=== PATIENT | male | born 1990 | race Caucasian/White ===

== ENCOUNTER 2018-08-03 15:58 | Inpatient (IN) | payer OTHER ==
[2018-07-31 19:50] VITALS: BP 105/68; PULSE 102; RESP 18
[~2018-08-03] VITALS: Ht 157.5 cm; Wt 45.8 kg
[2018-08-03 20:25] VITALS: Ht 157.5 cm; Wt 45.8 kg
[2018-08-03 21:25] VITALS: PULSE 99
[2018-08-03] MEDS ORDERED: ACETAMINOPHEN 325 MG TAB PO PRN (21:30)
[2018-08-03] MEDS ORDERED: ACCU-CHEK XX ONE (21:30)
[2018-08-03] MEDS ORDERED: INSULIN ASPART [NOVOLOG] 3 ML PEN SC ONE ×2 (21:30→22:00)
[2018-08-03] MEDS ORDERED: NACL 0.9% 3 ML SYG IV SCH (21:30)
[2018-08-03] MEDS ORDERED: ONDANSETRON 4 MG INJ IV PRN (21:30)
[2018-08-03] MEDS: SOD CHLORIDE 0.9% 1,000 ML IV SCH (21:43)
[2018-08-03] MEDS ORDERED: GLUCOSE GEL 15 GRAM TUBE BUCCAL PRN (22:00)
[2018-08-03] MEDS ORDERED: GLUCAGON 1 MG INJ IM PRN (22:00)
[2018-08-03] MEDS ORDERED: GLUCOSE GEL 15 GRAM TUBE PO PRN ×2 (22:00)
[2018-08-03] MEDS ORDERED: INSULIN GLARGINE [LANTus] (100 UNITS/ML) SYG SC SCH (22:00)
[2018-08-03] MEDS ORDERED: DEXTROSE 50% 50 ML SYRINGE IV PRN ×2 (22:00)
--- NOTE | 2018-08-03 23:47 | HP ---
Date/Time of Note Date/Time of Note DATE: 08/03/18 TIME: 23:47 Assessment/Plan VTE Prophylaxis Pharmacological prophylaxis: heparin Assessment/Plan Assessment/Plan 28-year-old male with history of type 2 diabetes on metformin, noncompliant for at least 2 months. Patient was sent from outside hospital for insurance reason for management of hyperglycemia. Blood glucose at the outside facility was greater than 700. No sign of DKA 1. Type 2 diabetes: With hyperglycemia. No DKA. Patient noncompliant with his metformin -Insulin, IV fluid -Check A1c 2. Failure to thrive: -Dietary consult -Check CBC and CMP Results 24hrs Laboratory Tests Test 08/03/18 20:18 08/03/18 22:08 Bedside Glucose 377 H 359 H HPI/ROS Admit Date/Time Admit Date/Time Aug 03, 2018 at 19:57 Hx of Present Illness Patient is a 28-year-old male with a history of type 2 diabetes who initially presented on outside hospital complaining of his blood glucose is high and also generalized weakness. He said he has not been taking his metformin for 2 months. At the outside facility, he is found to have a blood glucose greater than 700. No DKA. Patient was transferred to [facility] for insurance reason. Patient is somewhat cachectic. He also not interested in answering question and appears slightly sleepy but fully arousable. PMH/Family/Social Past Medical History Medical History: other (See HPI) Medications Current Medications Sodium Chloride 1,000 ml @ 125 mls/hr Q8H IV Last administered on 08/03/18at 21:43; Admin Dose 125 MLS/HR; Start 08/03/18 at 21:18 IV Flush (NS 3 ml) 3 ml PER PROTOCOL IV ; Start 08/03/18 at 21:30 Ondansetron HCl (Zofran Inj) 4 mg Q6H PRN IV NAUSEA/VOMITING; Start 08/03/18 at 21:30 Acetaminophen (Tylenol Tab) 650 mg Q6H PRN PO .PAIN 1-3 OR TEMP; Start 08/03/18 at 21:30 Diagnostic Test (Pha) (Accu-Chek) 1 ea 02 XX ; Start 08/04/18 at 02:00 Insulin Glargine (Lantus) 14 units DAILY@2000 SC Last administered on 08/03/18at 22:14; Admin Dose 14 UNITS; Start 08/03/18 at 22:00 Insulin Aspart (Novolog Insulin Pen) 4 unit WITH MEALS SC ; Start 08/04/18 at 07:55 Insulin Aspart (Novolog Insulin Pen) NOVOLOG *MODERATE* ALGORITHM WITH MEALS BEDTIME SC ; Start 08/04/18 at 07:55 Diagnostic Test (Pha) (Accu-Chek) 1 ea 2 HRS AFTER NOVOLOG ONCE XX ; Start 08/04/18 at 00:00; Stop 08/04/18 at 00:01 Miscellaneous Information 1 ea NOTE XX ; Start 08/03/18 at 22:00 Glucose (Glutose) 15 gm Q15M PRN PO DECREASED GLUCOSE; Start 08/03/18 at 22:00 Glucose (Glutose) 22.5 gm Q15M PRN PO DECREASED GLUCOSE; Start 08/03/18 at 22:00 Dextrose (D50w Syringe) 25 ml Q15M PRN IV DECREASED GLUCOSE; Start 08/03/18 at 22:00 Dextrose (D50w Syringe) 50 ml Q15M PRN IV DECREASED GLUCOSE; Start 08/03/18 at 22:00 Glucagon (Glucagen) 1 mg Q15M PRN IM DECREASED GLUCOSE; Start 08/03/18 at 22:00 Glucose (Glutose) 15 gm Q15M PRN BUCCAL DECREASED GLUCOSE; Start 08/03/18 at 22:00 Coded Allergies: No Known Allergies (Verified Allergy, Unknown, 08/03/18) Past Surgical History Past Surgical Hx: other (See HPI) Family History Significant Family History: no pertinent family hx Social History Alcohol Use: other Smoking Status: Unknown if ever smoked Drug Use: other Exam/Review of Systems Vital Signs Vitals Vital Signs Date Temp Pulse Resp B/P (MAP) Pulse Ox O2 O2 Flow FiO2 Time Delivery Rate 08/03/18 99 21:25 07/31/18 98.3 18 105/68 97 Room Air 19:50 (80) Exam Constitutional: other (Sleepy, but arousable. Alert and oriented) Head: normocephalic, atraumatic Eyes: EOMI, PERRL Respiratory: clear to auscultation, normal air movement Cardiovascular: regular rate and rhythm, nl pulses Gastrointestinal: soft Extremities: normal pulses ELIA ARANA MD Aug 03, 2018 23:47
[2018-08-04] VITALS (10 sets, daily range): BP systolic 97–109; BP diastolic 57–67; PULSE 71–103; RESP 18–20
[2018-08-04] MEDS ORDERED: INSULIN ASPART [NOVOLOG] 3 ML PEN SC ONE ×2 (01:00→12:30)
[2018-08-04] MEDS ORDERED: ACCU-CHEK XX ONE ×3 (01:00→12:30)
[2018-08-04] MEDS: ACCU-CHEK XX SCH (03:15)
[2018-08-04] MEDS: SOD CHLORIDE 0.9% 1,000 ML IV SCH ×3 (06:15→22:25)
[2018-08-04] MEDS ORDERED: MAGNESIUM SULFATE 4 GM/100 ML 100 ML IVPB ONE ×2 (07:00→11:00)
[2018-08-04] MEDS: POTASSIUM CHLORIDE 100 ML IVPB SCH ×2 (07:47→10:20)
[2018-08-04] MEDS: INSULIN ASPART [NOVOLOG] 3 ML PEN SC SCH ×7 (08:06→20:20)
[2018-08-04] MEDS ORDERED: LEVOFLOXACIN 500MG/D5W (PMX) 100 ML IVPB SCH (09:00)
[2018-08-04] MEDS ORDERED: POTASSIUM CHLORIDE (SR) 20 MEQ TAB PO STA (12:28)
--- NOTE | 2018-08-04 12:43 | PN ---
Date/Time of Note Date/Time of Note DATE: 08/04/18 TIME: 12:38 Assessment/Plan VTE Prophylaxis Risk score (from Ns)>0 risk: 1 SCD applied (from [facility] [place]): Yes Pharmacological prophylaxis: other Pharm contraindication: other Assessment/Plan Assessment/Plan 1. Sepsis, ?biliary, change antibiotics to zosyn and vanco, abdominal US, may need MRCP 2. Hypokalemia, KCL 3. Hypomagnesemia, Mg 4. High alk phos, US, may need MRCP 5. Type 2 diabetes, change lantus to 10 units bid, on premeal and ISS 6. Dehydration IVF 7. DVT prophylaxis: SCDs Result Diagram: 08/04/18 0548 08/04/18 0548 Results 24hrs Laboratory Tests Test 08/03/18 20:18 08/03/18 22:08 08/04/18 00:23 08/04/18 03:14 Bedside Glucose 377 H 359 H 374 H 117 Test 08/04/18 05:48 08/04/18 07:59 08/04/18 12:14 White Blood Count 20.5 H Red Blood Count 5.05 Hemoglobin 13.9 L Hematocrit 39.6 L Mean Corpuscular 78.4 L Volume Mean Corpuscular 27.5 L Hemoglobin Mean Corpuscular 35.1 Hemoglobin Concent Red Cell 11.8 Distribution Width Platelet Count 426 H Mean Platelet Volume 9.8 Immature 0.600 H Granulocytes % Neutrophils % 76.5 Lymphocytes % 15.9 Monocytes % 6.1 Eosinophils % 0.6 Basophils % 0.3 Nucleated Red Blood 0.0 Cells % Immature 0.120 H Granulocytes # Neutrophils # 15.7 H Lymphocytes # 3.3 H Monocytes # 1.2 H Eosinophils # 0.1 Basophils # 0.1 Nucleated Red Blood 0.0 Cells # Sodium Level 137 Potassium Level 3.0 L Chloride Level 96 L Carbon Dioxide Level 34 H Anion Gap 7 Blood Urea Nitrogen 16 Creatinine 0.53 L Est Glomerular > 60 Filtrat Rate mL/min Glucose Level 176 Calcium Level 8.5 Magnesium Level 0.9 *L Total Bilirubin 0.2 Direct Bilirubin 0.00 Indirect Bilirubin 0.2 Aspartate Amino 84 H Transf (AST/SGOT) Alanine 82 H Aminotransferase (AL T/SGPT) Alkaline Phosphatase 1008 H Total Protein 6.6 Albumin 2.9 L Globulin 3.70 H Albumin/Globulin 0.78 Ratio Bedside Glucose 215 373 H Subjective 24 Hr Interval Summary Free Text/Dictation no abdominal pain, no nausea or vomiting, denies alcoholic no cough or shortness of breath Exam/Review of Systems Exam Vitals Vital Signs Date Temp Pulse Resp B/P (MAP) Pulse Ox O2 O2 Flow FiO2 Time Delivery Rate 08/04/18 98.0 78 20 105/67 98 12:02 (80) 08/04/18 Room Air 04:22 Intake and Output 08/03/18 08/03/18 08/04/18 1515:00 23:00 07:00 IntakeIntake Total 950 ml BalanceBalance 950 ml Constitutional: alert, oriented, well developed Head: normocephalic, atraumatic Eyes: nl conjunctiva, EOMI, nl lids ENMT: nl external ears & nose, nl lips & teeth, nl nasal mucosa & septum Neck: supple, non-tender Respiratory: clear to auscultation, normal air movement; No congested cough, No crackles/rales, No diminished breath sounds, No intercostal retraction, No labored breathing, No respirations, No tactile fremitus, No wheezing, No other Cardiovascular: regular rate and rhythm, nl pulses; No bruits, No diastolic murmur, No edema, No gallop, No irregular rhythm, No jugular venous distention (JVD), No murmurs/extra sounds, No rub, No systolic murmur, No S3, No S4, No other Gastrointestinal: soft, nl liver, spleen, non-tender Musculoskeletal: nl extremities to inspection Extremities: normal pulses; No calf tenderness, No cyanosis, No clubbing, No edema, No pitting pedal edema, No palpable cord, No tenderness, No other 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: 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 [employer] 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 II-XII intact, nl mental status, nl speech, nl strength Results Results 24hrs Laboratory Tests Test 08/03/18 20:18 08/03/18 22:08 08/04/18 00:23 08/04/18 03:14 Bedside Glucose 377 H 359 H 374 H 117 Test 08/04/18 05:48 08/04/18 07:59 08/04/18 12:14 White Blood Count 20.5 H Red Blood Count 5.05 Hemoglobin 13.9 L Hematocrit 39.6 L Mean Corpuscular 78.4 L Volume Mean Corpuscular 27.5 L Hemoglobin Mean Corpuscular 35.1 Hemoglobin Concent Red Cell 11.8 Distribution Width Platelet Count 426 H Mean Platelet Volume 9.8 Immature 0.600 H Granulocytes % Neutrophils % 76.5 Lymphocytes % 15.9 Monocytes % 6.1 Eosinophils % 0.6 Basophils % 0.3 Nucleated Red Blood 0.0 Cells % Immature 0.120 H Granulocytes # Neutrophils # 15.7 H Lymphocytes # 3.3 H Monocytes # 1.2 H Eosinophils # 0.1 Basophils # 0.1 Nucleated Red Blood 0.0 Cells # Sodium Level 137 Potassium Level 3.0 L Chloride Level 96 L Carbon Dioxide Level 34 H Anion Gap 7 Blood Urea Nitrogen 16 Creatinine 0.53 L Est Glomerular > 60 Filtrat Rate mL/min Glucose Level 176 Calcium Level 8.5 Magnesium Level 0.9 *L Total Bilirubin 0.2 Direct Bilirubin 0.00 Indirect Bilirubin 0.2 Aspartate Amino 84 H Transf (AST/SGOT) Alanine 82 H Aminotransferase (AL T/SGPT) Alkaline Phosphatase 1008 H Total Protein 6.6 Albumin 2.9 L Globulin 3.70 H Albumin/Globulin 0.78 Ratio Bedside Glucose 215 373 H Medications Medication Current Medications Sodium Chloride 1,000 ml @ 125 mls/hr Q8H IV Last administered on 08/04/18at 06:15; Admin Dose 125 MLS/HR; Start 08/03/18 at 21:18 IV Flush (NS 3 ml) 3 ml PER PROTOCOL IV ; Start 08/03/18 at 21:30 Ondansetron HCl (Zofran Inj) 4 mg Q6H PRN IV NAUSEA/VOMITING; Start 08/03/18 at 21:30 Acetaminophen (Tylenol Tab) 650 mg Q6H PRN PO .PAIN 1-3 OR TEMP; Start 08/03/18 at 21:30 Diagnostic Test (Pha) (Accu-Chek) 1 ea 02 XX Last administered on 08/04/18at 03:15; Admin Dose 1 EA; Start 08/04/18 at 02:00 Insulin Aspart (Novolog Insulin Pen) 4 unit WITH MEALS SC Last administered on 08/04/18at 08:06; Admin Dose 4 UNIT; Start 08/04/18 at 07:55 Insulin Aspart (Novolog Insulin Pen) NOVOLOG *MODERATE* ALGORITHM WITH MEALS BEDTIME SC Last administered on 08/04/18at 08:06; Admin Dose 4 UNIT; Start 08/04/18 at 07:55 Miscellaneous Information 1 ea NOTE XX ; Start 08/03/18 at 22:00 Glucose (Glutose) 15 gm Q15M PRN PO DECREASED GLUCOSE; Start 08/03/18 at 22:00 Glucose (Glutose) 22.5 gm Q15M PRN PO DECREASED GLUCOSE; Start 08/03/18 at 22:00 Dextrose (D50w Syringe) 25 ml Q15M PRN IV DECREASED GLUCOSE; Start 08/03/18 at 22:00 Dextrose (D50w Syringe) 50 ml Q15M PRN IV DECREASED GLUCOSE; Start 08/03/18 at 22:00 Glucagon (Glucagen) 1 mg Q15M PRN IM DECREASED GLUCOSE; Start 08/03/18 at 22:00 Glucose (Glutose) 15 gm Q15M PRN BUCCAL DECREASED GLUCOSE; Start 08/03/18 at 22:00 Magnesium Sulfate 100 ml @ 25 mls/hr ONCE ONCE IVPB Last administered on 08/04/18at 12:09; Admin Dose 25 MLS/HR; Start 08/04/18 at 11:00; Stop 08/04/18 at 14:59 Diagnostic Test (Pha) (Accu-Chek) 1 ea 2 HRS AFTER NOVOLOG ONCE XX ; Start 08/04/18 at 12:30; Stop 08/04/18 at 12:31; Status UNV Piperacillin Sod/ Tazobactam Sod 100 ml @ 200 mls/hr Q6 IVPB ; Start 08/04/18 at 13:00; Status UNV Insulin Glargine (Lantus) 10 units BID SC ; Start 08/04/18 at 21:00; Status UNV MAHAMED ESCOBAR MD Aug 04, 2018 12:43
[2018-08-04] MEDS ORDERED: VANCOMYCIN IV PER PHARMACY XX SCH (13:00)
[2018-08-04] MEDS ORDERED: VANCOMYCIN 1 GM 250 ML IVPB ONE (13:00)
[2018-08-04] MEDS: PIPER-TAZO 3.375 GM IV (PMX) 100 ML IVPB SCH ×2 (13:43→16:50)
[2018-08-04] MEDS: INSULIN GLARGINE [LANTus] (100 UNITS/ML) SYG SC SCH (20:23)
[2018-08-04] MEDS ORDERED: INSULIN GLARGINE [LANTus] (100 UNITS/ML) SYG SC SCH (21:00)
[2018-08-05] VITALS (10 sets, daily range): BP systolic 95–107; BP diastolic 58–96; PULSE 72–98; RESP 18
[2018-08-05] MEDS: PIPER-TAZO 3.375 GM IV (PMX) 100 ML IVPB SCH ×5 (00:22→23:45)
[2018-08-05] MEDS: ACCU-CHEK XX SCH (02:00)
[2018-08-05] MEDS: VANCOMYCIN 750 MG (PMX) 250 ML IVPB SCH ×2 (02:19→13:58)
[2018-08-05] MEDS: SOD CHLORIDE 0.9% 1,000 ML IV SCH ×3 (05:18→21:18)
[2018-08-05] MEDS: INSULIN ASPART [NOVOLOG] 3 ML PEN SC SCH ×7 (08:02→21:07)
[2018-08-05] MEDS ORDERED: POTASSIUM CHLORIDE (SR) 20 MEQ TAB PO STA (08:36)
[2018-08-05] MEDS ORDERED: POTASSIUM CHLORIDE 100 ML IVPB STA (08:36)
[2018-08-05] MEDS ORDERED: MAGNESIUM SULFATE 6 GM in DEXTROSE 5% 100 ML IVPB SCH (09:00)
[2018-08-05] MEDS: INSULIN GLARGINE [LANTus] (100 UNITS/ML) SYG SC SCH ×2 (09:07→21:07)
[2018-08-05] MEDS ORDERED: POTASSIUM CHLORIDE (SR) 20 MEQ TAB PO ONE (10:36)
--- NOTE | 2018-08-05 13:43 | PN ---
Date/Time of Note Date/Time of Note DATE: 08/05/18 TIME: 13:31 Assessment/Plan VTE Prophylaxis Risk score (from Ns)>0 risk: 1 SCD applied (from [facility] [place]): Yes Pharmacological prophylaxis: other Pharm contraindication: other Lines/Catheters IV C[facility]ter Type (from [facility]): Peripheral IV Assessment/Plan Assessment/Plan 1. Sepsis, ?biliary, change antibiotics to zosyn and vanco, MRCP 2. Hypokalemia, KCL 3. Hypomagnesemia, Mg 4. Transaminitis, with high alk phos, US,MRCP, hepatitis panel 5. Type 2 diabetes, change lantus to 14 units bid, on premeal and ISS 6. Dehydration IVF 7. DVT prophylaxis: SCDs Result Diagram: 08/05/18 0654 08/05/18 0654 Results 24hrs Laboratory Tests Test 08/04/18 13:36 08/04/18 13:38 08/04/18 14:24 08/04/18 16:57 Bedside Glucose 467 *H 526 *H 338 H 223 H Test 08/04/18 20:08 08/04/18 20:19 08/04/18 23:26 08/05/18 06:54 Lactic Acid Level 2.9 *H 1.7 Bedside Glucose 167 White Blood Count 18.7 H Red Blood Count 5.04 Hemoglobin 13.6 L Hematocrit 40.2 L Mean Corpuscular 79.8 L Volume Mean Corpuscular 27.0 L Hemoglobin Mean Corpuscular 33.8 Hemoglobin Concent Red Cell 11.8 Distribution Width Platelet Count 427 H Mean Platelet Volume 9.7 Immature 0.500 H Granulocytes % Neutrophils % 74.2 Lymphocytes % 17.7 Monocytes % 6.8 Eosinophils % 0.4 Basophils % 0.4 Nucleated Red Blood 0.0 Cells % Immature 0.090 H Granulocytes # Neutrophils # 13.9 H Lymphocytes # 3.3 H Monocytes # 1.3 H Eosinophils # 0.1 Basophils # 0.1 Nucleated Red Blood 0.0 Cells # Sodium Level 136 Potassium Level 3.0 L Chloride Level 97 Carbon Dioxide Level 32 H Anion Gap 7 Blood Urea Nitrogen 12 Creatinine 0.61 Est Glomerular > 60 Filtrat Rate mL/min Glucose Level 187 Calcium Level 8.0 L Phosphorus Level 2.6 Magnesium Level 1.2 L Total Bilirubin 0.4 Direct Bilirubin 0.00 Indirect Bilirubin 0.4 Aspartate Amino 75 H Transf (AST/SGOT) Alanine 72 H Aminotransferase (AL T/SGPT) Alkaline Phosphatase 961 H Total Protein 6.4 Albumin 2.9 L Globulin 3.50 H Albumin/Globulin 0.82 Ratio Test 08/05/18 07:45 08/05/18 09:02 08/05/18 12:14 Bedside Glucose 215 276 H 259 H Subjective 24 Hr Interval Summary Free Text/Dictation no pain, no cough, no fever or chills. No diarrhea or dysuria Exam/Review of Systems Exam Vitals Vital Signs Date Temp Pulse Resp B/P (MAP) Pulse Ox O2 O2 Flow FiO2 Time Delivery Rate 08/05/18 76 13:06 08/05/18 97.8 18 95/58 (70) 96 Room Air 11:20 Intake and Output 08/04/18 08/04/18 08/05/18 1515:00 23:00 07:00 IntakeIntake Total 1800 ml 2225 ml 3300 ml OutputOutput Total 1600 ml 1600 ml 2800 ml BalanceBalance 200 ml 625 ml 500 ml Constitutional: alert, oriented, well developed Psych: no complaints, nl mood/affect Head: normocephalic, atraumatic Eyes: nl conjunctiva, EOMI, nl lids ENMT: nl external ears & nose, nl lips & teeth, nl nasal mucosa & septum Neck: supple, non-tender Respiratory: clear to auscultation, normal air movement; No congested cough, No crackles/rales, No diminished breath sounds, No intercostal retraction, No labored breathing, No respirations, No tactile fremitus, No wheezing, No other Cardiovascular: regular rate and rhythm, nl pulses; No bruits, No diastolic murmur, No edema, No gallop, No irregular rhythm, No jugular venous distention (JVD), No murmurs/extra sounds, No rub, No systolic murmur, No S3, No S4, No other Gastrointestinal: soft, nl liver, spleen, non-tender Musculoskeletal: nl extremities to inspection Extremities: normal pulses; No calf tenderness, No cyanosis, No clubbing, No edema, No pitting pedal edema, No palpable cord, No tenderness, No other 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: T[employer] II-XII intact, nl mental status, nl speech, nl strength Results Results 24hrs Laboratory Tests Test 08/04/18 13:36 08/04/18 13:38 08/04/18 14:24 08/04/18 16:57 Bedside Glucose 467 *H 526 *H 338 H 223 H Test 08/04/18 20:08 08/04/18 20:19 08/04/18 23:26 08/05/18 06:54 Lactic Acid Level 2.9 *H 1.7 Bedside Glucose 167 White Blood Count 18.7 H Red Blood Count 5.04 Hemoglobin 13.6 L Hematocrit 40.2 L Mean Corpuscular 79.8 L Volume Mean Corpuscular 27.0 L Hemoglobin Mean Corpuscular 33.8 Hemoglobin Concent Red Cell 11.8 Distribution Width Platelet Count 427 H Mean Platelet Volume 9.7 Immature 0.500 H Granulocytes % Neutrophils % 74.2 Lymphocytes % 17.7 Monocytes % 6.8 Eosinophils % 0.4 Basophils % 0.4 Nucleated Red Blood 0.0 Cells % Immature 0.090 H Granulocytes # Neutrophils # 13.9 H Lymphocytes # 3.3 H Monocytes # 1.3 H Eosinophils # 0.1 Basophils # 0.1 Nucleated Red Blood 0.0 Cells # Sodium Level 136 Potassium Level 3.0 L Chloride Level 97 Carbon Dioxide Level 32 H Anion Gap 7 Blood Urea Nitrogen 12 Creatinine 0.61 Est Glomerular > 60 Filtrat Rate mL/min Glucose Level 187 Calcium Level 8.0 L Phosphorus Level 2.6 Magnesium Level 1.2 L Total Bilirubin 0.4 Direct Bilirubin 0.00 Indirect Bilirubin 0.4 Aspartate Amino 75 H Transf (AST/SGOT) Alanine 72 H Aminotransferase (AL T/SGPT) Alkaline Phosphatase 961 H Total Protein 6.4 Albumin 2.9 L Globulin 3.50 H Albumin/Globulin 0.82 Ratio Test 08/05/18 07:45 08/05/18 09:02 08/05/18 12:14 Bedside Glucose 215 276 H 259 H Medications Medication Current Medications Sodium Chloride 1,000 ml @ 125 mls/hr Q8H IV Last administered on 08/04/18at 22:25; Admin Dose 125 MLS/HR; Start 08/03/18 at 21:18 IV Flush (NS 3 ml) 3 ml PER PROTOCOL IV ; Start 08/03/18 at 21:30 Ondansetron HCl (Zofran Inj) 4 mg Q6H PRN IV NAUSEA/VOMITING; Start 08/03/18 at 21:30 Acetaminophen (Tylenol Tab) 650 mg Q6H PRN PO .PAIN 1-3 OR TEMP; Start 08/03/18 at 21:30 Diagnostic Test (Pha) (Accu-Chek) 1 ea 02 XX Last administered on 08/04/18at 03:15; Admin Dose 1 EA; Start 08/04/18 at 02:00 Insulin Aspart (Novolog Insulin Pen) 4 unit WITH MEALS SC Last administered on 08/05/18at 12:19; Admin Dose 4 UNIT; Start 08/04/18 at 07:55 Insulin Aspart (Novolog Insulin Pen) NOVOLOG *MODERATE* ALGORITHM WITH MEALS BEDTIME SC Last administered on 08/05/18at 12:19; Admin Dose 6 UNIT; Start 08/04/18 at 07:55 Miscellaneous Information 1 ea NOTE XX ; Start 08/03/18 at 22:00 Glucose (Glutose) 15 gm Q15M PRN PO DECREASED GLUCOSE; Start 08/03/18 at 22:00 Glucose (Glutose) 22.5 gm Q15M PRN PO DECREASED GLUCOSE; Start 08/03/18 at 22:00 Dextrose (D50w Syringe) 25 ml Q15M PRN IV DECREASED GLUCOSE; Start 08/03/18 at 22:00 Dextrose (D50w Syringe) 50 ml Q15M PRN IV DECREASED GLUCOSE; Start 08/03/18 at 22:00 Glucagon (Glucagen) 1 mg Q15M PRN IM DECREASED GLUCOSE; Start 08/03/18 at 22:00 Glucose (Glutose) 15 gm Q15M PRN BUCCAL DECREASED GLUCOSE; Start 08/03/18 at 22:00 Piperacillin Sod/ Tazobactam Sod 100 ml @ 200 mls/hr Q6 IVPB Last administered on 08/05/18at 11:43; Admin Dose 200 MLS/HR; Start 08/04/18 at 13:00 Insulin Glargine (Lantus) 10 units BID SC Last administered on 08/05/18at 09:07; Admin Dose 10 UNITS; Start 08/04/18 at 21:00 Vancomycin HCl (Vanco Iv Per Pharmacy) VANCOMYCIN PER PHARMACY PER PROTOCOL XX ; Start 08/04/18 at 13:00 Vancomycin/Sodium Chloride 250 ml @ 250 mls/hr Q12H IVPB Last administered on 08/05/18at 02:19; Admin Dose 250 MLS/HR; Start 08/05/18 at 02:00 Magnesium Sulfate 6 gm/Dextrose 112 ml @ 40 mls/hr NOW IVPB Last administered on 08/05/18at 09:26; Admin Dose 40 MLS/HR; Start 08/05/18 at 09:00; Stop 08/05/18 at 18:00 MAHAMED ESCOBAR MD Aug 05, 2018 13:42
--- NOTE | 2018-08-05 15:58 | CONS ---
Assessment/Plan Assessment/Plan Hospital Course (Demo Recall) Summary Assessment and Plan: Assessment: Elevated alkaline phosphatase Transaminitis Leukocytosis Type 2 diabetes Plan: MRCP is currently pending We will order alkaline phosphatase fractionation as well as GGTP with a.m. labs. Given significant elevation in alkaline phosphatase we will additionally order mitochondrial antibody Continue to trend LFTS Further recommendations based on clinical course Patient seen in collaboration with Dr. Vital CC: HUSSEIN VITAL MD ; Consultation Date/Type/Reason Admit Date/Time Aug 03, 2018 at 19:57 Date of Consultation: Aug 05, 2018 Type of Consult GI Reason for Consultation Abnormal LFTs Date/Time of Note DATE: 08/05/18 TIME: 15:52 Hx of Present Illness This a 28-year-old male with past medical history of diabetes, noncompliant. Who presented to [facility] for elevated blood sugar there was noted to be greater than 700 additional lab work was obtained patient noted to have WBC of 18.4. He was transferred to [facility] for insurance reasons here additional work-up was obtained including a chemistry panel showing a severely elevated alkaline phosphatase over 1000 and mildly elevated AST ALT 70s. Is been consulted for further evaluation thus far hepatitis panel has been ordered, hepatitis B surface antigen is negative hepatitis B core total antibody and hep atitis C antibody are both currently pending. An MRCP has been ordered and is also currently pending. At time of evaluation patient is resting in bed easily awake and agitated he denies nausea/vomiting, abdominal pain, constipation, diarrhea, overt signs of GI bleed states he is eating well despite appearing very thin. Discussed plan for further work-up patient relies understanding is agreeable socially denies smoking, drug use, or EtOH use Review of Systems: A 12 system, review was conducted and is negative except as noted in the HPI or here. Past Medical History Medical History: other (See HPI) Medications Current Medications Sodium Chloride 1,000 ml @ 125 mls/hr Q8H IV Last administered on 08/05/18at 13:58; Admin Dose 125 MLS/HR; Start 08/03/18 at 21:18 IV Flush (NS 3 ml) 3 ml PER PROTOCOL IV ; Start 08/03/18 at 21:30 Ondansetron HCl (Zofran Inj) 4 mg Q6H PRN IV NAUSEA/VOMITING; Start 08/03/18 at 21:30 Acetaminophen (Tylenol Tab) 650 mg Q6H PRN PO .PAIN 1-3 OR TEMP; Start 08/03/18 at 21:30 Diagnostic Test (Pha) (Accu-Chek) 1 ea 02 XX Last administered on 08/04/18at 03:15; Admin Dose 1 EA; Start 08/04/18 at 02:00 Insulin Aspart (Novolog Insulin Pen) 4 unit WITH MEALS SC Last administered on 08/05/18at 12:19; Admin Dose 4 UNIT; Start 08/04/18 at 07:55 Insulin Aspart (Novolog Insulin Pen) NOVOLOG *MODERATE* ALGORITHM WITH MEALS BEDTIME SC Last administered on 08/05/18at 12:19; Admin Dose 6 UNIT; Start 08/04/18 at 07:55 Miscellaneous Information 1 ea NOTE XX ; Start 08/03/18 at 22:00 Glucose (Glutose) 15 gm Q15M PRN PO DECREASED GLUCOSE; Start 08/03/18 at 22:00 Glucose (Glutose) 22.5 gm Q15M PRN PO DECREASED GLUCOSE; Start 08/03/18 at 22:00 Dextrose (D50w Syringe) 25 ml Q15M PRN IV DECREASED GLUCOSE; Start 08/03/18 at 22:00 Dextrose (D50w Syringe) 50 ml Q15M PRN IV DECREASED GLUCOSE; Start 08/03/18 at 22:00 Glucagon (Glucagen) 1 mg Q15M PRN IM DECREASED GLUCOSE; Start 08/03/18 at 22:00 Glucose (Glutose) 15 gm Q15M PRN BUCCAL DECREASED GLUCOSE; Start 08/03/18 at 22:00 Piperacillin Sod/ Tazobactam Sod 100 ml @ 200 mls/hr Q6 IVPB Last administered on 08/05/18at 11:43; Admin Dose 200 MLS/HR; Start 08/04/18 at 13:00 Vancomycin HCl (Vanco Iv Per Pharmacy) VANCOMYCIN PER PHARMACY PER PROTOCOL XX ; Start 08/04/18 at 13:00 Vancomycin/Sodium Chloride 250 ml @ 250 mls/hr Q12H IVPB Last administered on 08/05/18at 13:58; Admin Dose 250 MLS/HR; Start 08/05/18 at 02:00 Magnesium Sulfate 6 gm/Dextrose 112 ml @ 40 mls/hr NOW IVPB Last administered on 08/05/18at 09:26; Admin Dose 40 MLS/HR; Start 08/05/18 at 09:00; Stop 08/05/18 at 18:00 Insulin Glargine (Lantus) 14 units BID SC ; Start 08/05/18 at 21:00 Allergies: Coded Allergies: No Known Allergies (Verified Allergy, Unknown, 08/03/18) Past Surgical History Past Surgical Hx: other (See HPI) Social History Alcohol Use: other Smoking Status: Unknown if ever smoked Drug Use: other Exam/Review of Systems Exam Vitals Vital Signs Date Temp Pulse Resp B/P (MAP) Pulse Ox O2 O2 Flow FiO2 Time Delivery Rate 08/05/18 97.4 88 18 97/66 (76) 97 Room Air 15:05 Intake and Output 08/04/18 08/04/18 08/05/18 1515:00 23:00 07:00 IntakeIntake Total 1800 ml 2225 ml 3300 ml OutputOutput Total 1600 ml 1600 ml 2800 ml BalanceBalance 200 ml 625 ml 500 ml Exam PHYSICAL EXAMINATION: GENERAL: Alert & oriented x 3,thin, agitated SKIN: No lesions HEAD: Normocephalic, atraumatic, no tenderness. EYES: Pupils equal reactive to light and accommodation, no discharge. EARS/NOSE AND THROAT: Ears normal, nose normal. NECK: Supple, no masses CHEST: Inspection within normal limits. CARDIOVASCULAR: Heart: Regular rate and rhythm RESPIRATORY: Lungs clear to auscultation GASTROINTESTINAL AND LIVER: Abdomen: Soft, non tenderness, non-distended, no hernias, no masses, no organomegaly, no ascites, no guarding, no rebound tenderness, normoactive bowel sounds. Rectal: Deferred. Results Result Diagram: 08/05/18 0654 08/05/18 0654 Results 24hrs Laboratory Tests Test 08/04/18 16:57 08/04/18 20:08 08/04/18 20:19 08/04/18 23:26 Bedside Glucose 223 H 167 Lactic Acid Level 2.9 *H 1.7 Test 08/05/18 06:52 08/05/18 06:54 08/05/18 07:45 08/05/18 09:02 Hepatitis B Surface NEGATIVE Antigen Hepatitis B Core NEGATIVE Total Antibody Hepatitis C Antibody NEGATIVE White Blood Count 18.7 H Red Blood Count 5.04 Hemoglobin 13.6 L Hematocrit 40.2 L Mean Corpuscular 79.8 L Volume Mean Corpuscular 27.0 L Hemoglobin Mean Corpuscular 33.8 Hemoglobin Concent Red Cell 11.8 Distribution Width Platelet Count 427 H Mean Platelet Volume 9.7 Immature 0.500 H Granulocytes % Neutrophils % 74.2 Lymphocytes % 17.7 Monocytes % 6.8 Eosinophils % 0.4 Basophils % 0.4 Nucleated Red Blood 0.0 Cells % Immature 0.090 H Granulocytes # Neutrophils # 13.9 H Lymphocytes # 3.3 H Monocytes # 1.3 H Eosinophils # 0.1 Basophils # 0.1 Nucleated Red Blood 0.0 Cells # Sodium Level 136 Potassium Level 3.0 L Chloride Level 97 Carbon Dioxide Level 32 H Anion Gap 7 Blood Urea Nitrogen 12 Creatinine 0.61 Est Glomerular > 60 Filtrat Rate mL/min Glucose Level 187 Calcium Level 8.0 L Phosphorus Level 2.6 Magnesium Level 1.2 L Total Bilirubin 0.4 Direct Bilirubin 0.00 Indirect Bilirubin 0.4 Aspartate Amino 75 H Transf (AST/SGOT) Alanine 72 H Aminotransferase (AL T/SGPT) Alkaline Phosphatase 961 H Total Protein 6.4 Albumin 2.9 L Globulin 3.50 H Albumin/Globulin 0.82 Ratio Bedside Glucose 215 276 H Test 08/05/18 12:14 Bedside Glucose 259 H Medications Medication Current Medications Sodium Chloride 1,000 ml @ 125 mls/hr Q8H IV Last administered on 08/05/18at 13:58; Admin Dose 125 MLS/HR; Start 08/03/18 at 21:18 IV Flush (NS 3 ml) 3 ml PER PROTOCOL IV ; Start 08/03/18 at 21:30 Ondansetron HCl (Zofran Inj) 4 mg Q6H PRN IV NAUSEA/VOMITING; Start 08/03/18 at 21:30 Acetaminophen (Tylenol Tab) 650 mg Q6H PRN PO .PAIN 1-3 OR TEMP; Start 08/03/18 at 21:30 Diagnostic Test (Pha) (Accu-Chek) 1 ea 02 XX Last administered on 08/04/18at 03:15; Admin Dose 1 EA; Start 08/04/18 at 02:00 Insulin Aspart (Novolog Insulin Pen) 4 unit WITH MEALS SC Last administered on 08/05/18at 12:19; Admin Dose 4 UNIT; Start 08/04/18 at 07:55 Insulin Aspart (Novolog Insulin Pen) NOVOLOG *MODERATE* ALGORITHM WITH MEALS BEDTIME SC Last administered on 08/05/18at 12:19; Admin Dose 6 UNIT; Start 08/04/18 at 07:55 Miscellaneous Information 1 ea NOTE XX ; Start 08/03/18 at 22:00 Glucose (Glutose) 15 gm Q15M PRN PO DECREASED GLUCOSE; Start 08/03/18 at 22:00 Glucose (Glutose) 22.5 gm Q15M PRN PO DECREASED GLUCOSE; Start 08/03/18 at 22:00 Dextrose (D50w Syringe) 25 ml Q15M PRN IV DECREASED GLUCOSE; Start 08/03/18 at 22:00 Dextrose (D50w Syringe) 50 ml Q15M PRN IV DECREASED GLUCOSE; Start 08/03/18 at 22:00 Glucagon (Glucagen) 1 mg Q15M PRN IM DECREASED GLUCOSE; Start 08/03/18 at 22:00 Glucose (Glutose) 15 gm Q15M PRN BUCCAL DECREASED GLUCOSE; Start 08/03/18 at 22:00 Piperacillin Sod/ Tazobactam Sod 100 ml @ 200 mls/hr Q6 IVPB Last administered on 08/05/18at 11:43; Admin Dose 200 MLS/HR; Start 08/04/18 at 13:00 Vancomycin HCl (Vanco Iv Per Pharmacy) VANCOMYCIN PER PHARMACY PER PROTOCOL XX ; Start 08/04/18 at 13:00 Vancomycin/Sodium Chloride 250 ml @ 250 mls/hr Q12H IVPB Last administered on 08/05/18at 13:58; Admin Dose 250 MLS/HR; Start 08/05/18 at 02:00 Magnesium Sulfate 6 gm/Dextrose 112 ml @ 40 mls/hr NOW IVPB Last administered on 08/05/18at 09:26; Admin Dose 40 MLS/HR; Start 08/05/18 at 09:00; Stop 08/05/18 at 18:00 Insulin Glargine (Lantus) 14 units BID SC ; Start 08/05/18 at 21:00 CAMERON MORA Aug 05, 2018 15:58
--- NOTE | 2018-08-05 17:42 | CONS ---
DATE OF ADMISSION: 08/03/2018 DATE OF CONSULTATION: 08/05/2018 TYPE OF CONSULTATION: Infectious disease. REASON FOR CONSULTATION: Antibiotic management. HISTORY OF PRESENT ILLNESS: Eleazar Lawton is a 28-year-old male with history of adult-ons et diabetes mellitus who initially presented to an outside hospital with blood sugar in the 700s. He has not been taking his metformin for 2 months. There is no evidence of DKA. He was transferred to [facility]. The patient is somewhat cachectic and is somewhat lethargic, sleepy and noncom pliant. PAST MEDICAL HISTORY: As outlined. FAMILY HISTORY: Noncontributory. SOCIAL HISTORY: He drinks alcohol. It is unknown if he ever smoked. He probably does use illegal d rugs. PHYSICAL EXAMINATION: GENERAL: He is sleepy, but arousable. SKIN: Without generalized rash. HEENT: Within normal limits. NECK: Supple. LYMPH NODES: None palpable. CHEST: Decreased breath sounds at the bases. HEART: Without murmur or gallop. ABDOMEN: Soft, nontender, without organosplenomegaly or masses. EXTREMITIES: Without cyanosis, clubbing or edema. RECTAL AND GENITAL: Deferred. NEUROLOGIC: No focal neurological abnormality. DIAGNOSTIC DATA: The patient unremarkable abdominal ultrasound with suboptimal visualization of the left kidney. ANCILLARY LABORATORY DATA: His white count on admission was 20.5, today it is 18.7, H and H 13.6 and 40.2, platelet count 427,000 with 74% neutrophils. BUN and creatinine are 12/0.61. Blood sugar is 259. AST 75, ALT 72, alkaline phosphatase 961 which is elevated. Bilirubin is normal. IMPRESSION AND PLAN: The patient was seen by Dr. Escobar, question of biliary changes. Abdominal ultra sound was done. May need MRCP for the time being. The patient's glucose is under control. We will continue him on current therapy. His white count is down to 18.7. I will dictate my findings to the hospitalist. He is on vancomycin and Zosyn. Dictated By: HIGINIO LR MD, JD/NTS Conf#: [id number] DID#: [id number] CC: DONNY MORA MD; AUDRA DILLON [employer] SUPERVISOR; MAHAMED ESCOBAR MD;*EndCC*
[2018-08-06] VITALS (10 sets, daily range): BP systolic 92–112; BP diastolic 56–79; PULSE 76–105; RESP 18–20
[2018-08-06] MEDS: ACCU-CHEK XX SCH (02:00)
[2018-08-06] MEDS: VANCOMYCIN 750 MG (PMX) 250 ML IVPB SCH ×3 (02:32→19:28)
[2018-08-06] MEDS: SOD CHLORIDE 0.9% 1,000 ML IV SCH ×3 (05:23→20:29)
[2018-08-06] MEDS: PIPER-TAZO 3.375 GM IV (PMX) 100 ML IVPB SCH ×4 (05:44→23:25)
[2018-08-06] MEDS ORDERED: IOHEXOL 300MG/ML 150 ML BTL ONE (08:16)
[2018-08-06] MEDS ORDERED: SOD CHLORIDE 0.9% 100 ML ONE (08:16)
[2018-08-06] MEDS ORDERED: POTASSIUM CHLORIDE (SR) 20 MEQ TAB PO ONE (09:00)
[2018-08-06] MEDS: INSULIN GLARGINE [LANTus] (100 UNITS/ML) SYG SC SCH ×2 (09:23→20:42)
[2018-08-06] MEDS: INSULIN ASPART [NOVOLOG] 3 ML PEN SC SCH ×7 (09:23→20:43)
[2018-08-06] MEDS ORDERED: MAGNESIUM SULFATE 4 GM/100 ML 100 ML IVPB ONE ×2 (10:00→14:00)
--- NOTE | 2018-08-06 13:55 | CONS ---
Assessment/Plan Assessment/Plan Hospital Course (Demo Recall) No acute events overnight patient is sleeping arousable no fevers overnight blood cultures remain negative. WBC today 13.8 platelets 429 neutrophils 71.5 BUN 18 creatinine 0.63 Antimicrobials: Vanco Zosyn CT of the chest revealed multiple ill-defined bilateral cavitary lung nodules findings are suspicious for septic emboli rule out other etiologies. MRI of the abdomen revealed unremarkable gallbladder and biliary ductal system Physical examination: Well-developed young man who is alert in no distress. Head atraumatic normocephalic sclera. Mucosa dry. Neck is supple chest rise symmetrical breath sounds diminished to bases. Heart: S1-S2 abdomen soft bowel sounds present. Extremities without cyanosis. Assessment: 1. Sepsis 2. Cavitary lung nodules rule out septic emboli 3. Diabetes 4. Transaminitis Plan: We are going to order 2D echo and screen him for HIV also place PPD, and consider pulmonary evaluation. Consultation Date/Type/Reason Admit Date/Time Aug 03, 2018 at 19:57 Initial Consult Date 08/05/18 Type of Consult id Date/Time of Note DATE: 08/06/18 TIME: 13:54 Exam/Review of Systems Exam Vitals Vital Signs Date Temp Pulse Resp B/P (MAP) Pulse Ox O2 O2 Flow FiO2 Time Delivery Rate 08/06/18 98.1 101 20 99/56 (70) 98 Room Air 11:08 Intake and Output 08/05/18 08/05/18 08/06/18 1515:00 23:00 07:00 IntakeIntake Total 212 ml 3500 ml 1950 ml OutputOutput Total 3100 ml 3500 ml BalanceBalance 212 ml 400 ml -1550 ml Results Result Diagram: 08/06/18 0624 08/06/18 0624 Results 24hrs Laboratory Tests Test 08/05/18 17:46 08/05/18 20:53 08/06/18 00:44 08/06/18 02:29 Bedside Glucose 134 306 H 270 H Vancomycin Level 5.2 L Trough Test 08/06/18 06:24 08/06/18 06:25 08/06/18 08:09 08/06/18 08:59 White Blood Count 13.8 #H Red Blood Count 5.06 Hemoglobin 13.9 L Hematocrit 41.0 L Mean Corpuscular 81.0 L Volume Mean Corpuscular 27.5 L Hemoglobin Mean Corpuscular 33.9 Hemoglobin Concent Red Cell 11.9 Distribution Width Platelet Count 429 H Mean Platelet Volume 9.7 Immature 0.500 H Granulocytes % Neutrophils % 71.5 Lymphocytes % 19.2 Monocytes % 7.8 Eosinophils % 0.6 Basophils % 0.4 Nucleated Red Blood 0.0 Cells % Immature 0.070 H Granulocytes # Neutrophils # 9.9 H Lymphocytes # 2.6 Monocytes # 1.1 H Eosinophils # 0.1 Basophils # 0.1 Nucleated Red Blood 0.0 Cells # Sodium Level 135 Potassium Level 3.1 L Chloride Level 96 L Carbon Dioxide Level 32 H Anion Gap 7 Blood Urea Nitrogen 18 Creatinine 0.63 Est Glomerular > 60 Filtrat Rate mL/min Glucose Level 194 Calcium Level 8.2 L Phosphorus Level 3.3 Magnesium Level 1.0 L Total Bilirubin 0.1 L Direct Bilirubin 0.00 Indirect Bilirubin 0.1 Gamma Glutamyl 1135 H Transpeptidase Aspartate Amino 88 H Transf (AST/SGOT) Alanine 80 H Aminotransferase (AL T/SGPT) Alkaline Phosphatase 1192 H Total Protein 6.5 Albumin 2.9 L Globulin 3.60 H Albumin/Globulin 0.80 Ratio Hemoglobin A1c Bedside Glucose 152 143 Test 08/06/18 12:31 Bedside Glucose 192 Medications Medication Current Medications Sodium Chloride 1,000 ml @ 125 mls/hr Q8H IV Last administered on 08/06/18at 05:23; Admin Dose 125 MLS/HR; Start 08/03/18 at 21:18 IV Flush (NS 3 ml) 3 ml PER PROTOCOL IV ; Start 08/03/18 at 21:30 Ondansetron HCl (Zofran Inj) 4 mg Q6H PRN IV NAUSEA/VOMITING; Start 08/03/18 at 21:30 Acetaminophen (Tylenol Tab) 650 mg Q6H PRN PO .PAIN 1-3 OR TEMP; Start 08/03/18 at 21:30 Diagnostic Test (Pha) (Accu-Chek) 1 ea 02 XX Last administered on 08/04/18at 0 3:15; Admin Dose 1 EA; Start 08/04/18 at 02:00 Insulin Aspart (Novolog Insulin Pen) 4 unit WITH MEALS SC Last administered on 08/06/18at 12:50; Admin Dose 4 UNIT; Start 08/04/18 at 07:55 Insulin Aspart (Novolog Insulin Pen) NOVOLOG *MODERATE* ALGORITHM WITH MEALS BEDTIME SC Last administered on 08/06/18at 12:50; Admin Dose 4 UNIT; Start 08/04/18 at 07:55 Miscellaneous Information 1 ea NOTE XX ; Start 08/03/18 at 22:00 Glucose (Glutose) 15 gm Q15M PRN PO DECREASED GLUCOSE; Start 08/03/18 at 22:00 Glucose (Glutose) 22.5 gm Q15M PRN PO DECREASED GLUCOSE; Start 08/03/18 at 22:00 Dextrose (D50w Syringe) 25 ml Q15M PRN IV DECREASED GLUCOSE; Start 08/03/18 at 22:00 Dextrose (D50w Syringe) 50 ml Q15M PRN IV DECREASED GLUCOSE; Start 08/03/18 at 22:00 Glucagon (Glucagen) 1 mg Q15M PRN IM DECREASED GLUCOSE; Start 08/03/18 at 22:00 Glucose (Glutose) 15 gm Q15M PRN BUCCAL DECREASED GLUCOSE; Start 08/03/18 at 22:00 Piperacillin Sod/ Tazobactam Sod 100 ml @ 200 mls/hr Q6 IVPB Last administered on 08/06/18at 05:44; Admin Dose 200 MLS/HR; Start 08/04/18 at 13:00 Vancomycin HCl (Vanco Iv Per Pharmacy) VANCOMYCIN PER PHARMACY PER PROTOCOL XX ; Start 08/04/18 at 13:00 Insulin Glargine (Lantus) 14 units BID SC Last administered on 08/06/18at 09:23; Admin Dose 14 UNITS; Start 08/05/18 at 21:00 Vancomycin/Sodium Chloride 250 ml @ 250 mls/hr Q8H IVPB Last administered on 08/06/18at 11:48; Admin Dose 250 MLS/HR; Start 08/06/18 at 02:00 Magnesium Sulfate 100 ml @ 25 mls/hr ONCE ONCE IVPB ; Start 08/06/18 at 14:00; Stop 08/06/18 at 17:59 Magnesium Sulfate 100 ml @ 25 mls/hr ONCE ONCE IVPB Last administered on 08/06/18at 10:28; Admin Dose 25 MLS/HR; Start 08/06/18 at 10:00; Stop 08/06/18 at 13:59 Miscellaneous Information (*Rx Drug Level Order Reminder*) VANCO TROUGH @ 0,900 0900 ONCE XX ; Start 08/07/18 at 09:00; Stop 08/07/18 at 09:01 AUDRA DILLON NP Aug 06, 2018 13:55
--- NOTE | 2018-08-06 14:36 | PN ---
Date/Time of Note Date/Time of Note DATE: 08/06/18 TIME: 14:27 Assessment/Plan VTE Prophylaxis Risk score (from [facility])>0 risk: 1 SCD applied (from [facility]): Yes Pharmacological prophylaxis: heparin Lines/Catheters IV [facility] Saline Lock Assessment/Plan Assessment/Plan 1. Sepsis, on zosyn and vancomycin 2. Multiple ill-defined bilateral cavitary lung nodules, r/o septic emboli, echo, continue antibiotics, pulmonary consult 3. Hypokalemia, KCL 4. Hypomagnesemia, Mg 5. Transaminitis, with high alk phos, follow up with GI 6. Type 2 diabetes, insulins 7. DVT prophylaxis: SCDs, heparin Result Diagram: 08/06/1862308/06/18623 Results 24hrs Laboratory Tests Test 08/05/18 17:46 08/05/18 20:53 08/06/18 00:44 08/06/18 02:29 Bedside Glucose 134 306 H 270 H Vancomycin Level 5.2 L Trough Test 08/06/18 06:24 08/06/18 06:25 08/06/18 08:09 08/06/18 08:59 White Blood Count 13.8 #H Red Blood Count 5.06 Hemoglobin 13.9 L Hematocrit 41.0 L Mean Corpuscular 81.0 L Volume Mean Corpuscular 27.5 L Hemoglobin Mean Corpuscular 33.9 Hemoglobin Concent Red Cell 11.9 Distribution Width Platelet Count 429 H Mean Platelet Volume 9.7 Immature 0.500 H Granulocytes % Neutrophils % 71.5 Lymphocytes % 19.2 Monocytes % 7.8 Eosinophils % 0.6 Basophils % 0.4 Nucleated Red Blood 0.0 Cells % Immature 0.070 H Granulocytes # Neutrophils # 9.9 H Lymphocytes # 2.6 Monocytes # 1.1 H Eosinophils # 0.1 Basophils # 0.1 Nucleated Red Blood 0.0 Cells # Sodium Level 135 Potassium Level 3.1 L Chloride Level 96 L Carbon Dioxide Level 32 H Anion Gap 7 Blood Urea Nitrogen 18 Creatinine 0.63 Est Glomerular > 60 Filtrat Rate mL/min Glucose Level 194 Calcium Level 8.2 L Phosphorus Level 3.3 Magnesium Level 1.0 L Total Bilirubin 0.1 L Direct Bilirubin 0.00 Indirect Bilirubin 0.1 Gamma Glutamyl 1135 H Transpeptidase Aspartate Amino 88 H Transf (AST/SGOT) Alanine 80 H Aminotransferase (AL T/SGPT) Alkaline Phosphatase 1192 H Total Protein 6.5 Albumin 2.9 L Globulin 3.60 H Albumin/Globulin 0.80 Ratio Hemoglobin A1c Bedside Glucose 152 143 Test 08/06/18 12:31 08/06/18 14:00 Bedside Glucose 192 Urine Color STRAW Urine Clarity CLEAR Urine pH 7.0 Urine Specific 1.014 [place] Urine Ketones NEGATIVE Urine Nitrite NEGATIVE Urine Bilirubin NEGATIVE Urine Urobilinogen NEGATIVE Urine Leukocyte NEGATIVE Esterase Urine Hemoglobin NEGATIVE Urine Glucose 3+ H Urine Total Protein NEGATIVE Exam/Review of Systems Exam Vitals Vital Signs Date Temp Pulse Resp B/P (MAP) Pulse Ox O2 O2 Flow FiO2 Time Delivery Rate 08/06/18 87 12:00 08/06/18 98.1 20 99/56 (70) 98 Room Air 11:08 Intake and Output 08/05/18 08/05/18 08/06/18 1515:00 23:00 07:00 IntakeIntake Total 212 ml 3500 ml 1950 ml OutputOutput Total 3100 ml 3500 ml BalanceBalance 212 ml 400 ml -1550 ml Results Results 24hrs Laboratory Tests Test 08/05/18 17:46 08/05/18 20:53 08/06/18 00:44 08/06/18 02:29 Bedside Glucose 134 306 H 270 H Vancomycin Level 5.2 L Trough Test 08/06/18 06:24 08/06/18 06:25 08/06/18 08:09 08/06/18 08:59 White Blood Count 13.8 #H Red Blood Count 5.06 Hemoglobin 13.9 L Hematocrit 41.0 L Mean Corpuscular 81.0 L Volume Mean Corpuscular 27.5 L Hemoglobin Mean Corpuscular 33.9 Hemoglobin Concent Red Cell 11.9 Distribution Width Platelet Count 429 H Mean Platelet Volume 9.7 Immature 0.500 H Granulocytes % Neutrophils % 71.5 Lymphocytes % 19.2 Monocytes % 7.8 Eosinophils % 0.6 Basophils % 0.4 Nucleated Red Blood 0.0 Cells % Immature 0.070 H Granulocytes # Neutrophils # 9.9 H Lymphocytes # 2.6 Monocytes # 1.1 H Eosinophils # 0.1 Basophils # 0.1 Nucleated Red Blood 0.0 Cells # Sodium Level 135 Potassium Level 3.1 L Chloride Level 96 L Carbon Dioxide Level 32 H Anion Gap 7 Blood Urea Nitrogen 18 Creatinine 0.63 Est Glomerular > 60 Filtrat Rate mL/min Glucose Level 194 Calcium Level 8.2 L Phosphorus Level 3.3 Magnesium Level 1.0 L Total Bilirubin 0.1 L Direct Bilirubin 0.00 Indirect Bilirubin 0.1 Gamma Glutamyl 1135 H Transpeptidase Aspartate Amino 88 H Transf (AST/SGOT) Alanine 80 H Aminotransferase (AL T/SGPT) Alkaline Phosphatase 1192 H Total Protein 6.5 Albumin 2.9 L Globulin 3.60 H Albumin/Globulin 0.80 Ratio Hemoglobin A1c Bedside Glucose 152 143 Test 08/06/18 12:31 08/06/18 14:00 Bedside Glucose 192 Urine Color STRAW Urine Clarity CLEAR Urine pH 7.0 Urine Specific 1.014 [place] Urine Ketones NEGATIVE Urine Nitrite NEGATIVE Urine Bilirubin NEGATIVE Urine Urobilinogen NEGATIVE Urine Leukocyte NEGATIVE Esterase Urine Hemoglobin NEGATIVE Urine Glucose 3+ H Urine Total Protein NEGATIVE Medications Medication Current Medications Sodium Chloride 1,000 ml @ 125 mls/hr Q8H IV Last administered on 08/06/18at 05:23; Admin Dose 125 MLS/HR; Start 08/03/18 at 21:18 IV Flush (NS 3 ml) 3 ml PER PROTOCOL IV ; Start 08/03/18 at 21:30 Ondansetron HCl (Zofran Inj) 4 mg Q6H PRN IV NAUSEA/VOMITING; Start 08/03/18 at 21:30 Acetaminophen (Tylenol Tab) 650 mg Q6H PRN PO .PAIN 1-3 OR TEMP; Start 08/03/18 at 21:30 Diagnostic Test (Pha) (Accu-Chek) 1 ea 02 XX Last administered on 08/04/18at 03:15; Admin Dose 1 EA; Start 08/04/18 at 02:00 Insulin Aspart (Novolog Insulin Pen) 4 unit WITH MEALS SC Last administered on 08/06/18at 12:50; Admin Dose 4 UNIT; Start 08/04/18 at 07:55 Insulin Aspart (Novolog Insulin Pen) NOVOLOG *MODERATE* ALGORITHM WITH MEALS BEDTIME SC Last administered on 08/06/18at 12:50; Admin Dose 4 UNIT; Start 08/04/18 at 07:55 Miscellaneous Information 1 ea NOTE XX ; Start 08/03/18 at 22:00 Glucose (Glutose) 15 gm Q15M PRN PO DECREASED GLUCOSE; Start 08/03/18 at 22:00 Glucose (Glutose) 22.5 gm Q15M PRN PO DECREASED GLUCOSE; Start 08/03/18 at 22:00 Dextrose (D50w Syringe) 25 ml Q15M PRN IV DECREASED GLUCOSE; Start 08/03/18 at 22:00 Dextrose (D50w Syringe) 50 ml Q15M PRN IV DECREASED GLUCOSE; Start 08/03/18 at 22:00 Glucagon (Glucagen) 1 mg Q15M PRN IM DECREASED GLUCOSE; Start 08/03/18 at 22:00 Glucose (Glutose) 15 gm Q15M PRN BUCCAL DECREASED GLUCOSE; Start 08/03/18 at 22:00 Piperacillin Sod/ Tazobactam Sod 100 ml @ 200 mls/hr Q6 IVPB Last administered on 08/06/18at 05:44; Admin Dose 200 MLS/HR; Start 08/04/18 at 13:00 Vancomycin HCl (Vanco Iv Per Pharmacy) VANCOMYCIN PER PHARMACY PER PROTOCOL XX ; Start 08/04/18 at 13:00 Insulin Glargine (Lantus) 14 units BID SC Last administered on 08/06/18at 09:23; Admin Dose 14 UNITS; Start 08/05/18 at 21:00 Vancomycin/Sodium Chloride 250 ml @ 250 mls/hr Q8H IVPB Last administered on 08/06/18at 11:48; Admin Dose 250 MLS/HR; Start 08/06/18 at 02:00 Magnesium Sulfate 100 ml @ 25 mls/hr ONCE ONCE IVPB ; Start 08/06/18 at 14:00; Stop 08/06/18 at 17:59 Miscellaneous Information (*Rx Drug Level Order Reminder*) VANCO TROUGH @ 0,900 0900 ONCE XX ; Start 08/07/18 at 09:00; Stop 08/07/18 at 09:01 MAHAMED ESCOBAR MD Aug 06, 2018 14:36
--- NOTE | 2018-08-06 15:49 | PN ---
Date/Time of Note Date/Time of Note DATE: 08/06/18 TIME: 15:41 Assessment/Plan VTE Prophylaxis Risk score (from Ns)>0 risk: 1 SCD applied (from Ns): Yes Pharmacological prophylaxis: other (scds) Lines/Catheters IV [facility]ter Type [facility]from [facility] Assessment/Plan Hospital Course Summary Assessment and Plan: Assessment: Elevated alkaline phosphatase- elevated GGT MRCP: The liver is uniform in appearance on noncontrast imaging, with normal contour and size. The biliary ductal system is unremarkable without evidence of common duct stone. Likewise gallbladder is normal in appearance. Transaminitis Leukocytosis Multiple ill-defined bilateral cavitary lung nodules. -Findings are suspicious for septic emboli. Ddx includes: fungal infection vs tuberculosis vs granulomatous infections. Type 2 diabetes Plan: MRCP reviewed Pulmonary consult/recommend ID consult Pt may require liver bx in the near future to r/o underlying etiology such as granulomatous hepatitis- given current findings. 2D echo pending to r/o endocarditis Monitor labs Patient seen in collaboration with Dr. Vital Subjective: Course reviewed with nursing staff Patient interviewed and examined All labs, imaging and other results reviewed The patient no over night events Denies n/v or abd pain. Exam PHYSICAL EXAMINATION: GENERAL: Alert & oriented x 3,thin, agitated SKIN: No lesions HEAD: Normocephalic, atraumatic, no tenderness. EYES: Pupils equal reactive to light and accommodation, no discharge. EARS/NOSE AND THROAT: Ears normal, nose normal. NECK: Supple, no masses CHEST: Inspection within normal limits. CARDIOVASCULAR: Heart: Regular rate and rhythm RESPIRATORY: Lungs clear to auscultation GASTROINTESTINAL AND LIVER: Abdomen: Soft, non tenderness, non-distended, no hernias, no masses, no organomegaly, no ascites, no guarding, no rebound tenderness, normoactive bowel sounds. Rectal: Deferred. Result Diagram: [id number]/06/1862308/06/18623 Results 24hrs Laboratory Tests Test 08/05/18 17:46 08/05/18 20:53 08/06/18 00:44 08/06/18 02:29 Bedside Glucose 134 306 H 270 H Vancomycin Level 5.2 L Trough Test 08/06/18 06:24 08/06/18 06:25 08/06/18 08:09 08/06/18 08:59 White Blood Count 13.8 #H Red Blood Count 5.06 Hemoglobin 13.9 L Hematocrit 41.0 L Mean Corpuscular 81.0 L Volume Mean Corpuscular 27.5 L Hemoglobin Mean Corpuscular 33.9 Hemoglobin Concent Red Cell 11.9 Distribution Width Platelet Count 429 H Mean Platelet Volume 9.7 Immature 0.500 H Granulocytes % Neutrophils % 71.5 Lymphocytes % 19.2 Monocytes % 7.8 Eosinophils % 0.6 Basophils % 0.4 Nucleated Red Blood 0.0 Cells % Immature 0.070 H Granulocytes # Neutrophils # 9.9 H Lymphocytes # 2.6 Monocytes # 1.1 H Eosinophils # 0.1 Basophils # 0.1 Nucleated Red Blood 0.0 Cells # Sodium Level 135 Potassium Level 3.1 L Chloride Level 96 L Carbon Dioxide Level 32 H Anion Gap 7 Blood Urea Nitrogen 18 Creatinine 0.63 Est Glomerular > 60 Filtrat Rate mL/min Glucose Level 194 Calcium Level 8.2 L Phosphorus Level 3.3 Magnesium Level 1.0 L Total Bilirubin 0.1 L Direct Bilirubin 0.00 Indirect Bilirubin 0.1 Gamma Glutamyl 1135 H Transpeptidase Aspartate Amino 88 H Transf (AST/SGOT) Alanine 80 H Aminotransferase (AL T/SGPT) Alkaline Phosphatase 1192 H Total Protein 6.5 Albumin 2.9 L Globulin 3.60 H Albumin/Globulin 0.80 Ratio Hemoglobin A1c Bedside Glucose 152 143 Test 08/06/18 12:31 08/06/18 14:00 Bedside Glucose 192 Urine Color STRAW Urine Clarity CLEAR Urine pH 7.0 Urine Specific 1.014 [place] Urine Ketones NEGATIVE Urine Nitrite NEGATIVE Urine Bilirubin NEGATIVE Urine Urobilinogen NEGATIVE Urine Leukocyte NEGATIVE Esterase Urine Hemoglobin NEGATIVE Urine Glucose 3+ H Urine Total Protein NEGATIVE Exam/Review of Systems Exam Vitals Vital Signs Date Temp Pulse Resp B/P (MAP) Pulse Ox O2 O2 Flow FiO2 Time Delivery Rate 08/06/18 98.5 85 18 95/61 (72) 99 Room Air 15:05 Intake and Output 08/05/18 08/05/18 08/06/18 1515:00 23:00 07:00 IntakeIntake Total 212 ml 3500 ml 1950 ml OutputOutput Total 3100 ml 3500 ml BalanceBalance 212 ml 400 ml -1550 ml Results Results 24hrs Laboratory Tests Test 08/05/18 17:46 08/05/18 20:53 08/06/18 00:44 08/06/18 02:29 Bedside Glucose 134 306 H 270 H Vancomycin Level 5.2 L Trough Test 08/06/18 06:24 08/06/18 06:25 08/06/18 08:09 08/06/18 08:59 White Blood Count 13.8 #H Red Blood Count 5.06 Hemoglobin 13.9 L Hematocrit 41.0 L Mean Corpuscular 81.0 L Volume Mean Corpuscular 27.5 L Hemoglobin Mean Corpuscular 33.9 Hemoglobin Concent Red Cell 11.9 Distribution Width Platelet Count 429 H Mean Platelet Volume 9.7 Immature 0.500 H Granulocytes % Neutrophils % 71.5 Lymphocytes % 19.2 Monocytes % 7.8 Eosinophils % 0.6 Basophils % 0.4 Nucleated Red Blood 0.0 Cells % Immature 0.070 H Granulocytes # Neutrophils # 9.9 H Lymphocytes # 2.6 Monocytes # 1.1 H Eosinophils # 0.1 Basophils # 0.1 Nucleated Red Blood 0.0 Cells # Sodium Level 135 Potassium Level 3.1 L Chloride Level 96 L Carbon Dioxide Level 32 H Anion Gap 7 Blood Urea Nitrogen 18 Creatinine 0.63 Est Glomerular > 60 Filtrat Rate mL/min Glucose Level 194 Calcium Level 8.2 L Phosphorus Level 3.3 Magnesium Level 1.0 L Total Bilirubin 0.1 L Direct Bilirubin 0.00 Indirect Bilirubin 0.1 Gamma Glutamyl 1135 H Transpeptidase Aspartate Amino 88 H Transf (AST/SGOT) Alanine 80 H Aminotransferase (AL T/SGPT) Alkaline Phosphatase 1192 H Total Protein 6.5 Albumin 2.9 L Globulin 3.60 H Albumin/Globulin 0.80 Ratio Hemoglobin A1c Bedside Glucose 152 143 Test 08/06/18 12:31 08/06/18 14:00 Bedside Glucose 192 Urine Color STRAW Urine Clarity CLEAR Urine pH 7.0 Urine Specific 1.014 [place] Urine Ketones NEGATIVE Urine Nitrite NEGATIVE Urine Bilirubin NEGATIVE Urine Urobilinogen NEGATIVE Urine Leukocyte NEGATIVE Esterase Urine Hemoglobin NEGATIVE Urine Glucose 3+ H Urine Total Protein NEGATIVE Medications Medication Current Medications Sodium Chloride 1,000 ml @ 125 mls/hr Q8H IV Last administered on 08/06/18at 05:23; Admin Dose 125 MLS/HR; Start 08/03/18 at 21:18 IV Flush (NS 3 ml) 3 ml PER PROTOCOL IV ; Start 08/03/18 at 21:30 Ondansetron HCl (Zofran Inj) 4 mg Q6H PRN IV NAUSEA/VOMITING; Start 08/03/18 at 21:30 Acetaminophen (Tylenol Tab) 650 mg Q6H PRN PO .PAIN 1-3 OR TEMP; Start 08/03/18 at 21:30 Diagnostic Test (Pha) (Accu-Chek) 1 ea 02 XX Last administered on 08/04/18at 03:15; Admin Dose 1 EA; Start 08/04/18 at 02:00 Insulin Aspart (Novolog Insulin Pen) 4 unit WITH MEALS SC Last administered on 08/06/18at 12:50; Admin Dose 4 UNIT; Start 08/04/18 at 07:55 Insulin Aspart (Novolog Insulin Pen) NOVOLOG *MODERATE* ALGORITHM WITH MEALS BEDTIME SC Last administered on 08/06/18at 12:50; Admin Dose 4 UNIT; Start 08/04/18 at 07:55 Miscellaneous Information 1 ea NOTE XX ; Start 08/03/18 at 22:00 Glucose (Glutose) 15 gm Q15M PRN PO DECREASED GLUCOSE; Start 08/03/18 at 22:00 Glucose (Glutose) 22.5 gm Q15M PRN PO DECREASED GLUCOSE; Start 08/03/18 at 22:00 Dextrose (D50w Syringe) 25 ml Q15M PRN IV DECREASED GLUCOSE; Start 08/03/18 at 22:00 Dextrose (D50w Syringe) 50 ml Q15M PRN IV DECREASED GLUCOSE; Start 08/03/18 at 22:00 Glucagon (Glucagen) 1 mg Q15M PRN IM DECREASED GLUCOSE; Start 08/03/18 at 22:00 Glucose (Glutose) 15 gm Q15M PRN BUCCAL DECREASED GLUCOSE; Start 08/03/18 at 22:00 Piperacillin Sod/ Tazobactam Sod 100 ml @ 200 mls/hr Q6 IVPB Last administered on 08/06/18at 14:49; Admin Dose 200 MLS/HR; Start 08/04/18 at 13:00 Vancomycin HCl (Vanco Iv Per Pharmacy) VANCOMYCIN PER PHARMACY PER PROTOCOL XX ; Start 08/04/18 at 13:00 Vancomycin/Sodium Chloride 250 ml @ 250 mls/hr Q8H IVPB Last administered on 08/06/18at 11:48; Admin Dose 250 MLS/HR; Start 08/06/18 at 02:00 Magnesium Sulfate 100 ml @ 25 mls/hr ONCE ONCE IVPB Last administered on 08/06/18at 15:37; Admin Dose 25 MLS/HR; Start 08/06/18 at 14:00; Stop 08/06/18 at 17:59 Miscellaneous Information (*Rx Drug Level Order Reminder*) VANCO TROUGH @ 0,900 0900 ONCE XX ; Start 08/07/18 at 09:00; Stop 08/07/18 at 09:01 Insulin Glargine (Lantus) 15 units BID SC ; Start 08/06/18 at 21:00 Heparin Sodium (Porcine) (Heparin (5000 Units/1ml)) 5,000 unit BID SC ; Start 08/06/18 at 21:00 CAMERON MORA Aug 06, 2018 15:49
[2018-08-06] MEDS: HEPARIN 5,000 UNIT/1 ML VIAL SC SCH (20:43)
[2018-08-07] VITALS (12 sets, daily range): BP systolic 94–115; BP diastolic 56–74; PULSE 70–101; RESP 18–19
[2018-08-07] MEDS: VANCOMYCIN 750 MG (PMX) 250 ML IVPB SCH ×2 (00:16→11:11)
[2018-08-07] MEDS: ACCU-CHEK XX SCH (01:03)
[2018-08-07] MEDS: SOD CHLORIDE 0.9% 1,000 ML IV SCH ×3 (05:51→22:10)
[2018-08-07] MEDS: PIPER-TAZO 3.375 GM IV (PMX) 100 ML IVPB SCH ×2 (05:51→12:31)
[2018-08-07] MEDS: HEPARIN 5,000 UNIT/1 ML VIAL SC SCH ×2 (08:28→22:04)
[2018-08-07] MEDS: INSULIN ASPART [NOVOLOG] 3 ML PEN SC SCH ×7 (08:31→22:10)
[2018-08-07] MEDS: INSULIN GLARGINE [LANTus] (100 UNITS/ML) SYG SC SCH (08:45)
--- NOTE | 2018-08-07 10:48 | CONS ---
Assessment/Plan Assessment/Plan Assessment/Plan (Daily) CT chest was reviewed which is showing bilateral cavitary infiltrative changes. Assessment recommendations; 1. Patient admitted for hyperglycemia with interval improvement. Patient was not in DKA. 2. Bilateral cavitary pneumonia, possibly embolism to lungs. Patient improving significantly on current antimicrobial regimen with improving leukocytosis. Patient however denies any history of drug abuse whatsoever. Continue current supportive care. Will obtain follow-up chest x-ray in 48 hours . Consultation Date/Type/Reason Admit Date/Time Aug 03, 2018 at 19:57 Date of Consultation: Aug 07, 2018 Type of Consult Pulmonary Patient is a 28-year-old male who was admitted to the hospital transfer from the facility for management of hyperglycemia. Upon further evaluation patient underwent a CT of the chest which showed bilateral pneumonia. Patient has been started on appropriate antimicrobial regimen with significant improvement in symptoms. Patient did have a scant cough on admission but denies any hemoptysi s, sputum production, fever, chills, any chest pain. By the time I saw the patient in the room, patient completely awake and alert and did not appear to be in any distress whatsoever. Past medical history; 1. History of diabetes apparently poorly controlled. Medications; reviewed. Allergies; none. Social history; noncontributory. Family history; noncontributory. Occupational history; patient is on disability. Review of systems; denies any headache, seizures, sinus symptoms. Denies any chest pain, shortness of breath, coughing, wheezing, sputum production or hemoptysis. Complains of some weight loss. Denies any abdominal pain, nausea vomiting, melena hematochezia. Does complain of frequency of urination. Denies any orthopnea or PND. Any skin changes or any arthritis symptoms. General exam; young male, awake alert, currently in no distress. Date/Time of Note DATE: 08/07/18 TIME: 10:43 Past Medical History Medical History: other (See HPI) Medications Current Medications Sodium Chloride 1,000 ml @ 125 mls/hr Q8H IV Last administered on 08/07/18at 05:51; Admin Dose 125 MLS/HR; Start 08/03/18 at 21:18 IV Flush (NS 3 ml) 3 ml PER PROTOCOL IV ; Start 08/03/18 at 21:30 Ondansetron HCl (Zofran Inj) 4 mg Q6H PRN IV NAUSEA/VOMITING; Start 08/03/18 at 21:30 Acetaminophen (Tylenol Tab) 650 mg Q6H PRN PO .PAIN 1-3 OR TEMP; Start 08/03/18 at 21:30 Diagnostic Test (Pha) (Accu-Chek) 1 ea 02 XX Last administered on 08/04/18at 03:15; Admin Dose 1 EA; Start 08/04/18 at 02:00 Insulin Aspart (Novolog Insulin Pen) 4 unit WITH MEALS SC Last administered on 08/07/18at 08:31; Admin Dose 4 UNIT; Start 08/04/18 at 07:55 Insulin Aspart (Novolog Insulin Pen) NOVOLOG *MODERATE* ALGORITHM WITH MEALS BEDTIME SC Last administered on 08/07/18at 08:32; Admin Dose 2 UNIT; Start 08/04/18 at 07:55 Miscellaneous Information 1 ea NOTE XX ; Start 08/03/18 at 22:00 Glucose (Glutose) 15 gm Q15M PRN PO DECREASED GLUCOSE; Start 08/03/18 at 22:00 Glucose (Glutose) 22.5 gm Q15M PRN PO DECREASED GLUCOSE; Start 08/03/18 at 22:00 Dextrose (D50w Syringe) 25 ml Q15M PRN IV DECREASED GLUCOSE; Start 08/03/18 at 22:00 Dextrose (D50w Syringe) 50 ml Q15M PRN IV DECREASED GLUCOSE; Start 08/03/18 at 22:00 Glucagon (Glucagen) 1 mg Q15M PRN IM DECREASED GLUCOSE; Start 08/03/18 at 22:00 Glucose (Glutose) 15 gm Q15M PRN BUCCAL DECREASED GLUCOSE; Start 08/03/18 at 22:00 Piperacillin Sod/ Tazobactam Sod 100 ml @ 200 mls/hr Q6 IVPB Last administered on 08/07/18at 05:51; Admin Dose 200 MLS/HR; Start 08/04/18 at 13:00 Vancomycin HCl (Vanco Iv Per Pharmacy) VANCOMYCIN PER PHARMACY PER PROTOCOL XX ; Start 08/04/18 at 13:00 Vancomycin/Sodium Chloride 250 ml @ 250 mls/hr Q8H IVPB Last administered on 08/07/18at 00:16; Admin Dose 250 MLS/HR; Start 08/06/18 at 02:00 Insulin Glargine (Lantus) 15 units BID SC Last administered on 08/07/18at 08:45; Admin Dose 15 UNITS; Start 08/06/18 at 21:00 Heparin Sodium (Porcine) (Heparin (5000 Units/1ml)) 5,000 unit BID SC Last administered on 08/07/18at 08:28; Admin Dose 5,000 UNIT; Start 08/06/18 at 21:00 Allergies: Coded Allergies: No Known Allergies (Verified Allergy, Unknown, 08/03/18) Past Surgical History Past Surgical Hx: other (See HPI) Social History Alcohol Use: other Smoking Status: Unknown if ever smoked Drug Use: other Exam/Review of Systems Exam Vitals Vital Signs Date Temp Pulse Resp B/P (MAP) Pulse Ox O2 O2 Flow FiO2 Time Delivery Rate 08/07/18 86 08:14 08/07/18 98.2 18 94/58 (70) 96 07:19 08/07/18 Room Air 04:04 Intake and Output 08/06/18 08/06/18 08/07/18 1515:00 23:00 07:00 IntakeIntake Total 3150 ml 3350 ml OutputOutput Total 4000 ml 3000 ml BalanceBalance -850 ml 350 ml Exam HEENT exam; supple neck, no JVD. No lymphadenopathy. Midline trachea. No thyromegaly. Patient has fair dentition. No neck masses. Chest exam; clear to auscultation. S1-S2 audible, no murmurs. Regular rhythm. Abdomen exam; soft, no organomegaly. Nontender. Bowel sounds are audible. Extremity exam; no peripheral edema or clubbing. LO[employer] exam; no focal deficit. Results Result Diagram: 08/07/18 0908 08/07/18 0908 Results 24hrs Laboratory Tests Test 08/06/18 12:31 08/06/18 14:00 08/06/18 14:42 08/06/18 15:40 Bedside Glucose 192 Urine Color STRAW Urine Clarity CLEAR Urine pH 7.0 Urine Specific 1.014 [place] Urine Ketones NEGATIVE Urine Nitrite NEGATIVE Urine Bilirubin NEGATIVE Urine NEGATIVE Urobilinogen Urine Leukocyte NEGATIVE Esterase Urine Hemoglobin NEGATIVE Urine Glucose 3+ H Urine Total NEGATIVE Protein HIV (1&2) NEGATIVE Antibody Hemoglobin 12.5 L Hematocrit 37.2 L Test 08/06/18 17:52 08/06/18 20:32 08/06/18 22:05 08/07/18 01:49 Bedside Glucose 131 230 H 269 H TB Skin Test Pending Induration TB Skin Test T Administer Date TB Skin Test 2204 Administer Time TB Skin Test Left Injection Site Upper Forearm Test 08/07/18 08:20 08/07/18 09:08 Bedside Glucose 163 White Blood Count 12.5 H Red Blood Count 4.96 Hemoglobin 13.3 L Hematocrit 39.8 L Mean Corpuscular 80.2 L Volume Mean Corpuscular 26.8 L Hemoglobin Mean Corpuscular 33.4 Hemoglobin Concen t Red Cell 12.0 Distribution Width Platelet Count 388 Mean Platelet 9.3 Volume Immature 0.400 Granulocytes % Neutrophils % 71.0 Lymphocytes % 18.4 Monocytes % 9.2 Eosinophils % 0.4 Basophils % 0.6 Nucleated Red 0.0 Blood Cells % Immature 0.050 H Granulocytes # Neutrophils # 8.9 H Lymphocytes # 2.3 Monocytes # 1.2 H Eosinophils # 0.1 Basophils # 0.1 Nucleated Red 0.0 Blood Cells # Sodium Level 133 L Potassium Level 3.9 Chloride Level 93 L Carbon Dioxide 30 Level Anion Gap 10 Blood Urea 20 Nitrogen Creatinine 0.80 Est Glomerular > 60 Filtrat Rate mL/min Glucose Level 337 H Calcium Level 8.6 Total Bilirubin 0.1 L Direct Bilirubin 0.00 Indirect 0.1 Bilirubin Aspartate Amino 87 H Transf (AST/SGOT) Alanine 74 H Aminotransferase (ALT/SGPT) Alkaline 1316 H Phosphatase Total Protein 6.7 Albumin 3.0 L Globulin 3.70 H Albumin/Globulin 0.81 Ratio Vancomycin Level 11.7 Trough Medications Medication Current Medications Sodium Chloride 1,000 ml @ 125 mls/hr Q8H IV Last administered on 08/07/18at 05:51; Admin Dose 125 MLS/HR; Start 08/03/18 at 21:18 IV Flush (NS 3 ml) 3 ml PER PROTOCOL IV ; Start 08/03/18 at 21:30 Ondansetron HCl (Zofran Inj) 4 mg Q6H PRN IV NAUSEA/VOMITING; Start 08/03/18 at 21:30 Acetaminophen (Tylenol Tab) 650 mg Q6H PRN PO .PAIN 1-3 OR TEMP; Start 08/03/18 at 21:30 Diagnostic Test (Pha) (Accu-Chek) 1 ea 02 XX Last administered on 08/04/18at 03:15; Admin Dose 1 EA; Start 08/04/18 at 02:00 Insulin Aspart (Novolog Insulin Pen) 4 unit WITH MEALS SC Last administered on 08/07/18at 08:31; Admin Dose 4 UNIT; Start 08/04/18 at 07:55 Insulin Aspart (Novolog Insulin Pen) NOVOLOG *MODERATE* ALGORITHM WITH MEALS BEDTIME SC Last administered on 08/07/18at 08:32; Admin Dose 2 UNIT; Start 08/04/18 at 07:55 Miscellaneous Information 1 ea NOTE XX ; Start 08/03/18 at 22:00 Glucose (Glutose) 15 gm Q15M PRN PO DECREASED GLUCOSE; Start 08/03/18 at 22:00 Glucose (Glutose) 22.5 gm Q15M PRN PO DECREASED GLUCOSE; Start 08/03/18 at 22:00 Dextrose (D50w Syringe) 25 ml Q15M PRN IV DECREASED GLUCOSE; Start 08/03/18 at 22:00 Dextrose (D50w Syringe) 50 ml Q15M PRN IV DECREASED GLUCOSE; Start 08/03/18 at 22:00 Glucagon (Glucagen) 1 mg Q15M PRN IM DECREASED GLUCOSE; Start 08/03/18 at 22:00 Glucose (Glutose) 15 gm Q15M PRN BUCCAL DECREASED GLUCOSE; Start 08/03/18 at 22:00 Piperacillin Sod/ Tazobactam Sod 100 ml @ 200 mls/hr Q6 IVPB Last administered on 08/07/18at 05:51; Admin Dose 200 MLS/HR; Start 08/04/18 at 13:00 Vancomycin HCl (Vanco Iv Per Pharmacy) VANCOMYCIN PER PHARMACY PER PROTOCOL XX ; Start 08/04/18 at 13:00 Vancomycin/Sodium Chloride 250 ml @ 250 mls/hr Q8H IVPB Last administered on 08/07/18at 00:16; Admin Dose 250 MLS/HR; Start 08/06/18 at 02:00 Insulin Glargine (Lantus) 15 units BID SC Last administered on 08/07/18at 08:45; Admin Dose 15 UNITS; Start 08/06/18 at 21:00 Heparin Sodium (Porcine) (Heparin (5000 Units/1ml)) 5,000 unit BID SC Last administered on 08/07/18at 08:28; Admin Dose 5,000 UNIT; Start 08/06/18 at 21:00 LUIS BAPTISTE Aug 07, 2018 10:48
--- NOTE | 2018-08-07 14:27 | PN ---
Date/Time of Note Date/Time of Note DATE: 08/07/18 TIME: 14:22 Assessment/Plan VTE Prophylaxis Risk score (from Ns)>0 risk: 0 [place] [facility] [place] Pharmacological prophylaxis: heparin Lines/Catheters IV Catheter Type (from [facility]): Peripheral IV Assessment/Plan Assessment/Plan 1. Sepsis, on zosyn and vancomycin 2. Likely pulmonary septic emboli, echo, consider treated as endocarditis even TTE negative for endocarditis 3. Hypokalemia, corrected 4. Hypomagnesemia, Mg given 5. Transaminitis, with high alk phos, follow up with GI 6. Type 2 diabetes, adjust lantus, may need pre-meal(?compliance issue) 7. DVT prophylaxis: SCDs, heparin Result Diagram: 08/07/1890708/07/18907 Results 24hrs Laboratory Tests Test 08/06/18 14:42 08/06/18 15:40 08/06/18 17:52 08/06/18 20:32 HIV (1&2) NEGATIVE Antibody Hemoglobin 12.5 L Hematocrit 37.2 L Bedside Glucose 131 230 H Test 08/06/18 22:05 08/07/18 01:49 08/07/18 08:20 08/07/18 09:08 TB Skin Test Pending Induration TB Skin Test T Administer Date TB Skin Test 2204 Administer Time TB Skin Test Left Injection Site Upper Forearm Bedside Glucose 269 H 163 White Blood Count 12.5 H Red Blood Count 4.96 Hemoglobin 13.3 L Hematocrit 39.8 L Mean Corpuscular 80.2 L Volume Mean Corpuscular 26.8 L Hemoglobin Mean Corpuscular 33.4 Hemoglobin Concen t Red Cell 12.0 Distribution Width Platelet Count 388 Mean Platelet 9.3 Volume Immature 0.400 Granulocytes % Neutrophils % 71.0 Lymphocytes % 18.4 Monocytes % 9.2 Eosinophils % 0.4 Basophils % 0.6 Nucleated Red 0.0 Blood Cells % Immature 0.050 H Granulocytes # Neutrophils # 8.9 H Lymphocytes # 2.3 Monocytes # 1.2 H Eosinophils # 0.1 Basophils # 0.1 Nucleated Red 0.0 Blood Cells # Sodium Level 133 L Potassium Level 3.9 Chloride Level 93 L Carbon Dioxide 30 Level Anion Gap 10 Blood Urea 20 Nitrogen Creatinine 0.80 Est Glomerular > 60 Filtrat Rate mL/min Glucose Level 337 H Calcium Level 8.6 Total Bilirubin 0.1 L Direct Bilirubin 0.00 Indirect 0.1 Bilirubin Aspartate Amino 87 H Transf (AST/SGOT) Alanine 74 H Aminotransferase (ALT/SGPT) Alkaline 1316 H Phosphatase Total Protein 6.7 Albumin 3.0 L Globulin 3.70 H Albumin/Globulin 0.81 Ratio Vancomycin Level 11.7 Trough Test 08/07/18 12:11 Bedside Glucose 366 H Subjective 24 Hr Interval Summary Free Text/Dictation no event, no shortness of breath Exam/Review of Systems Exam Vitals Vital Signs Date Temp Pulse Resp B/P (MAP) Pulse Ox O2 O2 Flow FiO2 Time Delivery Rate 08/07/18 72 12:10 08/07/18 98.1 19 106/56 94 11:21 (73) 08/07/18 Room Air 04:04 Intake and Output 08/06/18 08/06/18 08/07/18 1515:00 23:00 07:00 IntakeIntake Total 3150 ml 3350 ml OutputOutput Total 4000 ml 3000 ml BalanceBalance -850 ml 350 ml Constitutional: alert, oriented, well developed Psych: no complaints, nl mood/affect Head: normocephalic, atraumatic Eyes: nl conjunctiva, EOMI, nl lids, PERRL ENMT: nl external ears & nose, nl lips & teeth, nl nasal mucosa & septum Neck: supple, non-tender Respiratory: clear to auscultation, normal air movement; No congested cough, No crackles/rales, No diminished breath sounds, No intercostal retraction, No labored breathing, No respirations, No tactile fremitus, No wheezing, No other Cardiovascular: regular rate and rhythm, nl pulses; No bruits, No diastolic murmur, No edema, No gallop, No irregular rhythm, No jugular venous distention (JVD), No murmurs/extra sounds, No rub, No systolic murmur, No S3, No S4, No other Gastrointestinal: soft, nl liver, spleen, non-tender Musculoskeletal: nl extremities to inspection Extremities: normal pulses; No calf tenderness, No cyanosis, No clubbing, No edema, No pitting pedal edema, No palpable cord, No tenderness, No other 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: HEALTH LEAD II-XII intact, nl mental status, nl speech, nl strength Results Results 24hrs Laboratory Tests Test 08/06/18 14:42 08/06/18 15:40 08/06/18 17:52 08/06/18 20:32 HIV (1&2) NEGATIVE Antibody Hemoglobin 12.5 L Hematocrit 37.2 L Bedside Glucose 131 230 H Test 08/06/18 22:05 08/07/18 01:49 08/07/18 08:20 08/07/18 09:08 TB Skin Test Pending Induration TB Skin Test T Administer Date TB Skin Test 2204 Administer Time TB Skin Test Left Injection Site Upper Forearm Bedside Glucose 269 H 163 White Blood Count 12.5 H Red Blood Count 4.96 Hemoglobin 13.3 L Hematocrit 39.8 L Mean Corpuscular 80.2 L Volume Mean Corpuscular 26.8 L Hemoglobin Mean Corpuscular 33.4 Hemoglobin Concen t Red Cell 12.0 Distribution Width Platelet Count 388 Mean Platelet 9.3 Volume Immature 0.400 Granulocytes % Neutrophils % 71.0 Lymphocytes % 18.4 Monocytes % 9.2 Eosinophils % 0.4 Basophils % 0.6 Nucleated Red 0.0 Blood Cells % Immature 0.050 H Granulocytes # Neutrophils # 8.9 H Lymphocytes # 2.3 Monocytes # 1.2 H Eosinophils # 0.1 Basophils # 0.1 Nucleated Red 0.0 Blood Cells # Sodium Level 133 L Potassium Level 3.9 Chloride Level 93 L Carbon Dioxide 30 Level Anion Gap 10 Blood Urea 20 Nitrogen Creatinine 0.80 Est Glomerular > 60 Filtrat Rate mL/min Glucose Level 337 H Calcium Level 8.6 Total Bilirubin 0.1 L Direct Bilirubin 0.00 Indirect 0.1 Bilirubin Aspartate Amino 87 H Transf (AST/SGOT) Alanine 74 H Aminotransferase (ALT/SGPT) Alkaline 1316 H Phosphatase Total Protein 6.7 Albumin 3.0 L Globulin 3.70 H Albumin/Globulin 0.81 Ratio Vancomycin Level 11.7 Trough Test 08/07/18 12:11 Bedside Glucose 366 H Medications Medication Current Medications Sodium Chloride 1,000 ml @ 125 mls/hr Q8H IV Last administered on 08/07/18at 05:51; Admin Dose 125 MLS/HR; Start 08/03/18 at 21:18 IV Flush (NS 3 ml) 3 ml PER PROTOCOL IV ; Start 08/03/18 at 21:30 Ondansetron HCl (Zofran Inj) 4 mg Q6H PRN IV NAUSEA/VOMITING; Start 08/03/18 at 21:30 Acetaminophen (Tylenol Tab) 650 mg Q6H PRN PO .PAIN 1-3 OR TEMP; Start 08/03/18 at 21:30 Diagnostic Test (Pha) (Accu-Chek) 1 ea 02 XX Last administered on 08/04/18at 03:15; Admin Dose 1 EA; Start 08/04/18 at 02:00 Insulin Aspart (Novolog Insulin Pen) 4 unit WITH MEALS SC Last administered on 08/07/18at 12:25; Admin Dose 4 UNIT; Start 08/04/18 at 07:55 Insulin Aspart (Novolog Insulin Pen) NOVOLOG *MODERATE* ALGORITHM WITH MEALS BEDTIME SC Last administered on 08/07/18at 12:27; Admin Dose 12 UNIT; Start 08/04/18 at 07:55 Miscellaneous Information 1 ea NOTE XX ; Start 08/03/18 at 22:00 Glucose (Glutose) 15 gm Q15M PRN PO DECREASED GLUCOSE; Start 08/03/18 at 22:00 Glucose (Glutose) 22.5 gm Q15M PRN PO DECREASED GLUCOSE; Start 08/03/18 at 22:0 0 Dextrose (D50w Syringe) 25 ml Q15M PRN IV DECREASED GLUCOSE; Start 08/03/18 at 22:00 Dextrose (D50w Syringe) 50 ml Q15M PRN IV DECREASED GLUCOSE; Start 08/03/18 at 22:00 Glucagon (Glucagen) 1 mg Q15M PRN IM DECREASED GLUCOSE; Start 08/03/18 at 22:00 Glucose (Glutose) 15 gm Q15M PRN BUCCAL DECREASED GLUCOSE; Start 08/03/18 at 22:00 Piperacillin Sod/ Tazobactam Sod 100 ml @ 200 mls/hr Q6 IVPB Last administered on 08/07/18at 12:31; Admin Dose 200 MLS/HR; Start 08/04/18 at 13:00 Vancomycin HCl (Vanco Iv Per Pharmacy) VANCOMYCIN PER PHARMACY PER PROTOCOL XX ; Start 08/04/18 at 13:00 Vancomycin/Sodium Chloride 250 ml @ 250 mls/hr Q8H IVPB Last administered on 08/07/18at 11:11; Admin Dose 250 MLS/HR; Start 08/06/18 at 02:00 Insulin Glargine (Lantus) 15 units BID SC Last administered on 08/07/18at 08:45; Admin Dose 15 UNITS; Start 08/06/18 at 21:00 Heparin Sodium (Porcine) (Heparin (5000 Units/1ml)) 5,000 unit BID SC Last administered on 08/07/18at 08:28; Admin Dose 5,000 UNIT; Start 08/06/18 at 21:00 MAHAMED ESCOBAR MD Aug 07, 2018 14:27
--- NOTE | 2018-08-07 14:57 | CONS ---
Assessment/Plan Assessment/Plan Hospital Course (Demo Recall) No acute changes overnight patient is awake in no distress white blood cell cell count today is 12.5 no shift no bands BUN 20 creatinine 0.80 Microbiology: Blood cultures negative Antimicrobials: Vanco Zosyn CT of the chest revealed multiple ill-defined bilateral cavitary lung nodules findings are suspicious for septic emboli rule out other etiologies. MRI of the abdomen revealed unremarkable gallbladder and biliary ductal system Physical examination: Well-developed young man who is alert in no distress. Head atraumatic normocephalic sclera. Mucosa dry. Neck is supple chest rise symmetrical breath sounds diminished to bases. Heart: S1-S2 abdomen soft bowel sounds present. Extremities without cyanosis. Assessment: 1. Sepsis, resolving 2. Bilateral cavitary pneumonia===> PPD placed 08/06 3. Diabetes 4. Transaminitis Plan: Overall stable, WBC trending down, HIV screen negative, will change abx to Cefepime and levofloxacin, await for 2D echo, follow PPD reading and pulmonary recommendations Consultation Date/Type/Reason Admit Date/Time Aug 03, 2018 at 19:57 Initial Consult Date 08/05/18 Type of Consult id Date/Time of Note DATE: 08/07/18 TIME: 14:55 Exam/Review of Systems Exam Vitals Vital Signs Date Temp Pulse Resp B/P (MAP) Pulse Ox O2 O2 Flow FiO2 Time Delivery Rate 08/07/18 72 12:10 08/07/18 98.1 19 106/56 94 11:21 (73) 08/07/18 Room Air 04:04 Intake and Output 08/06/18 08/06/18 08/07/18 1414:59 22:59 06:59 IntakeIntake Total 3150 ml 3350 ml OutputOutput Total 4000 ml 3000 ml BalanceBalance -850 ml 350 ml Results Result Diagram: 08/07/18 0908 08/07/18 0908 Results 24hrs Laboratory Tests Test 08/06/18 15:40 08/06/18 17:52 08/06/18 20:32 08/06/18 22:05 Hemoglobin 12.5 L Hematocrit 37.2 L Bedside Glucose 131 230 H TB Skin Test Pending Induration TB Skin Test T Administer Date TB Skin Test 2204 Administer Time TB Skin Test Left Injection Site Upper Forearm Test 08/07/18 01:49 08/07/18 08:20 08/07/18 09:08 08/07/18 12:11 Bedside Glucose 269 H 163 366 H White Blood Count 12.5 H Red Blood Count 4.96 Hemoglobin 13.3 L Hematocrit 39.8 L Mean Corpuscular 80.2 L Volume Mean Corpuscular 26.8 L Hemoglobin Mean Corpuscular 33.4 Hemoglobin Concen t Red Cell 12.0 Distribution Width Platelet Count 388 Mean Platelet 9.3 Volume Immature 0.400 Granulocytes % Neutrophils % 71.0 Lymphocytes % 18.4 Monocytes % 9.2 Eosinophils % 0.4 Basophils % 0.6 Nucleated Red 0.0 Blood Cells % Immature 0.050 H Granulocytes # Neutrophils # 8.9 H Lymphocytes # 2.3 Monocytes # 1.2 H Eosinophils # 0.1 Basophils # 0.1 Nucleated Red 0.0 Blood Cells # Sodium Level 133 L Potassium Level 3.9 Chloride Level 93 L Carbon Dioxide 30 Level Anion Gap 10 Blood Urea 20 Nitrogen Creatinine 0.80 Est Glomerular > 60 Filtrat Rate mL/min Glucose Level 337 H Calcium Level 8.6 Total Bilirubin 0.1 L Direct Bilirubin 0.00 Indirect 0.1 Bilirubin Aspartate Amino 87 H Transf (AST/SGOT) Alanine 74 H Aminotransferase (ALT/SGPT) Alkaline 1316 H Phosphatase Total Protein 6.7 Albumin 3.0 L Globulin 3.70 H Albumin/Globulin 0.81 Ratio Vancomycin Level 11.7 Trough Medications Medication Current Medications Sodium Chloride 1,000 ml @ 125 mls/hr Q8H IV Last administered on 08/07/18at 05:51; Admin Dose 125 MLS/HR; Start 08/03/18 at 21:18 IV Flush (NS 3 ml) 3 ml PER PROTOCOL IV ; Start 08/03/18 at 21:30 Ondansetron HCl (Zofran Inj) 4 mg Q6H PRN IV NAUSEA/VOMITING; Start 08/03/18 at 21:30 Acetaminophen (Tylenol Tab) 650 mg Q6H PRN PO .PAIN 1-3 OR TEMP; Start 08/03/18 at 21:30 Diagnostic Test (Pha) (Accu-Chek) 1 ea 02 XX Last administered on 08/04/18at 03:15; Admin Dose 1 EA; Start 08/04/18 at 02:00 Insulin Aspart (Novolog Insulin Pen) 4 unit WITH MEALS SC Last administered on 08/07/18at 12:25; Admin Dose 4 UNIT; Start 08/04/18 at 07:55 Insulin Aspart (Novolog Insulin Pen) NOVOLOG *MODERATE* ALGORITHM WITH MEALS BEDTIME SC Last administered on 08/07/18at 12:27; Admin Dose 12 UNIT; Start 08/04/18 at 07:55 Miscellaneous Information 1 ea NOTE XX ; Start 08/03/18 at 22:00 Glucose (Glutose) 15 gm Q15M PRN PO DECREASED GLUCOSE; Start 08/03/18 at 22:00 Glucose (Glutose) 22.5 gm Q15M PRN PO DECREASED GLUCOSE; Start 08/03/18 at 22:00 Dextrose (D50w Syringe) 25 ml Q15M PRN IV DECREASED GLUCOSE; Start 08/03/18 at 22:00 Dextrose (D50w Syringe) 50 ml Q15M PRN IV DECREASED GLUCOSE; Start 08/03/18 at 22:00 Glucagon (Glucagen) 1 mg Q15M PRN IM DECREASED GLUCOSE; Start 08/03/18 at 22:00 Glucose (Glutose) 15 gm Q15M PRN BUCCAL DECREASED GLUCOSE; Start 08/03/18 at 22:00 Piperacillin Sod/ Tazobactam Sod 100 ml @ 200 mls/hr Q6 IVPB Last administered on 08/07/18at 12:31; Admin Dose 200 MLS/HR; Start 08/04/18 at 13:00 Vancomycin HCl (Vanco Iv Per Pharmacy) VANCOMYCIN PER PHARMACY PER PROTOCOL XX ; Start 08/04/18 at 13:00 Vancomycin/Sodium Chloride 250 ml @ 250 mls/hr Q8H IVPB Last administered on 08/07/18at 11:11; Admin Dose 250 MLS/HR; Start 08/06/18 at 02:00 Heparin Sodium (Porcine) (Heparin (5000 Units/1ml)) 5,000 unit BID SC Last administered on 08/07/18at 08:28; Admin Dose 5,000 UNIT; Start 08/06/18 at 21:00 Insulin Glargine (Lantus) 32 units DAILY SC ; Start 08/08/18 at 21:00; Status UNV Insulin Glargine (Lantus) 17 units ONCE ONCE SC ; Start 08/07/18 at 14:30; St op 08/07/18 at 14:31; Status UNV ISAUDRA SEGURA NP Aug 07, 2018 14:57
[2018-08-07] MEDS ORDERED: INSULIN GLARGINE [LANTus] (100 UNITS/ML) SYG SC ONE (15:30)
--- NOTE | 2018-08-07 15:35 | PN ---
Date/Time of Note Date/Time of Note DATE: 08/07/18 TIME: 15:19 Assessment/Plan VTE Prophylaxis Risk score (from Nsg)>0 risk: 0 SCD applied (from Nsg): Yes Pharmacological prophylaxis: other Lines/Catheters IV Catheter Type (from Nrsg): Peripheral IV Assessment/Plan Assessment/Plan Assessment: Elevated alkaline phosphatase- elevated GGT MRCP: The liver is uniform in appearance on noncontrast imaging, with normal contour and size. The biliary ductal system is unremarkable without evidence of common duct stone. Likewise gallbladder is normal in appearance. Transaminitis Leukocytosis Multiple ill-defined bilateral cavitary lung nodules. -Findings are suspicious for septic emboli. Ddx includes: fungal infection vs tuberculosis vs granulomatous infections. Type 2 diabetes Plan: Fractionate Alk phos MRCP reviewed Pulmonary consult/recommend ID consult Pt may require liver bx in the near future to r/o underlying etiology such as granulomatous hepatitis- given current findings. 2D echo pending to r/o endocarditis Monitor labs Patient seen in collaboration with Dr. Vital Subjective: Course reviewed with nursing staff Patient interviewed and examined All labs, imaging and other results reviewed The patient is feeling well, having some cough. Denies n/v or abd pain. Alk phos is trending up, will order fractionated alk phos. LFT's are slightly down. Continue observation and ABX treatment for poss septic emboli. ID on board. Exam PHYSICAL EXAMINATION: GENERAL: Alert & oriented x 3,thin, agitated SKIN: No lesions HEAD: Normocephalic, atraumatic, no tenderness. EYES: Pupils equal reactive to light and accommodation, no discharge. EARS/NOSE AND THROAT: Ears normal, nose normal. NECK: Supple, no masses CHEST: Inspection within normal limits. CARDIOVASCULAR: Heart: Regular rate and rhythm RESPIRATORY: Lungs clear to auscultation GASTROINTESTINAL AND LIVER: Abdomen: Soft, non tenderness, non-distended, no hernias, no masses, no organomegaly, no ascites, no guarding, no rebound tenderness, normoactive bowel sounds. Rectal: Deferred. Result Diagram: 08/07/18 0908 08/07/18 0908 Results 24hrs Laboratory Tests Test 08/06/18 15:40 08/06/18 17:52 08/06/18 20:32 08/06/18 22:05 Hemoglobin 12.5 L Hematocrit 37.2 L Bedside Glucose 131 230 H TB Skin Test Pending Induration TB Skin Test T Administer Date TB Skin Test 2204 Administer Time TB Skin Test Left Injection Site Upper Forearm Test 08/07/18 01:49 08/07/18 08:20 08/07/18 09:08 08/07/18 12:11 Bedside Glucose 269 H 163 366 H White Blood Count 12.5 H Red Blood Count 4.96 Hemoglobin 13.3 L Hematocrit 39.8 L Mean Corpuscular 80.2 L Volume Mean Corpuscular 26.8 L Hemoglobin Mean Corpuscular 33.4 Hemoglobin Concen t Red Cell 12.0 Distribution Width Platelet Count 388 Mean Platelet 9.3 Volume Immature 0.400 Granulocytes % Neutrophils % 71.0 Lymphocytes % 18.4 Monocytes % 9.2 Eosinophils % 0.4 Basophils % 0.6 Nucleated Red 0.0 Blood Cells % Immature 0.050 H Granulocytes # Neutrophils # 8.9 H Lymphocytes # 2.3 Monocytes # 1.2 H Eosinophils # 0.1 Basophils # 0.1 Nucleated Red 0.0 Blood Cells # Sodium Level 133 L Potassium Level 3.9 Chloride Level 93 L Carbon Dioxide 30 Level Anion Gap 10 Blood Urea 20 Nitrogen Creatinine 0.80 Est Glomerular > 60 Filtrat Rate mL/min Glucose Level 337 H Calcium Level 8.6 Total Bilirubin 0.1 L Direct Bilirubin 0.00 Indirect 0.1 Bilirubin Aspartate Amino 87 H Transf (AST/SGOT) Alanine 74 H Aminotransferase (ALT/SGPT) Alkaline 1316 H Phosphatase Total Protein 6.7 Albumin 3.0 L Globulin 3.70 H Albumin/Globulin 0.81 Ratio Vancomycin Level 11.7 Trough CC: HUSSEIN VITAL MD ; Exam/Review of Systems Exam Vitals Vital Signs Date Temp Pulse Resp B/P (MAP) Pulse Ox O2 O2 Flow FiO2 Time Delivery Rate 08/07/18 72 12:10 08/07/18 98.1 19 106/56 94 11:21 (73) 08/07/18 Room Air 04:04 Intake and Output 08/06/18 08/06/18 08/07/18 1515:00 23:00 07:00 IntakeIntake Total 3150 ml 3350 ml OutputOutput Total 4000 ml 3000 ml BalanceBalance -850 ml 350 ml Results Results 24hrs Laboratory Tests Test 08/06/18 15:40 08/06/18 17:52 08/06/18 20:32 08/06/18 22:05 Hemoglobin 12.5 L Hematocrit 37.2 L Bedside Glucose 131 230 H TB Skin Test Pending Induration TB Skin Test T Administer Date TB Skin Test 2204 Administer Time TB Skin Test Left Injection Site Upper Forearm Test 08/07/18 01:49 08/07/18 08:20 08/07/18 09:08 08/07/18 12:11 Bedside Glucose 269 H 163 366 H White Blood Count 12.5 H Red Blood Count 4.96 Hemoglobin 13.3 L Hematocrit 39.8 L Mean Corpuscular 80.2 L Volume Mean Corpuscular 26.8 L Hemoglobin Mean Corpuscular 33.4 Hemoglobin Concen t Red Cell 12.0 Distribution Width Platelet Count 388 Mean Platelet 9.3 Volume Immature 0.400 Granulocytes % Neutrophils % 71.0 Lymphocytes % 18.4 Monocytes % 9.2 Eosinophils % 0.4 Basophils % 0.6 Nucleated Red 0.0 Blood Cells % Immature 0.050 H Granulocytes # Neutrophils # 8.9 H Lymphocytes # 2.3 Monocytes # 1.2 H Eosinophils # 0.1 Basophils # 0.1 Nucleated Red 0.0 Blood Cells # Sodium Level 133 L Potassium Level 3.9 Chloride Level 93 L Carbon Dioxide 30 Level Anion Gap 10 Blood Urea 20 Nitrogen Creatinine 0.80 Est Glomerular > 60 Filtrat Rate mL/min Glucose Level 337 H Calcium Level 8.6 Total Bilirubin 0.1 L Direct Bilirubin 0.00 Indirect 0.1 Bilirubin Aspartate Amino 87 H Transf (AST/SGOT) Alanine 74 H Aminotransferase (ALT/SGPT) Alkaline 1316 H Phosphatase Total Protein 6.7 Albumin 3.0 L Globulin 3.70 H Albumin/Globulin 0.81 Ratio Vancomycin Level 11.7 Trough Medications Medication Current Medications Sodium Chloride 1,000 ml @ 125 mls/hr Q8H IV Last administered on 08/07/18at 05:51; Admin Dose 125 MLS/HR; Start 08/03/18 at 21:18 IV Flush (NS 3 ml) 3 ml PER PROTOCOL IV ; Start 08/03/18 at 21:30 Ondansetron HCl (Zofran Inj) 4 mg Q6H PRN IV NAUSEA/VOMITING; Start 08/03/18 at 21:30 Acetaminophen (Tylenol Tab) 650 mg Q6H PRN PO .PAIN 1-3 OR TEMP; Start 08/03/18 at 21:30 Diagnostic Test (Pha) (Accu-Chek) 1 ea 02 XX Last administered on 08/04/18at 03:15; Admin Dose 1 EA; Start 08/04/18 at 02:00 Insulin Aspart (Novolog Insulin Pen) 4 unit WITH MEALS SC Last administered on 08/07/18at 12:25; Admin Dose 4 UNIT; Start 08/04/18 at 07:55 Insulin Aspart (Novolog Insulin Pen) NOVOLOG *MODERATE* ALGORITHM WITH MEALS BEDTIME SC Last administered on 08/07/18at 12:27; Admin Dose 12 UNIT; Start 08/04/18 at 07:55 Miscellaneous Information 1 ea NOTE XX ; Start 08/03/18 at 22:00 Glucose (Glutose) 15 gm Q15M PRN PO DECREASED GLUCOSE; Start 08/03/18 at 22:00 Glucose (Glutose) 22.5 gm Q15M PRN PO DECREASED GLUCOSE; Start 08/03/18 at 22:00 Dextrose (D50w Syringe) 25 ml Q15M PRN IV DECREASED GLUCOSE; Start 08/03/18 at 22:00 Dextrose (D50w Syringe) 50 ml Q15M PRN IV DECREASED GLUCOSE; Start 08/03/18 at 22:00 Glucagon (Glucagen) 1 mg Q15M PRN IM DECREASED GLUCOSE; Start 08/03/18 at 22:00 Glucose (Glutose) 15 gm Q15M PRN BUCCAL DECREASED GLUCOSE; Start 08/03/18 at 22:00 Heparin Sodium (Porcine) (Heparin (5000 Units/1ml)) 5,000 unit BID SC Last administered on 08/07/18at 08:28; Admin Dose 5,000 UNIT; Start 08/06/18 at 21:00 Insulin Glargine (Lantus) 32 units DAILY SC ; Start 08/08/18 at 21:00; Status UNV Insulin Glargine (Lantus) 17 units ONCE ONCE SC ; Start 08/07/18 at 15:30; Stop 08/07/18 at 15:31 Levofloxacin (Levaquin) 500 mg DAILY@06 PO ; Start 08/08/18 at 06:00; Status UNV Cefepime HCl 50 ml @ 100 mls/hr Q12 IVPB ; Start 08/07/18 at 21:00; Status UNV ALEXANDRA SANDOVAL [employer] Aug 07, 2018 15:29
--- NOTE | 2018-08-07 16:46 | RADRPT ---
Echocardiogram Report Patient Name: Radha GARNICAtient ID: [id number] : 1990 (28y 5m)Study Date: 08/06/2018 2:30:18 PM Gender: MAccession #: [id number] Tech: Robbi Morley [facility] Location: [id number] Ref.Physician: AUDRA DILLON Height(Cm): BSA: Weight(Kg): Quality: AdequateAccount #: Procedures: Echocardiographic Report: Transthoracic echocardiogram with complete 2D, M-Mode, and doppler examination. Indications: r/o vegetation. Measurements: 2D/M Mode Doppler Measurement Value Normal Range Measurement Value Normal Range LVIDd 2D 4.0 [ 4.2 - 5.8 ] cm AV Peak Bala 1.3 [ 100.0 - 170.0 ] cm/sec LVIDs 2D 2.5 [ 2.5 - 4.0 ] cm AV Peak PG 7.0 [ 2.0 - 9.0 ] mmHg LVPWd 2D 0.8 [ 0.6 - 1.0 ] cm LVOT Peak Bala 0.8 [ 70.0 - 110.0 ] cm/sec IVSd 2D 0.9 [ 0.6 - 1.0 ] cm LVOT Peak PG 3.0 [ 2.0 - 6.0 ] mmHg AoR Diam 2D 3.0 [ 2.6 - 3.4 ] cm MV E Peak Bala 0.8 [ 60.0 - 130.0 ] cm/sec EDV 2D 70.0 [ 62.0 - 150.0 ] ml MV A Peak Bala 0.6 [ 100.0 - 120.0 ] cm/sec ESV 2D 22.5 [ 21.0 - 61.0 ] ml MV E/A 1.3 [ 0.8 - 1.5 ] ratio EF 2D 67.9 [ 52.0 - 72.0 ] percent MV Decel Time 162 [ 104 - 258 ] msec LA Dimen 2D 2.3 [ 3.0 - 4.0 ] cm Lat E` Bala 0.2 [ 10.0 - 15.0 ] cm/sec Lateral E/E` 4.9 [ 1.0 - 2.0 ] ratio MV E/A 1.3 [ 0.8 - 1.5 ] ratio TR Peak Bala 2.6 [ 100.0 - 280.0 ] cm/sec TR Peak PG 27.0 mmHg RVSP 30.0 [ 10.0 - 36.0 ] mmHg RA Pressure 3.0 mmHg Findings: Left Ventricle: Lower limits of normal systolic function. Normal left ventricular cavity size. Normal left ventricular wall thickness. Ejection fraction is visually estimated at 50 %. Tissue Doppler/Mitral Doppler indices are within normal limits. Right Ventricle: Normal right ventricular size. Normal right ventricular systolic function. Left Atrium: The left atrium is normal in size. Right Atrium: The right atrium is normal in size. Mitral Valve: Normal appearance and function of the mitral valve with trace physiologic regurgitation. Aortic Valve: Normal appearance of the aortic valve. No significant aortic stenosis or insufficiency. Tricuspid Valve: Normal appearance and function of the tricuspid valve with trace physiologic regurgitation. Normal right ventricular systolic pressure. Estimated peak PA systolic pressure 30 mmHg. Pulmonic Valve: Normal pulmonic valve appearance. Pericardium: Normal pericardium with no significant pericardial effusion. Aorta: Normal aortic root. IVC: Normal size and normal respiratory collapse consistent with normal right atrial pressure. Conclusions: Lower limits of normal systolic function. Normal left ventricular cavity size. Normal left ventricular wall thickness. Ejection fraction is visually estimated at 50 %. Tissue Doppler/Mitral Doppler indices are within normal limits. Normal appearance and function of the mitral valve with trace physiologic regurgitation. Normal appearance and function of the tricuspid valve with trace physiologic regurgitation. Normal right ventricular systolic pressure. Estimated peak PA systolic pressure 30 mmHg. Electronically Signed By: Mukund Cabrera 2018-08-07 16:45:38 PDT
[2018-08-07] MEDS: CEFEPIME 1GM/50 ML (PMX) 50 ML IVPB SCH (22:00)
[2018-08-08] MEDS: ACCU-CHEK XX SCH (02:00)
[2018-08-08 03:02] VITALS: BP 95/63; PULSE 85; RESP 18
[2018-08-08] MEDS: LEVOFLOXACIN 500 MG TAB PO SCH (06:19)
[2018-08-08] MEDS ORDERED: MAGNESIUM SULFATE 1 GM/D5W 100 ML IVPB STA (06:43)
[2018-08-08 07:25] VITALS: BP 99/63; PULSE 81; RESP 18
[2018-08-08] MEDS: CEFEPIME 1GM/50 ML (PMX) 50 ML IVPB SCH ×2 (07:58→20:18)
[2018-08-08] MEDS: SOD CHLORIDE 0.9% 1,000 ML IV SCH ×2 (07:59→13:18)
[2018-08-08] MEDS ORDERED: MAGNESIUM SULFATE 6 GM in DEXTROSE 5% 100 ML IVPB ONE (08:00)
[2018-08-08] MEDS: HEPARIN 5,000 UNIT/1 ML VIAL SC SCH ×2 (08:59→20:16)
[2018-08-08] MEDS: INSULIN ASPART [NOVOLOG] 3 ML PEN SC SCH ×7 (09:04→20:14)
--- NOTE | 2018-08-08 09:52 | PN ---
Date/Time of Note Date/Time of Note DATE: 08/08/18 TIME: 09:47 Assessment/Plan VTE Prophylaxis Risk score (from Nsg)>0 risk: 0 SCD applied (from Nsg): No SCD contraindicated: other (scds) Pharmacological prophylaxis: other (scds) Lines/Catheters IV [facility]ter Type (from [facility]): Peripheral IV Assessment/Plan Hospital Course Assessment: Elevated alkaline phosphatase- elevated GGT MRCP: The liver is uniform in appearance on noncontrast imaging, with normal contour and size. The biliary ductal system is unremarkable without evidence of common duct stone. Likewise gallbladder is normal in appearance. Transaminitis Leukocytosis Multiple ill-defined bilateral cavitary lung nodules. -Findings are suspicious for septic emboli. Ddx includes: fungal infection vs tuberculosis vs granulomatous infections. Type 2 diabetes Plan: Fractionate Alk phos- pending PPD pending ABX per ID Pt may require liver bx in the near future to r/o underlying etiology such as granulomatous hepatitis- will await ID/Pulmonary work-up and alk phos fractionation- prior to moving forward with liver bx if indicated. 2D echo negative for endocarditis Patient seen in collaboration with Dr. Vital Subjective: Course reviewed with nursing staff Patient interviewed and examined All labs, imaging and other results reviewed Pt states he feels better today, still very sleepy. Tolerating diet well, no c/o n/v or abd pain. Exam PHYSICAL EXAMINATION: GENERAL: Alert & oriented x 3,thin, agitated SKIN: No lesions HEAD: Normocephalic, atraumatic, no tenderness. EYES: Pupils equal reactive to light and accommodation, no discharge. EARS/NOSE AND THROAT: Ears normal, nose normal. NECK: Supple, no masses CHEST: Inspection within normal limits. CARDIOVASCULAR: Heart: Regular rate and rhythm RESPIRATORY: Lungs clear to auscultation GASTROINTESTINAL AND LIVER: Abdomen: Soft, non tenderness, non-distended, no hernias, no masses, no organomegaly, no ascites, no guarding, no rebound t enderness, normoactive bowel sounds. Rectal: Deferred. Result Diagram: 08/08/18 0450 08/08/180 Results 24hrs Laboratory Tests Test 08/07/18 12:11 08/07/18 17:16 08/07/18 18:40 08/07/18 22:05 Bedside Glucose 366 H 333 H 362 H 169 Test 08/08/18 04:50 08/08/18 08:56 White Blood Count 10.6 Red Blood Count 4.97 Hemoglobin 13.6 L Hematocrit 40.3 L Mean Corpuscular 81.1 L Volume Mean Corpuscular 27.4 L Hemoglobin Mean Corpuscular 33.7 Hemoglobin Concent Red Cell 11.9 Distribution Width Platelet Count 402 Mean Platelet Volume 9.7 Immature 0.800 H Granulocytes % Neutrophils % 55.6 Lymphocytes % 31.2 Monocytes % 10.7 Eosinophils % 0.9 Basophils % 0.8 Nucleated Red Blood 0.0 Cells % Immature 0.080 H Granulocytes # Neutrophils # 5.9 Lymphocytes # 3.3 H Monocytes # 1.1 H Eosinophils # 0.1 Basophils # 0.1 Nucleated Red Blood 0.0 Cells # Sodium Level 135 Potassium Level 3.7 Chloride Level 98 Carbon Dioxide Level 29 Anion Gap 8 Blood Urea Nitrogen 23 H Creatinine 0.71 Est Glomerular > 60 Filtrat Rate mL/min Glucose Level 311 H Calcium Level 9.2 Magnesium Level 1.0 L Total Bilirubin 0.0 L Direct Bilirubin 0.00 Indirect Bilirubin 0.0 Aspartate Amino 72 H Transf (AST/SGOT) Alanine 93 H Aminotransferase (AL T/SGPT) Alkaline Phosphatase 1314 H Total Protein 6.7 Albumin 3.1 L Globulin 3.60 H Albumin/Globulin 0.86 Ratio Bedside Glucose 279 H Exam/Review of Systems Exam Vitals Vital Signs Date Temp Pulse Resp B/P (MAP) Pulse Ox O2 O2 Flow FiO2 Time Delivery Rate 08/08/18 98.6 81 18 99/63 (75) 97 07:25 08/07/18 Room Air 04:04 Intake and Output 08/07/18 08/07/18 08/08/18 1515:00 23:00 07:00 IntakeIntake Total 2450 ml 900 ml OutputOutput Total 2000 ml BalanceBalance 450 ml 900 ml Results Results 24hrs Laboratory Tests Test 08/07/18 12:11 08/07/18 17:16 08/07/18 18:40 08/07/18 22:05 Bedside Glucose 366 H 333 H 362 H 169 Test 08/08/18 04:50 08/08/18 08:56 White Blood Count 10.6 Red Blood Count 4.97 Hemoglobin 13.6 L Hematocrit 40.3 L Mean Corpuscular 81.1 L Volume Mean Corpuscular 27.4 L Hemoglobin Mean Corpuscular 33.7 Hemoglobin Concent Red Cell 11.9 Distribution Width Platelet Count 402 Mean Platelet Volume 9.7 Immature 0.800 H Granulocytes % Neutrophils % 55.6 Lymphocytes % 31.2 Monocytes % 10.7 Eosinophils % 0.9 Basophils % 0.8 Nucleated Red Blood 0.0 Cells % Immature 0.080 H Granulocytes # Neutrophils # 5.9 Lymphocytes # 3.3 H Monocytes # 1.1 H Eosinophils # 0.1 Basophils # 0.1 Nucleated Red Blood 0.0 Cells # Sodium Level 135 Potassium Level 3.7 Chloride Level 98 Carbon Dioxide Level 29 Anion Gap 8 Blood Urea Nitrogen 23 H Creatinine 0.71 Est Glomerular > 60 Filtrat Rate mL/min Glucose Level 311 H Calcium Level 9.2 Magnesium Level 1.0 L Total Bilirubin 0.0 L Direct Bilirubin 0.00 Indirect Bilirubin 0.0 Aspartate Amino 72 H Transf (AST/SGOT) Alanine 93 H Aminotransferase (AL T/SGPT) Alkaline Phosphatase 1314 H Total Protein 6.7 Albumin 3.1 L Globulin 3.60 H Albumin/Globulin 0.86 Ratio Bedside Glucose 279 H Medications Medication Current Medications Sodium Chloride 1,000 ml @ 125 mls/hr Q8H IV Last administered on 08/08/18at 07:59; Admin Dose 125 MLS/HR; Start 08/03/18 at 21:18 IV Flush (NS 3 ml) 3 ml PER PROTOCOL IV ; Start 08/03/18 at 21:30 Ondansetron HCl (Zofran Inj) 4 mg Q6H PRN IV NAUSEA/VOMITING; Start 08/03/18 at 21:30 Acetaminophen (Tylenol Tab) 650 mg Q6H PRN PO .PAIN 1-3 OR TEMP; Start 08/03/18 at 21:30 Diagnostic Test (Pha) (Accu-Chek) 1 ea 02 XX Last administered on 08/04/18at 03:15; Admin Dose 1 EA; Start 08/04/18 at 02:00 Insulin Aspart (Novolog Insulin Pen) 4 unit WITH MEALS SC Last administered on 08/08/18at 09:04; Admin Dose 4 UNIT; Start 08/04/18 at 07:55 Insulin Aspart (Novolog Insulin Pen) NOVOLOG *MODERATE* ALGORITHM WITH MEALS BEDTIME SC Last administered on 08/08/18at 09:06; Admin Dose 8 UNIT; Start 08/04/18 at 07:55 Miscellaneous Information 1 ea NOTE XX ; Start 08/03/18 at 22:00 Glucose (Glutose) 15 gm Q15M PRN PO DECREASED GLUCOSE; Start 08/03/18 at 22:00 Glucose (Glutose) 22.5 gm Q15M PRN PO DECREASED GLUCOSE; Start 08/03/18 at 22:00 Dextrose (D50w Syringe) 25 ml Q15M PRN IV DECREASED GLUCOSE; Start 08/03/18 at 22:00 Dextrose (D50w Syringe) 50 ml Q15M PRN IV DECREASED GLUCOSE; Start 08/03/18 at 22:00 Glucagon (Glucagen) 1 mg Q15M PRN IM DECREASED GLUCOSE; Start 08/03/18 at 22:00 Glucose (Glutose) 15 gm Q15M PRN BUCCAL DECREASED GLUCOSE; Start 08/03/18 at 22:00 Heparin Sodium (Porcine) (Heparin (5000 Units/1ml)) 5,000 unit BID SC Last administered on 08/08/18at 08:59; Admin Dose 5,000 UNIT; Start 08/06/18 at 21:00 Insulin Glargine (Lantus) 32 units DAILY SC ; Start 08/08/18 at 21:00 Levofloxacin (Levaquin) 500 mg DAILY@06 PO Last administered on 08/08/18at 06:19; Admin Dose 500 MG; Start 08/08/18 at 06:00 Cefepime HCl 50 ml @ 100 mls/hr Q12 IVPB Last administered on 08/08/18at 07:58; Admin Dose 100 MLS/HR; Start 08/07/18 at 21:00 Magnesium Sulfate 6 gm/Dextrose 112 ml @ 18.667 mls/ hr ONCE ONCE IVPB Last administered on 08/08/18at 08:56; Admin Dose 18.667 MLS/HR; Start 08/08/18 at 08:00; Stop 08/08/18 at 13:59 CAMERON MORA Aug 08, 2018 09:52
--- NOTE | 2018-08-08 12:35 | PN ---
Date/Time of Note Date/Time of Note DATE: 08/08/18 TIME: 12:35 Objective Vitals Vital Signs Date Temp Pulse Resp B/P (MAP) Pulse Ox O2 O2 Flow FiO2 Time Delivery Rate 08/08/18 98.6 81 18 99/63 (75) 97 07:25 08/07/18 Room Air 04:04 Intake and Output 08/07/18 08/07/18 08/08/18 1515:00 23:00 07:00 IntakeIntake Total 2450 ml 900 ml OutputOutput Total 2000 ml BalanceBalance 450 ml 900 ml Results Result Diagram: 08/08/18 0450 08/08/18 0450 Medications Medications Current Medications Sodium Chloride 1,000 ml @ 125 mls/hr Q8H IV Last administered on 08/08/18at 07:59; Admin Dose 125 MLS/HR; Start 08/03/18 at 21:18 IV Flush (NS 3 ml) 3 ml PER PROTOCOL IV ; Start 08/03/18 at 21:30 Ondansetron HCl (Zofran Inj) 4 mg Q6H PRN IV NAUSEA/VOMITING; Start 08/03/18 at 21:30 Acetaminophen (Tylenol Tab) 650 mg Q6H PRN PO .PAIN 1-3 OR TEMP; Start 08/03/18 at 21:30 Diagnostic Test (Pha) (Accu-Chek) 1 ea 02 XX Last administered on 08/04/18at 03:15; Admin Dose 1 EA; Start 08/04/18 at 02:00 Insulin Aspart (Novolog Insulin Pen) NOVOLOG *MODERATE* ALGORITHM WITH MEALS BEDTIME SC Last administered on 08/08/18at 09:06; Admin Dose 8 UNIT; Start 08/04/18 at 07:55 Miscellaneous Information 1 ea NOTE XX ; Start 08/03/18 at 22:00 Glucose (Glutose) 15 gm Q15M PRN PO DECREASED GLUCOSE; Start 08/03/18 at 22:00 Glucose (Glutose) 22.5 gm Q15M PRN PO DECREASED GLUCOSE; Start 08/03/18 at 22:00 Dextrose (D50w Syringe) 25 ml Q15M PRN IV DECREASED GLUCOSE; Start 08/03/18 at 22:00 Dextrose (D50w Syringe) 50 ml Q15M PRN IV DECREASED GLUCOSE; Start 08/03/18 at 22:00 Glucagon (Glucagen) 1 mg Q15M PRN IM DECREASED GLUCOSE; Start 08/03/18 at 22:00 Glucose (Glutose) 15 gm Q15M PRN BUCCAL DECREASED GLUCOSE; Start 08/03/18 at 22:00 Heparin Sodium (Porcine) (Heparin (5000 Units/1ml)) 5,000 unit BID SC Last ad ministered on 08/08/18at 08:59; Admin Dose 5,000 UNIT; Start 08/06/18 at 21:00 Levofloxacin (Levaquin) 500 mg DAILY@06 PO Last administered on 08/08/18at 06:19; Admin Dose 500 MG; Start 08/08/18 at 06:00 Cefepime HCl 50 ml @ 100 mls/hr Q12 IVPB Last administered on 08/08/18at 07:58; Admin Dose 100 MLS/HR; Start 08/07/18 at 21:00 Magnesium Sulfate 6 gm/Dextrose 112 ml @ 18.667 mls/ hr ONCE ONCE IVPB Last administered on 08/08/18at 08:56; Admin Dose 18.667 MLS/HR; Start 08/08/18 at 08:00; Stop 08/08/18 at 13:59 Insulin Aspart (Novolog Insulin Pen) 6 unit WITH MEALS SC ; Start 08/08/18 at 11:40 Insulin Glargine (Lantus) 35 units DAILY SC ; Start 08/08/18 at 21:00 VTE Prophylaxis Risk score (from Ns)>0 risk: 1 SCD applied (from [facility]): Yes Lines/Catheters IV Catheter Type: Stanton in Place: No Assessment/Plan Hospital Course Subjective Patient not in any acute distress, wants to go home however explained to patient the severity of the situation. Objective Physical exam General: Patient is laying in bed and answers questions appropriately Mentation: Patient is alert and oriented 4, Head: Normocephalic atraumatic Eyes: EOMI, pupils reactive to light Neck: Supple, nontender, midline Respiratory: Coarse to auscultation bilaterally Cardiovascular: regular rate, no obvious murmurs Gastrointestinal: non-tender to palpation, bowel sounds heard. 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: Moves all extremities spontaneously Skin: No new skin lesions Assessment and plan Sepsis Secondary to cavitary pneumonia -Infectious disease consulted -Pulmonary consulted -Resolving Cavitary pneumonia -ID consulted -Pulmonary consulted and work-up pending -Questionable septic emboli -Denies any IV drug use, states he did smoke crystal meth on a normal basis however. Medically noncompliant diabetes -Better controlled -Continue insulin and adjust as needed Elevated liver enzymes -GI on board, work-up pending Electrolyte derangement -Monitor and correct as needed Disposition -Follow-up with infectious disease, pulmonary, GI recommendations, continue IV antibiotics. DONNY MORA Aug 08, 2018 12:35
[2018-08-08 14:25] VITALS: BP 91/56; PULSE 72; RESP 18
--- NOTE | 2018-08-08 17:44 | CONS ---
Consult Date/Type/Reason Admit Date/Time Aug 03, 2018 at 19:57 Initial Consult Date 08/07/18 Type of Consultation: Pulm Date/Time of Note DATE: 08/08/18 TIME: 17:[address] chest reviewed. Objective Vitals Vital Signs Date Temp Pulse Resp B/P (MAP) Pulse Ox O2 O2 Flow FiO2 Time Delivery Rate 08/08/18 97.4 72 18 91/56 (68) 99 14:25 08/07/18 Room Air 04:04 Intake and Output 08/07/18 08/07/18 08/08/18 1515:00 23:00 07:00 IntakeIntake Total 2450 ml 900 ml OutputOutput Total 2000 ml BalanceBalance 450 ml 900 ml Exam HEENT: Neck supple; no JVD; no LAD CVS: RRR, S1 and S2 CHEST: Clear ABD: Soft, NT, + BS EXT: No c/c/e Results/Medications Result Diagram: 08/08/18 0450 08/08/18 0450 Results 24 hrs Laboratory Tests Test 08/07/18 18:40 08/07/18 22:05 08/08/18 04:50 08/08/18 08:56 Bedside Glucose 362 H 169 279 H White Blood Count 10.6 Red Blood Count 4.97 Hemoglobin 13.6 L Hematocrit 40.3 L Mean Corpuscular 81.1 L Volume Mean Corpuscular 27.4 L Hemoglobin Mean Corpuscular 33.7 Hemoglobin Concent Red Cell 11.9 Distribution Width Platelet Count 402 Mean Platelet Volume 9.7 Immature 0.800 H Granulocytes % Neutrophils % 55.6 Lymphocytes % 31.2 Monocytes % 10.7 Eosinophils % 0.9 Basophils % 0.8 Nucleated Red Blood 0.0 Cells % Immature 0.080 H Granulocytes # Neutrophils # 5.9 Lymphocytes # 3.3 H Monocytes # 1.1 H Eosinophils # 0.1 Basophils # 0.1 Nucleated Red Blood 0.0 Cells # Sodium Level 135 Potassium Level 3.7 Chloride Level 98 Carbon Dioxide Level 29 Anion Gap 8 Blood Urea Nitrogen 23 H Creatinine 0.71 Est Glomerular > 60 Filtrat Rate mL/min Glucose Level 311 H Calcium Level 9.2 Magnesium Level 1.0 L Total Bilirubin 0.0 L Direct Bilirubin 0.00 Indirect Bilirubin 0.0 Aspartate Amino 72 H Transf (AST/SGOT) Alanine 93 H Aminotransferase (AL T/SGPT) Alkaline Phosphatase 1314 H Total Protein 6.7 Albumin 3.1 L Globulin 3.60 H Albumin/Globulin 0.86 Ratio Test 08/08/18 13:10 Bedside Glucose 261 H Medications Current Medications Sodium Chloride 1,000 ml @ 125 mls/hr Q8H IV Last administered on 08/08/18at 07:59; Admin Dose 125 MLS/HR; Start 08/03/18 at 21:18 IV Flush (NS 3 ml) 3 ml PER PROTOCOL IV ; Start 08/03/18 at 21:30 Ondansetron HCl (Zofran Inj) 4 mg Q6H PRN IV NAUSEA/VOMITING; Start 08/03/18 at 21:30 Acetaminophen (Tylenol Tab) 650 mg Q6H PRN PO .PAIN 1-3 OR TEMP; Start 08/03/18 at 21:30 Diagnostic Test (Pha) (Accu-Chek) 1 ea 02 XX Last administered on 08/04/18at 03:15; Admin Dose 1 EA; Start 08/04/18 at 02:00 Insulin Aspart (Novolog Insulin Pen) NOVOLOG *MODERATE* ALGORITHM WITH MEALS BEDTIME SC Last administered on 08/08/18at 13:13; Admin Dose 8 UNIT; Start 08/04/18 at 07:55 Miscellaneous Information 1 ea NOTE XX ; Start 08/03/18 at 22:00 Glucose (Glutose) 15 gm Q15M PRN PO DECREASED GLUCOSE; Start 08/03/18 at 22:00 Glucose (Glutose) 22.5 gm Q15M PRN PO DECREASED GLUCOSE; Start 08/03/18 at 22:00 Dextrose (D50w Syringe) 25 ml Q15M PRN IV DECREASED GLUCOSE; Start 08/03/18 at 22:00 Dextrose (D50w Syringe) 50 ml Q15M PRN IV DECREASED GLUCOSE; Start 08/03/18 at 22:00 Glucagon (Glucagen) 1 mg Q15M PRN IM DECREASED GLUCOSE; Start 08/03/18 at 22:00 Glucose (Glutose) 15 gm Q15M PRN BUCCAL DECREASED GLUCOSE; Start 08/03/18 at 22:00 Heparin Sodium (Porcine) (Heparin (5000 Units/1ml)) 5,000 unit BID SC Last administered on 08/08/18at 08:59; Admin Dose 5,000 UNIT; Start 08/06/18 at 21:00 Levofloxacin (Levaquin) 500 mg DAILY@06 PO Last administered on 08/08/18at 06:19; Admin Dose 500 MG; Start 08/08/18 at 06:00 Cefepime HCl 50 ml @ 100 mls/hr Q12 IVPB Last administered on 08/08/18at 07:58; Admin Dose 100 MLS/HR; Start 08/07/18 at 21:00 Insulin Aspart (Novolog Insulin Pen) 6 unit WITH MEALS SC Last administered on 08/08/18at 13:14; Admin Dose 6 UNIT; Start 08/08/18 at 11:40 Insulin Glargine (Lantus) 35 units DAILY SC ; Start 08/08/18 at 21:00 Assessment/Plan Assessment/Plan (Daily) IMP: 1. Bilateral peripheral cavities/nodules--at varying stages of evolution. Findings most consistent with SPE. Doubt GPA or MALT. Doubt crypto RECS: 1. PEPPER 2. Serum CRAG and LDH SEBASTIEN CURRAN MD Aug 08, 2018 17:44
[2018-08-08] MEDS: LINAGLIPTIN 5 MG TABLET PO SCH (18:57)
[2018-08-08 19:20] VITALS: BP 103/75; PULSE 100; RESP 20
[2018-08-08] MEDS ORDERED: INSULIN GLARGINE [LANTus] (100 UNITS/ML) SYG SC SCH (21:00)
[2018-08-08] MEDS: INSULIN GLARGINE [LANTus] (100 UNITS/ML) SYG SC SCH (21:16)
[2018-08-09] VITALS (14 sets, daily range): BP systolic 91–110; BP diastolic 48–70; PULSE 74–113; RESP 18–25
[2018-08-09] MEDS: SOD CHLORIDE 0.9% 1,000 ML IV SCH ×2 (00:50→05:18)
[2018-08-09] MEDS: ACCU-CHEK XX SCH (01:06)
[2018-08-09] MEDS ORDERED: INSULIN ASPART [NOVOLOG] 3 ML PEN SC ONE (02:30)
[2018-08-09] MEDS ORDERED: ACCU-CHEK XX ONE (03:00)
[2018-08-09] MEDS: LEVOFLOXACIN 500 MG TAB PO SCH (05:47)
[2018-08-09] MEDS: LINAGLIPTIN 5 MG TABLET PO SCH (08:29)
[2018-08-09] MEDS: metFORMIN 500 MG TAB PO SCH ×2 (08:29→17:35)
[2018-08-09] MEDS: INSULIN ASPART [NOVOLOG] 3 ML PEN SC SCH ×4 (08:30→21:32)
[2018-08-09] MEDS: HEPARIN 5,000 UNIT/1 ML VIAL SC SCH ×2 (08:32→20:26)
[2018-08-09] MEDS: CEFEPIME 1GM/50 ML (PMX) 50 ML IVPB SCH ×2 (08:32→20:23)
[2018-08-09] MEDS: INSULIN GLARGINE [LANTus] (100 UNITS/ML) SYG SC SCH (08:32)
[2018-08-09] MEDS ORDERED: MAGNESIUM OXIDE 400 MG TAB PO ONE (09:00)
[2018-08-09] MEDS ORDERED: INSULIN GLARGINE [LANTus] (100 UNITS/ML) SYG SC SCH (09:00)
[2018-08-09] MEDS ORDERED: POTASSIUM CHLORIDE (SR) 10 MEQ TAB PO ONE (09:00)
--- NOTE | 2018-08-09 09:51 | PN ---
Date/Time of Note Date/Time of Note DATE: 08/09/18 TIME: 09:46 Objective Vitals Vital Signs Date Temp Pulse Resp B/P (MAP) Pulse Ox O2 O2 Flow FiO2 Time Delivery Rate 08/09/18 98.6 77 20 109/59 98 Room Air 08:04 (76) Intake and Output 08/08/18 08/08/18 08/09/18 1515:00 23:00 07:00 IntakeIntake Total 3202 ml 1390 ml 2340 ml OutputOutput Total 1300 ml 1400 ml 2000 ml BalanceBalance 1902 ml -10 ml 340 ml Results Result Diagram: 08/09/18 0435 08/09/18 0435 Medications Medications Current Medications Sodium Chloride 1,000 ml @ 125 mls/hr Q8H IV Last administered on 08/09/18at 00:50; Admin Dose 125 MLS/HR; Start 08/03/18 at 21:18 IV Flush (NS 3 ml) 3 ml PER PROTOCOL IV ; Start 08/03/18 at 21:30 Ondansetron HCl (Zofran Inj) 4 mg Q6H PRN IV NAUSEA/VOMITING; Start 08/03/18 at 21:30 Acetaminophen (Tylenol Tab) 650 mg Q6H PRN PO .PAIN 1-3 OR TEMP; Start 08/03/18 at 21:30 Diagnostic Test (Pha) (Accu-Chek) 1 ea 02 XX Last administered on 08/04/18at 03:15; Admin Dose 1 EA; Start 08/04/18 at 02:00 Miscellaneous Information 1 ea NOTE XX ; Start 08/03/18 at 22:00 Glucose (Glutose) 15 gm Q15M PRN PO DECREASED GLUCOSE; Start 08/03/18 at 22:00 Glucose (Glutose) 22.5 gm Q15M PRN PO DECREASED GLUCOSE; Start 08/03/18 at 22:00 Dextrose (D50w Syringe) 25 ml Q15M PRN IV DECREASED GLUCOSE; Start 08/03/18 at 22:00 Dextrose (D50w Syringe) 50 ml Q15M PRN IV DECREASED GLUCOSE; Start 08/03/18 at 22:00 Glucagon (Glucagen) 1 mg Q15M PRN IM DECREASED GLUCOSE; Start 08/03/18 at 22:00 Glucose (Glutose) 15 gm Q15M PRN BUCCAL DECREASED GLUCOSE; Start 08/03/18 at 22:00 Heparin Sodium (Porcine) (Heparin (5000 Units/1ml)) 5,000 unit BID SC Last administered on 08/09/18 08:32; Admin Dose 5,000 UNIT; Start 08/06/18 at 21:00 Levofloxacin (Levaquin) 500 mg DAILY@06 PO Last administered on 08/09/18at 05:47; Admin Dose 500 MG; Start 08/08/18 at 06:00 Cefepime HCl 50 ml @ 100 mls/hr Q12 IVPB Last administered on 08/09/18 08:32; Admin Dose 100 MLS/HR; Start 08/07/18 at 21:00 Metformin HCl (Glucophage) 1,000 mg BID WITH MEALS PO Last administered on 08/09/18 08:29; Admin Dose 1,000 MG; Start 08/09/18 at 07:50 Linagliptin (Tradjenta) 5 mg DAILY PO Last administered on 08/09/18 08:29; Admin Dose 5 MG; Start 08/08/18 at 18:30 Insulin Glargine (Lantus) 40 units QAM SC ; Start 08/10/18 at 09:00; Status UNV Insulin Aspart (Novolog Insulin Pen) NOVOLOG *MODERATE* ALGORITHM Q4 SC ; Start 08/09/18 at 13:00; Status UNV VTE Prophylaxis Risk score (from Ns)>0 risk: 1 SCD applied (from Ns): Yes Lines/Catheters IV Catheter Type: Stanton in Place: No Assessment/Plan Hospital Course Subjective Patient not in any acute distress, got too much lantus, computer error and pharmacy error led to this issue. Objective Physical exam General: Patient is laying in bed and answers questions appropriately Mentation: Patient is alert and oriented 4, Head: Normocephalic atraumatic Eyes: EOMI, pupils reactive to light Neck: Supple, nontender, midline Respiratory: Coarse to auscultation bilaterally Cardiovascular: regular rate, no obvious murmurs Gastrointestinal: non-tender to palpation, bowel sounds heard. 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: Moves all extremities spontaneously Skin: No new skin lesions Assessment and plan Sepsis Secondary to cavitary pneumonia -Infectious disease consulted -Pulmonary consulted -Resolving Cavitary pneumonia -ID consulted -Pulmonary consulted and work-up pending -Questionable septic emboli -Denies any IV drug use, states he did smoke crystal meth on a normal basis however. Medically noncompliant diabetes -Better controlled -Continue insulin and adjust as needed -After readjusting insulin Lantus dose which was scheduled for 2100 last night, with the assumption that it would be delivered tonight at 2100, after editing the exact same dose and time to 35 to 40 units, it appears pharmacy change the dosing time to 0900. Patient received a double dose of Lantus, thankfully patient's blood sugars are elevated however will need closer monitoring and every hour blood glucose checks, will send to ICU, hold mealtime insulin for now, keep sliding scale present. Elevated liver enzymes -GI on board, work-up pending Electrolyte derangement -Monitor and correct as needed Disposition -Sent to ICU for every hour Jackie-DONNY Gregory Aug 09, 2018 09:51
[2018-08-09] MEDS: DEXTROSE 5%-0.45% NACL 1,000 ML IV SCH ×2 (10:00→18:20)
[2018-08-09] MEDS ORDERED: INSULIN ASPART [NOVOLOG] 3 ML PEN SC SCH ×2 (11:40→13:00)
[2018-08-09] MEDS ORDERED: Insulin NOVOLOG SS MODERATE Algorithm(NPO/TPN/ENTERAL FEEDS) SC SCH (13:00)
--- NOTE | 2018-08-09 15:13 | PN ---
Date/Time of Note Date/Time of Note DATE: 08/09/18 TIME: 14:58 Assessment/Plan VTE Prophylaxis Risk score (from Ns)>0 risk: 1 SCD applied (from Ns): Yes Pharmacological prophylaxis: other (scds) Lines/Catheters IV Catheter Type (from [facility]): Urinary Cath still in place: No Assessment/Plan Hospital Course Assessment: Elevated alkaline phosphatase- elevated GGT MRCP: The liver is uniform in appearance on noncontrast imaging, with normal contour and size. The biliary ductal system is unremarkable without evidence of common duct stone. Likewise gallbladder is normal in appearance. Transaminitis Leukocytosis Multiple ill-defined bilateral cavitary lung nodules. -Findings are suspicious for septic emboli. Ddx includes: fungal infection vs tuberculosis vs granulomatous infections. Type 2 diabetes Hx of crystal meth use Plan: Fractionate Alk phos- reviewed- liver ID work-up- rec PEPPER/Labs Continue to monitor from GI point of view- will consider liver if indicated- after ID/pulm work-up is complete Monitor labs Patient seen in collaboration with Dr. Vital Subjective: Course reviewed with nursing staff Patient interviewed and examined All labs, imaging and other results reviewed Patient transferred to ICU for hourly BS monitoring No over night events. No c/o n/v or abd pain. Exam PHYSICAL EXAMINATION: GENERAL: Alert & oriented x 3,thin, agitated SKIN: No lesions HEAD: Normocephalic, atraumatic, no tenderness. EYES: Pupils equal reactive to light and accommodation, no discharge. EARS/NOSE AND THROAT: Ears normal, nose normal. NECK: Supple, no masses CHEST: Inspection within normal limits. CARDIOVASCULAR: Heart: Regular rate and rhythm RESPIRATORY: Lungs clear to auscultation GASTROINTESTINAL AND LIVER: Abdomen: Soft, non tenderness, non-distended, no hernias, no masses, no organomegaly, no ascites, no guarding, no rebound tenderness, normoactive bowel sounds. Rectal: Deferred. Result Diagram: 08/09/18 0435 08/09/18 0435 Results 24hrs Laboratory Tests Test 08/08/18 17:54 08/08/18 20:10 08/09/18 01:04 08/09/18 03:16 Bedside Glucose 370 H 221 H 355 H 294 H Test 08/09/18 04:35 08/09/18 08:03 08/09/18 10:37 08/09/18 12:05 White Blood Count 10.7 Red Blood Count 4.94 Hemoglobin 13.4 L Hematocrit 39.7 L Mean Corpuscular 80.4 L Volume Mean Corpuscular 27.1 L Hemoglobin Mean Corpuscular 33.8 Hemoglobin Concent Red Cell 11.9 Distribution Width Platelet Count 448 H Mean Platelet Volume 9.5 Immature 0.600 H Granulocytes % Neutrophils % 56.0 Lymphocytes % 30.6 Monocytes % 11.4 H Eosinophils % 0.7 Basophils % 0.7 Nucleated Red Blood 0.0 Cells % Immature 0.060 H Granulocytes # Neutrophils # 6.0 Lymphocytes # 3.3 H Monocytes # 1.2 H Eosinophils # 0.1 Basophils # 0.1 Nucleated Red Blood 0.0 Cells # Sodium Level 137 Potassium Level 3.5 Chloride Level 96 L Carbon Dioxide Level 34 H Anion Gap 7 Blood Urea Nitrogen 25 H Creatinine 0.91 Est Glomerular > 60 Filtrat Rate mL/min Glucose Level 166 # Calcium Level 8.9 Phosphorus Level 3.8 Magnesium Level 1.4 L Bedside Glucose 294 H 268 H 359 H Test 08/09/18 13:02 08/09/18 14:03 Bedside Glucose 384 H 422 *H Exam/Review of Systems Exam Vitals Vital Signs Date Temp Pulse Resp B/P (MAP) Pulse Ox O2 O2 Flow FiO2 Time Delivery Rate 08/09/18 98.6 77 20 109/59 98 Room Air 08:04 (76) Intake and Output 08/08/18 08/08/18 08/09/18 1414:59 22:59 06:59 IntakeIntake Total 2702 ml 1890 ml 2340 ml OutputOutput Total 800 ml 1900 ml 2000 ml BalanceBalance 1902 ml -10 ml 340 ml Results Results 24hrs Laboratory Tests Test 08/08/18 17:54 08/08/18 20:10 08/09/18 01:04 08/09/18 03:16 Bedside Glucose 370 H 221 H 355 H 294 H Test 08/09/18 04:35 08/09/18 08:03 08/09/18 10:37 08/09/18 12:05 White Blood Count 10.7 Red Blood Count 4.94 Hemoglobin 13.4 L Hematocrit 39.7 L Mean Corpuscular 80.4 L Volume Mean Corpuscular 27.1 L Hemoglobin Mean Corpuscular 33.8 Hemoglobin Concent Red Cell 11.9 Distribution Width Platelet Count 448 H Mean Platelet Volume 9.5 Immature 0.600 H Granulocytes % Neutrophils % 56.0 Lymphocytes % 30.6 Monocytes % 11.4 H Eosinophils % 0.7 Basophils % 0.7 Nucleated Red Blood 0.0 Cells % Immature 0.060 H Granulocytes # Neutrophils # 6.0 Lymphocytes # 3.3 H Monocytes # 1.2 H Eosinophils # 0.1 Basophils # 0.1 Nucleated Red Blood 0.0 Cells # Sodium Level 137 Potassium Level 3.5 Chloride Level 96 L Carbon Dioxide Level 34 H Anion Gap 7 Blood Urea Nitrogen 25 H Creatinine 0.91 Est Glomerular > 60 Filtrat Rate mL/min Glucose Level 166 # Calcium Level 8.9 Phosphorus Level 3.8 Magnesium Level 1.4 L Bedside Glucose 294 H 268 H 359 H Test 08/09/18 13:02 08/09/18 14:03 Bedside Glucose 384 H 422 *H Medications Medication Current Medications IV Flush (NS 3 ml) 3 ml PER PROTOCOL IV ; Start 08/03/18 at 21:30 Ondansetron HCl (Zofran Inj) 4 mg Q6H PRN IV NAUSEA/VOMITING; Start 08/03/18 at 21:30 Acetaminophen (Tylenol Tab) 650 mg Q6H PRN PO .PAIN 1-3 OR TEMP; Start 08/03/18 at 21:30 Miscellaneous Information 1 ea NOTE XX ; Start 08/03/18 at 22:00 Glucose (Glutose) 15 gm Q15M PRN PO DECREASED GLUCOSE; Start 08/03/18 at 22:00 Glucose (Glutose) 22.5 gm Q15M PRN PO DECREASED GLUCOSE; Start 08/03/18 at 22:00 Dextrose (D50w Syringe) 25 ml Q15M PRN IV DECREASED GLUCOSE; Start 08/03/18 at 22:00 Dextrose (D50w Syringe) 50 ml Q15M PRN IV DECREASED GLUCOSE; Start 08/03/18 at 22:00 Glucagon (Glucagen) 1 mg Q15M PRN IM DECREASED GLUCOSE; Start 08/03/18 at 22:00 Glucose (Glutose) 15 gm Q15M PRN BUCCAL DECREASED GLUCOSE; Start 08/03/18 at 22:00 Heparin Sodium (Porcine) (Heparin (5000 Units/1ml)) 5,000 unit BID SC Last administered on 08/09/18at 08:32; Admin Dose 5,000 UNIT; Start 08/06/18 at 21:00 Levofloxacin (Levaquin) 500 mg DAILY@06 PO Last administered on 08/09/18 05:47; Admin Dose 500 MG; Start 08/08/18 at 06:00 Cefepime HCl 50 ml @ 100 mls/hr Q12 IVPB Last administered on 08/09/18 08:32; Admin Dose 100 MLS/HR; Start 08/07/18 at 21:00 Metformin HCl (Glucophage) 1,000 mg BID WITH MEALS PO Last administered on 08/09/18 08:29; Admin Dose 1,000 MG; Start 08/09/18 at 07:50 Linagliptin (Tradjenta) 5 mg DAILY PO Last administered on 08/09/18 08:29; Admin Dose 5 MG; Start 08/08/18 at 18:30 Insulin Glargine (Lantus) 40 units QAM SC ; Start 08/10/18 at 09:00 Dextrose/Sodium Chloride 1,000 ml @ 120 mls/hr Q8H20M IV ; Start 08/09/18 at 10:00 Diagnostic Test (Pha) (Accu-Chek) 1 ea 02 XX ; Start 08/10/18 at 02:00 Insulin Aspart (Novolog Insulin Pen) NOVOLOG *MILD* ALGORITHM WITH MEALS BEDTIME SC ; Start 08/09/18 at 17:35 CAMERON MORA Aug 09, 2018 15:10
--- NOTE | 2018-08-09 17:14 | CONS ---
Consult Date/Type/Reason Admit Date/Time Aug 03, 2018 at 19:57 Initial Consult Date 08/07/18 Type of Consultation: Pulm Date/Time of Note DATE: 08/09/18 TIME: 17:12 Subjective Transferred to the ICU for hypoglycemia s/p higher dose insulin. Now improved. Objective Vitals Vital Signs Date Temp Pulse Resp B/P (MAP) Pulse Ox O2 O2 Flow FiO2 Time Delivery Rate 08/09/18 96 12:00 08/09/18 98.6 20 109/59 98 Room Air 08:04 (76) Intake and Output 08/08/18 08/08/18 08/09/18 1414:59 22:59 06:59 IntakeIntake Total 2702 ml 1890 ml 2340 ml OutputOutput Total 800 ml 1900 ml 2000 ml BalanceBalance 1902 ml -10 ml 340 ml Exam HEENT: Neck supple; no JVD; no LAD CVS: RRR, S1 and S2 CHEST: Clear ABD: Soft, NT, + BS EXT: No c/c/e Results/Medications Result Diagram: 08/09/18 0435 08/09/18 0435 Results 24 hrs Laboratory Tests Test 08/08/18 17:54 08/08/18 20:10 08/09/18 01:04 08/09/18 03:16 Bedside Glucose 370 H 221 H 355 H 294 H Test 08/09/18 04:35 08/09/18 08:03 08/09/18 10:37 08/09/18 12:05 White Blood Count 10.7 Red Blood Count 4.94 Hemoglobin 13.4 L Hematocrit 39.7 L Mean Corpuscular 80.4 L Volume Mean Corpuscular 27.1 L Hemoglobin Mean Corpuscular 33.8 Hemoglobin Concent Red Cell 11.9 Distribution Width Platelet Count 448 H Mean Platelet Volume 9.5 Immature 0.600 H Granulocytes % Neutrophils % 56.0 Lymphocytes % 30.6 Monocytes % 11.4 H Eosinophils % 0.7 Basophils % 0.7 Nucleated Red Blood 0.0 Cells % Immature 0.060 H Granulocytes # Neutrophils # 6.0 Lymphocytes # 3.3 H Monocytes # 1.2 H Eosinophils # 0.1 Basophils # 0.1 Nucleated Red Blood 0.0 Cells # Sodium Level 137 Potassium Level 3.5 Chloride Level 96 L Carbon Dioxide Level 34 H Anion Gap 7 Blood Urea Nitrogen 25 H Creatinine 0.91 Est Glomerular > 60 Filtrat Rate mL/min Glucose Level 166 # Calcium Level 8.9 Phosphorus Level 3.8 Magnesium Level 1.4 L Bedside Glucose 294 H 268 H 359 H Test 08/09/18 13:02 08/09/18 14:03 08/09/18 15:07 08/09/18 16:34 Bedside Glucose 384 H 422 *H 330 H 259 H Medications Current Medications IV Flush (NS 3 ml) 3 ml PER PROTOCOL IV ; Start 08/03/18 at 21:30 Ondansetron HCl (Zofran Inj) 4 mg Q6H PRN IV NAUSEA/VOMITING; Start 08/03/18 at 21:30 Acetaminophen (Tylenol Tab) 650 mg Q6H PRN PO .PAIN 1-3 OR TEMP; Start 08/03/18 at 21:30 Miscellaneous Information 1 ea NOTE XX ; Start 08/03/18 at 22:00 Glucose (Glutose) 15 gm Q15M PRN PO DECREASED GLUCOSE; Start 08/03/18 at 22:00 Glucose (Glutose) 22.5 gm Q15M PRN PO DECREASED GLUCOSE; Start 08/03/18 at 22:00 Dextrose (D50w Syringe) 25 ml Q15M PRN IV DECREASED GLUCOSE; Start 08/03/18 at 22:00 Dextrose (D50w Syringe) 50 ml Q15M PRN IV DECREASED GLUCOSE; Start 08/03/18 at 22:00 Glucagon (Glucagen) 1 mg Q15M PRN IM DECREASED GLUCOSE; Start 08/03/18 at 22:00 Glucose (Glutose) 15 gm Q15M PRN BUCCAL DECREASED GLUCOSE; Start 08/03/18 at 22:00 Heparin Sodium (Porcine) (Heparin (5000 Units/1ml)) 5,000 unit BID SC Last administered on 08/09/18at 08:32; Admin Dose 5,000 UNIT; Start 08/06/18 at 21:00 Levofloxacin (Levaquin) 500 mg DAILY@06 PO Last administered on 08/09/18at 05:47; Admin Dose 500 MG; Start 08/08/18 at 06:00 Cefepime HCl 50 ml @ 100 mls/hr Q12 IVPB Last administered on 08/09/18at 08:32; Admin Dose 100 MLS/HR; Start 4/26/19 at 21:00 Metformin HCl (Glucophage) 1,000 mg BID WITH MEALS PO Last administered on 08/09/18at 08:29; Admin Dose 1,000 MG; Start 08/09/18 at 07:50 Linagliptin (Tradjenta) 5 mg DAILY PO Last administered on 08/09/18at 08:29; Admin Dose 5 MG; Start 08/08/18 at 18:30 Insulin Glargine (Lantus) 40 units QAM SC ; Start 08/10/18 at 09:00 Dextrose/Sodium Chloride 1,000 ml @ 120 mls/hr Q8H20M IV ; Start 08/09/18 at 10:00 Diagnostic Test (Pha) (Accu-Chek) 1 ea 02 XX ; Start 08/10/18 at 02:00 Insulin Aspart (Novolog Insulin Pen) NOVOLOG *MILD* ALGORITHM WITH MEALS BEDTIME SC ; Start 08/09/18 at 17:35 Assessment/Plan Assessment/Plan (Daily) IMP: 1. Bilateral peripheral cavities/nodules--at varying stages of evolution. Findings most consistent with SPE.. Doubt GPA or MALT. Doubt crypto RECS: 1. PEPPER 2. F/U infectious work-up 3. Am labs 4. DM management as per Dr. Estrada 5. Okay for med/surg SEBASTIEN CURRAN MD Aug 09, 2018 17:14
[2018-08-10] VITALS (32 sets, daily range): BP systolic 78–104; BP diastolic 57–77; PULSE 74–106; RESP 15–27
[2018-08-10] MEDS ORDERED: INSULIN ASPART [NOVOLOG] 3 ML PEN SC ONE (02:00)
[2018-08-10] MEDS ORDERED: ACCU-CHEK XX SCH (02:00)
[2018-08-10] MEDS ORDERED: ACCU-CHEK XX ONE (02:00)
[2018-08-10] MEDS: DEXTROSE 5%-0.45% NACL 1,000 ML IV SCH ×3 (02:12→19:01)
[2018-08-10] MEDS: LEVOFLOXACIN 500 MG TAB PO SCH (06:28)
[2018-08-10] MEDS ORDERED: MAGNESIUM SULFATE 6 GM in DEXTROSE 5% 100 ML IVPB ONE (08:00)
[2018-08-10] MEDS ORDERED: DEXTROSE 50% 50 ML SYRINGE IV PRN ×4 (09:00→10:00)
[2018-08-10] MEDS: ACCU-CHEK XX SCH ×15 (09:00→23:00)
[2018-08-10] MEDS ORDERED: INSULIN GLARGINE [LANTus] (100 UNITS/ML) SYG SC SCH ×2 (09:00→20:00)
--- NOTE | 2018-08-10 09:28 | CONS ---
Consult Date/Type/Reason Admit Date/Time Aug 03, 2018 at 19:57 Initial Consult Date 08/07/18 Type of Consult Pulmonary Date/Time of Note DATE: 08/10/18 TIME: 09:27 Subjective Awake alert oriented. Blood sugar remains in the 300s. Objective Vital Signs Date Temp Pulse Resp B/P (MAP) Pulse Ox O2 O2 Flow FiO2 Time Delivery Rate 08/10/18 99 08:00 08/10/18 21 06:00 08/10/18 78/57 (64) 99 Room Air 05:00 08/10/18 98.0 00:00 Intake and Output 08/09/18 08/09/18 08/10/18 1515:00 23:00 07:00 IntakeIntake Total 890 ml 1250 ml 120 ml OutputOutput Total 1900 ml BalanceBalance -1010 ml 1250 ml 120 ml Exam GENERAL: Well-nourished well-developed gentleman comfortable at rest no acute distress VITAL SIGNS: per chart NECK: Supple. No JVD or lymphadenopathy. CARDIAC EXAM: S1, S2. No added sounds or murmurs. CHEST: clear bilaterally, No added sounds, rales or wheezes ABDOMEN: Soft, nontender. No guarding or rebound. EXTREMITIES: No cyanosis, clubbing or edema. NEUROLOGIC: Generalized weakness. No focal deficits. Results/Medications Result Diagram: 08/10/18 0436 08/10/18 0436 Results 24 hrs Laboratory Tests Test 08/09/18 10:37 08/09/18 12:05 08/09/18 13:02 08/09/18 14:03 Bedside Glucose 268 H 359 H 384 H 422 *H Test 08/09/18 15:07 08/09/18 16:34 08/09/18 17:07 08/09/18 18:31 Bedside Glucose 330 H 259 H 253 H 254 H Test 08/09/18 19:32 08/09/18 20:35 08/09/18 21:29 08/09/18 22:41 Bedside Glucose 257 H 328 H 343 H 274 H Test 08/09/18 23:33 08/10/18 00:26 08/10/18 01:32 08/10/18 02:35 Bedside Glucose 278 H 350 H 337 H 228 H Test 08/10/18 03:33 08/10/18 04:36 08/10/18 04:42 08/10/18 05:29 Bedside Glucose 128 157 159 White Blood Count 13.1 #H Red Blood Count 4.90 Hemoglobin 13.3 L Hematocrit 39.4 L Mean Corpuscular 80.4 L Volume Mean Corpuscular 27.1 L Hemoglobin Mean Corpuscular 33.8 Hemoglobin Concent Red Cell 12.1 Distribution Width Platelet Count 434 H Mean Platelet 9.4 Volume Immature 0.800 H Granulocytes % Neutrophils % 53.2 Lymphocytes % 32.2 Monocytes % 12.2 H Eosinophils % 0.8 Basophils % 0.8 Nucleated Red 0.0 Blood Cells % Immature 0.110 H Granulocytes # Neutrophils # 7.0 Lymphocytes # 4.2 H Monocytes # 1.6 H Eosinophils # 0.1 Basophils # 0.1 Nucleated Red 0.0 Blood Cells # Sodium Level 135 Potassium Level 4.4 Chloride Level 96 L Carbon Dioxide 32 H Level Anion Gap 7 Blood Urea 29 H Nitrogen Creatinine 0.85 Est Glomerular > 60 Filtrat Rate mL/min Glucose Level 153 Calcium Level 9.6 Phosphorus Level 4.9 Magnesium Level 0.9 *L Total Bilirubin 0.1 L Direct Bilirubin 0.00 Indirect Bilirubin 0.1 Aspartate Amino 142 #H Transf (AST/SGOT) Alanine 176 H Aminotransferase ( ALT/SGPT) Alkaline 1287 H Phosphatase Total Protein 6.7 Albumin 3.3 Test 08/10/18 05:32 08/10/18 06:30 08/10/18 08:28 Lab Scanned Report REFERENCE LAB Bedside Glucose 163 209 Medications Current Medications IV Flush (NS 3 ml) 3 ml PER PROTOCOL IV ; Start 08/03/18 at 21:30 Ondansetron HCl (Zofran Inj) 4 mg Q6H PRN IV NAUSEA/VOMITING; Start 08/03/18 at 21:30 Acetaminophen (Tylenol Tab) 650 mg Q6H PRN PO .PAIN 1-3 OR TEMP; Start 08/03/18 at 21:30 Miscellaneous Information 1 ea NOTE XX ; Start 08/03/18 at 22:00 Glucose (Glutose) 15 gm Q15M PRN PO DECREASED GLUCOSE; Start 08/03/18 at 22:00 Glucose (Glutose) 22.5 gm Q15M PRN PO DECREASED GLUCOSE; Start 08/03/18 at 22:00 Dextrose (D50w Syringe) 25 ml Q15M PRN IV DECREASED GLUCOSE; Start 08/03/18 at 22:00 Dextrose (D50w Syringe) 50 ml Q15M PRN IV DECREASED GLUCOSE; Start 08/03/18 at 22:00 Glucagon (Glucagen) 1 mg Q15M PRN IM DECREASED GLUCOSE; Start 08/03/18 at 22:00 Glucose (Glutose) 15 gm Q15M PRN BUCCAL DECREASED GLUCOSE; Start 08/03/18 at 22:00 Heparin Sodium (Porcine) (Heparin (5000 Units/1ml)) 5,000 unit BID SC Last administered on 08/09/18at 20:26; Admin Dose 5,000 UNIT; Start 08/06/18 at 21:00 Levofloxacin (Levaquin) 500 mg DAILY@06 PO Last administered on 08/10/18at 06:28; Admin Dose 500 MG; Start 08/08/18 at 06:00 Cefepime HCl 50 ml @ 100 mls/hr Q12 IVPB Last administered on 08/09/18at 20:23; Admin Dose 100 MLS/HR; Start 08/07/18 at 21:00 Metformin HCl (Glucophage) 1,000 mg BID WITH MEALS PO Last administered on at 08:29; Admin Dose 1,000 MG; Start 08/09/18 at 07:50 Linagliptin (Tradjenta) 5 mg DAILY PO Last administered on 08/09/18at 08:29; Admin Dose 5 MG; Start 08/08/18 at 18:30 Insulin Glargine (Lantus) 40 units QAM SC ; Start 08/10/18 at 09:00 Dextrose/Sodium Chloride 1,000 ml @ 120 mls/hr Q8H20M IV ; Start 08/09/18 at 10:00 Diagnostic Test (Pha) (Accu-Chek) 1 ea 02 XX ; Start 08/10/18 at 02:00 Insulin Aspart (Novolog Insulin Pen) NOVOLOG *MILD* ALGORITHM WITH MEALS BEDTIME SC Last administered on 08/09/18at 21:32; Admin Dose 5 UNIT; Start 08/09/18 at 17:35 Magnesium Sulfate 6 gm/Dextrose 112 ml @ 18.667 mls/ hr ONCE ONCE IVPB ; Start 08/10/18 at 08:00; Stop 08/10/18 at 13:59 Miscellaneous Information (* Miscellaneous Pharmacy Order) Discontinue all previ... PROTOCOL ONCE XX ; Start 08/10/18 at 09:00; Stop 08/10/18 at 09:01; Status UNV Diagnostic Test (Pha) (Accu-Chek) 1 ea Q1H XX ; Start 08/10/18 at 09:00; Status UNV Insulin Human Regular 100 unit/ Sodium Chloride 100 ml @ 0 mls/hr PER PROTOCOL IV ; Start 08/10/18 at 09:00; Status UNV Miscellaneous Information (* Miscellaneous Pharmacy Order) Treatment of Hypoglycemia: 1.BG 51... Per protocol XX ; Start 08/10/18 at 09:00; Status UNV Dextrose (D50w Syringe) 25 ml Q15M PRN IV .DECREASED GLUCOSE; Start 08/10/18 at 09:00; Status UNV Dextrose (D50w Syringe) 50 ml Q15M PRN IV .DECREASED GLUCOSE; Start 08/10/18 at 09:00; Status UNV Assessment/Plan Hospital Course (Demo Recall) Assessment IMP: 1. Bilateral peripheral cavities/nodules--at varying stages of evolution. Findings most consistent with SPE.. Doubt GPA or MALT. Doubt crypto 2. Poorly controlled diabetes mellitus elevated blood sugar status post hypoglycemic event RECS: 1. PEPPER 2. F/U infectious work-up 3. Am labs 4. DM management as per Dr. Estrada 5. Insulin drip for glycemic management critical care time 40 minutes. ROSA JHAVERI MD, [facility] Aug 10, 2018 09:28
[2018-08-10] MEDS ORDERED: GLUCOSE GEL 15 GRAM TUBE PO PRN ×2 (10:00)
[2018-08-10] MEDS ORDERED: GLUCOSE GEL 15 GRAM TUBE BUCCAL PRN (10:00)
[2018-08-10] MEDS ORDERED: GLUCAGON 1 MG INJ IM PRN (10:00)
[2018-08-10] MEDS: CEFEPIME 1GM/50 ML (PMX) 50 ML IVPB SCH ×2 (10:17→21:57)
[2018-08-10] MEDS: HEPARIN 5,000 UNIT/1 ML VIAL SC SCH ×2 (10:21→21:59)
--- NOTE | 2018-08-10 10:53 | PN ---
Date/Time of Note Date/Time of Note DATE: 08/10/18 TIME: 10:53 Assessment/Plan VTE Prophylaxis Risk score (from Ns)>0 risk: 0 SCD applied (from [facility] [place] SCD contraindicated: low risk/ambulating Pharmacological prophylaxis: NA/contraindicated Pharm contraindication: low risk/ambulating Lines/Catheters IV C[facility]ter Type (from [facility] Saline Lock Urinary Cath still in place: No Assessment/Plan Assessment/Plan 1. Sepsis secondary to cavitary pneumonia - Pulm on board and appreciate recommendations. - WBC still elevated but remains afebrile - ID on board and appreciate recommendations 2. Cavitary pneumonia - Pulm on board and full workup still pending -Pulmonary consulted and work-up pending -Questionable septic emboli -Denies any IV drug use, states he did smoke crystal meth on a normal basis however. 3. Diabetes, noncompliant - Start on insulin drip given uncontrolled glucose in the 300s - once controlled will transition to Lantus and ISS 4. Elevated liver enzymes - GI on board and appreciate recommendations - LFT still elevated - ?need for liver bx 5. Disposition - while on insulin drip for better glucose control, will monitor in ICU Result Diagram: 08/10/18 0436 08/10/18 0436 Results 24hrs Laboratory Tests Test 08/09/18 12:05 08/09/18 13:02 08/09/18 14:03 08/09/18 15:07 Bedside Glucose 359 H 384 H 422 *H 330 H Test 08/09/18 16:34 08/09/18 17:07 08/09/18 18:31 08/09/18 19:32 Bedside Glucose 259 H 253 H 254 H 257 H Test 08/09/18 20:35 08/09/18 21:29 08/09/18 22:41 08/09/18 23:33 Bedside Glucose 328 H 343 H 274 H 278 H Test 08/10/18 00:26 08/10/18 01:32 08/10/18 02:35 08/10/18 03:33 Bedside Glucose 350 H 337 H 228 H 128 Test 08/10/18 04:36 08/10/18 04:42 08/10/18 05:29 08/10/18 05:32 White Blood Count 13.1 #H Red Blood Count 4.90 Hemoglobin 13.3 L Hematocrit 39.4 L Mean Corpuscular 80.4 L Volume Mean Corpuscular 27.1 L Hemoglobin Mean Corpuscular 33.8 Hemoglobin Concent Red Cell 12.1 Distribution Width Platelet Count 434 H Mean Platelet 9.4 Volume Immature 0.800 H Granulocytes % Neutrophils % 53.2 Lymphocytes % 32.2 Monocytes % 12.2 H Eosinophils % 0.8 Basophils % 0.8 Nucleated Red 0.0 Blood Cells % Immature 0.110 H Granulocytes # Neutrophils # 7.0 Lymphocytes # 4.2 H Monocytes # 1.6 H Eosinophils # 0.1 Basophils # 0.1 Nucleated Red 0.0 Blood Cells # Sodium Level 135 Potassium Level 4.4 Chloride Level 96 L Carbon Dioxide 32 H Level Anion Gap 7 Blood Urea 29 H Nitrogen Creatinine 0.85 Est Glomerular > 60 Filtrat Rate mL/min Glucose Level 153 Calcium Level 9.6 Phosphorus Level 4.9 Magnesium Level 0.9 *L Total Bilirubin 0.1 L Direct Bilirubin 0.00 Indirect Bilirubin 0.1 Aspartate Amino 142 #H Transf (AST/SGOT) Alanine 176 H Aminotransferase ( ALT/SGPT) Alkaline 1287 H Phosphatase Total Protein 6.7 Albumin 3.3 Bedside Glucose 157 159 Lab Scanned Report REFERENCE LAB Test 08/10/18 06:30 08/10/18 08:28 08/10/18 10:46 Bedside Glucose 163 209 315 H Subjective 24 Hr Interval Summary Free Text/Dictation Patient denies any acute issues. Still with elevated glucose and started on insulin drip this am. No acute overnight events. Exam/Review of Systems Exam Vitals Vital Signs Date Temp Pulse Resp B/P (MAP) Pulse Ox O2 O2 Flow FiO2 Time Delivery Rate 08/10/18 93 21 100 09:45 08/10/18 78/57 (64) Room Air 05:00 08/10/18 98.0 00:00 Intake and Output 08/09/18 08/09/18 08/10/18 1515:00 23:00 07:00 IntakeIntake Total 890 ml 1250 ml 120 ml OutputOutput Total 1900 ml BalanceBalance -1010 ml 1250 ml 120 ml Exam General: Patient is laying in bed and answers questions appropriately Neck: Supple, nontender, midline Respiratory: Diminished. no wheezing Cardiovascular: regular rate and rhythm, no obvious murmurs Gastrointestinal: soft, non-tender to palpation, bowel sounds heard. 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: Moves all extremities spontaneously Skin: No new skin lesions Results Results 24hrs Laboratory Tests Test 08/09/18 12:05 08/09/18 13:02 08/09/18 14:03 08/09/18 15:07 Bedside Glucose 359 H 384 H 422 *H 330 H Test 08/09/18 16:34 08/09/18 17:07 08/09/18 18:31 08/09/18 19:32 Bedside Glucose 259 H 253 H 254 H 257 H Test 08/09/18 20:35 08/09/18 21:29 08/09/18 22:41 08/09/18 23:33 Bedside Glucose 328 H 343 H 274 H 278 H Test 08/10/18 00:26 08/10/18 01:32 08/10/18 02:35 08/10/18 03:33 Bedside Glucose 350 H 337 H 228 H 128 Test 08/10/18 04:36 08/10/18 04:42 08/10/18 05:29 08/10/18 05:32 White Blood Count 13.1 #H Red Blood Count 4.90 Hemoglobin 13.3 L Hematocrit 39.4 L Mean Corpuscular 80.4 L Volume Mean Corpuscular 27.1 L Hemoglobin Mean Corpuscular 33.8 Hemoglobin Concent Red Cell 12.1 Distribution Width Platelet Count 434 H Mean Platelet 9.4 Volume Immature 0.800 H Granulocytes % Neutrophils % 53.2 Lymphocytes % 32.2 Monocytes % 12.2 H Eosinophils % 0.8 Basophils % 0.8 Nucleated Red 0.0 Blood Cells % Immature 0.110 H Granulocytes # Neutrophils # 7.0 Lymphocytes # 4.2 H Monocytes # 1.6 H Eosinophils # 0.1 Basophils # 0.1 Nucleated Red 0.0 Blood Cells # Sodium Level 135 Potassium Level 4.4 Chloride Level 96 L Carbon Dioxide 32 H Level Anion Gap 7 Blood Urea 29 H Nitrogen Creatinine 0.85 Est Glomerular > 60 Filtrat Rate mL/min Glucose Level 153 Calcium Level 9.6 Phosphorus Level 4.9 Magnesium Level 0.9 *L Total Bilirubin 0.1 L Direct Bilirubin 0.00 Indirect Bilirubin 0.1 Aspartate Amino 142 #H Transf (AST/SGOT) Alanine 176 H Aminotransferase ( ALT/SGPT) Alkaline 1287 H Phosphatase Total Protein 6.7 Albumin 3.3 Bedside Glucose 157 159 Lab Scanned Report REFERENCE LAB Test 08/10/18 06:30 08/10/18 08:28 08/10/18 10:46 Bedside Glucose 163 209 315 H Medications Medication Current Medications IV Flush (NS 3 ml) 3 ml PER PROTOCOL IV ; Start 08/03/18 at 21:30 Ondansetron HCl (Zofran Inj) 4 mg Q6H PRN IV NAUSEA/VOMITING; Start 08/03/18 at 21:30 Heparin Sodium (Porcine) (Heparin (5000 Units/1ml)) 5,000 unit BID SC Last administered on 08/10/18at 10:21; Admin Dose 5,000 UNIT; Start 08/06/18 at 21:00 Levofloxacin (Levaquin) 500 mg DAILY@06 PO Last administered on 08/10/18at 06:28; Admin Dose 500 MG; Start 08/08/18 at 06:00 Cefepime HCl 50 ml @ 100 mls/hr Q12 IVPB Last administered on 08/10/18at 10:17; Admin Dose 100 MLS/HR; Start 08/07/18 at 21:00 Dextrose/Sodium Chloride 1,000 ml @ 120 mls/hr Q8H20M IV ; Start 08/09/18 at 10:00 Magnesium Sulfate 6 gm/Dextrose 112 ml @ 18.667 mls/ hr ONCE ONCE IVPB Last administered on 08/10/18at 10:17; Admin Dose 18.667 MLS/HR; Start 08/10/18 at 08:00; Stop 08/10/18 at 13:59 Diagnostic Test (Pha) (Accu-Chek) 1 ea Q1H XX ; Start 08/10/18 at 09:00 Insulin Human Regular 100 unit/ Sodium Chloride 100 ml @ 0 mls/hr PER PROTOCOL IV ; Start 08/10/18 at 09:00 Miscellaneous Information (* Miscellaneous Pharmacy Order) Treatment of Hypoglycemia: 1.BG 51... Per protocol XX ; Start 08/10/18 at 09:00 Dextrose (D50w Syringe) 25 ml Q15M PRN IV .DECREASED GLUCOSE; Start 08/10/18 at 09:00 Dextrose (D50w Syringe) 50 ml Q15M PRN IV .DECREASED GLUCOSE; Start 08/10/18 at 09:00 Glucose (Glutose) 15 gm Q15M PRN PO DECREASED GLUCOSE; Start 08/10/18 at 10:00 Glucose (Glutose) 22.5 gm Q15M PRN PO DECREASED GLUCOSE; Start 08/10/18 at 10:00 Dextrose (D50w Syringe) 25 ml Q15M PRN IV DECREASED GLUCOSE; Start 08/10/18 at 10:00 Dextrose (D50w Syringe) 50 ml Q15M PRN IV DECREASED GLUCOSE; Start 08/10/18 at 10:00 Glucagon (Glucagen) 1 mg Q15M PRN IM DECREASED GLUCOSE; Start 08/10/18 at 10:00 Glucose (Glutose) 15 gm Q15M PRN BUCCAL DECREASED GLUCOSE; Start 08/10/18 at 10:00 REGINE LALA MD Aug 10, 2018 10:53
[2018-08-10] MEDS: INSULIN HUMAN REGULAR 100 UNIT in SOD CHLORIDE 0.9% 99 ML IV SCH (11:38)
--- NOTE | 2018-08-10 11:57 | CONS ---
Assessment/Plan Assessment/Plan Hospital Course (Demo Recall) Patient is sleeping. No acute events per report looks comfortable and afebrile. WBC 13.1 platelets 434 neutrophils 53.2 blood sugar 315 BUN 29 creatinine 0.85 Microbiology: All cultures negative Antimicrobials: Cefepime, Levaquin CT of the chest revealed multiple ill-defined bilateral cavitary lung nodules findings are suspicious for septic emboli rule out other etiologies. MRI of the abdomen revealed unremarkable gallbladder and biliary ductal system Physical examination: Well-developed young man who is alert in no distress. Head atraumatic normocephalic sclera. Mucosa dry. Neck is supple chest rise symmetrical breath sounds diminished to bases. Heart: S1-S2 abdomen soft bowel sounds present. Extremities without cyanosis. Assessment: 1. S/p sepsis 2. Bilateral cavitary pneumonia, likely SPE===> PPD placed 08/06, neg 3. Diabetes 4. Transaminitis Plan: Stable, continue antibiotics, pending PEPPER Consultation Date/Type/Reason Admit Date/Time Aug 03, 2018 at 19:57 Initial Consult Date 08/05/18 Type of Consult id Date/Time of Note DATE: 08/10/18 TIME: 11:55 Exam/Review of Systems Exam Vitals Vital Signs Date Temp Pulse Resp B/P (MAP) Pulse Ox O2 O2 Flow FiO2 Time Delivery Rate 08/10/18 93 21 100 09:45 08/10/18 93/75 (81) 08:20 08/10/18 98.9 08:00 08/10/18 Room Air 05:00 Intake and Output 08/09/18 08/09/18 08/10/18 1515:00 23:00 07:00 IntakeIntake Total 890 ml 1250 ml 120 ml OutputOutput Total 1900 ml BalanceBalance -1010 ml 1250 ml 120 ml Results Result Diagram: 08/10/18 0436 08/10/18 0436 Results 24hrs Laboratory Tests Test 08/09/18 12:05 08/09/18 13:02 08/09/18 14:03 08/09/18 15:07 Bedside Glucose 359 H 384 H 422 *H 330 H Test 08/09/18 16:34 08/09/18 17:07 08/09/18 18:31 08/09/18 19:32 Bedside Glucose 259 H 253 H 254 H 257 H Test 08/09/18 20:35 08/09/18 21:29 08/09/18 22:41 08/09/18 23:33 Bedside Glucose 328 H 343 H 274 H 278 H Test 08/10/18 00:26 08/10/18 01:32 08/10/18 02:35 08/10/18 03:33 Bedside Glucose 350 H 337 H 228 H 128 Test 08/10/18 04:36 08/10/18 04:42 08/10/18 05:29 08/10/18 05:32 White Blood Count 13.1 #H Red Blood Count 4.90 Hemoglobin 13.3 L Hematocrit 39.4 L Mean Corpuscular 80.4 L Volume Mean Corpuscular 27.1 L Hemoglobin Mean Corpuscular 33.8 Hemoglobin Concent Red Cell 12.1 Distribution Width Platelet Count 434 H Mean Platelet 9.4 Volume Immature 0.800 H Granulocytes % Neutrophils % 53.2 Lymphocytes % 32.2 Monocytes % 12.2 H Eosinophils % 0.8 Basophils % 0.8 Nucleated Red 0.0 Blood Cells % Immature 0.110 H Granulocytes # Neutrophils # 7.0 Lymphocytes # 4.2 H Monocytes # 1.6 H Eosinophils # 0.1 Basophils # 0.1 Nucleated Red 0.0 Blood Cells # Sodium Level 135 Potassium Level 4.4 Chloride Level 96 L Carbon Dioxide 32 H Level Anion Gap 7 Blood Urea 29 H Nitrogen Creatinine 0.85 Est Glomerular > 60 Filtrat Rate mL/min Glucose Level 153 Calcium Level 9.6 Phosphorus Level 4.9 Magnesium Level 0.9 *L Total Bilirubin 0.1 L Direct Bilirubin 0.00 Indirect Bilirubin 0.1 Aspartate Amino 142 #H Transf (AST/SGOT) Alanine 176 H Aminotransferase ( ALT/SGPT) Alkaline 1287 H Phosphatase Total Protein 6.7 Albumin 3.3 Bedside Glucose 157 159 Lab Scanned Report REFERENCE LAB Test 08/10/18 06:30 08/10/18 08:28 08/10/18 10:46 Bedside Glucose 163 209 315 H Medications Medication Current Medications IV Flush (NS 3 ml) 3 ml PER PROTOCOL IV ; Start 08/03/18 at 21:30 Ondansetron HCl (Zofran Inj) 4 mg Q6H PRN IV NAUSEA/VOMITING; Start 08/03/18 at 21:30 Heparin Sodium (Porcine) (Heparin (5000 Units/1ml)) 5,000 unit BID SC Last administered on 08/10/18at 10:21; Admin Dose 5,000 UNIT; Start 08/06/18 at 21:00 Levofloxacin (Levaquin) 500 mg DAILY@06 PO Last administered on 08/10/18at 06:28; Admin Dose 500 MG; Start 08/08/18 at 06:00 Cefepime HCl 50 ml @ 100 mls/hr Q12 IVPB Last administered on 08/10/18at 10:17; Admin Dose 100 MLS/HR; Start 08/07/18 at 21:00 Dextrose/Sodium Chloride 1,000 ml @ 120 mls/hr Q8H20M IV ; Start 08/09/18 at 10:00 Magnesium Sulfate 6 gm/Dextrose 112 ml @ 18.667 mls/ hr ONCE ONCE IVPB Last administered on 08/10/18at 10:17; Admin Dose 18.667 MLS/HR; Start 08/10/18 at 08:00; Stop 08/10/18 at 13:59 Diagnostic Test (Pha) (Accu-Chek) 1 ea Q1H XX ; Start 08/10/18 at 09:00 Insulin Human Regular 100 unit/ Sodium Chloride 100 ml @ 0 mls/hr PER PROTOCOL IV Last administered on 08/10/18at 11:38; Admin Dose 3 MLS/HR; Start 08/10/18 at 09:00 Miscellaneous Information (* Miscellaneous Pharmacy Order) Treatment of Hypoglycemia: 1.BG 51... Per protocol XX ; Start 08/10/18 at 09:00 Dextrose (D50w Syringe) 25 ml Q15M PRN IV .DECREASED GLUCOSE; Start 08/10/18 at 09:00 Dextrose (D50w Syringe) 50 ml Q15M PRN IV .DECREASED GLUCOSE; Start 08/10/18 at 09:00 Glucose (Glutose) 15 gm Q15M PRN PO DECREASED GLUCOSE; Start 08/10/18 at 10:00 Glucose (Glutose) 22.5 gm Q15M PRN PO DECREASED GLUCOSE; Start 08/10/18 at 1 0:00 Dextrose (D50w Syringe) 25 ml Q15M PRN IV DECREASED GLUCOSE; Start 08/10/18 at 10:00 Dextrose (D50w Syringe) 50 ml Q15M PRN IV DECREASED GLUCOSE; Start 08/10/18 at 10:00 Glucagon (Glucagen) 1 mg Q15M PRN IM DECREASED GLUCOSE; Start 08/10/18 at 10:00 Glucose (Glutose) 15 gm Q15M PRN BUCCAL DECREASED GLUCOSE; Start 08/10/18 at 10:00 AUDRA DILLON NP Aug 10, 2018 11:57
--- NOTE | 2018-08-10 15:44 | PN ---
Date/Time of Note Date/Time of Note DATE: 08/10/18 TIME: 15:41 Assessment/Plan VTE Prophylaxis Risk score (from Nsg)>0 risk: 0 SCD applied (from Nsg): No SCD contraindicated: low risk/ambulating Pharmacological prophylaxis: heparin Lines/Catheters IV Catheter Type (from Nrsg): Saline Lock Urinary Cath still in place: No Assessment/Plan Hospital Course Assessment: Elevated alkaline phosphatase- elevated GGT ALk phos- fractionation- predominately liver elevation MRCP: The liver is uniform in appearance on noncontrast imaging, with normal contour and size. The biliary ductal system is unremarkable without evidence of common duct stone. Likewise gallbladder is normal in appearance. Transaminitis Leukocytosis Multiple ill-defined bilateral cavitary lung nodules. -Findings are suspicious for septic emboli. Ddx includes: fungal infection vs tuberculosis vs granulomatous infections. -PPD placed 08/06- negative Type 2 diabetes Hx of crystal meth use Plan: ID work-up in place Continue to monitor from GI point of view- will consider liver if indicated- after ID/pulm work-up is complete- will consider liver bx in near future Monitor labs Patient seen in collaboration with Dr. Vital Subjective: Course reviewed with nursing staff Patient interviewed and examined All labs, imaging and other results reviewed Pt currently sleeping , no overt night events noted. LFTS continues to increase. Will check INR in am- for possible liver bx in the n ear future. Exam PHYSICAL EXAMINATION: GENERAL: Alert & oriented x 3 SKIN: No lesions HEAD: Normocephalic, atraumatic, no tenderness. EYES: Pupils equal reactive to light and accommodation, no discharge. EARS/NOSE AND THROAT: Ears normal, nose normal. NECK: Supple, no masses CHEST: Inspection within normal limits. CARDIOVASCULAR: Heart: Regular rate and rhythm RESPIRATORY: Lungs clear to auscultation GASTROINTESTINAL AND LIVER: Abdomen: Soft, non tenderness, non-distended, no hernias, no masses, no organomegaly, no ascites, no guarding, no rebound tenderness, normoactive bowel sounds. Rectal: Deferred. Result Diagram: 08/10/18 0436 08/10/18 0436 Results 24hrs Laboratory Tests Test 08/09/18 16:34 08/09/18 17:07 08/09/18 18:31 08/09/18 19:32 Bedside Glucose 259 H 253 H 254 H 257 H Test 08/09/18 20:35 08/09/18 21:29 08/09/18 22:41 08/09/18 23:33 Bedside Glucose 328 H 343 H 274 H 278 H Test 08/10/18 00:26 08/10/18 01:32 08/10/18 02:35 08/10/18 03:33 Bedside Glucose 350 H 337 H 228 H 128 Test 08/10/18 04:36 08/10/18 04:42 08/10/18 05:29 08/10/18 05:32 White Blood 13.1 #H Count Red Blood Count 4.90 Hemoglobin 13.3 L Hematocrit 39.4 L Mean Corpuscular 80.4 L Volume Mean Corpuscular 27.1 L Hemoglobin Mean Corpuscular 33.8 Hemoglobin Magalis nt Red Cell 12.1 Distribution Width Platelet Count 434 H Mean Platelet 9.4 Volume Immature 0.800 H Granulocytes % Neutrophils % 53.2 Lymphocytes % 32.2 Monocytes % 12.2 H Eosinophils % 0.8 Basophils % 0.8 Nucleated Red 0.0 Blood Cells % Immature 0.110 H Granulocytes # Neutrophils # 7.0 Lymphocytes # 4.2 H Monocytes # 1.6 H Eosinophils # 0.1 Basophils # 0.1 Nucleated Red 0.0 Blood Cells # Sodium Level 135 Potassium Level 4.4 Chloride Level 96 L Carbon Dioxide 32 H Level Anion Gap 7 Blood Urea 29 H Nitrogen Creatinine 0.85 Est Glomerular > 60 Filtrat Rate mL/min Glucose Level 153 Calcium Level 9.6 Phosphorus Level 4.9 Magnesium Level 0.9 *L Total Bilirubin 0.1 L Direct Bilirubin 0.00 Indirect 0.1 Bilirubin Aspartate Amino 142 #H Transf (AST/SGOT ) Alanine 176 H Aminotransferase (ALT/SGPT) Alkaline 1287 H Phosphatase Total Protein 6.7 Albumin 3.3 Bedside Glucose 157 159 Lab Scanned REFERENCE LAB Report Test 08/10/18 06:30 08/10/18 08:28 08/10/18 10:46 08/10/18 11:49 Bedside Glucose 163 209 315 H 250 H Test 08/10/18 12:00 08/10/18 13:54 08/10/18 15:16 Lab Scanned REFERENCE LAB Report Bedside Glucose 203 288 H Exam/Review of Systems Exam Vitals Vital Signs Date Temp Pulse Resp B/P (MAP) Pulse Ox O2 O2 Flow FiO2 Time Delivery Rate 08/10/18 103 12:00 08/10/18 21 100 09:45 08/10/18 93/75 (81) 08:20 08/10/18 98.9 08:00 08/10/18 Room Air 05:00 Intake and Output 08/09/18 08/09/18 08/10/18 1515:00 23:00 07:00 IntakeIntake Total 890 ml 1250 ml 120 ml OutputOutput Total 1900 ml BalanceBalance -1010 ml 1250 ml 120 ml Results Results 24hrs Laboratory Tests Test 08/09/18 16:34 08/09/18 17:07 08/09/18 18:31 08/09/18 19:32 Bedside Glucose 259 H 253 H 254 H 257 H Test 08/09/18 20:35 08/09/18 21:29 08/09/18 22:41 08/09/18 23:33 Bedside Glucose 328 H 343 H 274 H 278 H Test 08/10/18 00:26 08/10/18 01:32 08/10/18 02:35 08/10/18 03:33 Bedside Glucose 350 H 337 H 228 H 128 Test 08/10/18 04:36 08/10/18 04:42 08/10/18 05:29 08/10/18 05:32 White Blood 13.1 #H Count Red Blood Count 4.90 Hemoglobin 13.3 L Hematocrit 39.4 L Mean Corpuscular 80.4 L Volume Mean Corpuscular 27.1 L Hemoglobin Mean Corpuscular 33.8 Hemoglobin Magalis nt Red Cell 12.1 Distribution Width Platelet Count 434 H Mean Platelet 9.4 Volume Immature 0.800 H Granulocytes % Neutrophils % 53.2 Lymphocytes % 32.2 Monocytes % 12.2 H Eosinophils % 0.8 Basophils % 0.8 Nucleated Red 0.0 Blood Cells % Immature 0.110 H Granulocytes # Neutrophils # 7.0 Lymphocytes # 4.2 H Monocytes # 1.6 H Eosinophils # 0.1 Basophils # 0.1 Nucleated Red 0.0 Blood Cells # Sodium Level 135 Potassium Level 4.4 Chloride Level 96 L Carbon Dioxide 32 H Level Anion Gap 7 Blood Urea 29 H Nitrogen Creatinine 0.85 Est Glomerular > 60 Filtrat Rate mL/min Glucose Level 153 Calcium Level 9.6 Phosphorus Level 4.9 Magnesium Level 0.9 *L Total Bilirubin 0.1 L Direct Bilirubin 0.00 Indirect 0.1 Bilirubin Aspartate Amino 142 #H Transf (AST/SGOT ) Alanine 176 H Aminotransferase (ALT/SGPT) Alkaline 1287 H Phosphatase Total Protein 6.7 Albumin 3.3 Bedside Glucose 157 159 Lab Scanned REFERENCE LAB Report Test 08/10/18 06:30 08/10/18 08:28 08/10/18 10:46 08/10/18 11:49 Bedside Glucose 163 209 315 H 250 H Test 08/10/18 12:00 08/10/18 13:54 08/10/18 15:16 Lab Scanned REFERENCE LAB Report Bedside Glucose 203 288 H Medications Medication Current Medications IV Flush (NS 3 ml) 3 ml PER PROTOCOL IV ; Start 08/03/18 at 21:30 Ondansetron HCl (Zofran Inj) 4 mg Q6H PRN IV NAUSEA/VOMITING; Start 08/03/18 at 21:30 Heparin Sodium (Porcine) (Heparin (5000 Units/1ml)) 5,000 unit BID SC Last administered on 08/10/18at 10:21; Admin Dose 5,000 UNIT; Start 08/06/18 at 21:00 Levofloxacin (Levaquin) 500 mg DAILY@06 PO Last administered on 08/10/18at 06:28; Admin Dose 500 MG; Start 08/08/18 at 06:00 Cefepime HCl 50 ml @ 100 mls/hr Q12 IVPB Last administered on 08/10/18at 10:17; Admin Dose 100 MLS/HR; Start 08/07/18 at 21:00 Dextrose/Sodium Chloride 1,000 ml @ 120 mls/hr Q8H20M IV ; Start 08/09/18 at 10:00 Diagnostic Test (Pha) (Accu-Chek) 1 ea Q1H XX ; Start 08/10/18 at 09:00 Insulin Human Regular 100 unit/ Sodium Chloride 100 ml @ 0 mls/hr PER PROTOCOL IV Last administered on 08/10/18at 11:38; Admin Dose 3 MLS/HR; Start 08/10/18 at 09:00 Miscellaneous Information (* Miscellaneous Pharmacy Order) Treatment of Hypoglycemia: 1.BG 51... Per protocol XX ; Start 08/10/18 at 09:00 Dextrose (D50w Syringe) 25 ml Q15M PRN IV .DECREASED GLUCOSE; Start 08/10/18 at 09:00 Dextrose (D50w Syringe) 50 ml Q15M PRN IV .DECREASED GLUCOSE; Start 08/10/18 at 09:00 Glucose (Glutose) 15 gm Q15M PRN PO DECREASED GLUCOSE; Start 08/10/18 at 10:00 Glucose (Glutose) 22.5 gm Q15M PRN PO DECREASED GLUCOSE; Start 08/10/18 at 10:00 Dextrose (D50w Syringe) 25 ml Q15M PRN IV DECREASED GLUCOSE; Start 08/10/18 at 10:00 Dextrose (D50w Syringe) 50 ml Q15M PRN IV DECREASED GLUCOSE; Start 08/10/18 at 10:00 Glucagon (Glucagen) 1 mg Q15M PRN IM DECREASED GLUCOSE; Start 08/10/18 at 10:00 Glucose (Glutose) 15 gm Q15M PRN BUCCAL DECREASED GLUCOSE; Start 08/10/18 at 10:00 CAMERON MORA Aug 10, 2018 15:44
--- NOTE | 2018-08-10 21:40 | CONS ---
Assessment/Plan Assessment/Plan Problems: (1) Type 2 diabetes mellitus with hyperglycemia Status: Chronic Comment: Doubtful but pt. must have T1DM ruled out. Will check c-peptide and anti-BRITANY-65 ab and also islet cell ab. Keep pt. on insulin drip. Add lantus 11 units qhs and mealtime Novolog 5 units qac. Add metformin 1 g bid. Monitor BG and titrate sq insulin doses up until pt. able to come off insulin drip. Qualifiers: Qualified Codes: E11.65 - Type 2 diabetes mellitus with hyperglycemia; Z79.4 - FDC (current) use of insulin Consultation Date/Type/Reason Admit Date/Time Aug 03, 2018 at 19:57 Date of Consultation: Aug 10, 2018 Type of Consult Endocrinology Reason for Consultation DM Out Of Control (OOC) Requesting Provider: REGINE LALA MD Date/Time of Note DATE: 08/10/18 TIME: 21:30 Hx of Present Illness 28 y/o H M w/ h/o DM (pt. reports T2DM) and ? h/o liver disease, in [facility] until 3 m. ago when he ran out of his DM meds. Pt. does not have a doctor. Previously pt.'s mother was getting him his meds but she could no longer get them for him. After 3 months w/o meds, pt.'s mother suggested he go to ER to get more medication. BG was > 700 mg/dL in outside hospital ER. In addition pt. had CXR showing multifocal cavitary PNA. Pt. admitted to ICU. Primary team has struggled to control glucose and pt. back on insulin drip today. Endo consulted. Constitutional: no complaints Eyes: no complaints ENT: no complaints Respiratory: no complaints Cardiovascular: no complaints Gastrointestinal: no complaints Genitourinary: no complaints Musculoskeletal: no complaints Neurologic: no complaints Past Medical History Medical History: diabetes, other (? liver disease) Medications Current Medications IV Flush (NS 3 ml) 3 ml PER PROTOCOL IV ; Start 08/03/18 at 21:30 Ondansetron HCl (Zofran Inj) 4 mg Q6H PRN IV NAUSEA/VOMITING; Start 08/03/18 at 21:30 Heparin Sodium (Porcine) (Heparin (5000 Units/1ml)) 5,000 unit BID SC Last administered on 08/10/18at 10:21; Admin Dose 5,000 UNIT; Start 08/06/18 at 21:00 Levofloxacin (Levaquin) 500 mg DAILY@06 PO Last administered on 08/10/18at 06:28; Admin Dose 500 MG; Start 08/08/18 at 06:00 Cefepime HCl 50 ml @ 100 mls/hr Q12 IVPB Last administered on 08/10/18at 10:17; Admin Dose 100 MLS/HR; Start 08/07/18 at 21:00 Dextrose/Sodium Chloride 1,000 ml @ 120 mls/hr Q8H20M IV ; Start 08/09/18 at 10:00 Diagnostic Test (Pha) (Accu-Chek) 1 ea Q1H XX Last administered on 08/10/18at 18:55; Admin Dose 1 EA; Start 08/10/18 at 09:00 Insulin Human Regular 100 unit/ Sodium Chloride 100 ml @ 0 mls/hr PER PROTOCOL IV Last administered on 08/10/18at 11:38; Admin Dose 3 MLS/HR; Start 08/10/18 at 09:00 Miscellaneous Information (* Miscellaneous Pharmacy Order) Treatment of Hypoglycemia: 1.BG 51... Per protocol XX ; Start 08/10/18 at 09:00 Dextrose (D50w Syringe) 25 ml Q15M PRN IV .DECREASED GLUCOSE; Start 08/10/18 at 09:00 Dextrose (D50w Syringe) 50 ml Q15M PRN IV .DECREASED GLUCOSE; Start 08/10/18 at 09:00 Glucose (Glutose) 15 gm Q15M PRN PO DECREASED GLUCOSE; Start 08/10/18 at 10:00 Glucose (Glutose) 22.5 gm Q15M PRN PO DECREASED GLUCOSE; Start 08/10/18 at 10:00 Dextrose (D50w Syringe) 25 ml Q15M PRN IV DECREASED GLUCOSE; Start 08/10/18 at 10:00 Dextrose (D50w Syringe) 50 ml Q15M PRN IV DECREASED GLUCOSE; Start 08/10/18 at 10:00 Glucagon (Glucagen) 1 mg Q15M PRN IM DECREASED GLUCOSE; Start 08/10/18 at 10:00 Glucose (Glutose) 15 gm Q15M PRN BUCCAL DECREASED GLUCOSE; Start 08/10/18 at 10:00 Metformin HCl (Glucophage Xr) 1,000 mg BID PO ; Start 08/10/18 at 21:00 Diagnostic Test (Pha) (Accu-Chek) 1 ea 02 XX ; Start 08/11/18 at 02:00 Insulin Glargine (Lantus) 11 units DAILY@2000 SC Last administered on 08/10/18at 20:12; Admin Dose 11 UNITS; Start 08/10/18 at 20:00 Insulin Aspart (Novolog Insulin Pen) 5 unit WITH MEALS SC ; Start 08/11/18 at 07:35 Allergies: Coded Allergies: No Known Allergies (Verified Allergy, Unknown, 08/03/18) Past Surgical History Past Surgical Hx: no surgical history Family History Significant Family History: diabetes (mother), hypertension (mother), other (stroke in mother) Social History b. [place], hs grad, works at [employer], single, no children Alcohol Use: sober (stopped drinking b/c was told it was bad for his liver) Smoking Status: Current some day smoker Drug Use: none, other Exam/Review of Systems Exam Vitals VS - Last 72 Hours, by Label Date Temp Pulse Resp B/P (MAP) Pulse Ox O2 O2 Flow FiO2 Time Delivery Rate 08/10/18 90 22 84/58 (67) 20:00 08/10/18 99 21 88/60 (69) 19:00 08/10/18 102 20 89/69 (76) 97 18:00 08/10/18 98 22 103/71 99 17:00 (82) 08/10/18 97.2 85 23 102/64 100 16:00 (77) 08/10/18 89 16:00 08/10/18 79 20 93/63 (73) 99 15:00 08/10/18 102 15 100 14:00 08/10/18 85 24 79/59 (66) 98 13:00 08/10/18 103 12:00 08/10/18 97.8 83 22 104/77 100 12:00 (86) 08/10/18 93 21 100 09:45 08/10/18 79 22 100 09:30 08/10/18 81 23 100 09:15 08/10/18 84 21 100 09:00 08/10/18 94 27 99 08:45 08/10/18 104 19 08:30 08/10/18 106 27 93/75 (81) 97 08:20 08/10/18 74 23 08:15 08/10/18 98.9 08:00 08/10/18 98 24 08:00 08/10/18 99 08:00 08/10/18 98 24 08:00 08/10/18 83 22 07:45 08/10/18 82 21 07:30 08/10/18 80 22 100 07:15 08/10/18 81 21 99 07:00 08/10/18 81 21 99 07:00 08/10/18 21 06:00 08/10/18 20 78/57 (64) 99 Room Air 05:00 08/10/18 85 23 04:00 08/10/18 75 04:00 08/10/18 21 04:00 08/10/18 78 21 89/65 (73) Room Air 03:00 08/10/18 81 23 99 02:00 08/10/18 22 02:00 08/10/18 90 22 100/67 95 Room Air 01:00 (78) 08/10/18 85 00:00 08/10/18 98.0 00:00 08/10/18 85 22 100 00:00 08/09/18 84 21 91/61 (71) 99 Room Air 23:35 08/09/18 25 22:00 08/09/18 82 25 108/70 99 Room Air 21:36 (83) 08/09/18 25 20:00 08/09/18 96 20:00 08/09/18 98.5 80 25 93/60 (71) 97 Room Air 19:35 08/09/18 91 25 104/48 99 Room Air 18:00 (66) 08/09/18 94 25 17:00 08/09/18 86 16:00 08/09/18 98.2 113 23 106/57 100 Room Air 16:00 (73) 08/09/18 89 23 15:00 08/09/18 76 23 108/59 99 Room Air 14:00 (75) 08/09/18 84 23 13:00 08/09/18 96 12:00 08/09/18 98.2 78 21 110/62 99 Room Air 12:00 (78) 08/09/18 98.6 77 20 109/59 98 Room Air 08:04 (76) 08/09/18 97.8 74 18 97/68 (78) 100 Room Air 02:15 08/08/18 98.2 100 20 103/75 98 Room Air 19:20 (84) 08/08/18 97.4 72 18 91/56 (68) 99 14:25 08/08/18 98.6 81 18 99/63 (75) 97 07:25 08/08/18 97.6 85 18 95/63 (74) 96 03:02 Vital Signs Date Temp Pulse Resp B/P (MAP) Pulse Ox O2 O2 Flow FiO2 Time Delivery Rate 08/10/18 90 22 84/58 (67) 20:00 08/10/18 97 18:00 08/10/18 97.2 16:00 08/10/18 Room Air 05:00 Intake and Output 08/09/18 08/09/18 08/10/18 1515:00 23:00 07:00 IntakeIntake Total 890 ml 1250 ml 120 ml OutputOutput Total 1900 ml BalanceBalance -1010 ml 1250 ml 120 ml Constitutional: alert, oriented, well developed Psych: no complaints, nl mood/affect Eyes: nl conjunctiva, EOMI, nl lids, nl sclera, PERRL ENMT: nl external ears & nose, mucosa pink and moist Neck: supple, non-tender; No bruits, No masses, No thyromegaly Respiratory: crackles/rales (B) Cardiovascular: regular rate and rhythm, nl pulses Gastrointestinal: soft, nl liver, spleen, non-tender, bowel sounds; No mass, No rebound or guarding Musculoskeletal: nl extremities to inspection Extremities: normal pulses; No cyanosis, No clubbing, No edema 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, nl mental status, nl speech, nl strength Additional Comments Bedside Glucose - 72 Hours Test 08/07/18 22:05 08/08/18 08:56 08/08/18 13:10 08/08/18 17:54 Bedside 169 279 261 370 Glucose mg/dL (70-220) mg/dL (70-220) mg/dL (70-220) mg/dL (70-220) H H H Test 08/08/18 20:10 08/09/18 01:04 08/09/18 03:16 08/09/18 08:03 Bedside 221 355 294 294 Glucose mg/dL (70-220) mg/dL (70-220) mg/dL (70-220) mg/dL (70-220) H H H H Test 08/09/18 10:37 08/09/18 12:05 08/09/18 13:02 08/09/18 14:03 Bedside 268 359 384 422 Glucose mg/dL (70-220) mg/dL (70-220) mg/dL (70-220) mg/dL (70-220) H H H *H Test 08/09/18 15:07 08/09/18 16:34 08/09/18 17:07 08/09/18 18:31 Bedside 330 259 253 254 Glucose mg/dL (70-220) mg/dL (70-220) mg/dL (70-220) mg/dL (70-220) H H H H Test 08/09/18 19:32 08/09/18 20:35 08/09/18 21:29 08/09/18 22:41 Bedside 257 328 343 274 Glucose mg/dL (70-220) mg/dL (70-220) mg/dL (70-220) mg/dL (70-220) H H H H Test 08/09/18 23:33 08/10/18 00:26 08/10/18 01:32 08/10/18 02:35 Bedside 278 350 337 228 Glucose mg/dL (70-220) mg/dL (70-220) mg/dL (70-220) mg/dL (70-220) H H H H Test 08/10/18 03:33 08/10/18 04:42 08/10/18 05:29 08/10/18 06:30 Bedside 128 157 159 163 Glucose mg/dL (70-220) mg/dL (70-220) mg/dL (70-220) mg/dL (70-220) Test 08/10/18 08:28 08/10/18 10:46 08/10/18 11:49 08/10/18 13:54 Bedside 209 315 250 203 Glucose mg/dL (70-220) mg/dL (70-220) mg/dL (70-220) mg/dL (70-220) H H Test 08/10/18 15:16 08/10/18 16:05 08/10/18 16:27 08/10/18 16:52 Bedside 288 377 294 305 Glucose mg/dL (70-220) mg/dL (70-220) mg/dL (70-220) mg/dL (70-220) H H H H Test 08/10/18 17:09 08/10/18 18:06 08/10/18 19:55 08/10/18 21:02 Bedside 242 198 293 221 Glucose mg/dL (70-220) mg/dL (70-220) mg/dL (70-220) mg/dL (70-220) H H H Results Result Diagram: 08/10/18 0436 08/10/18 0436 Results 24hrs Laboratory Tests Test 08/09/18 22:41 08/09/18 23:33 08/10/18 00:26 08/10/18 01:32 Bedside Glucose 274 H 278 H 350 H 337 H Test 08/10/18 02:35 08/10/18 03:33 08/10/18 04:36 08/10/18 04:42 Bedside Glucose 228 H 128 157 White Blood 13.1 #H Count Red Blood Count 4.90 Hemoglobin 13.3 L Hematocrit 39.4 L Mean Corpuscular 80.4 L Volume Mean Corpuscular 27.1 L Hemoglobin Mean Corpuscular 33.8 Hemoglobin Magalis nt Red Cell 12.1 Distribution Width Platelet Count 434 H Mean Platelet 9.4 Volume Immature 0.800 H Granulocytes % Neutrophils % 53.2 Lymphocytes % 32.2 Monocytes % 12.2 H Eosinophils % 0.8 Basophils % 0.8 Nucleated Red 0.0 Blood Cells % Immature 0.110 H Granulocytes # Neutrophils # 7.0 Lymphocytes # 4.2 H Monocytes # 1.6 H Eosinophils # 0.1 Basophils # 0.1 Nucleated Red 0.0 Blood Cells # Sodium Level 135 Potassium Level 4.4 Chloride Level 96 L Carbon Dioxide 32 H Level Anion Gap 7 Blood Urea 29 H Nitrogen Creatinine 0.85 Est Glomerular > 60 Filtrat Rate mL/min Glucose Level 153 Calcium Level 9.6 Phosphorus Level 4.9 Magnesium Level 0.9 *L Total Bilirubin 0.1 L Direct Bilirubin 0.00 Indirect 0.1 Bilirubin Aspartate Amino 142 #H Transf (AST/SGOT ) Alanine 176 H Aminotransferase (ALT/SGPT) Alkaline 1287 H Phosphatase Total Protein 6.7 Albumin 3.3 Test 08/10/18 05:29 08/10/18 05:32 08/10/18 06:30 08/10/18 08:28 Bedside Glucose 159 163 209 Lab Scanned REFERENCE LAB Report Test 08/10/18 10:46 08/10/18 11:49 08/10/18 12:00 08/10/18 13:54 Bedside Glucose 315 H 250 H 203 Lab Scanned REFERENCE LAB Report Test 08/10/18 15:16 08/10/18 16:05 08/10/18 16:27 08/10/18 16:52 Bedside Glucose 288 H 377 H 294 H 305 H Test 08/10/18 17:09 08/10/18 18:06 08/10/18 19:55 08/10/18 21:02 Bedside Glucose 242 H 198 293 H 221 H Medications Medication Current Medications IV Flush (NS 3 ml) 3 ml PER PROTOCOL IV ; Start 08/03/18 at 21:30 Ondansetron HCl (Zofran Inj) 4 mg Q6H PRN IV NAUSEA/VOMITING; Start 08/03/18 at 21:30 Heparin Sodium (Porcine) (Heparin (5000 Units/1ml)) 5,000 unit BID SC Last administered on 08/10/18 10:21; Admin Dose 5,000 UNIT; Start 08/06/18 at 21:00 Levofloxacin (Levaquin) 500 mg DAILY@06 PO Last administered on 08/10/18 06:28; Admin Dose 500 MG; Start 08/08/18 at 06:00 Cefepime HCl 50 ml @ 100 mls/hr Q12 IVPB Last administered on 08/10/18 10:17; Admin Dose 100 MLS/HR; Start 08/07/18 at 21:00 Dextrose/Sodium Chloride 1,000 ml @ 120 mls/hr Q8H20M IV ; Start 08/09/18 at 10:00 Diagnostic Test (Pha) (Accu-Chek) 1 ea Q1H XX Last administered on 08/10/18 18:55; Admin Dose 1 EA; Start 08/10/18 at 09:00 Insulin Human Regular 100 unit/ Sodium Chloride 100 ml @ 0 mls/hr PER PROTOCOL IV Last administered on 08/10/18 11:38; Admin Dose 3 MLS/HR; Start 08/10/18 at 09:00 Miscellaneous Information (* Miscellaneous Pharmacy Order) Treatment of Hypoglycemia: 1.BG 51... Per protocol XX ; Start 08/10/18 at 09:00 Dextrose (D50w Syringe) 25 ml Q15M PRN IV .DECREASED GLUCOSE; Start 08/10/18 at 09:00 Dextrose (D50w Syringe) 50 ml Q15M PRN IV .DECREASED GLUCOSE; Start 08/10/18 at 09:00 Glucose (Glutose) 15 gm Q15M PRN PO DECREASED GLUCOSE; Start 08/10/18 at 10:00 Glucose (Glutose) 22.5 gm Q15M PRN PO DECREASED GLUCOSE; Start 08/10/18 at 10:00 Dextrose (D50w Syringe) 25 ml Q15M PRN IV DECREASED GLUCOSE; Start 08/10/18 at 10:00 Dextrose (D50w Syringe) 50 ml Q15M PRN IV DECREASED GLUCOSE; Start 08/10/18 at 10:00 Glucagon (Glucagen) 1 mg Q15M PRN IM DECREASED GLUCOSE; Start 08/10/18 at 10:00 Glucose (Glutose) 15 gm Q15M PRN BUCCAL DECREASED GLUCOSE; Start 08/10/18 at 10:00 Metformin HCl (Glucophage Xr) 1,000 mg BID PO ; Start 08/10/18 at 21:00 Diagnostic Test (Pha) (Accu-Chek) 1 ea 02 XX ; Start 08/11/18 at 02:00 Insulin Glargine (Lantus) 11 units DAILY@2000 SC Last administered on 08/10/18at 20:12; Admin Dose 11 UNITS; Start 08/10/18 at 20:00 Insulin Aspart (Novolog Insulin Pen) 5 unit WITH MEALS SC ; Start 08/11/18 at 07:35 SELINA HARRY MD Aug 10, 2018 21:40
[2018-08-10] MEDS: metFORMIN (XR) 500 MG TAB PO SCH (21:57)
[2018-08-11] VITALS (24 sets, daily range): BP systolic 84–110; BP diastolic 54–88; PULSE 73–105; RESP 13–28
[2018-08-11] MEDS: ACCU-CHEK XX SCH ×20 (01:00→18:30)
[2018-08-11] MEDS: DEXTROSE 5%-0.45% NACL 1,000 ML IV SCH ×2 (03:04→12:00)
[2018-08-11] MEDS: INSULIN HUMAN REGULAR 100 UNIT in SOD CHLORIDE 0.9% 99 ML IV SCH (04:39)
[2018-08-11] MEDS: LEVOFLOXACIN 500 MG TAB PO SCH ×2 (05:00→06:00)
[2018-08-11] MEDS ORDERED: MAGNESIUM SULFATE 3 GM in DEXTROSE 5% 100 ML IVPB ONE (08:00)
[2018-08-11] MEDS: INSULIN ASPART [NOVOLOG] 3 ML PEN SC SCH ×4 (10:10→20:17)
[2018-08-11] MEDS: MAGNESIUM OXIDE 400 MG TAB PO SCH (10:25)
[2018-08-11] MEDS: CEFEPIME 1GM/50 ML (PMX) 50 ML IVPB SCH ×2 (10:28→20:21)
[2018-08-11] MEDS: HEPARIN 5,000 UNIT/1 ML VIAL SC SCH ×2 (10:39→20:23)
[2018-08-11] MEDS: metFORMIN (XR) 500 MG TAB PO SCH ×2 (10:48→20:22)
--- NOTE | 2018-08-11 10:56 | PN ---
Date/Time of Note Date/Time of Note DATE: 08/11/18 TIME: 10:56 Assessment/Plan VTE Prophylaxis Risk score (from Ns)>0 risk: 0 SCD applied (from Ns): No SCD contraindicated: low risk/ambulating Pharmacological prophylaxis: NA/contraindicated Pharm contraindication: low risk/ambulating Lines/Catheters IV Catheter Type [facility]from [facility]): Peripheral IV Urinary Cath still in place: No Assessment/Plan Assessment/Plan 1. Sepsis secondary to cavitary pneumonia - Pulm on board and appreciate recommendations. - cardiology consulted for PEPPER - WBC still elevated but remains afebrile - ID on board and appreciate recommendations 2. Cavitary pneumonia - Pulm on board - Denies any IV drug use, states he did smoke crystal meth on a normal basis however. 3. Diabetes, noncompliant - Started on lantus and novolog. Will transition off insulin drip 4. Elevated liver enzymes - GI on board and appreciate recommendations - LFT still elevated but trending down slightly 5. Disposition - Transition off insulin drip - Cardio consulted for PEPPER Result Diagram: 08/11/18 0438 08/11/18 0438 Results 24hrs Laboratory Tests Test 08/10/18 11:49 08/10/18 12:00 08/10/18 13:54 08/10/18 15:16 Bedside Glucose 250 H 203 288 H Lab Scanned Report REFERENCE LAB Test 08/10/18 16:05 08/10/18 16:27 08/10/18 16:52 08/10/18 17:09 Bedside Glucose 377 H 294 H 305 H 242 H Test 08/10/18 18:06 08/10/18 19:55 08/10/18 21:02 08/10/18 22:00 Bedside Glucose 198 293 H 221 H 164 Test 08/10/18 23:05 08/11/18 00:07 08/11/18 01:10 08/11/18 02:18 Bedside Glucose 169 196 194 231 H Test 08/11/18 03:14 08/11/18 04:08 08/11/18 04:38 08/11/18 05:00 Bedside Glucose 222 H 226 H 237 H White Blood Count 12.9 H Red Blood Count 4.95 Hemoglobin 13.4 L Hematocrit 39.8 L Mean Corpuscular 80.4 L Volume Mean Corpuscular 27.1 L Hemoglobin Mean Corpuscular 33.7 Hemoglobin Concent Red Cell 12.1 Distribution Width Platelet Count 424 H Mean Platelet 9.3 Volume Immature 0.700 H Granulocytes % Neutrophils % 63.9 Lymphocytes % 25.2 Monocytes % 8.7 Eosinophils % 0.9 Basophils % 0.6 Nucleated Red 0.0 Blood Cells % Immature 0.090 H Granulocytes # Neutrophils # 8.2 H Lymphocytes # 3.2 H Monocytes # 1.1 H Eosinophils # 0.1 Basophils # 0.1 Nucleated Red 0.0 Blood Cells # Sodium Level 135 Potassium Level 4.2 Chloride Level 96 L Carbon Dioxide 32 H Level Anion Gap 7 Blood Urea 33 H Nitrogen Creatinine 0.86 Est Glomerular > 60 Filtrat Rate mL/min Glucose Level 268 #H Calcium Level 10.0 Magnesium Level 1.3 L Total Bilirubin 0.1 L Direct Bilirubin 0.00 Indirect Bilirubin 0.1 Aspartate Amino 68 #H Transf (AST/SGOT) Alanine 131 H Aminotransferase ( ALT/SGPT) Alkaline 1334 H Phosphatase Total Protein 7.3 Albumin 3.5 Globulin 3.80 H Albumin/Globulin 0.92 Ratio Test 08/11/18 05:58 08/11/18 07:04 08/11/18 08:47 08/11/18 10:18 Bedside Glucose 242 H 162 154 169 Subjective 24 Hr Interval Summary Free Text/Dictation Patient denies any acute issues and asking for breakfast. Still remains on insulin drip and being titrated down. Exam/Review of Systems Exam Vitals Vital Signs Date Temp Pulse Resp B/P (MAP) Pulse Ox O2 O2 Flow FiO2 Time Delivery Rate 08/11/18 77 08:00 08/11/18 28 100 06:00 08/11/18 96/69 (78) Room Air 04:00 08/11/18 98.2 00:00 Intake and Output 08/10/18 08/10/18 08/11/18 1515:00 23:00 07:00 IntakeIntake Total 993.335 ml 1165.667 ml OutputOutput Total 800 ml 1200 ml 900 ml BalanceBalance 193.335 ml -34.333 ml -900 ml Exam General: Patient is laying in bed and answers questions appropriately Neck: Supple, nontender, midline Respiratory: Diminished. no wheezing Cardiovascular: regular rate and rhythm, no obvious murmurs Gastrointestinal: soft, non-tender to palpation, nondistended, bowel sounds heard. 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: Moves all extremities spontaneously Skin: No new skin lesions Results Results 24hrs Laboratory Tests Test 08/10/18 11:49 08/10/18 12:00 08/10/18 13:54 08/10/18 15:16 Bedside Glucose 250 H 203 288 H Lab Scanned Report REFERENCE LAB Test 08/10/18 16:05 08/10/18 16:27 08/10/18 16:52 08/10/18 17:09 Bedside Glucose 377 H 294 H 305 H 242 H Test 08/10/18 18:06 08/10/18 19:55 08/10/18 21:02 08/10/18 22:00 Bedside Glucose 198 293 H 221 H 164 Test 08/10/18 23:05 08/11/18 00:07 08/11/18 01:10 08/11/18 02:18 Bedside Glucose 169 196 194 231 H Test 08/11/18 03:14 08/11/18 04:08 08/11/18 04:38 08/11/18 05:00 Bedside Glucose 222 H 226 H 237 H White Blood Count 12.9 H Red Blood Count 4.95 Hemoglobin 13.4 L Hematocrit 39.8 L Mean Corpuscular 80.4 L Volume Mean Corpuscular 27.1 L Hemoglobin Mean Corpuscular 33.7 Hemoglobin Concent Red Cell 12.1 Distribution Width Platelet Count 424 H Mean Platelet 9.3 Volume Immature 0.700 H Granulocytes % Neutrophils % 63.9 Lymphocytes % 25.2 Monocytes % 8.7 Eosinophils % 0.9 Basophils % 0.6 Nucleated Red 0.0 Blood Cells % Immature 0.090 H Granulocytes # Neutrophils # 8.2 H Lymphocytes # 3.2 H Monocytes # 1.1 H Eosinophils # 0.1 Basophils # 0.1 Nucleated Red 0.0 Blood Cells # Sodium Level 135 Potassium Level 4.2 Chloride Level 96 L Carbon Dioxide 32 H Level Anion Gap 7 Blood Urea 33 H Nitrogen Creatinine 0.86 Est Glomerular > 60 Filtrat Rate mL/min Glucose Level 268 #H Calcium Level 10.0 Magnesium Level 1.3 L Total Bilirubin 0.1 L Direct Bilirubin 0.00 Indirect Bilirubin 0.1 Aspartate Amino 68 #H Transf (AST/SGOT) Alanine 131 H Aminotransferase ( ALT/SGPT) Alkaline 1334 H Phosphatase Total Protein 7.3 Albumin 3.5 Globulin 3.80 H Albumin/Globulin 0.92 Ratio Test 08/11/18 05:58 08/11/18 07:04 08/11/18 08:47 08/11/18 10:18 Bedside Glucose 242 H 162 154 169 Medications Medication Current Medications IV Flush (NS 3 ml) 3 ml PER PROTOCOL IV ; Start 08/03/18 at 21:30 Ondansetron HCl (Zofran Inj) 4 mg Q6H PRN IV NAUSEA/VOMITING; Start 08/03/18 at 21:30 Heparin Sodium (Porcine) (Heparin (5000 Units/1ml)) 5,000 unit BID SC Last a dministered on 08/11/18at 10:39; Admin Dose 5,000 UNIT; Start 08/06/18 at 21:00 Levofloxacin (Levaquin) 500 mg DAILY@06 PO Last administered on 08/10/18at 06:28; Admin Dose 500 MG; Start 08/08/18 at 06:00 Cefepime HCl 50 ml @ 100 mls/hr Q12 IVPB Last administered on 08/11/18at 10:28; Admin Dose 100 MLS/HR; Start 08/07/18 at 21:00 Dextrose/Sodium Chloride 1,000 ml @ 120 mls/hr Q8H20M IV ; Start 08/09/18 at 10:00 Diagnostic Test (Pha) (Accu-Chek) 1 ea Q1H XX Last administered on 08/11/18at 08:30; Admin Dose 1 EA; Start 08/10/18 at 09:00 Insulin Human Regular 100 unit/ Sodium Chloride 100 ml @ 0 mls/hr PER PROTOCOL IV Last administered on 08/11/18at 04:39; Admin Dose 2 MLS/HR; Start 08/10/18 at 09:00 Miscellaneous Information (* Miscellaneous Pharmacy Order) Treatment of Hypoglycemia: 1.BG 51... Per protocol XX ; Start 08/10/18 at 09:00 Dextrose (D50w Syringe) 25 ml Q15M PRN IV .DECREASED GLUCOSE; Start 08/10/18 at 09:00 Dextrose (D50w Syringe) 50 ml Q15M PRN IV .DECREASED GLUCOSE; Start 08/10/18 at 09:00 Glucose (Glutose) 15 gm Q15M PRN PO DECREASED GLUCOSE; Start 08/10/18 at 10:00 Glucose (Glutose) 22.5 gm Q15M PRN PO DECREASED GLUCOSE; Start 08/10/18 at 10:00 Dextrose (D50w Syringe) 25 ml Q15M PRN IV DECREASED GLUCOSE; Start 08/10/18 at 10:00 Dextrose (D50w Syringe) 50 ml Q15M PRN IV DECREASED GLUCOSE; Start 08/10/18 at 10:00 Glucagon (Glucagen) 1 mg Q15M PRN IM DECREASED GLUCOSE; Start 08/10/18 at 10:00 Glucose (Glutose) 15 gm Q15M PRN BUCCAL DECREASED GLUCOSE; Start 08/10/18 at 10:00 Metformin HCl (Glucophage Xr) 1,000 mg BID PO Last administered on 08/11/18at 10 :48; Admin Dose 1,000 MG; Start 08/10/18 at 21:00 Diagnostic Test (Pha) (Accu-Chek) 1 ea 02 XX ; Start 08/11/18 at 02:00 Insulin Glargine (Lantus) 11 units DAILY@2000 SC Last administered on 08/10/18at 20:12; Admin Dose 11 UNITS; Start 08/10/18 at 20:00 Insulin Aspart (Novolog Insulin Pen) 5 unit WITH MEALS SC Last administered on 08/11/18at 10:10; Admin Dose 5 UNIT; Start 08/11/18 at 07:35 Magnesium Sulfate 3 gm/Dextrose 106 ml @ 35.333 mls/ hr ONCE ONCE IVPB Last administered on 08/11/18at 10:27; Admin Dose 35.333 MLS/HR; Start 08/11/18 at 08:00; Stop 08/11/18 at 10:59 Magnesium Oxide (Mag-Ox 400) 400 mg DAILY PO Last administered on 08/11/18at 10:25; Admin Dose 400 MG; Start 08/11/18 at 09:00 REGINE LALA MD Aug 11, 2018 10:56
--- NOTE | 2018-08-11 12:10 | CONS ---
Consult Date/Type/Reason Admit Date/Time Aug 03, 2018 at 19:57 Initial Consult Date 08/07/18 Type of Consult Pulmonary Requesting Provider: REGINE LALA MD Date/Time of Note DATE: 08/11/18 TIME: 12:02 Subjective GENERAL: Well-nourished well-developed gentleman comfortable at rest no acute distress VITAL SIGNS: per chart NECK: Supple. No JVD or lymphadenopathy. CARDIAC EXAM: S1, S2. No added sounds or murmurs. CHEST: clear bilaterally, No added sounds, rales or wheezes ABDOMEN: Soft, nontender. No guarding or rebound. EXTREMITIES: No cyanosis, clubbing or edema. NEUROLOGIC: Generalized weakness. No focal deficits. Objective Vital Signs Date Temp Pulse Resp B/P (MAP) Pulse Ox O2 O2 Flow FiO2 Time Delivery Rate 08/11/18 77 08:00 08/11/18 28 100 06:00 08/11/18 96/69 (78) Room Air 04:00 08/11/18 98.2 00:00 Intake and Output 08/10/18 08/10/18 08/11/18 1515:00 23:00 07:00 IntakeIntake Total 993.335 ml 1165.667 ml OutputOutput Total 800 ml 1200 ml 900 ml BalanceBalance 193.335 ml -34.333 ml -900 ml Results/Medications Result Diagram: 08/11/18 0438 08/11/18 0438 Results 24 hrs Laboratory Tests Test 08/10/18 13:54 08/10/18 15:16 08/10/18 16:05 08/10/18 16:27 Bedside Glucose 203 288 H 377 H 294 H Test 08/10/18 16:52 08/10/18 17:09 08/10/18 18:06 08/10/18 19:55 Bedside Glucose 305 H 242 H 198 293 H Test 08/10/18 21:02 08/10/18 22:00 08/10/18 23:05 08/11/18 00:07 Bedside Glucose 221 H 164 169 196 Test 08/11/18 01:10 08/11/18 02:18 08/11/18 03:14 08/11/18 04:08 Bedside Glucose 194 231 H 222 H 226 H Test 08/11/18 04:38 08/11/18 05:00 08/11/18 05:58 08/11/18 07:04 White Blood Count 12.9 H Red Blood Count 4.95 Hemoglobin 13.4 L Hematocrit 39.8 L Mean Corpuscular 80.4 L Volume Mean Corpuscular 27.1 L Hemoglobin Mean Corpuscular 33.7 Hemoglobin Concent Red Cell 12.1 Distribution Width Platelet Count 424 H Mean Platelet Volume 9.3 Immature 0.700 H Granulocytes % Neutrophils % 63.9 Lymphocytes % 25.2 Monocytes % 8.7 Eosinophils % 0.9 Basophils % 0.6 Nucleated Red Blood 0.0 Cells % Immature 0.090 H Granulocytes # Neutrophils # 8.2 H Lymphocytes # 3.2 H Monocytes # 1.1 H Eosinophils # 0.1 Basophils # 0.1 Nucleated Red Blood 0.0 Cells # Sodium Level 135 Potassium Level 4.2 Chloride Level 96 L Carbon Dioxide Level 32 H Anion Gap 7 Blood Urea Nitrogen 33 H Creatinine 0.86 Est Glomerular > 60 Filtrat Rate mL/min Glucose Level 268 #H Calcium Level 10.0 Magnesium Level 1.3 L Total Bilirubin 0.1 L Direct Bilirubin 0.00 Indirect Bilirubin 0.1 Aspartate Amino 68 #H Transf (AST/SGOT) Alanine 131 H Aminotransferase (AL T/SGPT) Alkaline Phosphatase 1334 H Total Protein 7.3 Albumin 3.5 Globulin 3.80 H Albumin/Globulin 0.92 Ratio Bedside Glucose 237 H 242 H 162 Test 08/11/18 08:47 08/11/18 10:18 08/11/18 10:52 Bedside Glucose 154 169 272 H Medications Current Medications IV Flush (NS 3 ml) 3 ml PER PROTOCOL IV ; Start 08/03/18 at 21:30 Ondansetron HCl (Zofran Inj) 4 mg Q6H PRN IV NAUSEA/VOMITING; Start 08/03/18 at 21:30 Heparin Sodium (Porcine) (Heparin (5000 Units/1ml)) 5,000 unit BID SC Last administered on 08/11/18at 10:39; Admin Dose 5,000 UNIT; Start 08/06/18 at 21:00 Levofloxacin (Levaquin) 500 mg DAILY@06 PO Last administered on 08/10/18at 06:28; Admin Dose 500 MG; Start 08/08/18 at 06:00 Cefepime HCl 50 ml @ 100 mls/hr Q12 IVPB Last administered on 08/11/18at 10:28; Admin Dose 100 MLS/HR; Start 08/07/18 at 21:00 Dextrose/Sodium Chloride 1,000 ml @ 120 mls/hr Q8H20M IV ; Start 08/09/18 at 10:00 Diagnostic Test (Pha) (Accu-Chek) 1 ea Q1H XX Last administered on 08/11/18at 10:00; Admin Dose 1 EA; Start 08/10/18 at 09:00 Insulin Human Regular 100 unit/ Sodium Chloride 100 ml @ 0 mls/hr PER PROTOCOL IV Last administered on 08/11/18at 04:39; Admin Dose 2 MLS/HR; Start 08/10/18 at 09:00 Miscellaneous Information (* Miscellaneous Pharmacy Order) Treatment of Hypoglycemia: 1.BG 51... Per protocol XX ; Start 08/10/18 at 09:00 Dextrose (D50w Syringe) 25 ml Q15M PRN IV .DECREASED GLUCOSE; Start 08/10/18 at 09:00 Dextrose (D50w Syringe) 50 ml Q15M PRN IV .DECREASED GLUCOSE; Start 08/10/18 at 09:00 Glucose (Glutose) 15 gm Q15M PRN PO DECREASED GLUCOSE; Start 08/10/18 at 10:00 Glucose (Glutose) 22.5 gm Q15M PRN PO DECREASED GLUCOSE; Start 08/10/18 at 1 0:00 Dextrose (D50w Syringe) 25 ml Q15M PRN IV DECREASED GLUCOSE; Start 08/10/18 at 10:00 Dextrose (D50w Syringe) 50 ml Q15M PRN IV DECREASED GLUCOSE; Start 08/10/18 at 10:00 Glucagon (Glucagen) 1 mg Q15M PRN IM DECREASED GLUCOSE; Start 08/10/18 at 10:00 Glucose (Glutose) 15 gm Q15M PRN BUCCAL DECREASED GLUCOSE; Start 08/10/18 at 10:00 Metformin HCl (Glucophage Xr) 1,000 mg BID PO Last administered on 08/11/18at 10:48; Admin Dose 1,000 MG; Start 08/10/18 at 21:00 Diagnostic Test (Pha) (Accu-Chek) 1 ea 02 XX ; Start 08/11/18 at 02:00 Insulin Glargine (Lantus) 11 units DAILY@2000 SC Last administered on 08/10/18at 20:12; Admin Dose 11 UNITS; Start 08/10/18 at 20:00 Insulin Aspart (Novolog Insulin Pen) 5 unit WITH MEALS SC Last administered on 08/11/18at 10:10; Admin Dose 5 UNIT; Start 08/11/18 at 07:35 Magnesium Oxide (Mag-Ox 400) 400 mg DAILY PO Last administered on 08/11/18at 10:25; Admin Dose 400 MG; Start 08/11/18 at 09:00 Assessment/Plan Hospital Course (Demo Recall) Assessment IMP: 1. Bilateral peripheral cavities/nodules--at varying stages of evolution. Findings most consistent with SPE. Doubt GPA or MALT. Doubt crypto 2. Poorly controlled diabetes mellitus elevated blood sugar status post hypoglycemic event now on insulin drip. RECS: 1. PEPPER Dr. Cabrera contacted. 2. F/U infectious work-up 3. Am labs 4. Endocrinology consult appreciated. 5. Insulin drip for glycemic management critical care time 40 minutes. ROSA JHAVERI MD, [facility] Aug 11, 2018 12:10
--- NOTE | 2018-08-11 14:04 | CONS ---
Assessment/Plan Assessment/Plan Hospital Course (Demo Recall) No acute changes overnight patient is sleeping looks comfortable afebrile WBC 12.9 platelets 424 no shift no bands BUN 33 creatinine 0.86 Microbiology: All cultures negative Antimicrobials: Cefepime, Levaquin CT of the chest revealed multiple ill-defined bilateral cavitary lung nodules findings are suspicious for septic emboli rule out other etiologies. MRI of the abdomen revealed unremarkable gallbladder and biliary ductal system Physical examination: Well-developed young man who is alert in no distress. Head atraumatic normocephalic sclera. Mucosa dry. Neck is supple chest rise symmetrical breath sounds diminished to bases. Heart: S1-S2 abdomen soft bowel sounds present. Extremities without cyanosis. Assessment: 1. S/p sepsis 2. Bilateral cavitary pneumonia, likely SPE===> PPD placed 08/06, neg 3. Diabetes 4. Transaminitis Plan: Remains stable, continue antibiotics, pending PEPPER Consultation Date/Type/Reason Admit Date/Time Aug 03, 2018 at 19:57 Initial Consult Date 08/05/18 Type of Consult id Requesting Provider: REGINE LALA MD Date/Time of Note DATE: 08/11/18 TIME: 14:03 Exam/Review of Systems Exam Vitals Vital Signs Date Temp Pulse Resp B/P (MAP) Pulse Ox O2 O2 Flow FiO2 Time Delivery Rate 08/11/18 92 12:00 08/11/18 28 100 06:00 08/11/18 96/69 (78) Room Air 04:00 08/11/18 98.2 00:00 Intake and Output 08/10/18 08/10/18 08/11/18 1515:00 23:00 07:00 IntakeIntake Total 993.335 ml 1165.667 ml OutputOutput Total 800 ml 1200 ml 900 ml BalanceBalance 193.335 ml -34.333 ml -900 ml Results Result Diagram: 08/11/18 0438 08/11/18 0438 Results 24hrs Laboratory Tests Test 08/10/18 15:16 08/10/18 16:05 08/10/18 16:27 08/10/18 16:52 Bedside Glucose 288 H 377 H 294 H 305 H Test 08/10/18 17:09 08/10/18 18:06 08/10/18 19:55 08/10/18 21:02 Bedside Glucose 242 H 198 293 H 221 H Test 08/10/18 22:00 08/10/18 23:05 08/11/18 00:07 08/11/18 01:10 Bedside Glucose 164 169 196 194 Test 08/11/18 02:18 08/11/18 03:14 08/11/18 04:08 08/11/18 04:38 Bedside Glucose 231 H 222 H 226 H White Blood Count 12.9 H Red Blood Count 4.95 Hemoglobin 13.4 L Hematocrit 39.8 L Mean Corpuscular 80.4 L Volume Mean Corpuscular 27.1 L Hemoglobin Mean Corpuscular 33.7 Hemoglobin Concent Red Cell 12.1 Distribution Width Platelet Count 424 H Mean Platelet Volume 9.3 Immature 0.700 H Granulocytes % Neutrophils % 63.9 Lymphocytes % 25.2 Monocytes % 8.7 Eosinophils % 0.9 Basophils % 0.6 Nucleated Red Blood 0.0 Cells % Immature 0.090 H Granulocytes # Neutrophils # 8.2 H Lymphocytes # 3.2 H Monocytes # 1.1 H Eosinophils # 0.1 Basophils # 0.1 Nucleated Red Blood 0.0 Cells # Sodium Level 135 Potassium Level 4.2 Chloride Level 96 L Carbon Dioxide Level 32 H Anion Gap 7 Blood Urea Nitrogen 33 H Creatinine 0.86 Est Glomerular > 60 Filtrat Rate mL/min Glucose Level 268 #H Calcium Level 10.0 Magnesium Level 1.3 L Total Bilirubin 0.1 L Direct Bilirubin 0.00 Indirect Bilirubin 0.1 Aspartate Amino 68 #H Transf (AST/SGOT) Alanine 131 H Aminotransferase (AL T/SGPT) Alkaline Phosphatase 1334 H Total Protein 7.3 Albumin 3.5 Globulin 3.80 H Albumin/Globulin 0.92 Ratio Test 08/11/18 05:00 08/11/18 05:58 08/11/18 07:04 08/11/18 08:47 Bedside Glucose 237 H 242 H 162 154 Test 08/11/18 10:18 08/11/18 10:52 08/11/18 12:19 08/11/18 13:05 Bedside Glucose 169 272 H 107 83 Medications Medication Current Medications IV Flush (NS 3 ml) 3 ml PER PROTOCOL IV ; Start 08/03/18 at 21:30 Ondansetron HCl (Zofran Inj) 4 mg Q6H PRN IV NAUSEA/VOMITING; Start 08/03/18 at 21:30 Heparin Sodium (Porcine) (Heparin (5000 Units/1ml)) 5,000 unit BID SC Last administered on 08/11/18at 10:39; Admin Dose 5,000 UNIT; Start 08/06/18 at 21:00 Levofloxacin (Levaquin) 500 mg DAILY@06 PO Last administered on 08/10/18at 06:28; Admin Dose 500 MG; Start 08/08/18 at 06:00 Cefepime HCl 50 ml @ 100 mls/hr Q12 IVPB Last administered on 08/11/18at 10:28; Admin Dose 100 MLS/HR; Start 08/07/18 at 21:00 Dextrose/Sodium Chloride 1,000 ml @ 120 mls/hr Q8H20M IV ; Start 08/09/18 at 10:00 Diagnostic Test (Pha) (Accu-Chek) 1 ea Q1H XX Last administered on 08/11/18at 13:55; Admin Dose 1 EA; Start 08/10/18 at 09:00 Insulin Human Regular 100 unit/ Sodium Chloride 100 ml @ 0 mls/hr PER PROTOCOL IV Last administered on 08/11/18at 04:39; Admin Dose 2 MLS/HR; Start 08/10/18 at 09:00 Miscellaneous Information (* Miscellaneous Pharmacy Order) Treatment of Hypoglycemia: 1.BG 51... Per protocol XX ; Start 08/10/18 at 09:00 Dextrose (D50w Syringe) 25 ml Q15M PRN IV .DECREASED GLUCOSE; Start 08/10/18 at 09:00 Dextrose (D50w Syringe) 50 ml Q15M PRN IV .DECREASED GLUCOSE; Start 08/10/18 at 09:00 Glucose (Glutose) 15 gm Q15M PRN PO DECREASED GLUCOSE; Start 08/10/18 at 10:00 Glucose (Glutose) 22.5 gm Q15M PRN PO DECREASED GLUCOSE; Start 08/10/18 at 10:00 Dextrose (D50w Syringe) 25 ml Q15M PRN IV DECREASED GLUCOSE; Start 08/10/18 at 10:00 Dextrose (D50w Syringe) 50 ml Q15M PRN IV DECREASED GLUCOSE; Start 08/10/18 at 10:00 Glucagon (Glucagen) 1 mg Q15M PRN IM DECREASED GLUCOSE; Start 08/10/18 at 10:00 Glucose (Glutose) 15 gm Q15M PRN BUCCAL DECREASED GLUCOSE; Start 08/10/18 at 10:00 Metformin HCl (Glucophage Xr) 1,000 mg BID PO Last administered on 08/11/18at 10:48; Admin Dose 1,000 MG; Start 08/10/18 at 21:00 Diagnostic Test (Pha) (Accu-Chek) 1 ea 02 XX ; Start 08/11/18 at 02:00 Insulin Glargine (Lantus) 11 units DAILY@2000 SC Last administered on 08/10/18at 20:12; Admin Dose 11 UNITS; Start 08/10/18 at 20:00 Insulin Aspart (Novolog Insulin Pen) 5 unit WITH MEALS SC Last administered on 08/11/18at 10:10; Admin Dose 5 UNIT; Start 08/11/18 at 07:35 Magnesium Oxide (Mag-Ox 400) 400 mg DAILY PO Last administered on 08/11/18at 10:25; Admin Dose 400 MG; Start 08/11/18 at 09:00 AUDRA DILLON NP Aug 11, 2018 14:04
--- NOTE | 2018-08-11 16:29 | PN ---
Date/Time of Note Date/Time of Note DATE: 08/11/18 TIME: 16:27 Assessment/Plan VTE Prophylaxis Risk score (from Nsg)>0 risk: 0 SCD applied (from Ns): No SCD contraindicated: other (scds) Pharmacological prophylaxis: other (scds) Lines/Catheters IV Catheter Type (from Nrs): Peripheral IV Urinary Cath still in place: No Assessment/Plan Hospital Course Assessment: Elevated alkaline phosphatase- elevated GGT ALk phos- fractionation- predominately liver elevation MRCP: The liver is uniform in appearance on noncontrast imaging, with normal contour and size. The biliary ductal system is unremarkable without evidence of common duct stone. Likewise gallbladder is normal in appearance. Transaminitis Leukocytosis Multiple ill-defined bilateral cavitary lung nodules. -Findings are suspicious for septic emboli. Ddx includes: fungal infection vs tuberculosis vs granulomatous infections. -PPD placed 08/06- negative Type 2 diabetes Hx of crystal meth use Plan: Dr. Cabrera to preform PEPPER- pending Repeat CT abd /pelvis- reassess liver- with persistent LFTS Patient seen in collaboration with Dr. Vital Subjective: Course reviewed with nursing staff Patient interviewed and examined All labs, imaging and other results reviewed No over night events, pt denies n/v or abd pain Exam PHYSICAL EXAMINATION: GENERAL: Alert & oriented x 3 SKIN: No lesions HEAD: Normocephalic, atraumatic, no tenderness. EYES: Pupils equal reactive to light and accommodation, no discharge. EARS/NOSE AND THROAT: Ears normal, nose normal. NECK: Supple, no masses CHEST: Inspection within normal limits. CARDIOVASCULAR: Heart: Regular rate and rhythm RESPIRATORY: Lungs clear to auscultation GASTROINTESTINAL AND LIVER: Abdomen: Soft, non tenderness, non-distended, no hernias, no masses, no organomegaly, no ascites, no guarding, no rebound tenderness, normoactive bowel sounds. Rectal: Deferred. Result Diagram: 08/11/18 0438 08/11/18 0438 Results 24hrs Laboratory Tests Test 08/10/18 16:52 08/10/18 17:09 08/10/18 18:06 08/10/18 19:55 Bedside Glucose 305 H 242 H 198 293 H Test 08/10/18 21:02 08/10/18 22:00 08/10/18 23:05 08/11/18 00:07 Bedside Glucose 221 H 164 169 196 Test 08/11/18 01:10 08/11/18 02:18 08/11/18 03:14 08/11/18 04:08 Bedside Glucose 194 231 H 222 H 226 H Test 08/11/18 04:38 08/11/18 05:00 08/11/18 05:58 08/11/18 07:04 White Blood Count 12.9 H Red Blood Count 4.95 Hemoglobin 13.4 L Hematocrit 39.8 L Mean Corpuscular 80.4 L Volume Mean Corpuscular 27.1 L Hemoglobin Mean Corpuscular 33.7 Hemoglobin Concent Red Cell 12.1 Distribution Width Platelet Count 424 H Mean Platelet Volume 9.3 Immature 0.700 H Granulocytes % Neutrophils % 63.9 Lymphocytes % 25.2 Monocytes % 8.7 Eosinophils % 0.9 Basophils % 0.6 Nucleated Red Blood 0.0 Cells % Immature 0.090 H Granulocytes # Neutrophils # 8.2 H Lymphocytes # 3.2 H Monocytes # 1.1 H Eosinophils # 0.1 Basophils # 0.1 Nucleated Red Blood 0.0 Cells # Sodium Level 135 Potassium Level 4.2 Chloride Level 96 L Carbon Dioxide Level 32 H Anion Gap 7 Blood Urea Nitrogen 33 H Creatinine 0.86 Est Glomerular > 60 Filtrat Rate mL/min Glucose Level 268 #H Calcium Level 10.0 Magnesium Level 1.3 L Total Bilirubin 0.1 L Direct Bilirubin 0.00 Indirect Bilirubin 0.1 Aspartate Amino 68 #H Transf (AST/SGOT) Alanine 131 H Aminotransferase (AL T/SGPT) Alkaline Phosphatase 1334 H Total Protein 7.3 Albumin 3.5 Globulin 3.80 H Albumin/Globulin 0.92 Ratio Bedside Glucose 237 H 242 H 162 Test 08/11/18 08:47 08/11/18 10:18 08/11/18 10:52 08/11/18 12:19 Bedside Glucose 154 169 272 H 107 Test 08/11/18 13:05 08/11/18 14:04 08/11/18 14:37 08/11/18 15:36 Bedside Glucose 83 173 249 H 275 H Exam/Review of Systems Exam Vitals Vital Signs Date Temp Pulse Resp B/P (MAP) Pulse Ox O2 O2 Flow FiO2 Time Delivery Rate 08/11/18 92 12:00 08/11/18 28 100 06:00 08/11/18 96/69 (78) Room Air 04:00 08/11/18 98.2 00:00 Intake and Output 08/10/18 08/10/18 08/11/18 1515:00 23:00 07:00 IntakeIntake Total 993.335 ml 1165.667 ml OutputOutput Total 800 ml 1200 ml 900 ml BalanceBalance 193.335 ml -34.333 ml -900 ml Results Results 24hrs Laboratory Tests Test 08/10/18 16:52 08/10/18 17:09 08/10/18 18:06 08/10/18 19:55 Bedside Glucose 305 H 242 H 198 293 H Test 08/10/18 21:02 08/10/18 22:00 08/10/18 23:05 08/11/18 00:07 Bedside Glucose 221 H 164 169 196 Test 08/11/18 01:10 08/11/18 02:18 08/11/18 03:14 08/11/18 04:08 Bedside Glucose 194 231 H 222 H 226 H Test 08/11/18 04:38 08/11/18 05:00 08/11/18 05:58 08/11/18 07:04 White Blood Count 12.9 H Red Blood Count 4.95 Hemoglobin 13.4 L Hematocrit 39.8 L Mean Corpuscular 80.4 L Volume Mean Corpuscular 27.1 L Hemoglobin Mean Corpuscular 33.7 Hemoglobin Concent Red Cell 12.1 Distribution Width Platelet Count 424 H Mean Platelet Volume 9.3 Immature 0.700 H Granulocytes % Neutrophils % 63.9 Lymphocytes % 25.2 Monocytes % 8.7 Eosinophils % 0.9 Basophils % 0.6 Nucleated Red Blood 0.0 Cells % Immature 0.090 H Granulocytes # Neutrophils # 8.2 H Lymphocytes # 3.2 H Monocytes # 1.1 H Eosinophils # 0.1 Basophils # 0.1 Nucleated Red Blood 0.0 Cells # Sodium Level 135 Potassium Level 4.2 Chloride Level 96 L Carbon Dioxide Level 32 H Anion Gap 7 Blood Urea Nitrogen 33 H Creatinine 0.86 Est Glomerular > 60 Filtrat Rate mL/min Glucose Level 268 #H Calcium Level 10.0 Magnesium Level 1.3 L Total Bilirubin 0.1 L Direct Bilirubin 0.00 Indirect Bilirubin 0.1 Aspartate Amino 68 #H Transf (AST/SGOT) Alanine 131 H Aminotransferase (AL T/SGPT) Alkaline Phosphatase 1334 H Total Protein 7.3 Albumin 3.5 Globulin 3.80 H Albumin/Globulin 0.92 Ratio Bedside Glucose 237 H 242 H 162 Test 08/11/18 08:47 08/11/18 10:18 08/11/18 10:52 08/11/18 12:19 Bedside Glucose 154 169 272 H 107 Test 08/11/18 13:05 08/11/18 14:04 08/11/18 14:37 08/11/18 15:36 Bedside Glucose 83 173 249 H 275 H Medications Medication Current Medications IV Flush (NS 3 ml) 3 ml PER PROTOCOL IV ; Start 08/03/18 at 21:30 Ondansetron HCl (Zofran Inj) 4 mg Q6H PRN IV NAUSEA/VOMITING; Start 08/03/18 at 21:30 Heparin Sodium (Porcine) (Heparin (5000 Units/1ml)) 5,000 unit BID SC Last administered on 08/11/18at 10:39; Admin Dose 5,000 UNIT; Start 08/06/18 at 21:00 Levofloxacin (Levaquin) 500 mg DAILY@06 PO Last administered on 08/10/18at 06:28; Admin Dose 500 MG; Start 08/08/18 at 06:00 Cefepime HCl 50 ml @ 100 mls/hr Q12 IVPB Last administered on 08/11/18at 10:28; Admin Dose 100 MLS/HR; Start 08/07/18 at 21:00 Dextrose/Sodium Chloride 1,000 ml @ 120 mls/hr Q8H20M IV ; Start 08/09/18 at 10:00 Diagnostic Test (Pha) (Accu-Chek) 1 ea Q1H XX Last administered on 08/11/18at 15:37; Admin Dose 1 EA; Start 08/10/18 at 09:00 Insulin Human Regular 100 unit/ Sodium Chloride 100 ml @ 0 mls/hr PER PROTOCOL IV Last administered on 08/11/18at 04:39; Admin Dose 2 MLS/HR; Start 08/10/18 at 09:00 Miscellaneous Information (* Miscellaneous Pharmacy Order) Treatment of Hypoglycemia: 1.BG 51... Per protocol XX ; Start 08/10/18 at 09:00 Dextrose (D50w Syringe) 25 ml Q15M PRN IV .DECREASED GLUCOSE; Start 08/10/18 at 09:00 Dextrose (D50w Syringe) 50 ml Q15M PRN IV .DECREASED GLUCOSE; Start 08/10/18 at 09:00 Glucose (Glutose) 15 gm Q15M PRN PO DECREASED GLUCOSE; Start 08/10/18 at 10:00 Glucose (Glutose) 22.5 gm Q15M PRN PO DECREASED GLUCOSE; Start 08/10/18 at 10:00 Dextrose (D50w Syringe) 25 ml Q15M PRN IV DECREASED GLUCOSE; Start 08/10/18 at 10:00 Dextrose (D50w Syringe) 50 ml Q15M PRN IV DECREASED GLUCOSE; Start 08/10/18 at 10:00 Glucagon (Glucagen) 1 mg Q15M PRN IM DECREASED GLUCOSE; Start 08/10/18 at 10:00 Glucose (Glutose) 15 gm Q15M PRN BUCCAL DECREASED GLUCOSE; Start 08/10/18 at 10:00 Metformin HCl (Glucophage Xr) 1,000 mg BID PO Last administered on 08/11/18at 10:48; Admin Dose 1,000 MG; Start 08/10/18 at 21:00 Diagnostic Test (Pha) (Accu-Chek) 1 ea 02 XX ; Start 08/11/18 at 02:00 Insulin Glargine (Lantus) 11 units DAILY@2000 SC Last administered on 08/10/18at 20:12; Admin Dose 11 UNITS; Start 08/10/18 at 20:00 Insulin Aspart (Novolog Insulin Pen) 5 unit WITH MEALS SC Last administered on 08/11/18at 14:10; Admin Dose 5 UNIT; Start 08/11/18 at 07:35 Magnesium Oxide (Mag-Ox 400) 400 mg DAILY PO Last administered on 08/11/18at 10:25; Admin Dose 400 MG; Start 08/11/18 at 09:00 CAMERON MORA Aug 11, 2018 16:29
--- NOTE | 2018-08-11 18:52 | CONS ---
Assessment/Plan Assessment/Plan Problems: (1) Type 2 diabetes mellitus with hyperglycemia Status: Chronic Comment: BG improved w/ insulin drip but per RN pt. eating indiscriminately. Pt. responding to SQ insulin w/ decrease in BG down to 82 mg/dL but BG increased again w/ snacking. Will d/c insulin drip and increase lantus to 16 units qhs and Novolog to 8 units qac. Will add Alg 1 ISS. Pt. advised cannot eat unless it is mealtimes. If wants snack must have nurse call endo for supplemental insulin order. 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 Consultation Date/Type/Reason Admit Date/Time Aug 03, 2018 at 19:57 Initial Consult Date 08/10/18 Type of Consult Endocrinology Reason for Consultation DM OOC Requesting Provider: REGINE LALA MD Date/Time of Note DATE: 08/11/18 TIME: 18:50 24 HR Interval Summary Constitutional: no complaints Detailed Summary Respiratory: no complaints; No pain, No cough, No shortness of breath Cardiovascular: no complaints Gastrointestinal: no complaints Genitourinary: no complaints Musculoskeletal: no complaints Neurologic: no complaints Exam/Review of Systems Exam Vitals VS - Last 72 Hours, by Label Date Temp Pulse Resp B/P (MAP) Pulse Ox O2 O2 Flow FiO2 Time Delivery Rate 08/11/18 85 16:00 08/11/18 92 12:00 08/11/18 77 08:00 08/11/18 91 28 100 06:00 08/11/18 89 20 97 05:00 08/11/18 84 04:00 08/11/18 85 22 96/69 (78) 98 Room Air 04:00 08/11/18 82 15 86/62 (70) 98 Room Air 03:00 08/11/18 84 21 96/65 (75) 98 Room Air 02:00 08/11/18 85 26 89/74 (79) 98 Room Air 01:00 08/11/18 78 00:00 08/11/18 98.2 77 23 90/54 (66) 100 Room Air 00:00 08/10/18 87 21 96/64 (75) 98 Room Air 23:00 08/10/18 98.4 93 16 22:00 08/10/18 99 17 87/57 (67) 100 Room Air 21:00 08/10/18 91 20:00 08/10/18 90 22 84/58 (67) 20:00 08/10/18 99 21 88/60 (69) 19:00 08/10/18 102 20 89/69 (76) 97 18:00 08/10/18 98 22 103/71 99 17:00 (82) 08/10/18 97.2 85 23 102/64 100 16:00 (77) 08/10/18 89 16:00 08/10/18 79 20 93/63 (73) 99 15:00 08/10/18 102 15 100 14:00 08/10/18 85 24 79/59 (66) 98 13:00 08/10/18 103 12:00 08/10/18 97.8 83 22 104/77 100 12:00 (86) 08/10/18 93 21 100 09:45 08/10/18 79 22 100 09:30 08/10/18 81 23 100 09:15 08/10/18 84 21 100 09:00 08/10/18 94 27 99 08:45 08/10/18 104 19 08:30 08/10/18 106 27 93/75 (81) 97 08:20 08/10/18 74 23 08:15 08/10/18 98.9 08:00 08/10/18 98 24 08:00 08/10/18 99 08:00 08/10/18 98 24 08:00 08/10/18 83 22 07:45 08/10/18 82 21 07:30 08/10/18 80 22 100 07:15 08/10/18 81 21 99 07:00 08/10/18 81 21 99 07:00 08/10/18 21 06:00 08/10/18 20 78/57 (64) 99 Room Air 05:00 08/10/18 85 23 04:00 08/10/18 75 04:00 08/10/18 21 04:00 08/10/18 78 21 89/65 (73) Room Air 03:00 08/10/18 81 23 99 02:00 08/10/18 22 02:00 08/10/18 90 22 100/67 95 Room Air 01:00 (78) 08/10/18 85 00:00 08/10/18 98.0 00:00 08/10/18 85 22 100 00:00 08/09/18 84 21 91/61 (71) 99 Room Air 23:35 08/09/18 25 22:00 08/09/18 82 25 108/70 99 Room Air 21:36 (83) 08/09/18 25 20:00 08/09/18 96 20:00 08/09/18 98.5 80 25 93/60 (71) 97 Room Air 19:35 08/09/18 91 25 104/48 99 Room Air 18:00 (66) 08/09/18 94 25 17:00 08/09/18 86 16:00 08/09/18 98.2 113 23 106/57 100 Room Air 16:00 (73) 08/09/18 89 23 15:00 08/09/18 76 23 108/59 99 Room Air 14:00 (75) 08/09/18 84 23 13:00 08/09/18 96 12:00 08/09/18 98.2 78 21 110/62 99 Room Air 12:00 (78) 08/09/18 98.6 77 20 109/59 98 Room Air 08:04 (76) 08/09/18 97.8 74 18 97/68 (78) 100 Room Air 02:15 08/08/18 98.2 100 20 103/75 98 Room Air 19:20 (84) Vital Signs Date Temp Pulse Resp B/P (MAP) Pulse Ox O2 O2 Flow FiO2 Time Delivery Rate 08/11/18 85 16:00 08/11/18 28 100 06:00 08/11/18 96/69 (78) Room Air 04:00 08/11/18 98.2 00:00 Intake and Output 08/10/18 08/10/18 08/11/18 1515:00 23:00 07:00 IntakeIntake Total 993.335 ml 1165.667 ml 1.5 ml OutputOutput Total 800 ml 1200 ml 900 ml BalanceBalance 193.335 ml -34.333 ml -898.5 ml Constitutional: alert, oriented, well developed Psych: no complaints, nl mood/affect Respiratory: clear to auscultation, normal air movement Cardiovascular: regular rate and rhythm, nl pulses; No edema, No murmurs/extra sounds, No rub Gastrointestinal: soft, nl liver, spleen, non-tender, bowel sounds; No mass, No rebound or guarding Musculoskeletal: nl extremities to inspection Extremities: normal pulses; No cyanosis, No clubbing, No edema 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: AIR SAMPLING AND MONITORING II-XII intact, nl mental status, nl speech, nl strength Additional Comments Bedside Glucose - 72 Hours Test 08/08/18 20:10 08/09/18 01:04 08/09/18 03:16 08/09/18 08:03 Bedside 221 355 294 294 Glucose mg/dL (70-220) mg/dL (70-220) mg/dL (70-220) mg/dL (70-220) H H H H Test 08/09/18 10:37 08/09/18 12:05 08/09/18 13:02 08/09/18 14:03 Bedside 268 359 384 422 Glucose mg/dL (70-220) mg/dL (70-220) mg/dL (70-220) mg/dL (70-220) H H H *H Test 08/09/18 15:07 08/09/18 16:34 08/09/18 17:07 08/09/18 18:31 Bedside 330 259 253 254 Glucose mg/dL (70-220) mg/dL (70-220) mg/dL (70-220) mg/dL (70-220) H H H H Test 08/09/18 19:32 08/09/18 20:35 08/09/18 21:29 08/09/18 22:41 Bedside 257 328 343 274 Glucose mg/dL (70-220) mg/dL (70-220) mg/dL (70-220) mg/dL (70-220) H H H H Test 08/09/18 23:33 08/10/18 00:26 08/10/18 01:32 08/10/18 02:35 Bedside 278 350 337 228 Glucose mg/dL (70-220) mg/dL (70-220) mg/dL (70-220) mg/dL (70-220) H H H H Test 08/10/18 03:33 08/10/18 04:42 08/10/18 05:29 08/10/18 06:30 Bedside 128 157 159 163 Glucose mg/dL (70-220) mg/dL (70-220) mg/dL (70-220) mg/dL (70-220) Test 08/10/18 08:28 08/10/18 10:46 08/10/18 11:49 08/10/18 13:54 Bedside 209 315 250 203 Glucose mg/dL (70-220) mg/dL (70-220) mg/dL (70-220) mg/dL (70-220) H H Test 08/10/18 15:16 08/10/18 16:05 08/10/18 16:27 08/10/18 16:52 Bedside 288 377 294 305 Glucose mg/dL (70-220) mg/dL (70-220) mg/dL (70-220) mg/dL (70-220) H H H H Test 08/10/18 17:09 08/10/18 18:06 08/10/18 19:55 08/10/18 21:02 Bedside 242 198 293 221 Glucose mg/dL (70-220) mg/dL (70-220) mg/dL (70-220) mg/dL (70-220) H H H Test 08/10/18 22:00 08/10/18 23:05 08/11/18 00:07 08/11/18 01:10 Bedside 164 169 196 194 Glucose mg/dL (70-220) mg/dL (70-220) mg/dL (70-220) mg/dL (70-220) Test 08/11/18 02:18 08/11/18 03:14 08/11/18 04:08 08/11/18 05:00 Bedside 231 222 226 237 Glucose mg/dL (70-220) mg/dL (70-220) mg/dL (70-220) mg/dL (70-220) H H H H Test 08/11/18 05:58 08/11/18 07:04 08/11/18 08:47 08/11/18 10:18 Bedside 242 162 154 169 Glucose mg/dL (70-220) mg/dL (70-220) mg/dL (70-220) mg/dL (70-220) H Test 08/11/18 10:52 08/11/18 12:19 08/11/18 13:05 08/11/18 14:04 Bedside 272 107 83 173 Glucose mg/dL (70-220) mg/dL (70-220) mg/dL (70-220) mg/dL (70-220) H Test 08/11/18 14:37 08/11/18 15:36 08/11/18 17:10 08/11/18 18:21 Bedside 249 275 281 309 Glucose mg/dL (70-220) mg/dL (70-220) mg/dL (70-220) mg/dL (70-220) H H H H Results Result Diagram: 08/11/18 0438 08/11/18 0438 Results 24hrs Laboratory Tests Test 08/10/18 19:55 08/10/18 21:02 08/10/18 22:00 08/10/18 23:05 Bedside Glucose 293 H 221 H 164 169 Test 08/11/18 00:07 08/11/18 01:10 08/11/18 02:18 08/11/18 03:14 Bedside Glucose 196 194 231 H 222 H Test 08/11/18 04:08 08/11/18 04:38 08/11/18 05:00 08/11/18 05:58 Bedside Glucose 226 H 237 H 242 H White Blood Count 12.9 H Red Blood Count 4.95 Hemoglobin 13.4 L Hematocrit 39.8 L Mean Corpuscular 80.4 L Volume Mean Corpuscular 27.1 L Hemoglobin Mean Corpuscular 33.7 Hemoglobin Concent Red Cell 12.1 Distribution Width Platelet Count 424 H Mean Platelet Volume 9.3 Immature 0.700 H Granulocytes % Neutrophils % 63.9 Lymphocytes % 25.2 Monocytes % 8.7 Eosinophils % 0.9 Basophils % 0.6 Nucleated Red Blood 0.0 Cells % Immature 0.090 H Granulocytes # Neutrophils # 8.2 H Lymphocytes # 3.2 H Monocytes # 1.1 H Eosinophils # 0.1 Basophils # 0.1 Nucleated Red Blood 0.0 Cells # Sodium Level 135 Potassium Level 4.2 Chloride Level 96 L Carbon Dioxide Level 32 H Anion Gap 7 Blood Urea Nitrogen 33 H Creatinine 0.86 Est Glomerular > 60 Filtrat Rate mL/min Glucose Level 268 #H Calcium Level 10.0 Magnesium Level 1.3 L Total Bilirubin 0.1 L Direct Bilirubin 0.00 Indirect Bilirubin 0.1 Aspartate Amino 68 #H Transf (AST/SGOT) Alanine 131 H Aminotransferase (AL T/SGPT) Alkaline Phosphatase 1334 H Total Protein 7.3 Albumin 3.5 Globulin 3.80 H Albumin/Globulin 0.92 Ratio Test 08/11/18 07:04 08/11/18 08:47 08/11/18 10:18 08/11/18 10:52 Bedside Glucose 162 154 169 272 H Test 08/11/18 12:19 08/11/18 13:05 08/11/18 14:04 08/11/18 14:37 Bedside Glucose 107 83 173 249 H Test 08/11/18 15:36 08/11/18 17:10 08/11/18 18:21 Bedside Glucose 275 H 281 H 309 H Medications Medication Current Medications IV Flush (NS 3 ml) 3 ml PER PROTOCOL IV ; Start 08/03/18 at 21:30 Ondansetron HCl (Zofran Inj) 4 mg Q6H PRN IV NAUSEA/VOMITING; Start 08/03/18 at 21:30 Heparin Sodium (Porcine) (Heparin (5000 Units/1ml)) 5,000 unit BID SC Last administered on 08/11/18at 10:39; Admin Dose 5,000 UNIT; Start 08/06/18 at 21:00 Levofloxacin (Levaquin) 500 mg DAILY@06 PO Last administered on 08/10/18 06:28; Admin Dose 500 MG; Start 08/08/18 at 06:00 Cefepime HCl 50 ml @ 100 mls/hr Q12 IVPB Last administered on 08/11/18 10:28; Admin Dose 100 MLS/HR; Start 08/07/18 at 21:00 Dextrose/Sodium Chloride 1,000 ml @ 120 mls/hr Q8H20M IV ; Start 08/09/18 at 10:00 Diagnostic Test (Pha) (Accu-Chek) 1 ea Q1H XX Last administered on 08/11/18 18:30; Admin Dose 1 EA; Start 08/10/18 at 09:00 Insulin Human Regular 100 unit/ Sodium Chloride 100 ml @ 0 mls/hr PER PROTOCOL IV Last administered on 08/11/18 04:39; Admin Dose 2 MLS/HR; Start 08/10/18 at 09:00 Miscellaneous Information (* Miscellaneous Pharmacy Order) Treatment of Hypoglycemia: 1.BG 51... Per protocol XX ; Start 08/10/18 at 09:00 Dextrose (D50w Syringe) 25 ml Q15M PRN IV .DECREASED GLUCOSE; Start 08/10/18 at 09:00 Dextrose (D50w Syringe) 50 ml Q15M PRN IV .DECREASED GLUCOSE; Start 08/10/18 at 09:00 Glucose (Glutose) 15 gm Q15M PRN PO DECREASED GLUCOSE; Start 08/10/18 at 10:00 Glucose (Glutose) 22.5 gm Q15M PRN PO DECREASED GLUCOSE; Start 08/10/18 at 10:00 Dextrose (D50w Syringe) 25 ml Q15M PRN IV DECREASED GLUCOSE; Start 08/10/18 at 10:00 Dextrose (D50w Syringe) 50 ml Q15M PRN IV DECREASED GLUCOSE; Start 08/10/18 at 10:00 Glucagon (Glucagen) 1 mg Q15M PRN IM DECREASED GLUCOSE; Start 08/10/18 at 10:00 Glucose (Glutose) 15 gm Q15M PRN BUCCAL DECREASED GLUCOSE; Start 08/10/18 at 10:00 Metformin HCl (Glucophage Xr) 1,000 mg BID PO Last administered on 08/11/18at 10:48; Admin Dose 1,000 MG; Start 08/10/18 at 21:00 Diagnostic Test (Pha) (Accu-Chek) 1 ea 02 XX ; Start 08/11/18 at 02:00 Magnesium Oxide (Mag-Ox 400) 400 mg DAILY PO Last administered on 08/11/18at 10:25; Admin Dose 400 MG; Start 08/11/18 at 09:00 Insulin Aspart (Novolog Insulin Pen) 8 unit WITH MEALS SC ; Start 08/12/18 at 07:35; Status UNV Insulin Glargine (Lantus) 16 units DAILY@2000 SC ; Start 08/11/18 at 20:00; Status UNV Insulin Aspart (Novolog Insulin Pen) NOVOLOG *MILD* ALGORITHM WITH MEALS BEDTIME SC ; Start 08/11/18 at 21:00; Status UNV Miscellaneous Information (* Miscellaneous Pharmacy Order) Discontinue all previ... ONCE ONCE XX ; Start 08/11/18 at 19:00; Stop 08/11/18 at 19:01; Status UNV SELINA HARRY MD Aug 11, 2018 18:52
[2018-08-11] MEDS: INSULIN GLARGINE [LANTus] (100 UNITS/ML) SYG SC SCH (20:23)
[2018-08-11] MEDS ORDERED: SOD CHLORIDE 0.9% 100 ML ONE (23:02)
[2018-08-11] MEDS ORDERED: IODIXANOL LOCM 100 ML BTL ONE (23:02)
[2018-08-12] VITALS (31 sets, daily range): BP systolic 77–108; BP diastolic 54–77; PULSE 77–109; RESP 14–27
[2018-08-12] MEDS: ACCU-CHEK XX SCH (02:02)
[2018-08-12] MEDS: LEVOFLOXACIN 500 MG TAB PO SCH (06:09)
[2018-08-12] MEDS: MAGNESIUM OXIDE 400 MG TAB PO SCH (08:07)
[2018-08-12] MEDS: metFORMIN (XR) 500 MG TAB PO SCH ×2 (08:07→21:13)
[2018-08-12] MEDS: CEFEPIME 1GM/50 ML (PMX) 50 ML IVPB SCH ×2 (08:08→21:12)
[2018-08-12] MEDS: INSULIN ASPART [NOVOLOG] 3 ML PEN SC SCH ×7 (08:11→21:17)
[2018-08-12] MEDS: HEPARIN 5,000 UNIT/1 ML VIAL SC SCH ×2 (08:13→21:20)
[2018-08-12] MEDS ORDERED: MAGNESIUM SULFATE 3 GM in DEXTROSE 5% 100 ML IVPB ONE (09:00)
--- NOTE | 2018-08-12 11:39 | CONS ---
Consult Date/Type/Reason Admit Date/Time Aug 03, 2018 at 19:57 Initial Consult Date 08/07/18 Type of Consult Pulmonary Requesting Provider: REGINE LALA MD Date/Time of Note DATE: 08/12/18 TIME: 11:38 Subjective Patient continues insulin drip. Objective Vital Signs Date Temp Pulse Resp B/P (MAP) Pulse Ox O2 O2 Flow FiO2 Time Delivery Rate 08/12/18 98.9 09:00 08/12/18 95 08:00 08/12/18 22 80/61 (67) 08:00 08/12/18 Room Air 07:00 08/12/18 100 06:00 Intake and Output 08/11/18 08/11/18 08/12/18 1515:00 23:00 07:00 IntakeIntake Total 1429.4 ml 1069 ml 1200 ml OutputOutput Total 1900 ml 1550 ml 1550 ml BalanceBalance -470.6 ml -481 ml -350 ml Exam GENERAL: VITAL SIGNS: per terrance well-developed gentleman comfortable at rest no acute distress t NECK: Supple. No JVD or lymphadenopathy. CARDIAC EXAM: S1, S2. No added sounds or murmurs. CHEST: diminished air entry both bases Abdomen Soft, nontender. No guarding or rebound. EXTREMITIES: No cyanosis, clubbing or edema. NEUROLOGIC: Generalized weakness. No focal deficits. Results/Medications Result Diagram: 08/12/18 0436 08/12/18 0436 Results 24 hrs Laboratory Tests Test 08/11/18 12:19 08/11/18 13:05 08/11/18 14:04 08/11/18 14:37 Bedside Glucose 107 83 173 249 H Test 08/11/18 15:36 08/11/18 17:10 08/11/18 18:21 08/11/18 20:13 Bedside Glucose 275 H 281 H 309 H 438 *H Test 08/12/18 02:01 08/12/18 04:36 08/12/18 07:58 Bedside Glucose 203 208 White Blood Count 16.7 #H Red Blood Count 4.78 Hemoglobin 13.0 L Hematocrit 39.0 L Mean Corpuscular 81.6 L Volume Mean Corpuscular 27.2 L Hemoglobin Mean Corpuscular 33.3 Hemoglobin Concent Red Cell 12.0 Distribution Width Platelet Count 402 Mean Platelet Volume 9.6 Immature 1.100 H Granulocytes % Neutrophils % 65.1 Lymphocytes % 23.4 Monocytes % 9.1 Eosinophils % 0.8 Basophils % 0.5 Nucleated Red Blood 0.0 Cells % Immature 0.180 H Granulocytes # Neutrophils # 10.9 H Lymphocytes # 3.9 H Monocytes # 1.5 H Eosinophils # 0.1 Basophils # 0.1 Nucleated Red Blood 0.0 Cells # Sodium Level 135 Potassium Level 4.0 Chloride Level 94 L Carbon Dioxide Level 32 H Anion Gap 9 Blood Urea Nitrogen 36 H Creatinine 0.90 Est Glomerular > 60 Filtrat Rate mL/min Glucose Level 227 H Calcium Level 9.9 Magnesium Level 1.1 L Total Bilirubin 0.1 L Direct Bilirubin 0.00 Indirect Bilirubin 0.1 Aspartate Amino 65 H Transf (AST/SGOT) Alanine 117 H Aminotransferase (AL T/SGPT) Alkaline Phosphatase 1206 H Total Protein 7.1 Albumin 3.5 Globulin 3.60 H Albumin/Globulin 0.97 Ratio Medications Current Medications IV Flush (NS 3 ml) 3 ml PER PROTOCOL IV ; Start 08/03/18 at 21:30 Ondansetron HCl (Zofran Inj) 4 mg Q6H PRN IV NAUSEA/VOMITING; Start 08/03/18 at 21:30 Heparin Sodium (Porcine) (Heparin (5000 Units/1ml)) 5,000 unit BID SC Last administered on 08/12/18at 08:13; Admin Dose 5,000 UNIT; Start 08/06/18 at 21:00 Levofloxacin (Levaquin) 500 mg DAILY@06 PO Last administered on 08/12/18at 06:09; Admin Dose 500 MG; Start 08/08/18 at 06:00 Cefepime HCl 50 ml @ 100 mls/hr Q12 IVPB Last administered on 08/12/18at 08:08; Admin Dose 100 MLS/HR; Start 08/07/18 at 21:00 Glucose (Glutose) 15 gm Q15M PRN PO DECREASED GLUCOSE; Start 08/10/18 at 10:00 Glucose (Glutose) 22.5 gm Q15M PRN PO DECREASED GLUCOSE; Start 08/10/18 at 10:00 Dextrose (D50w Syringe) 25 ml Q15M PRN IV DECREASED GLUCOSE; Start 08/10/18 at 10:00 Dextrose (D50w Syringe) 50 ml Q15M PRN IV DECREASED GLUCOSE; Start 08/10/18 at 10:00 Glucagon (Glucagen) 1 mg Q15M PRN IM DECREASED GLUCOSE; Start 08/10/18 at 10:00 Glucose (Glutose) 15 gm Q15M PRN BUCCAL DECREASED GLUCOSE; Start 08/10/18 at 10:00 Metformin HCl (Glucophage Xr) 1,000 mg BID PO Last administered on 08/12/18 08:07; Admin Dose 1,000 MG; Start 08/10/18 at 21:00 Diagnostic Test (Pha) (Accu-Chek) 1 ea 02 XX Last administered on 08/12/18at 02:02; Admin Dose 1 EA; Start 08/11/18 at 02:00 Magnesium Oxide (Mag-Ox 400) 400 mg DAILY PO Last administered on 08/12/18 08:07; Admin Dose 400 MG; Start 08/11/18 at 09:00 Insulin Aspart (Novolog Insulin Pen) 8 unit WITH MEALS SC Last administered on 08/12/18at 08:11; Admin Dose 8 UNIT; Start 08/12/18 at 07:35 Insulin Glargine (Lantus) 16 units DAILY@2000 SC Last administered on 08/11/18at 20:23; Admin Dose 16 UNITS; Start 08/11/18 at 20:00 Insulin Aspart (Novolog Insulin Pen) NOVOLOG *MILD* ALGORITHM WITH MEALS BEDTIME SC Last administered on 08/12/18at 08:13; Admin Dose 2 UNIT; Start 08/11/18 at 21:00 Magnesium Sulfate 3 gm/Dextrose 106 ml @ 35.333 mls/ hr ONCE ONCE IVPB Last administered on 08/12/18at 09:58; Admin Dose 35.333 MLS/HR; Start 08/12/18 at 09:00; Stop 08/12/18 at 11:59 Assessment/Plan Hospital Course (Demo Recall) Assessment IMP: 1. Bilateral peripheral cavities/nodules--at varying stages of evolution. Findings most consistent with SPE. Doubt GPA or MALT. Doubt crypto 2. Poorly controlled diabetes mellitus elevated blood sugar status post hypoglycemic event now on insulin drip. RECS: 1. PEPPER Dr. Cabrera contacted. 2. F/U infectious work-up 3. Am labs 4. Endocrinology consult appreciated. 5. Insulin drip for glycemic management critical care time 40 minutes. ROSA JHAVERI MD, [facility] August 12, 2018 11:39
--- NOTE | 2018-08-12 12:31 | PN ---
Date/Time of Note Date/Time of Note DATE: 08/12/18 TIME: 12:31 Assessment/Plan VTE Prophylaxis Risk score (from N[place])>0 risk: 0 [place] [facility] [place] contraindicated: low risk/ambulating Pharmacological prophylaxis: NA/contraindicated Pharm contraindication: low risk/ambulating Lines/Catheters IV C[facility]ter Type (from [facility]): Peripheral IV Urinary Cath still in place: No Assessment/Plan Assessment/Plan 1. Sepsis secondary to cavitary pneumonia- stable - Pulm on board and appreciate recommendations. - cardiology consulted for PEPPER - WBC still elevated - ID on board and appreciate recommendations 2. Cavitary pneumonia - Pulm on board - Denies any IV drug use, states he did smoke crystal meth on a normal basis however. 3. Diabetes, noncompliant - off insulin drip. Continue on lantus, meal coverage and ISS - Endocrinology consultation appreciated 4. Elevated liver enzymes - GI on board and appreciate recommendations - LFT still elevated but trending down slightly 5. Disposition - Stable for downgrade to Telemetry - awaiting PEPPER to determine plan of care regarding antibiotics Result Diagram: 08/12/18 0436 08/12/18 0436 Results 24hrs Laboratory Tests Test 08/11/18 13:05 08/11/18 14:04 08/11/18 14:37 08/11/18 15:36 Bedside Glucose 83 173 249 H 275 H Test 08/11/18 17:10 08/11/18 18:21 08/11/18 20:13 08/12/18 02:01 Bedside Glucose 281 H 309 H 438 *H 203 Test 08/12/18 04:36 08/12/18 07:58 08/12/18 11:39 White Blood Count 16.7 #H Red Blood Count 4.78 Hemoglobin 13.0 L Hematocrit 39.0 L Mean Corpuscular 81.6 L Volume Mean Corpuscular 27.2 L Hemoglobin Mean Corpuscular 33.3 Hemoglobin Concent Red Cell 12.0 Distribution Width Platelet Count 402 Mean Platelet Volume 9.6 Immature 1.100 H Granulocytes % Neutrophils % 65.1 Lymphocytes % 23.4 Monocytes % 9.1 Eosinophils % 0.8 Basophils % 0.5 Nucleated Red Blood 0.0 Cells % Immature 0.180 H Granulocytes # Neutrophils # 10.9 H Lymphocytes # 3.9 H Monocytes # 1.5 H Eosinophils # 0.1 Basophils # 0.1 Nucleated Red Blood 0.0 Cells # Sodium Level 135 Potassium Level 4.0 Chloride Level 94 L Carbon Dioxide Level 32 H Anion Gap 9 Blood Urea Nitrogen 36 H Creatinine 0.90 Est Glomerular > 60 Filtrat Rate mL/min Glucose Level 227 H Calcium Level 9.9 Magnesium Level 1.1 L Total Bilirubin 0.1 L Direct Bilirubin 0.00 Indirect Bilirubin 0.1 Aspartate Amino 65 H Transf (AST/SGOT) Alanine 117 H Aminotransferase (AL T/SGPT) Alkaline Phosphatase 1206 H Total Protein 7.1 Albumin 3.5 Globulin 3.60 H Albumin/Globulin 0.97 Ratio Bedside Glucose 208 151 Subjective 24 Hr Interval Summary Free Text/Dictation Patient denies any acute issues and no overnight events. Off insulin drip. Exam/Review of Systems Exam Vitals Vital Signs Date Temp Pulse Resp B/P (MAP) Pulse Ox O2 O2 Flow FiO2 Time Delivery Rate 08/12/18 98.9 09:00 08/12/18 95 08:00 08/12/18 22 80/61 (67) 08:00 08/12/18 Room Air 07:00 08/12/18 100 06:00 Intake and Output 08/11/18 08/11/18 08/12/18 1515:00 23:00 07:00 IntakeIntake Total 1429.4 ml 1069 ml 1200 ml OutputOutput Total 1900 ml 1550 ml 1550 ml BalanceBalance -470.6 ml -481 ml -350 ml Exam General: Patient is laying in bed and answers questions appropriately Neck: Supple, nontender, midline Respiratory: Diminished. no wheezing Cardiovascular: regular rate and rhythm, no obvious murmurs Gastrointestinal: soft, non-tender to palpation, nondistended, bowel sounds heard. Skin: No new skin lesions Results Results 24hrs Laboratory Tests Test 08/11/18 13:05 08/11/18 14:04 08/11/18 14:37 08/11/18 15:36 Bedside Glucose 83 173 249 H 275 H Test 08/11/18 17:10 08/11/18 18:21 08/11/18 20:13 08/12/18 02:01 Bedside Glucose 281 H 309 H 438 *H 203 Test 08/12/18 04:36 08/12/18 07:58 08/12/18 11:39 White Blood Count 16.7 #H Red Blood Count 4.78 Hemoglobin 13.0 L Hematocrit 39.0 L Mean Corpuscular 81.6 L Volume Mean Corpuscular 27.2 L Hemoglobin Mean Corpuscular 33.3 Hemoglobin Concent Red Cell 12.0 Distribution Width Platelet Count 402 Mean Platelet Volume 9.6 Immature 1.100 H Granulocytes % Neutrophils % 65.1 Lymphocytes % 23.4 Monocytes % 9.1 Eosinophils % 0.8 Basophils % 0.5 Nucleated Red Blood 0.0 Cells % Immature 0.180 H Granulocytes # Neutrophils # 10.9 H Lymphocytes # 3.9 H Monocytes # 1.5 H Eosinophils # 0.1 Basophils # 0.1 Nucleated Red Blood 0.0 Cells # Sodium Level 135 Potassium Level 4.0 Chloride Level 94 L Carbon Dioxide Level 32 H Anion Gap 9 Blood Urea Nitrogen 36 H Creatinine 0.90 Est Glomerular > 60 Filtrat Rate mL/min Glucose Level 227 H Calcium Level 9.9 Magnesium Level 1.1 L Total Bilirubin 0.1 L Direct Bilirubin 0.00 Indirect Bilirubin 0.1 Aspartate Amino 65 H Transf (AST/SGOT) Alanine 117 H Aminotransferase (AL T/SGPT) Alkaline Phosphatase 1206 H Total Protein 7.1 Albumin 3.5 Globulin 3.60 H Albumin/Globulin 0.97 Ratio Bedside Glucose 208 151 Medications Medication Current Medications IV Flush (NS 3 ml) 3 ml PER PROTOCOL IV ; Start 08/03/18 at 21:30 Ondansetron HCl (Zofran Inj) 4 mg Q6H PRN IV NAUSEA/VOMITING; Start 08/03/18 at 21:30 Heparin Sodium (Porcine) (Heparin (5000 Units/1ml)) 5,000 unit BID SC Last administered on 08/12/18at 08:13; Admin Dose 5,000 UNIT; Start 08/06/18 at 21:00 Levofloxacin (Levaquin) 500 mg DAILY@06 PO Last administered on 08/12/18at 06:09; Admin Dose 500 MG; Start 08/08/18 at 06:00 Cefepime HCl 50 ml @ 100 mls/hr Q12 IVPB Last administered on 08/12/18at 08:08; Admin Dose 100 MLS/HR; Start 08/07/18 at 21:00 Glucose (Glutose) 15 gm Q15M PRN PO DECREASED GLUCOSE; Start 08/10/18 at 10:00 Glucose (Glutose) 22.5 gm Q15M PRN PO DECREASED GLUCOSE; Start 08/10/18 at 10:00 Dextrose (D50w Syringe) 25 ml Q15M PRN IV DECREASED GLUCOSE; Start 08/10/18 at 10:00 Dextrose (D50w Syringe) 50 ml Q15M PRN IV DECREASED GLUCOSE; Start 08/10/18 at 10:00 Glucagon (Glucagen) 1 mg Q15M PRN IM DECREASED GLUCOSE; Start 08/10/18 at 10:00 Glucose (Glutose) 15 gm Q15M PRN BUCCAL DECREASED GLUCOSE; Start 08/10/18 at 10:00 Metformin HCl (Glucophage Xr) 1,000 mg BID PO Last administered on 08/12/18at 08:07; Admin Dose 1,000 MG; Start 08/10/18 at 21:00 Diagnostic Test (Pha) (Accu-Chek) 1 ea 02 XX Last administered on 08/12/18at 02:02; Admin Dose 1 EA; Start 08/11/18 at 02:00 Magnesium Oxide (Mag-Ox 400) 400 mg DAILY PO Last administered on 08/12/18at 08:07; Admin Dose 400 MG; Start 08/11/18 at 09:00 Insulin Aspart (Novolog Insulin Pen) 8 unit WITH MEALS SC Last administered on 08/12/18at 08:11; Admin Dose 8 UNIT; Start 08/12/18 at 07:35 Insulin Glargine (Lantus) 16 units DAILY@2000 SC Last administered on 08/11/18at 20:23; Admin Dose 16 UNITS; Start 08/11/18 at 20:00 Insulin Aspart (Novolog Insulin Pen) NOVOLOG *MILD* ALGORITHM WITH MEALS BEDTIME SC Last administered on 08/12/18at 08:13; Admin Dose 2 UNIT; Start 08/11/18 at 21:00 REGINE LALA MD August 12, 2018 12:31
--- NOTE | 2018-08-12 13:17 | CONS ---
Assessment/Plan Assessment/Plan Hospital Course (Demo Recall) No acute changes overnight patient is alert eating lunch looks comfortable no fevers WBC 16.7 platelets 402 neutrophils 65.1 BUN 36 creatinine 0.90 \ Microbiology: All cultures negative Antimicrobials: Cefepime, Levaquin CT of the chest revealed multiple ill-defined bilateral cavitary lung nodules findings are suspicious for septic emboli rule out other etiologies. MRI of the abdomen revealed unremarkable gallbladder and biliary ductal system Physical examination: Well-developed young man who is alert in no distress. Head atraumatic normocephalic sclera. Mucosa dry. Neck is supple chest rise symmetrical breath sounds diminished to bases. Heart: S1-S2 abdomen soft bowel sounds present. Extremities without cyanosis. Assessment: 1. S/p sepsis 2. Bilateral cavitary pneumonia, likely SPE===> PPD placed 08/06, neg 3. Diabetes 4. Transaminitis Plan: Remains stable, CT abdomen noted, continue antibiotics, pending PEPPER Consultation Date/Type/Reason Admit Date/Time Aug 03, 2018 at 19:57 Initial Consult Date 08/05/18 Type of Consult id Requesting Provider: REGINE LALA MD Date/Time of Note DATE: 08/12/18 TIME: 13:16 Exam/Review of Systems Exam Vitals Vital Signs Date Temp Pulse Resp B/P (MAP) Pulse Ox O2 O2 Flow FiO2 Time Delivery Rate 08/12/18 103 18 102/77 100 Room Air 11:00 (85) 08/12/18 98.9 09:00 Intake and Output 08/11/18 08/11/18 08/12/18 1515:00 23:00 07:00 IntakeIntake Total 1429.4 ml 1069 ml 1200 ml OutputOutput Total 1900 ml 1550 ml 1550 ml BalanceBalance -470.6 ml -481 ml -350 ml Results Result Diagram: 08/12/18 0436 08/12/18 0436 Results 24hrs Laboratory Tests Test 08/11/18 14:04 08/11/18 14:37 08/11/18 15:36 08/11/18 17:10 Bedside Glucose 173 249 H 275 H 281 H Test 08/11/18 18:21 08/11/18 20:13 08/12/18 02:01 08/12/18 04:36 Bedside Glucose 309 H 438 *H 203 White Blood Count 16.7 #H Red Blood Count 4.78 Hemoglobin 13.0 L Hematocrit 39.0 L Mean Corpuscular 81.6 L Volume Mean Corpuscular 27.2 L Hemoglobin Mean Corpuscular 33.3 Hemoglobin Concent Red Cell 12.0 Distribution Width Platelet Count 402 Mean Platelet Volume 9.6 Immature 1.100 H Granulocytes % Neutrophils % 65.1 Lymphocytes % 23.4 Monocytes % 9.1 Eosinophils % 0.8 Basophils % 0.5 Nucleated Red Blood 0.0 Cells % Immature 0.180 H Granulocytes # Neutrophils # 10.9 H Lymphocytes # 3.9 H Monocytes # 1.5 H Eosinophils # 0.1 Basophils # 0.1 Nucleated Red Blood 0.0 Cells # Sodium Level 135 Potassium Level 4.0 Chloride Level 94 L Carbon Dioxide Level 32 H Anion Gap 9 Blood Urea Nitrogen 36 H Creatinine 0.90 Est Glomerular > 60 Filtrat Rate mL/min Glucose Level 227 H Calcium Level 9.9 Magnesium Level 1.1 L Total Bilirubin 0.1 L Direct Bilirubin 0.00 Indirect Bilirubin 0.1 Aspartate Amino 65 H Transf (AST/SGOT) Alanine 117 H Aminotransferase (AL T/SGPT) Alkaline Phosphatase 1206 H Total Protein 7.1 Albumin 3.5 Globulin 3.60 H Albumin/Globulin 0.97 Ratio Test 08/12/18 07:58 08/12/18 11:39 Bedside Glucose 208 151 Medications Medication Current Medications IV Flush (NS 3 ml) 3 ml PER PROTOCOL IV ; Start 08/03/18 at 21:30 Ondansetron HCl (Zofran Inj) 4 mg Q6H PRN IV NAUSEA/VOMITING; Start 08/03/18 at 21:30 Heparin Sodium (Porcine) (Heparin (5000 Units/1ml)) 5,000 unit BID SC Last administered on 08/12/18at 08:13; Admin Dose 5,000 UNIT; Start 08/06/18 at 21:00 Levofloxacin (Levaquin) 500 mg DAILY@06 PO Last administered on 08/12/18at 06:09; Admin Dose 500 MG; Start 08/08/18 at 06:00 Cefepime HCl 50 ml @ 100 mls/hr Q12 IVPB Last administered on 08/12/18at 08:08; Admin Dose 100 MLS/HR; Start 08/07/18 at 21:00 Glucose (Glutose) 15 gm Q15M PRN PO DECREASED GLUCOSE; Start 08/10/18 at 10:00 Glucose (Glutose) 22.5 gm Q15M PRN PO DECREASED GLUCOSE; Start 08/10/18 at 10:00 Dextrose (D50w Syringe) 25 ml Q15M PRN IV DECREASED GLUCOSE; Start 08/10/18 at 10:00 Dextrose (D50w Syringe) 50 ml Q15M PRN IV DECREASED GLUCOSE; Start 08/10/18 at 10:00 Glucagon (Glucagen) 1 mg Q15M PRN IM DECREASED GLUCOSE; Start 08/10/18 at 10:00 Glucose (Glutose) 15 gm Q15M PRN BUCCAL DECREASED GLUCOSE; Start 08/10/18 at 10:00 Metformin HCl (Glucophage Xr) 1,000 mg BID PO Last administered on 08/12/18 08:07; Admin Dose 1,000 MG; Start 08/10/18 at 21:00 Diagnostic Test (Pha) (Accu-Chek) 1 ea 02 XX Last administered on 08/12/18 02:02; Admin Dose 1 EA; Start 08/11/18 at 02:00 Magnesium Oxide (Mag-Ox 400) 400 mg DAILY PO Last administered on 08/12/18 08:07; Admin Dose 400 MG; Start 08/11/18 at 09:00 Insulin Aspart (Novolog Insulin Pen) 8 unit WITH MEALS SC Last administered on 08/12/18 08:11; Admin Dose 8 UNIT; Start 08/12/18 at 07:35 Insulin Glargine (Lantus) 16 units DAILY@2000 SC Last administered on 08/11/18 20:23; Admin Dose 16 UNITS; Start 08/11/18 at 20:00 Insulin Aspart (Novolog Insulin Pen) NOVOLOG *MILD* ALGORITHM WITH MEALS BEDTIME SC Last administered on 08/12/18 08:13; Admin Dose 2 UNIT; Start at 21:00 AUDRA DILLON NP August 12, 2018 13:17
--- NOTE | 2018-08-12 14:27 | CONS ---
DATE OF ADMISSION: 08/03/2018 DATE OF CONSULTATION: 08/12/2018 REASON FOR CONSULTATION: Possible septic emboli, assess for endocarditis. REQUESTING PHYSICIAN: Dr. Grewal of critical care/pulmonary service. HISTORY OF PRESENT ILLNESS: Mr. Lawton is a 28-year-old male with a history of diabetes mellitus wh o had initially admitted 08/03/2018 with hyperosmolar nonketotic state at a glucose greater than 700. The patient was transferred from outside hospital on the due to insurance reasons. Since that time, the patient has been managed here at [facility] and patient underwent a ches t CT on August 06 that revealed multiple ill-defined bilateral cavitary lung nodules, concerning for p ossible septic emboli. The patient underwent a transthoracic echocardiogram on August 06 revealing no rmal EF approximately 50% with trace mitral, tricuspid regurgitation. Given these findings, a transe sophageal echocardiogram has been requested. PAST MEDICAL HISTORY: As above in HPI. MEDICATIONS CURRENTLY IN HOSPITAL: 1. Insulin. 2. Metformin 1000 mg b.i.d. 3. Levofloxacin. 4. Cefepime. 5. Heparin 5000 subcutaneous b.i.d. ALLERGIES: NO KNOWN DRUG ALLERGIES. SOCIAL HISTORY: No current tobacco, EtOH, or illicit drug use. FAMILY HISTORY: No history of sudden cardiac or early CAD. REVIEW OF SYSTEMS: As above in the HPI. CONSTITUTIONAL: No fevers, chills. PULMONARY: No current signs of respiratory compromise. GASTROINTESTINAL: No vomiting. GENITOURINARY: No hematuria. MUSCULOSKELETAL: No significant myalgias or arthralgias. ENDOCRINE: Diabetes mellitus, poorly controlled. PHYSICAL EXAMINATION: VITAL SIGNS: Temperature of 98.9, blood pressure most recently of 91/61, pulse 95, respiratory rate 22. GENERAL: The patient is alert, awake, no acute distress. NECK: JVP approximately 8 cm of water. CHEST: Fair air movement throughout. HEART: Regular rate and rhythm. Normal S1, S2. Grade I/ systolic murmur, nondisplaced PMI. ABDOMEN: Positive bowel sounds. Soft. EXTREMITIES: No significant pitting edema, 1+ pulses bilaterally to posterior tibial. LABORATORY STUDIES: From today, white count most recently 115.7, hemoglobin 13.0, platelet count of 402,000. Sodium 135, potassium 4.0, creatinine 0.9, BUN 36, glucose 151. AST is 65, ALT 117, alkali ne phosphatase of 1206. DIAGNOSTIC STUDIES: No electrocardiograms for my review at this time. IMPRESSION: 1. Possible septic emboli. Rule out endocarditis, intracardiac source of infection. 2. Hypotension, borderline. 3. Diabetes mellitus, poorly controlled. 4. Lymphadenopathy by abdominal computed tomography (CT). 5. Leukocytosis. RECOMMENDATIONS: 1. At this time, would maintain patient on antibiotic therapy and follow up all culture data. 2. Continue to follow the patient's blood sugars closely on Lantus and metformin with Humalog covera ge. 3. We will arrange for patient to undergo transesophageal echocardiogram to further assess for possi bility of intracardiac source of infection or endocarditis. Dictated By: JARROD RENDON MD [facility] Conf#: [id number] DID#: [id number] CC: DONNY MORA MD;*EndCC*
--- NOTE | 2018-08-12 16:57 | PN ---
Date/Time of Note Date/Time of Note DATE: 08/12/18 TIME: 16:55 Assessment/Plan VTE Prophylaxis Risk score (from Ns)>0 risk: 0 SCD applied (from Ns): No SCD contraindicated: other (scds) Pharmacological prophylaxis: heparin Lines/Catheters IV Catheter Type (from Nrs): Peripheral IV Urinary Cath still in place: No Assessment/Plan Hospital Course Assessment: Elevated alkaline phosphatase- elevated GGT ALk phos- fractionation- predominately liver elevation MRCP: The liver is uniform in appearance on noncontrast imaging, with normal contour and size. The biliary ductal system is unremarkable without evidence of common duct stone. Likewise gallbladder is normal in appearance. Transaminitis- improving Leukocytosis Multiple ill-defined bilateral cavitary lung nodules. -Findings are suspicious for septic emboli. Ddx includes: fungal infection vs tuberculosis vs granulomatous infections. -PPD placed 08/06- negative Type 2 diabetes Hx of crystal meth use Plan: Dr. Cabrera to preform PEPPER- pending- will consider liver bx in near future- pending clinical course CT- abd/pelvis- reviewed Patient seen in collaboration with Dr. Vital Subjective: Course reviewed with nursing staff Patient interviewed and examined All labs, imaging and other results reviewed Pt not very talkative, sleeps most of the day No over night events, no complaints Exam PHYSICAL EXAMINATION: GENERAL: Alert & oriented x 3 SKIN: No lesions HEAD: Normocephalic, atraumatic, no tenderness. EYES: Pupils equal reactive to light and accommodation, no discharge. EARS/NOSE AND THROAT: Ears normal, nose normal. NECK: Supple, no masses CHEST: Inspection within normal limits. CARDIOVASCULAR: Heart: Regular rate and rhythm RESPIRATORY: Lungs clear to auscultation GASTROINTESTINAL AND LIVER: Abdomen: Soft, non tenderness, non-distended, no hernias, no masses, no organomegaly, no ascites, no guarding, no rebound tenderness, normoactive bowel sounds. Rectal: Deferred. Result Diagram: 08/12/18 0436 08/12/18 0436 Results 24hrs Laboratory Tests Test 08/11/18 17:10 08/11/18 18:21 08/11/18 20:13 08/12/18 02:01 Bedside Glucose 281 H 309 H 438 *H 203 Test 08/12/18 04:36 08/12/18 07:58 08/12/18 11:39 White Blood Count 16.7 #H Red Blood Count 4.78 Hemoglobin 13.0 L Hematocrit 39.0 L Mean Corpuscular 81.6 L Volume Mean Corpuscular 27.2 L Hemoglobin Mean Corpuscular 33.3 Hemoglobin Concent Red Cell Distribution 12.0 Width Platelet Count 402 Mean Platelet Volume 9.6 Immature Granulocytes 1.100 H % Neutrophils % 65.1 Lymphocytes % 23.4 Monocytes % 9.1 Eosinophils % 0.8 Basophils % 0.5 Nucleated Red Blood 0.0 Cells % Immature Granulocytes 0.180 H # Neutrophils # 10.9 H Lymphocytes # 3.9 H Monocytes # 1.5 H Eosinophils # 0.1 Basophils # 0.1 Nucleated Red Blood 0.0 Cells # Sodium Level 135 Potassium Level 4.0 Chloride Level 94 L Carbon Dioxide Level 32 H Anion Gap 9 Blood Urea Nitrogen 36 H Creatinine 0.90 Est Glomerular > 60 Filtrat Rate mL/min Glucose Level 227 H Calcium Level 9.9 Magnesium Level 1.1 L Total Bilirubin 0.1 L Direct Bilirubin 0.00 Indirect Bilirubin 0.1 Aspartate Amino 65 H Transf (AST/SGOT) Alanine 117 H Aminotransferase (ALT /SGPT) Alkaline Phosphatase 1206 H Total Protein 7.1 Albumin 3.5 Globulin 3.60 H Albumin/Globulin 0.97 Ratio Bedside Glucose 208 151 Exam/Review of Systems Exam Vitals Vital Signs Date Temp Pulse Resp B/P (MAP) Pulse Ox O2 O2 Flow FiO2 Time Delivery Rate 08/12/18 101 16:00 08/12/18 22 94/72 (79) Room Air 14:00 08/12/18 98.4 99 12:00 Intake and Output 08/11/18 08/11/18 08/12/18 1515:00 23:00 07:00 IntakeIntake Total 1429.4 ml 1069 ml 1200 ml OutputOutput Total 1900 ml 1550 ml 1550 ml BalanceBalance -470.6 ml -481 ml -350 ml Results Results 24hrs Laboratory Tests Test 08/11/18 17:10 08/11/18 18:21 08/11/18 20:13 08/12/18 02:01 Bedside Glucose 281 H 309 H 438 *H 203 Test 08/12/18 04:36 08/12/18 07:58 08/12/18 11:39 White Blood Count 16.7 #H Red Blood Count 4.78 Hemoglobin 13.0 L Hematocrit 39.0 L Mean Corpuscular 81.6 L Volume Mean Corpuscular 27.2 L Hemoglobin Mean Corpuscular 33.3 Hemoglobin Concent Red Cell Distribution 12.0 Width Platelet Count 402 Mean Platelet Volume 9.6 Immature Granulocytes 1.100 H % Neutrophils % 65.1 Lymphocytes % 23.4 Monocytes % 9.1 Eosinophils % 0.8 Basophils % 0.5 Nucleated Red Blood 0.0 Cells % Immature Granulocytes 0.180 H # Neutrophils # 10.9 H Lymphocytes # 3.9 H Monocytes # 1.5 H Eosinophils # 0.1 Basophils # 0.1 Nucleated Red Blood 0.0 Cells # Sodium Level 135 Potassium Level 4.0 Chloride Level 94 L Carbon Dioxide Level 32 H Anion Gap 9 Blood Urea Nitrogen 36 H Creatinine 0.90 Est Glomerular > 60 Filtrat Rate mL/min Glucose Level 227 H Calcium Level 9.9 Magnesium Level 1.1 L Total Bilirubin 0.1 L Direct Bilirubin 0.00 Indirect Bilirubin 0.1 Aspartate Amino 65 H Transf (AST/SGOT) Alanine 117 H Aminotransferase (ALT /SGPT) Alkaline Phosphatase 1206 H Total Protein 7.1 Albumin 3.5 Globulin 3.60 H Albumin/Globulin 0.97 Ratio Bedside Glucose 208 151 Medications Medication Current Medications IV Flush (NS 3 ml) 3 ml PER PROTOCOL IV ; Start 08/03/18 at 21:30 Ondansetron HCl (Zofran Inj) 4 mg Q6H PRN IV NAUSEA/VOMITING; Start 08/03/18 at 21:30 Heparin Sodium (Porcine) (Heparin (5000 Units/1ml)) 5,000 unit BID SC Last administered on 08/12/18at 08:13; Admin Dose 5,000 UNIT; Start 08/06/18 at 21:00 Levofloxacin (Levaquin) 500 mg DAILY@06 PO Last administered on 08/12/18at 06:09; Admin Dose 500 MG; Start 08/08/18 at 06:00 Cefepime HCl 50 ml @ 100 mls/hr Q12 IVPB Last administered on 08/12/18at 08:08; Admin Dose 100 MLS/HR; Start 08/07/18 at 21:00 Glucose (Glutose) 15 gm Q15M PRN PO DECREASED GLUCOSE; Start 08/10/18 at 10:00 Glucose (Glutose) 22.5 gm Q15M PRN PO DECREASED GLUCOSE; Start 08/10/18 at 10:00 Dextrose (D50w Syringe) 25 ml Q15M PRN IV DECREASED GLUCOSE; Start 08/10/18 at 10:00 Dextrose (D50w Syringe) 50 ml Q15M PRN IV DECREASED GLUCOSE; Start 08/10/18 at 10:00 Glucagon (Glucagen) 1 mg Q15M PRN IM DECREASED GLUCOSE; Start 08/10/18 at 10:00 Glucose (Glutose) 15 gm Q15M PRN BUCCAL DECREASED GLUCOSE; Start 08/10/18 at 10:00 Metformin HCl (Glucophage Xr) 1,000 mg BID PO Last administered on 08/12/18at 08:07; Admin Dose 1,000 MG; Start 08/10/18 at 21:00 Diagnostic Test (Pha) (Accu-Chek) 1 ea 02 XX Last administered on 08/12/18at 02:02; Admin Dose 1 EA; Start 08/11/18 at 02:00 Magnesium Oxide (Mag-Ox 400) 400 mg DAILY PO Last administered on 08/12/18at 08:07; Admin Dose 400 MG; Start 08/11/18 at 09:00 Insulin Aspart (Novolog Insulin Pen) 8 unit WITH MEALS SC Last administered on 08/12/18 08:11; Admin Dose 8 UNIT; Start 08/12/18 at 07:35 Insulin Glargine (Lantus) 16 units DAILY@2000 SC Last administered on 08/11/18at 20:23; Admin Dose 16 UNITS; Start 08/11/18 at 20:00 Insulin Aspart (Novolog Insulin Pen) NOVOLOG *MILD* ALGORITHM WITH MEALS BEDTIME SC Last administered on 08/12/18at 08:13; Admin Dose 2 UNIT; Start 08/11/18 at 21:00 CAMERON MORA August 12, 2018 16:57
--- NOTE | 2018-08-12 17:57 | CONS ---
Assessment/Plan Assessment/Plan Problems: (1) Type 2 diabetes mellitus with hyperglycemia Status: Chronic Comment: BG improved today but now elevated due to RN providing uncovered snack for pt. Will write order denying all between meal snacking for pt. Cont. lantus 16 units qhs and Novolog 8 units qac. Will monitor and titrate doses to glycemic control. Await c-peptide and antibody studies. Qualifiers: Diabetes mellitus shelter insulin use: with shelter use Qualified Codes: E11.65 - Type 2 diabetes mellitus with hyperglycemia; Z79.4 - [facility]entiary (current) use of insulin Consultation Date/Type/Reason Admit Date/Time Aug 03, 2018 at 19:57 Initial Consult Date 08/10/18 Type of Consult Endocrinology Reason for Consultation [facility] Requesting Provider: REGINE LALA MD Date/Time of Note DATE: 08/12/18 TIME: 17:55 24 HR Interval Summary Constitutional: no complaints Exam/Review of Systems Exam Vitals VS - Last 72 Hours, by Label Date Temp Pulse Resp B/P (MAP) Pulse Ox O2 O2 Flow FiO2 Time Delivery Rate 08/12/18 98 23 16:00 08/12/18 101 16:00 08/12/18 109 24 96/69 (78) 15:00 08/12/18 89 22 94/72 (79) Room Air 14:00 08/12/18 89 22 94/72 (79) 14:00 08/12/18 94 22 86/59 (68) 13:00 08/12/18 94 22 86/59 (68) Room Air 13:00 08/12/18 81 12:00 08/12/18 98.4 81 19 92/66 (75) 99 Room Air 12:00 08/12/18 103 18 102/77 100 Room Air 11:00 (85) 08/12/18 103 18 102/77 100 Room Air 11:00 (85) 08/12/18 92 21 89/62 (71) Room Air 10:00 08/12/18 98.9 09:00 08/12/18 84 22 93/60 (71) Room Air 09:00 08/12/18 95 08:00 08/12/18 94 22 80/61 (67) Room Air 08:00 08/12/18 94 22 80/61 (67) 08:00 08/12/18 77 21 91/61 (71) 07:00 08/12/18 77 21 91/61 (71) Room Air 07:00 08/12/18 82 20 95/60 (72) 100 Room Air 06:00 08/12/18 81 21 100 Room Air 05:00 08/12/18 98.4 86 21 77/55 (62) 100 Room Air 04:00 08/12/18 86 04:00 08/12/18 83 14 86/58 (67) 100 Room Air 03:00 08/12/18 81 18 91/55 (67) 100 Room Air 02:00 08/12/18 78 20 89/65 (73) 100 Room Air 01:00 08/12/18 80 00:00 08/12/18 98.7 82 16 93/59 (70) 100 Room Air 00:00 08/11/18 20 110/88 100 Room Air 23:00 (95) 08/11/18 87 27 98/68 (78) 99 Room Air 22:00 08/11/18 87 20 95/64 (74) 100 Room Air 21:00 08/11/18 98.4 88 23 96/69 (78) 100 Room Air 20:00 08/11/18 87 20:00 08/11/18 88 25 96/60 (72) 97 19:00 08/11/18 88 25 96/60 (72) 97 19:00 08/11/18 88 25 96/60 (72) 97 19:00 08/11/18 90 24 100 18:00 08/11/18 90 24 100 18:00 08/11/18 90 24 100 18:00 08/11/18 84 22 99 17:00 08/11/18 84 22 99 17:00 08/11/18 84 22 99 17:00 08/11/18 81 21 94/71 (79) 100 16:00 08/11/18 85 16:00 08/11/18 98.7 81 21 94/71 (79) 100 16:00 08/11/18 83 25 95/61 (72) 99 15:00 08/11/18 84 21 98/70 (79) 100 14:00 08/11/18 105 13 102/66 13:00 (78) 08/11/18 105 13 102/66 13:00 (78) 08/11/18 88 21 91/74 (80) 98 12:00 08/11/18 97.2 88 21 91/74 (80) 98 12:00 08/11/18 92 12:00 08/11/18 79 24 99 11:00 08/11/18 79 24 99 11:00 08/11/18 100 22 98 10:00 08/11/18 100 22 98 10:00 08/11/18 73 22 84/55 (65) 98 09:00 08/11/18 73 22 84/55 (65) 98 09:00 08/11/18 77 08:00 08/11/18 83 24 98 08:00 08/11/18 98.4 83 24 98 08:00 08/11/18 81 21 98 07:00 08/11/18 81 21 98 07:00 08/11/18 91 28 100 06:00 08/11/18 89 20 97 05:00 08/11/18 84 04:00 08/11/18 85 22 96/69 (78) 98 Room Air 04:00 08/11/18 82 15 86/62 (70) 98 Room Air 03:00 08/11/18 84 21 96/65 (75) 98 Room Air 02:00 08/11/18 85 26 89/74 (79) 98 Room Air 01:00 08/11/18 78 00:00 08/11/18 98.2 77 23 90/54 (66) 100 Room Air 00:00 08/10/18 87 21 96/64 (75) 98 Room Air 23:00 08/10/18 98.4 93 16 22:00 08/10/18 99 17 87/57 (67) 100 Room Air 21:00 08/10/18 91 20:00 08/10/18 90 22 84/58 (67) 20:00 08/10/18 99 21 88/60 (69) 19:00 08/10/18 102 20 89/69 (76) 97 18:00 08/10/18 98 22 103/71 99 17:00 (82) 08/10/18 97.2 85 23 102/64 100 16:00 (77) 08/10/18 89 16:00 08/10/18 79 20 93/63 (73) 99 15:00 08/10/18 102 15 100 14:00 08/10/18 85 24 79/59 (66) 98 13:00 08/10/18 103 12:00 08/10/18 97.8 83 22 104/77 100 12:00 (86) 08/10/18 93 21 100 09:45 08/10/18 79 22 100 09:30 08/10/18 81 23 100 09:15 08/10/18 84 21 100 09:00 08/10/18 94 27 99 08:45 08/10/18 104 19 08:30 08/10/18 106 27 93/75 (81) 97 08:20 08/10/18 74 23 08:15 08/10/18 98.9 08:00 08/10/18 98 24 08:00 08/10/18 99 08:00 08/10/18 98 24 08:00 08/10/18 83 22 07:45 08/10/18 82 21 07:30 08/10/18 80 22 100 07:15 08/10/18 81 21 99 07:00 08/10/18 81 21 99 07:00 08/10/18 21 06:00 08/10/18 20 78/57 (64) 99 Room Air 05:00 08/10/18 85 23 04:00 08/10/18 75 04:00 08/10/18 21 04:00 08/10/18 78 21 89/65 (73) Room Air 03:00 08/10/18 81 23 99 02:00 08/10/18 22 02:00 08/10/18 90 22 100/67 95 Room Air 01:00 (78) 08/10/18 85 00:00 08/10/18 98.0 00:00 08/10/18 85 22 100 00:00 08/09/18 84 21 91/61 (71) 99 Room Air 23:35 08/09/18 25 22:00 08/09/18 82 25 108/70 99 Room Air 21:36 (83) 08/09/18 25 20:00 08/09/18 96 20:00 08/09/18 98.5 80 25 93/60 (71) 97 Room Air 19:35 08/09/18 91 25 104/48 99 Room Air 18:00 (66) Vital Signs Date Temp Pulse Resp B/P (MAP) Pulse Ox O2 O2 Flow FiO2 Time Delivery Rate 08/12/18 98 23 16:00 08/12/18 96/69 (78) 15:00 08/12/18 Room Air 14:00 08/12/18 98.4 99 12:00 Intake and Output 08/11/18 08/11/18 08/12/18 1515:00 23:00 07:00 IntakeIntake Total 1429.4 ml 1069 ml 1200 ml OutputOutput Total 1900 ml 1550 ml 1550 ml BalanceBalance -470.6 ml -481 ml -350 ml Constitutional: alert, oriented, well developed Psych: depression Respiratory: clear to auscultation, normal air movement Cardiovascular: regular rate and rhythm, nl pulses; No edema, No murmurs/extra sounds, No rub Gastrointestinal: soft, nl liver, spleen, non-tender, bowel sounds; No mass, No rebound or guarding Musculoskeletal: nl extremities to inspection Extremities: normal pulses; No cyanosis, No clubbing, No edema 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: [employer] II-XII intact, nl mental status, nl speech, nl strength Additional Comments Bedside Glucose - 72 Hours Test 08/09/18 18:31 08/09/18 19:32 08/09/18 20:35 08/09/18 21:29 Bedside 254 257 328 343 Glucose mg/dL (70-220) mg/dL (70-220) mg/dL (70-220) mg/dL (70-220) H H H H Test 08/09/18 22:41 08/09/18 23:33 08/10/18 00:26 08/10/18 01:32 Bedside 274 278 350 337 Glucose mg/dL (70-220) mg/dL (70-220) mg/dL (70-220) mg/dL (70-220) H H H H Test 08/10/18 02:35 08/10/18 03:33 08/10/18 04:42 08/10/18 05:29 Bedside 228 128 157 159 Glucose mg/dL (70-220) mg/dL (70-220) mg/dL (70-220) mg/dL (70-220) H Test 08/10/18 06:30 08/10/18 08:28 08/10/18 10:46 08/10/18 11:49 Bedside 163 209 315 250 Glucose mg/dL (70-220) mg/dL (70-220) mg/dL (70-220) mg/dL (70-220) H H Test 08/10/18 13:54 08/10/18 15:16 08/10/18 16:05 08/10/18 16:27 Bedside 203 288 377 294 Glucose mg/dL (70-220) mg/dL (70-220) mg/dL (70-220) mg/dL (70-220) H H H Test 08/10/18 16:52 08/10/18 17:09 08/10/18 18:06 08/10/18 19:55 Bedside 305 242 198 293 Glucose mg/dL (70-220) mg/dL (70-220) mg/dL (70-220) mg/dL (70-220) H H H Test 08/10/18 21:02 08/10/18 22:00 08/10/18 23:05 08/11/18 00:07 Bedside 221 164 169 196 Glucose mg/dL (70-220) mg/dL (70-220) mg/dL (70-220) mg/dL (70-220) H Test 08/11/18 01:10 08/11/18 02:18 08/11/18 03:14 08/11/18 04:08 Bedside 194 231 222 226 Glucose mg/dL (70-220) mg/dL (70-220) mg/dL (70-220) mg/dL (70-220) H H H Test 08/11/18 05:00 08/11/18 05:58 08/11/18 07:04 08/11/18 08:47 Bedside 237 242 162 154 Glucose mg/dL (70-220) mg/dL (70-220) mg/dL (70-220) mg/dL (70-220) H H Test 08/11/18 10:18 08/11/18 10:52 08/11/18 12:19 08/11/18 13:05 Bedside 169 272 107 83 Glucose mg/dL (70-220) mg/dL (70-220) mg/dL (70-220) mg/dL (70-220) H Test 08/11/18 14:04 08/11/18 14:37 08/11/18 15:36 08/11/18 17:10 Bedside 173 249 275 281 Glucose mg/dL (70-220) mg/dL (70-220) mg/dL (70-220) mg/dL (70-220) H H H Test 08/11/18 18:21 08/11/18 20:13 08/12/18 02:01 08/12/18 07:58 Bedside 309 438 203 208 Glucose mg/dL (70-220) mg/dL (70-220) mg/dL (70-220) mg/dL (70-220) H *H Test 08/12/18 11:39 08/12/18 17:48 Bedside 151 278 Glucose mg/dL (70-220) mg/dL (70-220) H Results Result Diagram: 08/12/18 0436 08/12/18 0436 Results 24hrs Laboratory Tests Test 08/11/18 18:21 08/11/18 20:13 08/12/18 02:01 08/12/18 04:36 Bedside Glucose 309 H 438 *H 203 White Blood Count 16.7 #H Red Blood Count 4.78 Hemoglobin 13.0 L Hematocrit 39.0 L Mean Corpuscular 81.6 L Volume Mean Corpuscular 27.2 L Hemoglobin Mean Corpuscular 33.3 Hemoglobin Concent Red Cell Distribution 12.0 Width Platelet Count 402 Mean Platelet Volume 9.6 Immature Granulocytes 1.100 H % Neutrophils % 65.1 Lymphocytes % 23.4 Monocytes % 9.1 Eosinophils % 0.8 Basophils % 0.5 Nucleated Red Blood 0.0 Cells % Immature Granulocytes 0.180 H # Neutrophils # 10.9 H Lymphocytes # 3.9 H Monocytes # 1.5 H Eosinophils # 0.1 Basophils # 0.1 Nucleated Red Blood 0.0 Cells # Sodium Level 135 Potassium Level 4.0 Chloride Level 94 L Carbon Dioxide Level 32 H Anion Gap 9 Blood Urea Nitrogen 36 H Creatinine 0.90 Est Glomerular Filtrat > 60 Rate mL/min Glucose Level 227 H Calcium Level 9.9 Magnesium Level 1.1 L Total Bilirubin 0.1 L Direct Bilirubin 0.00 Indirect Bilirubin 0.1 Aspartate Amino 65 H Transf (AST/SGOT) Alanine 117 H Aminotransferase (ALT/ SGPT) Alkaline Phosphatase 1206 H Total Protein 7.1 Albumin 3.5 Globulin 3.60 H Albumin/Globulin Ratio 0.97 Test 08/12/18 07:58 08/12/18 11:39 08/12/18 17:48 Bedside Glucose 208 151 278 H Medications Medication Current Medications IV Flush (NS 3 ml) 3 ml PER PROTOCOL IV ; Start 08/03/18 at 21:30 Ondansetron HCl (Zofran Inj) 4 mg Q6H PRN IV NAUSEA/VOMITING; Start 08/03/18 at 21:30 Heparin Sodium (Porcine) (Heparin (5000 Units/1ml)) 5,000 unit BID SC Last administered on 08/12/18at 08:13; Admin Dose 5,000 UNIT; Start 08/06/18 at 21:00 Levofloxacin (Levaquin) 500 mg DAILY@06 PO Last administered on 08/12/18at 06:09; Admin Dose 500 MG; Start 08/08/18 at 06:00 Cefepime HCl 50 ml @ 100 mls/hr Q12 IVPB Last administered on 08/12/18at 08:08; Admin Dose 100 MLS/HR; Start 08/07/18 at 21:00 Glucose (Glutose) 15 gm Q15M PRN PO DECREASED GLUCOSE; Start 08/10/18 at 10:00 Glucose (Glutose) 22.5 gm Q15M PRN PO DECREASED GLUCOSE; Start 08/10/18 at 10:00 Dextrose (D50w Syringe) 25 ml Q15M PRN IV DECREASED GLUCOSE; Start 08/10/18 at 10:00 Dextrose (D50w Syringe) 50 ml Q15M PRN IV DECREASED GLUCOSE; Start 08/10/18 at 10:00 Glucagon (Glucagen) 1 mg Q15M PRN IM DECREASED GLUCOSE; Start 08/10/18 at 10:00 Glucose (Glutose) 15 gm Q15M PRN BUCCAL DECREASED GLUCOSE; Start 08/10/18 at 10:00 Metformin HCl (Glucophage Xr) 1,000 mg BID PO Last administered on 08/12/18at 08:07; Admin Dose 1,000 MG; Start 08/10/18 at 21:00 Diagnostic Test (Pha) (Accu-Chek) 1 ea 02 XX Last administered on 08/12/18at 02:02; Admin Dose 1 EA; Start 08/11/18 at 02:00 Magnesium Oxide (Mag-Ox 400) 400 mg DAILY PO Last administered on 08/12/18at 08:07; Admin Dose 400 MG; Start 08/11/18 at 09:00 Insulin Aspart (Novolog Insulin Pen) 8 unit WITH MEALS SC Last administered on 08/12/18at 08:11; Admin Dose 8 UNIT; Start 08/12/18 at 07:35 Insulin Glargine (Lantus) 16 units DAILY@2000 SC Last administered on 08/11/18at 20:23; Admin Dose 16 UNITS; Start 08/11/18 at 20:00 Insulin Aspart (Novolog Insulin Pen) NOVOLOG *MILD* ALGORITHM WITH MEALS BEDTIME SC Last administered on 08/12/18at 08:13; Admin Dose 2 UNIT; Start 08/11/18 at 21:00 SELINA HARRY MD August 12, 2018 17:57
[2018-08-12] MEDS: INSULIN GLARGINE [LANTus] (100 UNITS/ML) SYG SC SCH (21:14)
[2018-08-13] VITALS (12 sets, daily range): BP systolic 92–121; BP diastolic 55–81; PULSE 96–124; RESP 20
[2018-08-13] MEDS: ACCU-CHEK XX SCH (02:00)
[2018-08-13] MEDS: LEVOFLOXACIN 500 MG TAB PO SCH (06:34)
[2018-08-13] MEDS: INSULIN ASPART [NOVOLOG] 3 ML PEN SC SCH ×7 (08:23→22:30)
[2018-08-13] MEDS: CEFEPIME 1GM/50 ML (PMX) 50 ML IVPB SCH ×2 (08:53→20:49)
[2018-08-13] MEDS: metFORMIN (XR) 500 MG TAB PO SCH ×3 (08:53→20:48)
[2018-08-13] MEDS: MAGNESIUM OXIDE 400 MG TAB PO SCH ×2 (08:54→20:49)
[2018-08-13] MEDS: HEPARIN 5,000 UNIT/1 ML VIAL SC SCH ×2 (08:54→22:30)
[2018-08-13] MEDS ORDERED: MAGNESIUM SULFATE 4 GM/100 ML 100 ML IVPB ONE (10:30)
--- NOTE | 2018-08-13 10:41 | PN ---
Date/Time of Note Date/Time of Note DATE: 08/13/18 TIME: 10:40 Assessment/Plan VTE Prophylaxis Risk score (from Ns)>0 risk: 0 SCD applied (from Ns): No SCD contraindicated: low risk/ambulating Pharmacological prophylaxis: NA/contraindicated Pharm contraindication: low risk/ambulating Lines/Catheters IV C[facility]from [facility] Peripheral IV Urinary Cath still in place: No Assessment/Plan Assessment/Plan 1. Sepsis secondary to cavitary pneumonia- stable - Pulm on board and appreciate recommendations. - cardiology consulted for PEPPER and scheduled for tomorrow. Will keep NPO after midnight - WBC still elevated - ID on board and appreciate recommendations 2. Cavitary pneumonia - Pulm on board - Denies any IV drug use, states he did smoke crystal meth on a normal basis however. 3. Diabetes, noncompliant - Continue on lantus, meal coverage and ISS - Endocrinology consultation appreciated 4. Elevated liver enzymes - GI on board and appreciate recommendations - LFT still elevated but trending down slightly 5. Disposition - Plans for PEPPER tomorrow and plan of care based on findings. Continue current care and NPO after midnight Result Diagram: 08/13/18 0616 08/13/18 0616 Results 24hrs Laboratory Tests Test 08/12/18 11:39 08/12/18 17:48 08/12/18 21:07 08/13/18 06:16 Bedside Glucose 151 278 H 207 White Blood Count 15.5 H Red Blood Count 4.84 Hemoglobin 13.2 L Hematocrit 38.7 L Mean Corpuscular Volume 80.0 L Mean Corpuscular 27.3 L Hemoglobin Mean Corpuscular 34.1 Hemoglobin Concent Red Cell Distribution 12.5 Width Platelet Count 383 Mean Platelet Volume 9.4 Immature Granulocytes % 1.100 H Neutrophils % 74.8 Lymphocytes % 13.9 L Monocytes % 9.6 Eosinophils % 0.2 Basophils % 0.4 Nucleated Red Blood 0.0 Cells % Immature Granulocytes # 0.170 H Neutrophils # 11.6 H Lymphocytes # 2.2 Monocytes # 1.5 H Eosinophils # 0.0 Basophils # 0.1 Nucleated Red Blood 0.0 Cells # Sodium Level 135 Potassium Level 4.0 Chloride Level 96 L Carbon Dioxide Level 28 Anion Gap 11 Blood Urea Nitrogen 25 #H Creatinine 0.85 Est Glomerular Filtrat > 60 Rate mL/min Glucose Level 172 Calcium Level 10.2 Magnesium Level 0.9 *L Total Bilirubin 0.1 L Direct Bilirubin 0.00 Indirect Bilirubin 0.1 Aspartate Amino 34 Transf (AST/SGOT) Alanine 78 H Aminotransferase (ALT/SG PT) Alkaline Phosphatase 1012 H Total Protein 7.7 Albumin 3.7 Globulin 4.00 H Albumin/Globulin Ratio 0.92 Test 08/13/18 08:16 Bedside Glucose 186 Subjective 24 Hr Interval Summary Free Text/Dictation Patient sleeping and denies any acute issues. Ate today so PEPPER postponed until tomorrow. Exam/Review of Systems Exam Vitals Vital Signs Date Temp Pulse Resp B/P (MAP) Pulse Ox O2 O2 Flow FiO2 Time Delivery Rate 08/13/18 105 08:00 08/13/18 98.6 20 105/73 97 07:11 (84) 08/13/18 Room Air 04:01 Intake and Output 08/12/18 08/12/18 08/13/18 1515:00 23:00 07:00 IntakeIntake Total 800 ml 400 ml OutputOutput Total 1100 ml 1200 ml BalanceBalance -300 ml -1200 ml 400 ml Exam General: Patient is laying in bed and answers questions appropriately Neck: Supple, nontender, midline Respiratory: Diminished. no wheezing Cardiovascular: regular rate and rhythm, no obvious murmurs Gastrointestinal: soft, non-tender to palpation, nondistended, bowel sounds heard. Skin: No new skin lesions Results Results 24hrs Laboratory Tests Test 08/12/18 11:39 08/12/18 17:48 08/12/18 21:07 08/13/18 06:16 Bedside Glucose 151 278 H 207 White Blood Count 15.5 H Red Blood Count 4.84 Hemoglobin 13.2 L Hematocrit 38.7 L Mean Corpuscular Volume 80.0 L Mean Corpuscular 27.3 L Hemoglobin Mean Corpuscular 34.1 Hemoglobin Concent Red Cell Distribution 12.5 Width Platelet Count 383 Mean Platelet Volume 9.4 Immature Granulocytes % 1.100 H Neutrophils % 74.8 Lymphocytes % 13.9 L Monocytes % 9.6 Eosinophils % 0.2 Basophils % 0.4 Nucleated Red Blood 0.0 Cells % Immature Granulocytes # 0.170 H Neutrophils # 11.6 H Lymphocytes # 2.2 Monocytes # 1.5 H Eosinophils # 0.0 Basophils # 0.1 Nucleated Red Blood 0.0 Cells # Sodium Level 135 Potassium Level 4.0 Chloride Level 96 L Carbon Dioxide Level 28 Anion Gap 11 Blood Urea Nitrogen 25 #H Creatinine 0.85 Est Glomerular Filtrat > 60 Rate mL/min Glucose Level 172 Calcium Level 10.2 Magnesium Level 0.9 *L Total Bilirubin 0.1 L Direct Bilirubin 0.00 Indirect Bilirubin 0.1 Aspartate Amino 34 Transf (AST/SGOT) Alanine 78 H Aminotransferase (ALT/SG PT) Alkaline Phosphatase 1012 H Total Protein 7.7 Albumin 3.7 Globulin 4.00 H Albumin/Globulin Ratio 0.92 Test 08/13/18 08:16 Bedside Glucose 186 Medications Medication Current Medications IV Flush (NS 3 ml) 3 ml PER PROTOCOL IV ; Start 08/03/18 at 21:30 Ondansetron HCl (Zofran Inj) 4 mg Q6H PRN IV NAUSEA/VOMITING; Start 08/03/18 at 21:30 Heparin Sodium (Porcine) (Heparin (5000 Units/1ml)) 5,000 unit BID SC Last administered on 08/12/18at 21:20; Admin Dose 5,000 UNIT; Start 08/06/18 at 21:00 Levofloxacin (Levaquin) 500 mg DAILY@06 PO Last administered on 08/13/18at 06:34; Admin Dose 500 MG; Start 08/08/18 at 06:00 Cefepime HCl 50 ml @ 100 mls/hr Q12 IVPB Last administered on 08/12/18at 21:12; Admin Dose 100 MLS/HR; Start 08/07/18 at 21:00 Glucose (Glutose) 15 gm Q15M PRN PO DECREASED GLUCOSE; Start 08/10/18 at 10:00 Glucose (Glutose) 22.5 gm Q15M PRN PO DECREASED GLUCOSE; Start 08/10/18 at 10:00 Dextrose (D50w Syringe) 25 ml Q15M PRN IV DECREASED GLUCOSE; Start 08/10/18 at 10:00 Dextrose (D50w Syringe) 50 ml Q15M PRN IV DECREASED GLUCOSE; Start 08/10/18 at 10:00 Glucagon (Glucagen) 1 mg Q15M PRN IM DECREASED GLUCOSE; Start 08/10/18 at 10:00 Glucose (Glutose) 15 gm Q15M PRN BUCCAL DECREASED GLUCOSE; Start 08/10/18 at 10:00 Metformin HCl (Glucophage Xr) 1,000 mg BID PO Last administered on 08/13/18 08:58; Admin Dose 1,000 MG; Start 08/10/18 at 21:00 Diagnostic Test (Pha) (Accu-Chek) 1 ea 02 XX Last administered on 08/12/18at 02:02; Admin Dose 1 EA; Start 08/11/18 at 02:00 Insulin Aspart (Novolog Insulin Pen) 8 unit WITH MEALS SC Last administered on 08/13/18 08:23; Admin Dose 8 UNIT; Start 08/12/18 at 07:35 Insulin Glargine (Lantus) 16 units DAILY@2000 SC Last administered on 08/12/18 21:14; Admin Dose 16 UNITS; Start 08/11/18 at 20:00 Insulin Aspart (Novolog Insulin Pen) NOVOLOG *MILD* ALGORITHM WITH MEALS BEDTIME SC Last administered on 08/13/18 08:23; Admin Dose 2 UNIT; Start 08/11/18 at 21:00 Magnesium Sulfate 100 ml @ 25 mls/hr ONCE ONCE IVPB ; Start 08/13/18 at 10:30; Stop 08/13/18 at 14:29 Magnesium Oxide (Mag-Ox 400) 400 mg BID PO ; Start 08/13/18 at 21:00 REGINE LALA MD August 13, 2018 10:40
--- NOTE | 2018-08-13 11:28 | CONS ---
Assessment/Plan Assessment/Plan Assessment/Plan (Daily) Assessment and recommendations; 1. Patient admitted for DKA with bilateral cavitary pneumonia with interval clinical improvement. Continue current supportive care. Obtain chest x-ray. If the chest x-ray is nonspecific patient will need to have a repeat CT of the chest performed. Consultation Date/Type/Reason Admit Date/Time Aug 03, 2018 at 19:57 Initial Consult Date 08/10/18 Type of Consult Pulmonary Patient is a 28-year-old male who was admitted to the hospital transfer from the facility for management of hyperglycemia. Upon further evaluation patient underwent a CT of the chest which showed bilateral pneumonia. Patient has been started on appropriate antimicrobial regimen with significant improvement in sym ptoms. Patient did have a scant cough on admission but denies any hemoptysis, sputum production, fever, chills, any chest pain. By the time I saw the patient in the room, patient completely awake and alert and did not appear to be in any distress whatsoever. Past medical history; 1. History of diabetes apparently poorly controlled. Medications; reviewed. Allergies; none. Social history; noncontributory. Family history; noncontributory. Occupational history; patient is on disability. Review of systems; denies any headache, seizures, sinus symptoms. Denies any chest pain, shortness of breath, coughing, wheezing, sputum production or hemoptysis. Complains of some weight loss. Denies any abdominal pain, nausea vomiting, melena hematochezia. Does complain of frequency of urination. Denies any orthopnea or PND. Any skin changes or any arthritis symptoms. General exam; young male, awake alert, currently in no distress. Requesting Provider: REGINE LALA MD Date/Time of Note DATE: 08/13/18 TIME: 11:27 24 HR Interval Summary Free Text/Dictation Patient's condition is stable. Remains awake and alert. Denies any coughing, wheezing, sputum production. General exam; young male, awake alert, currently no distress. Exam/Review of Systems Exam Vitals Vital Signs Date Temp Pulse Resp B/P (MAP) Pulse Ox O2 O2 Flow FiO2 Time Delivery Rate 08/13/18 98.6 103 20 92/55 (67) 98 11:20 08/13/18 Room Air 04:01 Intake and Output 08/12/18 08/12/18 08/13/18 1515:00 23:00 07:00 IntakeIntake Total 800 ml 400 ml OutputOutput Total 1100 ml 1200 ml BalanceBalance -300 ml -1200 ml 400 ml Exam H EENT exam; supple neck, no JVD. No lymphadenopathy. Midline trachea. No thyromegaly. Pharynx is clear. Patient has fair dentition. Chest exam; clear to auscultation. S1-S2 audible, no murmurs. Regular rhythm. Abdomen exam; soft, no organomegaly. Bowel sounds audible. Extremity exam; no peripheral edema clubbing. [employer] exam; no focal deficit. Results Result Diagram: 08/13/18 0616 08/13/18 0616 Results 24hrs Laboratory Tests Test 08/12/18 11:39 08/12/18 17:48 08/12/18 21:07 08/13/18 06:16 Bedside Glucose 151 278 H 207 White Blood Count 15.5 H Red Blood Count 4.84 Hemoglobin 13.2 L Hematocrit 38.7 L Mean Corpuscular Volume 80.0 L Mean Corpuscular 27.3 L Hemoglobin Mean Corpuscular 34.1 Hemoglobin Concent Red Cell Distribution 12.5 Width Platelet Count 383 Mean Platelet Volume 9.4 Immature Granulocytes % 1.100 H Neutrophils % 74.8 Lymphocytes % 13.9 L Monocytes % 9.6 Eosinophils % 0.2 Basophils % 0.4 Nucleated Red Blood 0.0 Cells % Immature Granulocytes # 0.170 H Neutrophils # 11.6 H Lymphocytes # 2.2 Monocytes # 1.5 H Eosinophils # 0.0 Basophils # 0.1 Nucleated Red Blood 0.0 Cells # Sodium Level 135 Potassium Level 4.0 Chloride Level 96 L Carbon Dioxide Level 28 Anion Gap 11 Blood Urea Nitrogen 25 #H Creatinine 0.85 Est Glomerular Filtrat > 60 Rate mL/min Glucose Level 172 Calcium Level 10.2 Magnesium Level 0.9 *L Total Bilirubin 0.1 L Direct Bilirubin 0.00 Indirect Bilirubin 0.1 Aspartate Amino 34 Transf (AST/SGOT) Alanine 78 H Aminotransferase (ALT/SG PT) Alkaline Phosphatase 1012 H Total Protein 7.7 Albumin 3.7 Globulin 4.00 H Albumin/Globulin Ratio 0.92 Test 08/13/18 08:16 08/13/18 11:18 Bedside Glucose 186 163 Medications Medication Current Medications IV Flush (NS 3 ml) 3 ml PER PROTOCOL IV ; Start 08/03/18 at 21:30 Ondansetron HCl (Zofran Inj) 4 mg Q6H PRN IV NAUSEA/VOMITING; Start 08/03/18 at 21:30 Heparin Sodium (Porcine) (Heparin (5000 Units/1ml)) 5,000 unit BID SC Last administered on 08/12/18 21:20; Admin Dose 5,000 UNIT; Start 08/06/18 at 21:00 Levofloxacin (Levaquin) 500 mg DAILY@06 PO Last administered on 08/13/18 06:34; Admin Dose 500 MG; Start 08/08/18 at 06:00 Cefepime HCl 50 ml @ 100 mls/hr Q12 IVPB Last administered on 08/12/18 21:12; Admin Dose 100 MLS/HR; Start 08/07/18 at 21:00 Glucose (Glutose) 15 gm Q15M PRN PO DECREASED GLUCOSE; Start 08/10/18 at 10:00 Glucose (Glutose) 22.5 gm Q15M PRN PO DECREASED GLUCOSE; Start 08/10/18 at 10:00 Dextrose (D50w Syringe) 25 ml Q15M PRN IV DECREASED GLUCOSE; Start 08/10/18 at 10:00 Dextrose (D50w Syringe) 50 ml Q15M PRN IV DECREASED GLUCOSE; Start 08/10/18 at 10:00 Glucagon (Glucagen) 1 mg Q15M PRN IM DECREASED GLUCOSE; Start 08/10/18 at 10:00 Glucose (Glutose) 15 gm Q15M PRN BUCCAL DECREASED GLUCOSE; Start 08/10/18 at 10:00 Metformin HCl (Glucophage Xr) 1,000 mg BID PO Last administered on 08/13/18 08:58; Admin Dose 1,000 MG; Start 08/10/18 at 21:00 Diagnostic Test (Pha) (Accu-Chek) 1 ea 02 XX Last administered on 08/12/18 02:02; Admin Dose 1 EA; Start 08/11/18 at 02:00 Insulin Aspart (Novolog Insulin Pen) 8 unit WITH MEALS SC Last administered on 08/13/18 11:21; Admin Dose 8 UNIT; Start 08/12/18 at 07:35 Insulin Glargine (Lantus) 16 units DAILY@2000 SC Last administered on 08/12/18 21:14; Admin Dose 16 UNITS; Start 08/11/18 at 20:00 Insulin Aspart (Novolog Insulin Pen) NOVOLOG *MILD* ALGORITHM WITH MEALS BEDTIME SC Last administered on 08/13/18at 11:22; Admin Dose 1 UNIT; Start 08/11/18 at 21:00 Magnesium Sulfate 100 ml @ 25 mls/hr ONCE ONCE IVPB Last administered on 08/13/18at 11:10; Admin Dose 25 MLS/HR; Start 08/13/18 at 10:30; Stop 08/13/18 at 14:29 Magnesium Oxide (Mag-Ox 400) 400 mg BID PO ; Start 08/13/18 at 21:00 LUIS BAPTISTE August 13, 2018 11:28
--- NOTE | 2018-08-13 12:09 | CONS ---
Assessment/Plan Assessment/Plan Hospital Course (Demo Recall) IMPRESSION: 1. Possible septic emboli. Rule out endocarditis, intracardiac source of infection. 2. Hypotension, borderline. 3. Diabetes mellitus, poorly controlled. 4. Lymphadenopathy by abdominal computed tomography (CT). 5. Leukocytosis. Recc: -Tele -Contineu abx's -Was scheduled for PEPPER today but was inadvertantly fed and thus PEPPER rescheduled for tomorrow -Follow BS closely Consultation Date/Type/Reason Admit Date/Time Aug 03, 2018 at 19:57 Initial Consult Date 08/10/18 Type of Consult Cardiology Reason for Consultation septic emboli assess for endocarditis Requesting Provider: REGINE LALA MD Date/Time of Note DATE: 08/13/18 TIME: 12:06 Exam/Review of Systems Vital Signs Vitals Vital Signs Date Temp Pulse Resp B/P (MAP) Pulse Ox O2 O2 Flow FiO2 Time Delivery Rate 08/13/18 98.6 103 20 92/55 (67) 98 11:20 08/13/18 Room Air 04:01 Intake and Output 08/12/18 08/12/18 08/13/18 1515:00 23:00 07:00 IntakeIntake Total 800 ml 400 ml OutputOutput Total 1100 ml 1200 ml BalanceBalance -300 ml -1200 ml 400 ml Exam Exam Review of Systems: CONSTITUTIONAL: No fevers, chills. PULMONARY: No sob CARDIOVASCULAR: No chest pain/palpitations GASTROINTESTINAL: No nausea/vomiting. GENITOURINARY: No hematuria/dysuria. MUSCULOSKELETAL: No myagias/arthalgias. PSYCHIATRIC: The patient denies depression. NEUROLOGIC: No weakness Constitutional: alert Psych: no complaints Head: normocephalic ENMT: mucosa pink and moist Neck: supple, jvd (8 cm water) Respiratory: clear to auscultation Cardiovascular: other (tachycardic) Gastrointestinal: soft, non-tender Musculoskeletal: muscle tone (normal) Extremities: edema (none) Labs Result Diagram: 08/13/18 0616 08/13/18 0616 Results 24hrs Laboratory Tests Test 08/12/18 17:48 08/12/18 21:07 08/13/18 06:16 08/13/18 08:16 Bedside Glucose 278 H 207 186 White Blood Count 15.5 H Red Blood Count 4.84 Hemoglobin 13.2 L Hematocrit 38.7 L Mean Corpuscular Volume 80.0 L Mean Corpuscular 27.3 L Hemoglobin Mean Corpuscular 34.1 Hemoglobin Concent Red Cell Distribution 12.5 Width Platelet Count 383 Mean Platelet Volume 9.4 Immature Granulocytes % 1.100 H Neutrophils % 74.8 Lymphocytes % 13.9 L Monocytes % 9.6 Eosinophils % 0.2 Basophils % 0.4 Nucleated Red Blood 0.0 Cells % Immature Granulocytes # 0.170 H Neutrophils # 11.6 H Lymphocytes # 2.2 Monocytes # 1.5 H Eosinophils # 0.0 Basophils # 0.1 Nucleated Red Blood 0.0 Cells # Sodium Level 135 Potassium Level 4.0 Chloride Level 96 L Carbon Dioxide Level 28 Anion Gap 11 Blood Urea Nitrogen 25 #H Creatinine 0.85 Est Glomerular Filtrat > 60 Rate mL/min Glucose Level 172 Calcium Level 10.2 Magnesium Level 0.9 *L Total Bilirubin 0.1 L Direct Bilirubin 0.00 Indirect Bilirubin 0.1 Aspartate Amino 34 Transf (AST/SGOT) Alanine 78 H Aminotransferase (ALT/SG PT) Alkaline Phosphatase 1012 H Total Protein 7.7 Albumin 3.7 Globulin 4.00 H Albumin/Globulin Ratio 0.92 Test 08/13/18 11:18 Bedside Glucose 163 Medications Medications Current Medications IV Flush (NS 3 ml) 3 ml PER PROTOCOL IV ; Start 08/03/18 at 21:30 Ondansetron HCl (Zofran Inj) 4 mg Q6H PRN IV NAUSEA/VOMITING; Start 08/03/18 at 21:30 Heparin Sodium (Porcine) (Heparin (5000 Units/1ml)) 5,000 unit BID SC Last administered on 08/12/18at 21:20; Admin Dose 5,000 UNIT; Start 08/06/18 at 21:00 Levofloxacin (Levaquin) 500 mg DAILY@06 PO Last administered on 08/13/18at 06:34; Admin Dose 500 MG; Start 08/08/18 at 06:00 Cefepime HCl 50 ml @ 100 mls/hr Q12 IVPB Last administered on 08/12/18at 21:12; Admin Dose 100 MLS/HR; Start 08/07/18 at 21:00 Glucose (Glutose) 15 gm Q15M PRN PO DECREASED GLUCOSE; Start 08/10/18 at 10:00 Glucose (Glutose) 22.5 gm Q15M PRN PO DECREASED GLUCOSE; Start 08/10/18 at 10:00 Dextrose (D50w Syringe) 25 ml Q15M PRN IV DECREASED GLUCOSE; Start 08/10/18 at 10:00 Dextrose (D50w Syringe) 50 ml Q15M PRN IV DECREASED GLUCOSE; Start 08/10/18 at 10:00 Glucagon (Glucagen) 1 mg Q15M PRN IM DECREASED GLUCOSE; Start 08/10/18 at 10:00 Glucose (Glutose) 15 gm Q15M PRN BUCCAL DECREASED GLUCOSE; Start 08/10/18 at 10:00 Metformin HCl (Glucophage Xr) 1,000 mg BID PO Last administered on 08/13/18 08:58; Admin Dose 1,000 MG; Start 08/10/18 at 21:00 Diagnostic Test (Pha) (Accu-Chek) 1 ea 02 XX Last administered on 08/12/18at 02:02; Admin Dose 1 EA; Start 08/11/18 at 02:00 Insulin Aspart (Novolog Insulin Pen) 8 unit WITH MEALS SC Last administered on 08/13/18at 11:21; Admin Dose 8 UNIT; Start 08/12/18 at 07:35 Insulin Glargine (Lantus) 16 units DAILY@2000 SC Last administered on 08/12/18 21:14; Admin Dose 16 UNITS; Start 08/11/18 at 20:00 Insulin Aspart (Novolog Insulin Pen) NOVOLOG *MILD* ALGORITHM WITH MEALS BEDTIME SC Last administered on 08/13/18 11:22; Admin Dose 1 UNIT; Start 08/11/18 at 21:00 Magnesium Sulfate 100 ml @ 25 mls/hr ONCE ONCE IVPB Last administered on 08/13/18at 11:10; Admin Dose 25 MLS/HR; Start 08/13/18 at 10:30; Stop 08/13/18 at 14:29 Magnesium Oxide (Mag-Ox 400) 400 mg BID PO ; Start 08/13/18 at 21:00 JARROD RENDON August 13, 2018 12:09
--- NOTE | 2018-08-13 13:37 | PN ---
Date/Time of Note Date/Time of Note DATE: 08/13/18 TIME: 13:35 Assessment/Plan VTE Prophylaxis Risk score (from Nsg)>0 risk: 0 SCD applied (from Nsg): No SCD contraindicated: other (scds) Pharmacological prophylaxis: heparin Lines/Catheters IV Catheter Type (from Nrs): Peripheral IV Urinary Cath still in place: No Assessment/Plan Hospital Course Assessment: Elevated alkaline phosphatase- elevated GGT ALk phos- fractionation- predominately liver elevation MRCP: The liver is uniform in appearance on noncontrast imaging, with normal contour and size. The biliary ductal system is unremarkable without evidence of common duct stone. Likewise gallbladder is normal in appearance. AMA- negative Transaminitis- improving Leukocytosis Multiple ill-defined bilateral cavitary lung nodules. -Findings are suspicious for septic emboli. Ddx includes: fungal infection vs tuberculosis vs granulomatous infections. -PPD placed 08/06- negative Type 2 diabetes Hx of crystal meth use Plan: Dr. Cabrera to preform PEPPER-patient ate this am- therefore PEPPER pushed to tomorrow Trend LFTs- currently trending down Patient seen in collaboration with Dr. Vital Subjective: Course reviewed with nursing staff Patient interviewed and examined All labs, imaging and other results reviewed Pt transferred out of ICU- sitting up in bed More awake today, He denies n/v or abdominal pain Exam PHYSICAL EXAMINATION: GENERAL: Alert & oriented x 3 SKIN: No lesions HEAD: Normocephalic, atraumatic, no tenderness. EYES: Pupils equal reactive to light and accommodation, no discharge. EARS/NOSE AND THROAT: Ears normal, nose normal. NECK: Supple, no masses CHEST: Inspection within normal limits. CARDIOVASCULAR: Heart: Regular rate and rhythm RESPIRATORY: Lungs clear to auscultation GASTROINTESTINAL AND LIVER: Abdomen: Soft, non tenderness, non-distended, no hernias, no masses, no organomegaly, no ascites, no guarding, no rebound tenderness, normoactive bowel sounds. Rectal: Deferred. Result Diagram: 08/13/1816 08/13/1816 Results 24hrs Laboratory Tests Test 08/12/18 17:48 08/12/18 21:07 08/13/18 06:16 08/13/18 08:16 Bedside Glucose 278 H 207 186 White Blood Count 15.5 H Red Blood Count 4.84 Hemoglobin 13.2 L Hematocrit 38.7 L Mean Corpuscular 80.0 L Volume Mean Corpuscular 27.3 L Hemoglobin Mean Corpuscular 34.1 Hemoglobin Concent Red Cell Distribution 12.5 Width Platelet Count 383 Mean Platelet Volume 9.4 Immature Granulocytes 1.100 H % Neutrophils % 74.8 Lymphocytes % 13.9 L Monocytes % 9.6 Eosinophils % 0.2 Basophils % 0.4 Nucleated Red Blood 0.0 Cells % Immature Granulocytes 0.170 H # Neutrophils # 11.6 H Lymphocytes # 2.2 Monocytes # 1.5 H Eosinophils # 0.0 Basophils # 0.1 Nucleated Red Blood 0.0 Cells # Sodium Level 135 Potassium Level 4.0 Chloride Level 96 L Carbon Dioxide Level 28 Anion Gap 11 Blood Urea Nitrogen 25 #H Creatinine 0.85 Est Glomerular > 60 Filtrat Rate mL/min Glucose Level 172 Calcium Level 10.2 Magnesium Level 0.9 *L Total Bilirubin 0.1 L Direct Bilirubin 0.00 Indirect Bilirubin 0.1 Aspartate Amino 34 Transf (AST/SGOT) Alanine 78 H Aminotransferase (ALT /SGPT) Alkaline Phosphatase 1012 H Total Protein 7.7 Albumin 3.7 Globulin 4.00 H Albumin/Globulin 0.92 Ratio Test 08/13/18 11:18 08/13/18 12:56 Bedside Glucose 163 Lab Scanned Report REFERENCE LAB Exam/Review of Systems Exam Vitals Vital Signs Date Temp Pulse Resp B/P (MAP) Pulse Ox O2 O2 Flow FiO2 Time Delivery Rate 08/13/18 103 12:00 08/13/18 98.6 20 92/55 (67) 98 11:20 08/13/18 Room Air 04:01 Intake and Output 08/12/18 08/12/18 08/13/18 1515:00 23:00 07:00 IntakeIntake Total 800 ml 400 ml OutputOutput Total 1100 ml 1200 ml BalanceBalance -300 ml -1200 ml 400 ml Results Results 24hrs Laboratory Tests Test 08/12/18 17:48 08/12/18 21:07 08/13/18 06:16 08/13/18 08:16 Bedside Glucose 278 H 207 186 White Blood Count 15.5 H Red Blood Count 4.84 Hemoglobin 13.2 L Hematocrit 38.7 L Mean Corpuscular 80.0 L Volume Mean Corpuscular 27.3 L Hemoglobin Mean Corpuscular 34.1 Hemoglobin Concent Red Cell Distribution 12.5 Width Platelet Count 383 Mean Platelet Volume 9.4 Immature Granulocytes 1.100 H % Neutrophils % 74.8 Lymphocytes % 13.9 L Monocytes % 9.6 Eosinophils % 0.2 Basophils % 0.4 Nucleated Red Blood 0.0 Cells % Immature Granulocytes 0.170 H # Neutrophils # 11.6 H Lymphocytes # 2.2 Monocytes # 1.5 H Eosinophils # 0.0 Basophils # 0.1 Nucleated Red Blood 0.0 Cells # Sodium Level 135 Potassium Level 4.0 Chloride Level 96 L Carbon Dioxide Level 28 Anion Gap 11 Blood Urea Nitrogen 25 #H Creatinine 0.85 Est Glomerular > 60 Filtrat Rate mL/min Glucose Level 172 Calcium Level 10.2 Magnesium Level 0.9 *L Total Bilirubin 0.1 L Direct Bilirubin 0.00 Indirect Bilirubin 0.1 Aspartate Amino 34 Transf (AST/SGOT) Alanine 78 H Aminotransferase (ALT /SGPT) Alkaline Phosphatase 1012 H Total Protein 7.7 Albumin 3.7 Globulin 4.00 H Albumin/Globulin 0.92 Ratio Test 08/13/18 11:18 08/13/18 12:56 Bedside Glucose 163 Lab Scanned Report REFERENCE LAB Medications Medication Current Medications IV Flush (NS 3 ml) 3 ml PER PROTOCOL IV ; Start 08/03/18 at 21:30 Ondansetron HCl (Zofran Inj) 4 mg Q6H PRN IV NAUSEA/VOMITING; Start 08/03/18 at 21:30 Heparin Sodium (Porcine) (Heparin (5000 Units/1ml)) 5,000 unit BID SC Last administered on 08/12/18at 21:20; Admin Dose 5,000 UNIT; Start 08/06/18 at 21:00 Levofloxacin (Levaquin) 500 mg DAILY@06 PO Last administered on 08/13/18at 06:34; Admin Dose 500 MG; Start 08/08/18 at 06:00 Cefepime HCl 50 ml @ 100 mls/hr Q12 IVPB Last administered on 08/12/18at 21:12; Admin Dose 100 MLS/HR; Start 08/07/18 at 21:00 Glucose (Glutose) 15 gm Q15M PRN PO DECREASED GLUCOSE; Start 08/10/18 at 10:00 Glucose (Glutose) 22.5 gm Q15M PRN PO DECREASED GLUCOSE; Start 08/10/18 at 10:00 Dextrose (D50w Syringe) 25 ml Q15M PRN IV DECREASED GLUCOSE; Start 08/10/18 at 10:00 Dextrose (D50w Syringe) 50 ml Q15M PRN IV DECREASED GLUCOSE; Start 08/10/18 at 10:00 Glucagon (Glucagen) 1 mg Q15M PRN IM DECREASED GLUCOSE; Start 08/10/18 at 10:00 Glucose (Glutose) 15 gm Q15M PRN BUCCAL DECREASED GLUCOSE; Start 08/10/18 at 10:00 Metformin HCl (Glucophage Xr) 1,000 mg BID PO Last administered on 08/13/18at 08:58; Admin Dose 1,000 MG; Start 08/10/18 at 21:00 Diagnostic Test (Pha) (Accu-Chek) 1 ea 02 XX Last administered on 08/12/18at 02:02; Admin Dose 1 EA; Start 08/11/18 at 02:00 Insulin Aspart (Novolog Insulin Pen) 8 unit WITH MEALS SC Last administered on 08/13/18 11:21; Admin Dose 8 UNIT; Start 08/12/18 at 07:35 Insulin Glargine (Lantus) 16 units DAILY@2000 SC Last administered on 08/12/18 21:14; Admin Dose 16 UNITS; Start 08/11/18 at 20:00 Insulin Aspart (Novolog Insulin Pen) NOVOLOG *MILD* ALGORITHM WITH MEALS BEDTIME SC Last administered on 08/13/18 11:22; Admin Dose 1 UNIT; Start 08/11/18 at 21:00 Magnesium Sulfate 100 ml @ 25 mls/hr ONCE ONCE IVPB Last administered on 08/13/18at 11:10; Admin Dose 25 MLS/HR; Start 08/13/18 at 10:30; Stop 08/13/18 at 14:29 Magnesium Oxide (Mag-Ox 400) 400 mg BID PO ; Start 08/13/18 at 21:00 CAMERON MORA August 13, 2018 13:37
--- NOTE | 2018-08-13 14:33 | CONS ---
Assessment/Plan Assessment/Plan Hospital Course (Demo Recall) No acute changes overnight Microbiology: All cultures negative Antimicrobials: Cefepime, Levaquin CT of the chest revealed multiple ill-defined bilateral cavitary lung nodules findings are suspicious for septic emboli rule out other etiologies. MRI of the abdomen revealed unremarkable gallbladder and biliary ductal system Physical examination: Well-developed young man who is alert in no distress. Head atraumatic normocephalic sclera. Mucosa dry. Neck is supple chest rise symmetrical breath sounds diminished to bases. Heart: S1-S2 abdomen soft bowel sounds present. Extremities without cyanosis. Assessment: 1. S/p sepsis 2. Bilateral cavitary pneumonia, likely SPE===> PPD placed 08/06, neg 3. Diabetes 4. Transaminitis Plan: Remains stable, continue antibiotics, repeat bld cx, pending PEPPER Consultation Date/Type/Reason Admit Date/Time Aug 03, 2018 at 19:57 Initial Consult Date 08/05/18 Type of Consult id Requesting Provider: REGINE LALA MD Date/Time of Note DATE: 08/13/18 TIME: 14:32 Exam/Review of Systems Exam Vitals Vital Signs Date Temp Pulse Resp B/P (MAP) Pulse Ox O2 O2 Flow FiO2 Time Delivery Rate 08/13/18 103 12:00 08/13/18 98.6 20 92/55 (67) 98 11:20 08/13/18 Room Air 04:01 Intake and Output 08/12/18 08/12/18 08/13/18 1515:00 23:00 07:00 IntakeIntake Total 800 ml 400 ml OutputOutput Total 1100 ml 1200 ml BalanceBalance -300 ml -1200 ml 400 ml Results Result Diagram: 08/13/18 0616 08/13/18 0616 Results 24hrs Laboratory Tests Test 08/12/18 17:48 08/12/18 21:07 08/13/18 06:16 08/13/18 08:16 Bedside Glucose 278 H 207 186 White Blood Count 15.5 H Red Blood Count 4.84 Hemoglobin 13.2 L Hematocrit 38.7 L Mean Corpuscular 80.0 L Volume Mean Corpuscular 27.3 L Hemoglobin Mean Corpuscular 34.1 Hemoglobin Concent Red Cell Distribution 12.5 Width Platelet Count 383 Mean Platelet Volume 9.4 Immature Granulocytes 1.100 H % Neutrophils % 74.8 Lymphocytes % 13.9 L Monocytes % 9.6 Eosinophils % 0.2 Basophils % 0.4 Nucleated Red Blood 0.0 Cells % Immature Granulocytes 0.170 H # Neutrophils # 11.6 H Lymphocytes # 2.2 Monocytes # 1.5 H Eosinophils # 0.0 Basophils # 0.1 Nucleated Red Blood 0.0 Cells # Sodium Level 135 Potassium Level 4.0 Chloride Level 96 L Carbon Dioxide Level 28 Anion Gap 11 Blood Urea Nitrogen 25 #H Creatinine 0.85 Est Glomerular > 60 Filtrat Rate mL/min Glucose Level 172 Calcium Level 10.2 Magnesium Level 0.9 *L Total Bilirubin 0.1 L Direct Bilirubin 0.00 Indirect Bilirubin 0.1 Aspartate Amino 34 Transf (AST/SGOT) Alanine 78 H Aminotransferase (ALT /SGPT) Alkaline Phosphatase 1012 H Total Protein 7.7 Albumin 3.7 Globulin 4.00 H Albumin/Globulin 0.92 Ratio Test 08/13/18 11:18 08/13/18 12:56 Bedside Glucose 163 Lab Scanned Report REFERENCE LAB Medications Medication Current Medications IV Flush (NS 3 ml) 3 ml PER PROTOCOL IV ; Start 08/03/18 at 21:30 Ondansetron HCl (Zofran Inj) 4 mg Q6H PRN IV NAUSEA/VOMITING; Start 08/03/18 at 21:30 Heparin Sodium (Porcine) (Heparin (5000 Units/1ml)) 5,000 unit BID SC Last administered on 08/12/18at 21:20; Admin Dose 5,000 UNIT; Start 08/06/18 at 21:00 Levofloxacin (Levaquin) 500 mg DAILY@06 PO Last administered on 08/13/18at 06:34; Admin Dose 500 MG; Start 08/08/18 at 06:00 Cefepime HCl 50 ml @ 100 mls/hr Q12 IVPB Last administered on 08/12/18at 21:12; Admin Dose 100 MLS/HR; Start 08/07/18 at 21:00 Glucose (Glutose) 15 gm Q15M PRN PO DECREASED GLUCOSE; Start 08/10/18 at 10:00 Glucose (Glutose) 22.5 gm Q15M PRN PO DECREASED GLUCOSE; Start 08/10/18 at 10:00 Dextrose (D50w Syringe) 25 ml Q15M PRN IV DECREASED GLUCOSE; Start 08/10/18 at 10:00 Dextrose (D50w Syringe) 50 ml Q15M PRN IV DECREASED GLUCOSE; Start 08/10/18 at 10:00 Glucagon (Glucagen) 1 mg Q15M PRN IM DECREASED GLUCOSE; Start 08/10/18 at 10:00 Glucose (Glutose) 15 gm Q15M PRN BUCCAL DECREASED GLUCOSE; Start 08/10/18 at 10:00 Metformin HCl (Glucophage Xr) 1,000 mg BID PO Last administered on 08/13/18at 08:58; Admin Dose 1,000 MG; Start 08/10/18 at 21:00 Diagnostic Test (Pha) (Accu-Chek) 1 ea 02 XX Last administered on 08/12/18at 02:02; Admin Dose 1 EA; Start 08/11/18 at 02:00 Insulin Aspart (Novolog Insulin Pen) 8 unit WITH MEALS SC Last administered on 08/13/18at 11:21; Admin Dose 8 UNIT; Start 08/12/18 at 07:35 Insulin Glargine (Lantus) 16 units DAILY@2000 SC Last administered on 08/12/18at 21:14; Admin Dose 16 UNITS; Start 08/11/18 at 20:00 Insulin Aspart (Novolog Insulin Pen) NOVOLOG *MILD* ALGORITHM WITH MEALS BEDTIME SC Last administered on 08/13/18 11:22; Admin Dose 1 UNIT; Start 08/11/18 at 21:00 Magnesium Oxide (Mag-Ox 400) 400 mg BID PO ; Start 08/13/18 at 21:00 AUDRA DILLON NP August 13, 2018 14:33
--- NOTE | 2018-08-13 17:29 | CONS ---
Assessment/Plan Assessment/Plan Problems: (1) Type 2 diabetes mellitus with hyperglycemia Status: Chronic Comment: BG control improved. Withholding snacks helps. C-peptide > 1 w/ BG > 200 mg/dL. This is inadequate but effectively rules out T1DM. Will add linagliptin 5 mg daily. Cont. current insulin doses and titrate up as needed. Qualifiers: Diabetes mellitus custodial insulin use: with labels molder use Qualified Codes: E11.65 - Type 2 diabetes mellitus with hyperglycemia; Z79.4 - skilled nursing (current) use of insulin Consultation Date/Type/Reason Admit Date/Time Aug 03, 2018 at 19:57 Initial Consult Date 08/10/18 Type of Consult Endocrinology Reason for Consultation [facility] Requesting Provider: REGINE LALA MD Date/Time of Note DATE: 08/13/18 TIME: 17:27 24 HR Interval Summary Constitutional: no complaints, improved Detailed Summary Respiratory: no complaints Cardiovascular: no complaints Gastrointestinal: no complaints Genitourinary: no complaints Musculoskeletal: no complaints Neurologic: no complaints Exam/Review of Systems Exam Vitals VS - Last 72 Hours, by Label Date Temp Pulse Resp B/P (MAP) Pulse Ox O2 O2 Flow FiO2 Time Delivery Rate 08/13/18 97 16:00 08/13/18 98.6 96 20 109/81 99 15:14 (90) 08/13/18 103 12:00 08/13/18 98.6 103 20 92/55 (67) 98 11:20 08/13/18 105 08:00 08/13/18 98.6 124 20 105/73 97 07:11 (84) 08/13/18 98.7 113 20 121/71 96 Room Air 04:01 (88) 08/13/18 111 04:00 08/13/18 104 00:00 08/12/18 98.4 108 20 96/54 (68) 98 Room Air 23:47 08/12/18 100.1 109 22 108/71 98 Room Air 22:01 (83) 08/12/18 103 21:57 08/12/18 106 20:00 08/12/18 98.2 108 27 102/63 99 Room Air 20:00 (76) 08/12/18 93 26 103/64 99 Room Air 19:00 (77) 08/12/18 87 24 18:15 08/12/18 94 27 97/68 (78) 18:00 08/12/18 92 23 17:45 08/12/18 90 24 17:30 08/12/18 81 16 17:15 08/12/18 92 22 17:00 08/12/18 92 22 17:00 08/12/18 87 24 16:45 08/12/18 93 24 16:30 08/12/18 91 18 16:15 08/12/18 98 23 16:00 08/12/18 98 23 16:00 08/12/18 101 16:00 08/12/18 98 23 16:00 08/12/18 109 24 96/69 (78) 15:00 08/12/18 109 24 96/69 (78) 15:00 08/12/18 89 22 94/72 (79) 14:00 08/12/18 89 22 94/72 (79) Room Air 14:00 08/12/18 89 22 94/72 (79) 14:00 08/12/18 94 22 86/59 (68) 13:00 08/12/18 94 22 86/59 (68) 13:00 08/12/18 94 22 86/59 (68) Room Air 13:00 08/12/18 81 19 92/66 (75) 99 12:00 08/12/18 81 12:00 08/12/18 98.4 81 19 92/66 (75) 99 Room Air 12:00 08/12/18 103 18 102/77 100 Room Air 11:00 (85) 08/12/18 103 18 102/77 100 11:00 (85) 08/12/18 103 18 102/77 100 Room Air 11:00 (85) 08/12/18 92 21 89/62 (71) Room Air 10:00 08/12/18 92 21 89/62 (71) 10:00 08/12/18 98.9 09:00 08/12/18 84 22 93/60 (71) Room Air 09:00 08/12/18 84 22 93/60 (71) 09:00 08/12/18 94 22 80/61 (67) 08:00 08/12/18 95 08:00 08/12/18 94 22 80/61 (67) Room Air 08:00 08/12/18 94 22 80/61 (67) 08:00 08/12/18 77 21 91/61 (71) 07:00 08/12/18 77 21 91/61 (71) 07:00 08/12/18 77 21 91/61 (71) Room Air 07:00 08/12/18 82 20 95/60 (72) 100 Room Air 06:00 08/12/18 81 21 100 Room Air 05:00 08/12/18 98.4 86 21 77/55 (62) 100 Room Air 04:00 08/12/18 86 04:00 08/12/18 83 14 86/58 (67) 100 Room Air 03:00 08/12/18 81 18 91/55 (67) 100 Room Air 02:00 08/12/18 78 20 89/65 (73) 100 Room Air 01:00 08/12/18 80 00:00 08/12/18 98.7 82 16 93/59 (70) 100 Room Air 00:00 08/11/18 20 110/88 100 Room Air 23:00 (95) 08/11/18 87 27 98/68 (78) 99 Room Air 22:00 08/11/18 87 20 95/64 (74) 100 Room Air 21:00 08/11/18 98.4 88 23 96/69 (78) 100 Room Air 20:00 08/11/18 87 20:00 08/11/18 88 25 96/60 (72) 97 19:00 08/11/18 88 25 96/60 (72) 97 19:00 08/11/18 88 25 96/60 (72) 97 19:00 08/11/18 90 24 100 18:00 08/11/18 90 24 100 18:00 08/11/18 90 24 100 18:00 08/11/18 84 22 99 17:00 08/11/18 84 22 99 17:00 08/11/18 84 22 99 17:00 08/11/18 81 21 94/71 (79) 100 16:00 08/11/18 85 16:00 08/11/18 98.7 81 21 94/71 (79) 100 16:00 08/11/18 83 25 95/61 (72) 99 15:00 08/11/18 84 21 98/70 (79) 100 14:00 08/11/18 105 13 102/66 13:00 (78) 08/11/18 105 13 102/66 13:00 (78) 08/11/18 88 21 91/74 (80) 98 12:00 08/11/18 97.2 88 21 91/74 (80) 98 12:00 08/11/18 92 12:00 08/11/18 79 24 99 11:00 08/11/18 79 24 99 11:00 08/11/18 100 22 98 10:00 08/11/18 100 22 98 10:00 08/11/18 73 22 84/55 (65) 98 09:00 08/11/18 73 22 84/55 (65) 98 09:00 08/11/18 77 08:00 08/11/18 83 24 98 08:00 08/11/18 98.4 83 24 98 08:00 08/11/18 81 21 98 07:00 08/11/18 81 21 98 07:00 08/11/18 91 28 100 06:00 08/11/18 89 20 97 05:00 08/11/18 84 04:00 08/11/18 85 22 96/69 (78) 98 Room Air 04:00 08/11/18 82 15 86/62 (70) 98 Room Air 03:00 08/11/18 84 21 96/65 (75) 98 Room Air 02:00 08/11/18 85 26 89/74 (79) 98 Room Air 01:00 08/11/18 78 00:00 08/11/18 98.2 77 23 90/54 (66) 100 Room Air 00:00 08/10/18 87 21 96/64 (75) 98 Room Air 23:00 08/10/18 98.4 93 16 22:00 08/10/18 99 17 87/57 (67) 100 Room Air 21:00 08/10/18 91 20:00 08/10/18 90 22 84/58 (67) 20:00 08/10/18 99 21 88/60 (69) 19:00 08/10/18 102 20 89/69 (76) 97 18:00 Vital Signs Date Temp Pulse Resp B/P (MAP) Pulse Ox O2 O2 Flow FiO2 Time Delivery Rate 08/13/18 97 16:00 08/13/18 98.6 20 109/81 99 15:14 (90) 08/13/18 Room Air 04:01 Intake and Output 08/12/18 08/12/18 08/13/18 1515:00 23:00 07:00 IntakeIntake Total 800 ml 400 ml OutputOutput Total 1100 ml 1200 ml BalanceBalance -300 ml -1200 ml 400 ml Constitutional: alert, oriented, well developed Psych: depression Respiratory: clear to auscultation, normal air movement Cardiovascular: regular rate and rhythm, nl pulses; No edema, No murmurs/extra sounds, No rub Gastrointestinal: soft, nl liver, spleen, non-tender, bowel sounds; No mass, No rebound or guarding Musculoskeletal: nl extremities to inspection Extremities: normal pulses; No cyanosis, No clubbing, No edema 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, nl mental status, nl speech, nl strength Additional Comments Bedside Glucose - 72 Hours Test 08/10/18 18:06 08/10/18 19:55 08/10/18 21:02 08/10/18 22:00 Bedside 198 293 221 164 Glucose mg/dL (70-220) mg/dL (70-220) mg/dL (70-220) mg/dL (70-220) H H Test 08/10/18 23:05 08/11/18 00:07 08/11/18 01:10 08/11/18 02:18 Bedside 169 196 194 231 Glucose mg/dL (70-220) mg/dL (70-220) mg/dL (70-220) mg/dL (70-220) H Test 08/11/18 03:14 08/11/18 04:08 08/11/18 05:00 08/11/18 05:58 Bedside 222 226 237 242 Glucose mg/dL (70-220) mg/dL (70-220) mg/dL (70-220) mg/dL (70-220) H H H H Test 08/11/18 07:04 08/11/18 08:47 08/11/18 10:18 08/11/18 10:52 Bedside 162 154 169 272 Glucose mg/dL (70-220) mg/dL (70-220) mg/dL (70-220) mg/dL (70-220) H Test 08/11/18 12:19 08/11/18 13:05 08/11/18 14:04 08/11/18 14:37 Bedside 107 83 173 249 Glucose mg/dL (70-220) mg/dL (70-220) mg/dL (70-220) mg/dL (70-220) H Test 08/11/18 15:36 08/11/18 17:10 08/11/18 18:21 08/11/18 20:13 Bedside 275 281 309 438 Glucose mg/dL (70-220) mg/dL (70-220) mg/dL (70-220) mg/dL (70-220) H H H *H Test 08/12/18 02:01 08/12/18 07:58 08/12/18 11:39 08/12/18 17:48 Bedside 203 208 151 278 Glucose mg/dL (70-220) mg/dL (70-220) mg/dL (70-220) mg/dL (70-220) H Test 08/12/18 21:07 08/13/18 08:16 08/13/18 11:18 Bedside 207 186 163 Glucose mg/dL (70-220) mg/dL (70-220) mg/dL (70-220) Results Result Diagram: 08/13/18 0616 08/13/18 0616 Results 24hrs Laboratory Tests Test 08/12/18 17:48 08/12/18 21:07 08/13/18 06:16 08/13/18 08:16 Bedside Glucose 278 H 207 186 White Blood Count 15.5 H Red Blood Count 4.84 Hemoglobin 13.2 L Hematocrit 38.7 L Mean Corpuscular 80.0 L Volume Mean Corpuscular 27.3 L Hemoglobin Mean Corpuscular 34.1 Hemoglobin Concent Red Cell Distribution 12.5 Width Platelet Count 383 Mean Platelet Volume 9.4 Immature Granulocytes 1.100 H % Neutrophils % 74.8 Lymphocytes % 13.9 L Monocytes % 9.6 Eosinophils % 0.2 Basophils % 0.4 Nucleated Red Blood 0.0 Cells % Immature Granulocytes 0.170 H # Neutrophils # 11.6 H Lymphocytes # 2.2 Monocytes # 1.5 H Eosinophils # 0.0 Basophils # 0.1 Nucleated Red Blood 0.0 Cells # Sodium Level 135 Potassium Level 4.0 Chloride Level 96 L Carbon Dioxide Level 28 Anion Gap 11 Blood Urea Nitrogen 25 #H Creatinine 0.85 Est Glomerular > 60 Filtrat Rate mL/min Glucose Level 172 Calcium Level 10.2 Magnesium Level 0.9 *L Total Bilirubin 0.1 L Direct Bilirubin 0.00 Indirect Bilirubin 0.1 Aspartate Amino 34 Transf (AST/SGOT) Alanine 78 H Aminotransferase (ALT /SGPT) Alkaline Phosphatase 1012 H Total Protein 7.7 Albumin 3.7 Globulin 4.00 H Albumin/Globulin 0.92 Ratio Test 08/13/18 11:18 08/13/18 12:56 Bedside Glucose 163 Lab Scanned Report REFERENCE LAB Medications Medication Current Medications IV Flush (NS 3 ml) 3 ml PER PROTOCOL IV ; Start 08/03/18 at 21:30 Ondansetron HCl (Zofran Inj) 4 mg Q6H PRN IV NAUSEA/VOMITING; Start 08/03/18 at 21:30 Heparin Sodium (Porcine) (Heparin (5000 Units/1ml)) 5,000 unit BID SC Last administered on 08/12/18at 21:20; Admin Dose 5,000 UNIT; Start 08/06/18 at 21:00 Levofloxacin (Levaquin) 500 mg DAILY@06 PO Last administered on 08/13/18at 06:34; Admin Dose 500 MG; Start 08/08/18 at 06:00 Cefepime HCl 50 ml @ 100 mls/hr Q12 IVPB Last administered on 08/12/18at 21:12; Admin Dose 100 MLS/HR; Start 08/07/18 at 21:00 Glucose (Glutose) 15 gm Q15M PRN PO DECREASED GLUCOSE; Start 08/10/18 at 10:00 Glucose (Glutose) 22.5 gm Q15M PRN PO DECREASED GLUCOSE; Start 08/10/18 at 10:00 Dextrose (D50w Syringe) 25 ml Q15M PRN IV DECREASED GLUCOSE; Start 08/10/18 at 10:00 Dextrose (D50w Syringe) 50 ml Q15M PRN IV DECREASED GLUCOSE; Start 08/10/18 at 10:00 Glucagon (Glucagen) 1 mg Q15M PRN IM DECREASED GLUCOSE; Start 08/10/18 at 10:00 Glucose (Glutose) 15 gm Q15M PRN BUCCAL DECREASED GLUCOSE; Start 08/10/18 at 10:00 Metformin HCl (Glucophage Xr) 1,000 mg BID PO Last administered on 08/13/18at 08:58; Admin Dose 1,000 MG; Start 08/10/18 at 21:00 Diagnostic Test (Pha) (Accu-Chek) 1 ea 02 XX Last administered on 08/12/18at 02:02; Admin Dose 1 EA; Start 08/11/18 at 02:00 Insulin Aspart (Novolog Insulin Pen) 8 unit WITH MEALS SC Last administered on 08/13/18 11:21; Admin Dose 8 UNIT; Start 08/12/18 at 07:35 Insulin Glargine (Lantus) 16 units DAILY@2000 SC Last administered on 08/12/18at 21:14; Admin Dose 16 UNITS; Start 08/11/18 at 20:00 Insulin Aspart (Novolog Insulin Pen) NOVOLOG *MILD* ALGORITHM WITH MEALS BEDTIME SC Last administered on 08/13/18 11:22; Admin Dose 1 UNIT; Start 08/11/18 at 21:00 Magnesium Oxide (Mag-Ox 400) 400 mg BID PO ; Start 08/13/18 at 21:00 SELINA HARRY MD August 13, 2018 17:29
[2018-08-13] MEDS: INSULIN GLARGINE [LANTus] (100 UNITS/ML) SYG SC SCH (22:31)
[2018-08-14] VITALS (21 sets, daily range): BP systolic 79–104; BP diastolic 53–71; PULSE 84–107; RESP 14–25
[2018-08-14] MEDS: ACCU-CHEK XX SCH (02:14)
[2018-08-14] MEDS: LEVOFLOXACIN 500 MG TAB PO SCH (06:23)
[2018-08-14] MEDS ORDERED: LIDOCAINE 2% (SDV) 5 ML INJ ONE (07:00)
[2018-08-14] MEDS ORDERED: PROPOFOL 200 MG INJ ONE (07:00)
[2018-08-14] MEDS: INSULIN ASPART [NOVOLOG] 3 ML PEN SC SCH ×6 (07:55→17:19)
[2018-08-14] MEDS: metFORMIN (XR) 500 MG TAB PO SCH (09:00)
[2018-08-14] MEDS: MAGNESIUM OXIDE 400 MG TAB PO SCH (09:00)
[2018-08-14] MEDS: HEPARIN 5,000 UNIT/1 ML VIAL SC SCH (09:00)
[2018-08-14] MEDS ORDERED: LINAGLIPTIN 5 MG TABLET PO SCH (09:00)
--- NOTE | 2018-08-14 09:42 | PREAC ---
Date/Time of Note Date/Time of Note DATE: 08/14/18 TIME: 09:41 Anesthesia Eval and Record Evaluation Time Pre-Procedure Interview DATE: 08/14/18 TIME: 09:41 Age 28 Sex male NPO: 8 hrs Preoperative diagnosis endocarditis Planned procedure PEPPER Past Medical History Past Medical History: Includes Cardio: Other (EF50%) Endo: Diabetes Surgery & Anesthesia Issues No known issue Meds Anticoagulation: No Beta Jada within 24 hr: No Reason Beta Jada not given: Pt. not on B-Jada Current Medications IV Flush (NS 3 ml) 3 ml PER PROTOCOL IV ; Start 08/03/18 at 21:30 Ondansetron HCl (Zofran Inj) 4 mg Q6H PRN IV NAUSEA/VOMITING; Start 08/03/18 at 21:30 Heparin Sodium (Porcine) (Heparin (5000 Units/1ml)) 5,000 unit BID SC Last administered on 08/13/18at 22:30; Admin Dose 5,000 UNIT; Start 08/06/18 at 21:00 Levofloxacin (Levaquin) 500 mg DAILY@06 PO Last administered on 08/14/18at 06:23; Admin Dose 500 MG; Start 08/08/18 at 06:00 Cefepime HCl 50 ml @ 100 mls/hr Q12 IVPB Last administered on 08/13/18at 20:49; Admin Dose 100 MLS/HR; Start 08/07/18 at 21:00 Glucose (Glutose) 15 gm Q15M PRN PO DECREASED GLUCOSE; Start 08/10/18 at 10:00 Glucose (Glutose) 22.5 gm Q15M PRN PO DECREASED GLUCOSE; Start 08/10/18 at 10:00 Dextrose (D50w Syringe) 25 ml Q15M PRN IV DECREASED GLUCOSE; Start 08/10/18 at 10:00 Dextrose (D50w Syringe) 50 ml Q15M PRN IV DECREASED GLUCOSE; Start 08/10/18 at 10:00 Glucagon (Glucagen) 1 mg Q15M PRN IM DECREASED GLUCOSE; Start 08/10/18 at 10:00 Glucose (Glutose) 15 gm Q15M PRN BUCCAL DECREASED GLUCOSE; Start 08/10/18 at 10:00 Metformin HCl (Glucophage Xr) 1,000 mg BID PO Last administered on 08/13/18at 20:48; Admin Dose 1,000 MG; Start 08/10/18 at 21:00 Diagnostic Test (Pha) (Accu-Chek) 1 ea 02 XX Last administered on 08/14/18at 02:14; Admin Dose 1 EA; Start 08/11/18 at 02:00 Insulin Aspart (Novolog Insulin Pen) 8 unit WITH MEALS SC Last administered on 08/13/18at 17:40; Admin Dose 8 UNIT; Start 08/12/18 at 07:35 Insulin Glargine (Lantus) 16 units DAILY@2000 SC Last administered on 08/13/18at 22:31; Admin Dose 16 UNITS; Start 08/11/18 at 20:00 Insulin Aspart (Novolog Insulin Pen) NOVOLOG *MILD* ALGORITHM WITH MEALS BEDTIME SC Last administered on 08/13/18 22:30; Admin Dose 1 UNIT; Start 08/11/18 at 21:00 Magnesium Oxide (Mag-Ox 400) 400 mg BID PO Last administered on 08/13/18at 20:49; Admin Dose 400 MG; Start 08/13/18 at 21:00 Linagliptin (Tradjenta) 5 mg DAILY PO ; Start 08/14/18 at 09:00 Meds reviewed: Yes Allergies Coded Allergies: No Known Allergies (Verified Allergy, Unknown, 08/03/18) Allergies Reviewed: Yes Labs/Studies Labs Reviewed: Reviewed by anesthesiologist Result Diagram: 08/14/1861308/14/18 0614 Laboratory Tests 08/14/18 06:14 test: N/A Studies: ECG (sr), CXR (patchy infiltrate) Pre-procedure Exam Last vitals Vital Signs Date Temp Pulse Resp B/P (MAP) Pulse Ox O2 O2 Flow FiO2 Time Delivery Rate 08/14/18 100 08:11 08/14/18 98.3 20 97/64 (75) 94 07:11 08/13/18 Room Air 04:01 Airway: Adequate mouth opening Mallampati: Mallampati I Teeth: Normal Lung: Normal Heart: Normal ASA Physical Status ASA physical status: 2 Emergency: None Planned Anesthetic General/MAC: MAC, TIVA Planned Pain Management Parenteral pain med Pre-operative Attestations Prior to commencing anesthesia and surgery, the patient was re-evaluated, there was verification of: *The patient's identity *The results of appropriate recent lab work and preoperative vital signs *The above evaluation not changing prior to induction *Anesthetic plan, risk benefits, alternative and complications discussed with patient/family; questions answered; patient/family understands, accepts and wishes to proceed. TROY PRYOR MD August 14, 2018 09:42
--- NOTE | 2018-08-14 09:55 | CONS ---
Assessment/Plan Assessment/Plan Assessment/Plan (Daily) Chest x-ray was reviewed from today which is totally clear. Assessment and recommendations; 1. patient admitted with DKA with bilateral cavitary pneumonia with significant clinical and radiological improvement. Continue with supportive care. Consider discharge on combination of oral doxycycline and Levaquin for additional 1 week. Consultation Date/Type/Reason Admit Date/Time Aug 03, 2018 at 19:57 Initial Consult Date 08/10/18 Type of Consult Pulmonary Patient is a 28-year-old male who was admitted to the hospital transfer from the facility for management of hyperglycemia. Upon further evaluation patient underwent a CT of the chest which showed bilateral pneumonia. Patient has been started on appropriate antimicrobial regimen with significant improvement in symptoms. Patient did have a scant cough on admission but denies any hemoptysis, sputum production, fever, chills, any chest pain. By the time I saw the patient in the room, patient completely awake and alert and did not appear to be in any distress whatsoever. Past medical history; 1. History of diabetes apparently poorly controlled. Medications; reviewed. Allergies; none. Social history; noncontributory. Family history; noncontributory. Occupational history; patient is on disability. Review of systems; denies any headache, seizures, sinus symptoms. Denies any chest pain, shortness of breath, coughing, wheezing, sputum production or he moptysis. Complains of some weight loss. Denies any abdominal pain, nausea vomiting, melena hematochezia. Does complain of frequency of urination. Denies any orthopnea or PND. Any skin changes or any arthritis symptoms. General exam; young male, awake alert, currently in no distress. Requesting Provider: REGINE LALA MD Date/Time of Note DATE: 08/14/18 TIME: 09:54 24 HR Interval Summary Free Text/Dictation Patient's condition is stable. Remains awake and alert. Denies any coughing, wheezing, sputum production or fever. General exam; young male, awake alert, currently no distress. Exam/Review of Systems Exam Vitals Vital Signs Date Temp Pulse Resp B/P (MAP) Pulse Ox O2 O2 Flow FiO2 Time Delivery Rate 08/14/18 100 08:11 08/14/18 98.3 20 97/64 (75) 94 07:11 08/13/18 Room Air 04:01 Intake and Output 08/13/18 08/13/18 08/14/18 1515:00 23:00 07:00 IntakeIntake Total 1800 ml 350 ml BalanceBalance 1800 ml 350 ml Exam H EENT exam; supple neck, no JVD. No lymphadenopathy. Midline trachea. No thyromegaly. Patient has good dentition. No neck masses. Chest exam; clear to auscultation. S1-S2 audible, no murmurs. Regular rhythm. Abdomen exam; soft, nontender. No organomegaly. Bowel sounds audible. Extremity exam; no peripheral edema clubbing. 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 Results Result Diagram: 08/14/18 0614 08/14/18 0614 Results 24hrs Laboratory Tests Test 08/13/18 11:18 08/13/18 12:56 08/13/18 17:36 08/13/18 20:47 Bedside Glucose 163 213 187 Lab Scanned Report REFERENCE LAB Test 08/14/18 01:57 08/14/18 06:14 08/14/18 07:57 Bedside Glucose 165 147 White Blood Count 14.8 H Red Blood Count 4.84 Hemoglobin 13.1 L Hematocrit 39.2 L Mean Corpuscular 81.0 L Volume Mean Corpuscular 27.1 L Hemoglobin Mean Corpuscular 33.4 Hemoglobin Concent Red Cell Distribution 12.4 Width Platelet Count 374 Mean Platelet Volume 9.6 Immature Granulocytes 1.000 H % Neutrophils % 67.8 Lymphocytes % 18.4 Monocytes % 12.0 H Eosinophils % 0.2 Basophils % 0.6 Nucleated Red Blood 0.0 Cells % Immature Granulocytes 0.150 H # Neutrophils # 10.0 H Lymphocytes # 2.7 Monocytes # 1.8 H Eosinophils # 0.0 Basophils # 0.1 Nucleated Red Blood 0.0 Cells # Prothrombin Time 11.6 L Prothrombin Time 0.9 Ratio INR International 0.84 Normalized Ratio Activated 30.3 Partial Thromboplast Time Sodium Level 137 Potassium Level 3.9 Chloride Level 96 L Carbon Dioxide Level 27 Anion Gap 14 H Blood Urea Nitrogen 29 H Creatinine 0.87 Est Glomerular > 60 Filtrat Rate mL/min Glucose Level 152 Calcium Level 10.3 H Medications Medication Current Medications IV Flush (NS 3 ml) 3 ml PER PROTOCOL IV ; Start 08/03/18 at 21:30 Ondansetron HCl (Zofran Inj) 4 mg Q6H PRN IV NAUSEA/VOMITING; Start 08/03/18 at 21:30 Heparin Sodium (Porcine) (Heparin (5000 Units/1ml)) 5,000 unit BID SC Last administered on 08/13/18 22:30; Admin Dose 5,000 UNIT; Start 08/06/18 at 21:00 Levofloxacin (Levaquin) 500 mg DAILY@06 PO Last administered on 08/14/18 06:23; Admin Dose 500 MG; Start 08/08/18 at 06:00 Cefepime HCl 50 ml @ 100 mls/hr Q12 IVPB Last administered on 08/13/18 20:49; Admin Dose 100 MLS/HR; Start 08/07/18 at 21:00 Glucose (Glutose) 15 gm Q15M PRN PO DECREASED GLUCOSE; Start 08/10/18 at 10:00 Glucose (Glutose) 22.5 gm Q15M PRN PO DECREASED GLUCOSE; Start 08/10/18 at 10:00 Dextrose (D50w Syringe) 25 ml Q15M PRN IV DECREASED GLUCOSE; Start 08/10/18 at 10:00 Dextrose (D50w Syringe) 50 ml Q15M PRN IV DECREASED GLUCOSE; Start 08/10/18 at 10:00 Glucagon (Glucagen) 1 mg Q15M PRN IM DECREASED GLUCOSE; Start 08/10/18 at 10:00 Glucose (Glutose) 15 gm Q15M PRN BUCCAL DECREASED GLUCOSE; Start 08/10/18 at 10:00 Metformin HCl (Glucophage Xr) 1,000 mg BID PO Last administered on 08/13/18 20:48; Admin Dose 1,000 MG; Start 08/10/18 at 21:00 Diagnostic Test (Pha) (Accu-Chek) 1 ea 02 XX Last administered on 08/14/18 02:14; Admin Dose 1 EA; Start 08/11/18 at 02:00 Insulin Aspart (Novolog Insulin Pen) 8 unit WITH MEALS SC Last administered on 08/13/18 17:40; Admin Dose 8 UNIT; Start 08/12/18 at 07:35 Insulin Glargine (Lantus) 16 units DAILY@2000 SC Last administered on 08/13/18 22:31; Admin Dose 16 UNITS; Start 08/11/18 at 20:00 Insulin Aspart (Novolog Insulin Pen) NOVOLOG *MILD* ALGORITHM WITH MEALS BEDTIME SC Last administered on 08/13/18at 22:30; Admin Dose 1 UNIT; Start 08/11/18 at 21:00 Magnesium Oxide (Mag-Ox 400) 400 mg BID PO Last administered on 08/13/18at 20:49; Admin Dose 400 MG; Start 08/13/18 at 21:00 Linagliptin (Tradjenta) 5 mg DAILY PO ; Start 08/14/18 at 09:00 LUIS BAPTISTE August 14, 2018 09:55
[2018-08-14] MEDS ORDERED: MIDAZOLAM 1 MG/ML 2 ML INJ ONE (09:57)
--- NOTE | 2018-08-14 10:52 | PAC ---
Date/Time of Note Date/Time of Note DATE: 08/14/18 TIME: 10:51 Post-Anesthesia Notes Post-Anesthesia Note Last documented vital signs Vital Signs Date Temp Pulse Resp B/P (MAP) Pulse Ox O2 O2 Flow FiO2 Time Delivery Rate 08/14/18 98 100 80/56 99 1052 08/14/18 98.3 20 97/64 (75) 94 07:11 08/13/18 Room Air 04:01 Activity: WNL Respiratory function: WNL Cardiovascular function: WNL Mental status: Baseline Pain reasonably controlled: Yes Hydration appropriate: Yes Nausea/Vomiting absent: Yes USAMA LÓPEZ August 14, 2018 10:52
[2018-08-14] MEDS ORDERED: OXYCODONE/ACETAMINOPHEN (5/325) TAB PO PRN (11:00)
[2018-08-14] MEDS ORDERED: DIPHENHYDRAMINE 50 MG INJ IV PRN (11:00)
[2018-08-14] MEDS ORDERED: ONDANSETRON 4 MG INJ IV PRN (11:00)
[2018-08-14] MEDS ORDERED: MEPERIDINE 25 MG INJ IV PRN (11:00)
[2018-08-14] MEDS ORDERED: ALBUTEROL 0.083% (NEB) 2.5 MG/3 ML AMP HHN PRN (11:00)
[2018-08-14] MEDS ORDERED: EPHEDrine SULFATE 50 MG/5 ML SYG IV PRN (11:00)
[2018-08-14] MEDS ORDERED: FENTAnyl 50 MCG/ML VIAL IV PRN (11:00)
[2018-08-14] MEDS ORDERED: hydrALAzine 20 MG INJ IV PRN (11:00)
[2018-08-14] MEDS ORDERED: LABETALOL HCL 20MG INJ IV PRN (11:00)
--- NOTE | 2018-08-14 11:11 | SIPON ---
Date/Time of Note Date/Time of Note DATE: 08/14/18 TIME: 11:04 Operative Report Preoperative Diagnosis 1.septic emboli Postoperative Diagnosis 1.no definite findings of vavular vegetation or other intracardiac source of infection Operation/Procedure Performed 1.PEPPER Surgeon see signature line recreation assistant Teresa Anesthesia: moderate sedation Estimated blood loss: minimal Transfusion Required none Specimen none Grafts/Implants none Complications none JARROD RENDON August 14, 2018 11:11
[2018-08-14] MEDS: CEFEPIME 1GM/50 ML (PMX) 50 ML IVPB SCH (12:10)
--- NOTE | 2018-08-14 13:19 | CONS ---
Assessment/Plan Assessment/Plan Hospital Course (Demo Recall) No acute changes overnight Alert, feels good, wants to go home Microbiology: All cultures negative PEPPER neg Antimicrobials: Cefepime, Levaquin CT of the chest revealed multiple ill-defined bilateral cavitary lung nodules findings are suspicious for septic emboli rule out other etiologies. MRI of the abdomen revealed unremarkable gallbladder and biliary ductal system Physical examination: Well-developed young man who is alert in no distress. Head atraumatic normocephalic sclera. Mucosa dry. Neck is supple chest rise symmetrical breath sounds diminished to bases. Heart: S1-S2 abdomen soft bowel sounds present. Extremities without cyanosis. Assessment: 1. S/p sepsis 2. Bilateral cavitary pneumonia, likely SPE===> PPD placed 08/06, neg 3. Diabetes 4. Transaminitis Plan: Remains stable, PEPPER negative, cxr improved, consider dc on oral Levaquin and Doxycycline for 7 more days Consultation Date/Type/Reason Admit Date/Time Aug 03, 2018 at 19:57 Initial Consult Date 08/05/18 Type of Consult id Requesting Provider: REGINE LALA MD Date/Time of Note DATE: 08/14/18 TIME: 13:18 Exam/Review of Systems Exam Vitals Vital Signs Date Temp Pulse Resp B/P (MAP) Pulse Ox O2 O2 Flow FiO2 Time Delivery Rate 08/14/18 88 12:08 08/14/18 99.1 18 101/63 97 Room Air 12:08 (76) Intake and Output 08/13/18 08/13/18 08/14/18 1515:00 23:00 07:00 IntakeIntake Total 1800 ml 350 ml BalanceBalance 1800 ml 350 ml Results Result Diagram: 08/14/18 0614 08/14/18 0614 Results 24hrs Laboratory Tests Test 08/13/18 17:36 08/13/18 20:47 08/14/18 01:57 08/14/18 06:14 Bedside Glucose 213 187 165 White Blood Count 14.8 H Red Blood Count 4.84 Hemoglobin 13.1 L Hematocrit 39.2 L Mean Corpuscular Volume 81.0 L Mean Corpuscular 27.1 L Hemoglobin Mean Corpuscular 33.4 Hemoglobin Concent Red Cell Distribution 12.4 Width Platelet Count 374 Mean Platelet Volume 9.6 Immature Granulocytes % 1.000 H Neutrophils % 67.8 Lymphocytes % 18.4 Monocytes % 12.0 H Eosinophils % 0.2 Basophils % 0.6 Nucleated Red Blood 0.0 Cells % Immature Granulocytes # 0.150 H Neutrophils # 10.0 H Lymphocytes # 2.7 Monocytes # 1.8 H Eosinophils # 0.0 Basophils # 0.1 Nucleated Red Blood 0.0 Cells # Prothrombin Time 11.6 L Prothrombin Time Ratio 0.9 INR International 0.84 Normalized Ratio Activated 30.3 Partial Thromboplast Time Sodium Level 137 Potassium Level 3.9 Chloride Level 96 L Carbon Dioxide Level 27 Anion Gap 14 H Blood Urea Nitrogen 29 H Creatinine 0.87 Est Glomerular Filtrat > 60 Rate mL/min Glucose Level 152 Calcium Level 10.3 H Test 08/14/18 07:57 08/14/18 10:51 08/14/18 12:05 Bedside Glucose 147 175 163 Medications Medication Current Medications IV Flush (NS 3 ml) 3 ml PER PROTOCOL IV ; Start 08/03/18 at 21:30 Ondansetron HCl (Zofran Inj) 4 mg Q6H PRN IV NAUSEA/VOMITING; Start 08/03/18 at 21:30 Heparin Sodium (Porcine) (Heparin (5000 Units/1ml)) 5,000 unit BID SC Last administered on 08/13/18at 22:30; Admin Dose 5,000 UNIT; Start 08/06/18 at 21:00 Levofloxacin (Levaquin) 500 mg DAILY@06 PO Last administered on 08/14/18at 06:23; Admin Dose 500 MG; Start 08/08/18 at 06:00 Cefepime HCl 50 ml @ 100 mls/hr Q12 IVPB Last administered on 08/14/18at 12:10; Admin Dose 100 MLS/HR; Start 08/07/18 at 21:00 Glucose (Glutose) 15 gm Q15M PRN PO DECREASED GLUCOSE; Start 08/10/18 at 10:00 Glucose (Glutose) 22.5 gm Q15M PRN PO DECREASED GLUCOSE; Start 08/10/18 at 10:00 Dextrose (D50w Syringe) 25 ml Q15M PRN IV DECREASED GLUCOSE; Start 08/10/18 at 10:00 Dextrose (D50w Syringe) 50 ml Q15M PRN IV DECREASED GLUCOSE; Start 08/10/18 at 10:00 Glucagon (Glucagen) 1 mg Q15M PRN IM DECREASED GLUCOSE; Start 08/10/18 at 10:00 Glucose (Glutose) 15 gm Q15M PRN BUCCAL DECREASED GLUCOSE; Start 08/10/18 at 10:00 Metformin HCl (Glucophage Xr) 1,000 mg BID PO Last administered on 08/13/18 20:48; Admin Dose 1,000 MG; Start 08/10/18 at 21:00 Diagnostic Test (Pha) (Accu-Chek) 1 ea 02 XX Last administered on 08/14/18 02:14; Admin Dose 1 EA; Start 08/11/18 at 02:00 Insulin Aspart (Novolog Insulin Pen) 8 unit WITH MEALS SC Last administered on 08/14/18 12:28; Admin Dose 8 UNIT; Start 08/12/18 at 07:35 Insulin Glargine (Lantus) 16 units DAILY@2000 SC Last administered on 08/13/18 22:31; Admin Dose 16 UNITS; Start 08/11/18 at 20:00 Insulin Aspart (Novolog Insulin Pen) NOVOLOG *MILD* ALGORITHM WITH MEALS BEDTIME SC Last administered on 08/14/18 12:28; Admin Dose 1 UNIT; Start 08/11/18 at 21:00 Magnesium Oxide (Mag-Ox 400) 400 mg BID PO Last administered on 08/13/18 20:49; Admin Dose 400 MG; Start 08/13/18 at 21:00 Linagliptin (Tradjenta) 5 mg DAILY PO Last administered on 08/14/18 12:10; Admin Dose 5 MG; Start 08/14/18 at 09:00 Fentanyl (Sublimaze) 25 mcg PACU ORDER PRN IV MILD PAIN 1-3; Start 08/14/18 at 11:00; Stop 08/14/18 at 15:00 Oxycodone/ Acetaminophen (Percocet (5/ 325)) 1 tab PACU ORDER PRN PO .PAIN 1-5; Start 08/14/18 at 11:00; Stop 08/14/18 at 15:00 Ondansetron HCl (Zofran Inj) 4 mg PACU ORDER PRN IV NAUSEA/VOMITING; Start 08/14/18 at 11:00; Stop 08/14/18 at 15:00 Labetalol HCl (Labetalol) 5 mg PACU ORDER PRN IV HIGH BLOOD PRESSURE; Start 08/14/18 at 11:00; Stop 08/14/18 at 15:00 Hydralazine HCl (Apresoline) 5 mg PACU ORDER PRN IV HIGH BLOOD PRESSURE; Start 08/14/18 at 11:00; Stop 08/14/18 at 15:00 Ephedrine Sulfate 5 mg PACU ORDER PRN IV BLOOD PRESSURE SUPPORT; Start 08/14/18 at 11:00; Stop 08/14/18 at 15:00 Albuterol (Proventil 0.083% (Neb)) 2.5 mg PACU ORDER PRN HHN .WHEEZING; Start 08/14/18 at 11:00; Stop 08/14/18 at 15:00 Meperidine HCl (Demerol) 25 mg PACU ORDER PRN IV .RIGORS; Start 08/14/18 at 11:00; Stop 08/14/18 at 15:00 Diphenhydramine HCl (Benadryl) 25 mg PACU ORDER PRN IV .PRURITUS; Start 08/14/18 at 11:00; Stop 08/14/18 at 15:00 AUDRA DILLON NP August 14, 2018 13:19
--- NOTE | 2018-08-14 13:57 | CONS ---
Assessment/Plan Assessment/Plan Problems: (1) Type 2 diabetes mellitus with hyperglycemia Status: Chronic Comment: NPO this am for PEPPER. However, BG control has remained excellent. Will cont. current insulin doses and metformin/tradjenta. Qualifiers: Diabetes mellitus intermediate insulin use: with intermediate use Qualified Codes: E11.65 - Type 2 diabetes mellitus with hyperglycemia; Z79.4 - custodial (current) use of insulin Consultation Date/Type/Reason Admit Date/Time Aug 03, 2018 at 19:57 Initial Consult Date 08/10/18 Type of Consult Endocrinology Reason for Consultation [facility] Requesting Provider: REGINE LALA MD Date/Time of Note DATE: 08/14/18 TIME: 13:55 24 HR Interval Summary Constitutional: no complaints, improved (wants to go home) Detailed Summary Respiratory: no complaints Cardiovascular: no complaints Gastrointestinal: no complaints Genitourinary: no complaints Musculoskeletal: no complaints Neurologic: no complaints Exam/Review of Systems Exam Vitals VS - Last 72 Hours, by Label Date Temp Pulse Resp B/P (MAP) Pulse Ox O2 O2 Flow FiO2 Time Delivery Rate 08/14/18 88 12:08 08/14/18 99.1 89 18 101/63 97 Room Air 12:08 (76) 08/14/18 98.1 90 14 98/64 (75) 100 Room Air 11:49 08/14/18 86 19 103/65 100 Room Air 11:44 (78) 08/14/18 90 21 102/62 100 Room Air 11:39 (75) 08/14/18 90 23 97/63 (74) 100 Room Air 11:34 08/14/18 90 21 93/63 (73) 100 Room Air 11:29 08/14/18 96 23 100/61 100 Room Air 11:24 (74) 08/14/18 88 22 101/63 100 Room Air 11:19 (76) 08/14/18 90 21 94/60 (71) 100 Room Air 11:14 08/14/18 84 23 98/60 (73) 100 Room Air 11:09 08/14/18 88 25 92/53 (66) 98 Room Air 11:04 08/14/18 96 24 91/56 (68) 97 Room Air 10:59 08/14/18 18 100/63 100 Room Air 10:52 (75) 08/14/18 97.9 96 14 79/58 (65) 96 Room Air 10:47 08/14/18 100 08:11 08/14/18 98.3 97 20 97/64 (75) 94 07:11 08/14/18 88 04:22 08/14/18 98.6 105 20 101/63 94 03:23 (76) 08/14/18 107 00:52 08/13/18 98.5 111 20 106/68 94 23:26 (81) 08/13/18 108 20:50 08/13/18 99.6 103 20 114/71 99 20:16 (85) 08/13/18 97 16:00 08/13/18 98.6 96 20 109/81 99 15:14 (90) 08/13/18 103 12:00 08/13/18 98.6 103 20 92/55 (67) 98 11:20 08/13/18 105 08:00 08/13/18 98.6 124 20 105/73 97 07:11 (84) 08/13/18 98.7 113 20 121/71 96 Room Air 04:01 (88) 08/13/18 111 04:00 08/13/18 104 00:00 08/12/18 98.4 108 20 96/54 (68) 98 Room Air 23:47 08/12/18 100.1 109 22 108/71 98 Room Air 22:01 (83) 08/12/18 103 21:57 08/12/18 106 20:00 08/12/18 98.2 108 27 102/63 99 Room Air 20:00 (76) 08/12/18 93 26 103/64 99 Room Air 19:00 (77) 08/12/18 87 24 18:15 08/12/18 94 27 97/68 (78) 18:00 08/12/18 92 23 17:45 08/12/18 90 24 17:30 08/12/18 81 16 17:15 08/12/18 92 22 17:00 08/12/18 92 22 17:00 08/12/18 87 24 16:45 08/12/18 93 24 16:30 08/12/18 91 18 16:15 08/12/18 98 23 16:00 08/12/18 98 23 16:00 08/12/18 101 16:00 08/12/18 98 23 16:00 08/12/18 109 24 96/69 (78) 15:00 08/12/18 109 24 96/69 (78) 15:00 08/12/18 89 22 94/72 (79) 14:00 08/12/18 89 22 94/72 (79) Room Air 14:00 08/12/18 89 22 94/72 (79) 14:00 08/12/18 94 22 86/59 (68) 13:00 08/12/18 94 22 86/59 (68) 13:00 08/12/18 94 22 86/59 (68) Room Air 13:00 08/12/18 81 19 92/66 (75) 99 12:00 08/12/18 81 12:00 08/12/18 98.4 81 19 92/66 (75) 99 Room Air 12:00 08/12/18 103 18 102/77 100 Room Air 11:00 (85) 08/12/18 103 18 102/77 100 11:00 (85) 08/12/18 103 18 102/77 100 Room Air 11:00 (85) 08/12/18 92 21 89/62 (71) Room Air 10:00 08/12/18 92 21 89/62 (71) 10:00 08/12/18 98.9 09:00 08/12/18 84 22 93/60 (71) Room Air 09:00 08/12/18 84 22 93/60 (71) 09:00 08/12/18 94 22 80/61 (67) 08:00 08/12/18 95 08:00 08/12/18 94 22 80/61 (67) Room Air 08:00 08/12/18 94 22 80/61 (67) 08:00 08/12/18 77 21 91/61 (71) 07:00 08/12/18 77 21 91/61 (71) 07:00 08/12/18 77 21 91/61 (71) Room Air 07:00 08/12/18 82 20 95/60 (72) 100 Room Air 06:00 08/12/18 81 21 100 Room Air 05:00 08/12/18 98.4 86 21 77/55 (62) 100 Room Air 04:00 08/12/18 86 04:00 08/12/18 83 14 86/58 (67) 100 Room Air 03:00 08/12/18 81 18 91/55 (67) 100 Room Air 02:00 08/12/18 78 20 89/65 (73) 100 Room Air 01:00 08/12/18 80 00:00 08/12/18 98.7 82 16 93/59 (70) 100 Room Air 00:00 08/11/18 20 110/88 100 Room Air 23:00 (95) 08/11/18 87 27 98/68 (78) 99 Room Air 22:00 08/11/18 87 20 95/64 (74) 100 Room Air 21:00 08/11/18 98.4 88 23 96/69 (78) 100 Room Air 20:00 08/11/18 87 20:00 08/11/18 88 25 96/60 (72) 97 19:00 08/11/18 88 25 96/60 (72) 97 19:00 08/11/18 88 25 96/60 (72) 97 19:00 08/11/18 90 24 100 18:00 08/11/18 90 24 100 18:00 08/11/18 90 24 100 18:00 08/11/18 84 22 99 17:00 08/11/18 84 22 99 17:00 08/11/18 84 22 99 17:00 08/11/18 81 21 94/71 (79) 100 16:00 08/11/18 85 16:00 08/11/18 98.7 81 21 94/71 (79) 100 16:00 08/11/18 83 25 95/61 (72) 99 15:00 08/11/18 84 21 98/70 (79) 100 14:00 Vital Signs Date Temp Pulse Resp B/P (MAP) Pulse Ox O2 O2 Flow FiO2 Time Delivery Rate 08/14/18 88 12:08 08/14/18 99.1 18 101/63 97 Room Air 12:08 (76) Intake and Output 08/13/18 08/13/18 08/14/18 1414:59 22:59 06:59 IntakeIntake Total 1800 ml 350 ml BalanceBalance 1800 ml 350 ml Constitutional: alert, oriented, well developed Psych: depression Respiratory: clear to auscultation, normal air movement Cardiovascular: regular rate and rhythm, nl pulses; No edema, No murmurs/extra sounds, No rub Gastrointestinal: soft, nl liver, spleen, non-tender, bowel sounds; No mass, No rebound or guarding Musculoskeletal: nl extremities to inspection Extremities: normal pulses; No cyanosis, No clubbing, No edema 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: [employer] II-XII intact, nl mental status, nl speech, nl strength Additional Comments Bedside Glucose - 72 Hours Test 08/11/18 14:04 08/11/18 14:37 08/11/18 15:36 08/11/18 17:10 Bedside 173 249 275 281 Glucose mg/dL (70-220) mg/dL (70-220) mg/dL (70-220) mg/dL (70-220) H H H Test 08/11/18 18:21 08/11/18 20:13 08/12/18 02:01 08/12/18 07:58 Bedside 309 438 203 208 Glucose mg/dL (70-220) mg/dL (70-220) mg/dL (70-220) mg/dL (70-220) H *H Test 08/12/18 11:39 08/12/18 17:48 08/12/18 21:07 08/13/18 08:16 Bedside 151 278 207 186 Glucose mg/dL (70-220) mg/dL (70-220) mg/dL (70-220) mg/dL (70-220) H Test 08/13/18 11:18 08/13/18 17:36 08/13/18 20:47 08/14/18 01:57 Bedside 163 213 187 165 Glucose mg/dL (70-220) mg/dL (70-220) mg/dL (70-220) mg/dL (70-220) Test 08/14/18 07:57 08/14/18 10:51 08/14/18 12:05 Bedside 147 175 163 Glucose mg/dL (70-220) mg/dL (70-220) mg/dL (70-220) Results Result Diagram: 08/14/18 0614 08/14/18 0614 Results 24hrs Laboratory Tests Test 08/13/18 17:36 08/13/18 20:47 08/14/18 01:57 08/14/18 06:14 Bedside Glucose 213 187 165 White Blood Count 14.8 H Red Blood Count 4.84 Hemoglobin 13.1 L Hematocrit 39.2 L Mean Corpuscular Volume 81.0 L Mean Corpuscular 27.1 L Hemoglobin Mean Corpuscular 33.4 Hemoglobin Concent Red Cell Distribution 12.4 Width Platelet Count 374 Mean Platelet Volume 9.6 Immature Granulocytes % 1.000 H Neutrophils % 67.8 Lymphocytes % 18.4 Monocytes % 12.0 H Eosinophils % 0.2 Basophils % 0.6 Nucleated Red Blood 0.0 Cells % Immature Granulocytes # 0.150 H Neutrophils # 10.0 H Lymphocytes # 2.7 Monocytes # 1.8 H Eosinophils # 0.0 Basophils # 0.1 Nucleated Red Blood 0.0 Cells # Prothrombin Time 11.6 L Prothrombin Time Ratio 0.9 INR International 0.84 Normalized Ratio Activated 30.3 Partial Thromboplast Time Sodium Level 137 Potassium Level 3.9 Chloride Level 96 L Carbon Dioxide Level 27 Anion Gap 14 H Blood Urea Nitrogen 29 H Creatinine 0.87 Est Glomerular Filtrat > 60 Rate mL/min Glucose Level 152 Calcium Level 10.3 H Test 08/14/18 07:57 08/14/18 10:51 08/14/18 12:05 Bedside Glucose 147 175 163 Medications Medication Current Medications IV Flush (NS 3 ml) 3 ml PER PROTOCOL IV ; Start 08/03/18 at 21:30 Ondansetron HCl (Zofran Inj) 4 mg Q6H PRN IV NAUSEA/VOMITING; Start 08/03/18 at 21:30 Heparin Sodium (Porcine) (Heparin (5000 Units/1ml)) 5,000 unit BID SC Last administered on 08/13/18at 22:30; Admin Dose 5,000 UNIT; Start 08/06/18 at 21:00 Levofloxacin (Levaquin) 500 mg DAILY@06 PO Last administered on 08/14/18at 06:23; Admin Dose 500 MG; Start 08/08/18 at 06:00 Cefepime HCl 50 ml @ 100 mls/hr Q12 IVPB Last administered on 08/14/18at 12:10; Admin Dose 100 MLS/HR; Start 08/07/18 at 21:00 Glucose (Glutose) 15 gm Q15M PRN PO DECREASED GLUCOSE; Start 08/10/18 at 10:00 Glucose (Glutose) 22.5 gm Q15M PRN PO DECREASED GLUCOSE; Start 08/10/18 at 10:00 Dextrose (D50w Syringe) 25 ml Q15M PRN IV DECREASED GLUCOSE; Start 08/10/18 at 10:00 Dextrose (D50w Syringe) 50 ml Q15M PRN IV DECREASED GLUCOSE; Start 08/10/18 at 10:00 Glucagon (Glucagen) 1 mg Q15M PRN IM DECREASED GLUCOSE; Start 08/10/18 at 10:00 Glucose (Glutose) 15 gm Q15M PRN BUCCAL DECREASED GLUCOSE; Start 08/10/18 at 10:00 Metformin HCl (Glucophage Xr) 1,000 mg BID PO Last administered on 08/13/18at 20:48; Admin Dose 1,000 MG; Start 08/10/18 at 21:00 Diagnostic Test (Pha) (Accu-Chek) 1 ea 02 XX Last administered on 08/14/18at 02:14; Admin Dose 1 EA; Start 08/11/18 at 02:00 Insulin Aspart (Novolog Insulin Pen) 8 unit WITH MEALS SC Last administered on 08/14/18 12:28; Admin Dose 8 UNIT; Start 08/12/18 at 07:35 Insulin Glargine (Lantus) 16 units DAILY@2000 SC Last administered on 08/13/18 22:31; Admin Dose 16 UNITS; Start 08/11/18 at 20:00 Insulin Aspart (Novolog Insulin Pen) NOVOLOG *MILD* ALGORITHM WITH MEALS BEDTIME SC Last administered on 08/14/18 12:28; Admin Dose 1 UNIT; Start 08/11/18 at 21:00 Magnesium Oxide (Mag-Ox 400) 400 mg BID PO Last administered on 08/13/18 20:49; Admin Dose 400 MG; Start 08/13/18 at 21:00 Linagliptin (Tradjenta) 5 mg DAILY PO Last administered on 08/14/18 12:10; Admin Dose 5 MG; Start 08/14/18 at 09:00 Fentanyl (Sublimaze) 25 mcg PACU ORDER PRN IV MILD PAIN 1-3; Start 08/14/18 at 11:00; Stop 08/14/18 at 15:00 Oxycodone/ Acetaminophen (Percocet (5/ 325)) 1 tab PACU ORDER PRN PO .PAIN 1-5; Start 08/14/18 at 11:00; Stop 08/14/18 at 15:00 Ondansetron HCl (Zofran Inj) 4 mg PACU ORDER PRN IV NAUSEA/VOMITING; Start 08/14/18 at 11:00; Stop 08/14/18 at 15:00 Labetalol HCl (Labetalol) 5 mg PACU ORDER PRN IV HIGH BLOOD PRESSURE; Start 08/14/18 at 11:00; Stop 08/14/18 at 15:00 Hydralazine HCl (Apresoline) 5 mg PACU ORDER PRN IV HIGH BLOOD PRESSURE; Start 08/14/18 at 11:00; Stop 08/14/18 at 15:00 Ephedrine Sulfate 5 mg PACU ORDER PRN IV BLOOD PRESSURE SUPPORT; Start 08/14/18 at 11:00; Stop 08/14/18 at 15:00 Albuterol (Proventil 0.083% (Neb)) 2.5 mg PACU ORDER PRN HHN .WHEEZING; Start 08/14/18 at 11:00; Stop 08/14/18 at 15:00 Meperidine HCl (Demerol) 25 mg PACU ORDER PRN IV .RIGORS; Start 08/14/18 at 11:00; Stop 08/14/18 at 15:00 Diphenhydramine HCl (Benadryl) 25 mg PACU ORDER PRN IV .PRURITUS; Start 08/14/18 at 11:00; Stop 08/14/18 at 15:00 SELINA HARRY MD August 14, 2018 13:57
--- NOTE | 2018-08-14 14:18 | PN ---
Date/Time of Note Date/Time of Note DATE: 08/14/18 TIME: 14:12 Assessment/Plan VTE Prophylaxis Risk score (from Ns)>0 risk: 0 SCD applied (from Ns): No SCD contraindicated: low risk/ambulating Pharmacological prophylaxis: NA/contraindicated Pharm contraindication: liver dx Lines/Catheters [facility] (from [facility]): Peripheral IV Urinary Cath still in place: No Assessment/Plan Assessment/Plan Assessment: Elevated alkaline phosphatase- elevated GGT ALk phos- fractionation- predominately liver elevation MRCP: The liver is uniform in appearance on noncontrast imaging, with normal contour and size. The biliary ductal system is unremarkable without evidence of common duct stone. Likewise gallbladder is normal in appearance. AMA- negative Transaminitis- improving Leukocytosis Multiple ill-defined bilateral cavitary lung nodules. -Findings are suspicious for septic emboli. Ddx includes: fungal infection vs tuberculosis vs granulomatous infections. -PPD placed 08/06- negative Type 2 diabetes Hx of crystal meth use Plan: Patient undergone PEPPER today Pending discharge home today Follow-up LFTs in 1 week Patient seen in collaboration with Dr. Vital Subjective: Course reviewed with nursing staff Patient interviewed and examined All labs, imaging and other results reviewed Patient is doing well. He denies abdominal pain, nausea or vomiting. Tolerating the diet well. Patient has undergone PEPPER today. Liver function test is improving. Pending discharge home today. Recommend follow-up with LFTs in 1 week. Exam PHYSICAL EXAMINATION: GENERAL: Alert & oriented x 3 SKIN: No lesions HEAD: Normocephalic, atraumatic, no tenderness. EYES: Pupils equal reactive to light and accommodation, no discharge. EARS/NOSE AND THROAT: Ears normal, nose normal. NECK: Supple, no masses CHEST: Inspection within normal limits. CARDIOVASCULAR: Heart: Regular rate and rhythm RESPIRATORY: Lungs clear to auscultation GASTROINTESTINAL AND LIVER: Abdomen: Soft, non tenderness, non-distended, no hernias, no masses, no organomegaly, no ascites, no guarding, no rebound tenderness, normoactive bowel sounds. Rectal: Deferred. Result Diagram: 08/14/18 0614 08/14/18 0614 Results 24hrs Laboratory Tests Test 08/13/18 17:36 08/13/18 20:47 08/14/18 01:57 08/14/18 06:14 Bedside Glucose 213 187 165 White Blood Count 14.8 H Red Blood Count 4.84 Hemoglobin 13.1 L Hematocrit 39.2 L Mean Corpuscular Volume 81.0 L Mean Corpuscular 27.1 L Hemoglobin Mean Corpuscular 33.4 Hemoglobin Concent Red Cell Distribution 12.4 Width Platelet Count 374 Mean Platelet Volume 9.6 Immature Granulocytes % 1.000 H Neutrophils % 67.8 Lymphocytes % 18.4 Monocytes % 12.0 H Eosinophils % 0.2 Basophils % 0.6 Nucleated Red Blood 0.0 Cells % Immature Granulocytes # 0.150 H Neutrophils # 10.0 H Lymphocytes # 2.7 Monocytes # 1.8 H Eosinophils # 0.0 Basophils # 0.1 Nucleated Red Blood 0.0 Cells # Prothrombin Time 11.6 L Prothrombin Time Ratio 0.9 INR International 0.84 Normalized Ratio Activated 30.3 Partial Thromboplast Time Sodium Level 137 Potassium Level 3.9 Chloride Level 96 L Carbon Dioxide Level 27 Anion Gap 14 H Blood Urea Nitrogen 29 H Creatinine 0.87 Est Glomerular Filtrat > 60 Rate mL/min Glucose Level 152 Calcium Level 10.3 H Test 08/14/18 07:57 08/14/18 10:51 08/14/18 12:05 Bedside Glucose 147 175 163 CC: HUSSEIN VITAL MD ; Exam/Review of Systems Exam Vitals Vital Signs Date Temp Pulse Resp B/P (MAP) Pulse Ox O2 O2 Flow FiO2 Time Delivery Rate 08/14/18 88 12:08 08/14/18 99.1 18 101/63 97 Room Air 12:08 (76) Intake and Output 08/13/18 08/13/18 08/14/18 1515:00 23:00 07:00 IntakeIntake Total 1800 ml 350 ml BalanceBalance 1800 ml 350 ml Results Results 24hrs Laboratory Tests Test 08/13/18 17:36 08/13/18 20:47 08/14/18 01:57 08/14/18 06:14 Bedside Glucose 213 187 165 White Blood Count 14.8 H Red Blood Count 4.84 Hemoglobin 13.1 L Hematocrit 39.2 L Mean Corpuscular Volume 81.0 L Mean Corpuscular 27.1 L Hemoglobin Mean Corpuscular 33.4 Hemoglobin Concent Red Cell Distribution 12.4 Width Platelet Count 374 Mean Platelet Volume 9.6 Immature Granulocytes % 1.000 H Neutrophils % 67.8 Lymphocytes % 18.4 Monocytes % 12.0 H Eosinophils % 0.2 Basophils % 0.6 Nucleated Red Blood 0.0 Cells % Immature Granulocytes # 0.150 H Neutrophils # 10.0 H Lymphocytes # 2.7 Monocytes # 1.8 H Eosinophils # 0.0 Basophils # 0.1 Nucleated Red Blood 0.0 Cells # Prothrombin Time 11.6 L Prothrombin Time Ratio 0.9 INR International 0.84 Normalized Ratio Activated 30.3 Partial Thromboplast Time Sodium Level 137 Potassium Level 3.9 Chloride Level 96 L Carbon Dioxide Level 27 Anion Gap 14 H Blood Urea Nitrogen 29 H Creatinine 0.87 Est Glomerular Filtrat > 60 Rate mL/min Glucose Level 152 Calcium Level 10.3 H Test 08/14/18 07:57 08/14/18 10:51 08/14/18 12:05 Bedside Glucose 147 175 163 Medications Medication Current Medications IV Flush (NS 3 ml) 3 ml PER PROTOCOL IV ; Start 08/03/18 at 21:30 Ondansetron HCl (Zofran Inj) 4 mg Q6H PRN IV NAUSEA/VOMITING; Start 08/03/18 at 21:30 Heparin Sodium (Porcine) (Heparin (5000 Units/1ml)) 5,000 unit BID SC Last administered on 08/13/18at 22:30; Admin Dose 5,000 UNIT; Start 08/06/18 at 21:00 Levofloxacin (Levaquin) 500 mg DAILY@06 PO Last administered on 08/14/18at 06:23; Admin Dose 500 MG; Start 08/08/18 at 06:00 Cefepime HCl 50 ml @ 100 mls/hr Q12 IVPB Last administered on 08/14/18at 12:10; Admin Dose 100 MLS/HR; Start 08/07/18 at 21:00 Glucose (Glutose) 15 gm Q15M PRN PO DECREASED GLUCOSE; Start 08/10/18 at 10:00 Glucose (Glutose) 22.5 gm Q15M PRN PO DECREASED GLUCOSE; Start 08/10/18 at 10:00 Dextrose (D50w Syringe) 25 ml Q15M PRN IV DECREASED GLUCOSE; Start 08/10/18 at 10:00 Dextrose (D50w Syringe) 50 ml Q15M PRN IV DECREASED GLUCOSE; Start 08/10/18 at 10:00 Glucagon (Glucagen) 1 mg Q15M PRN IM DECREASED GLUCOSE; Start 08/10/18 at 10:00 Glucose (Glutose) 15 gm Q15M PRN BUCCAL DECREASED GLUCOSE; Start 08/10/18 at 10:00 Metformin HCl (Glucophage Xr) 1,000 mg BID PO Last administered on 08/13/18 20:48; Admin Dose 1,000 MG; Start 08/10/18 at 21:00 Diagnostic Test (Pha) (Accu-Chek) 1 ea 02 XX Last administered on 08/14/18 02:14; Admin Dose 1 EA; Start 08/11/18 at 02:00 Insulin Aspart (Novolog Insulin Pen) 8 unit WITH MEALS SC Last administered on 08/14/18 12:28; Admin Dose 8 UNIT; Start 08/12/18 at 07:35 Insulin Glargine (Lantus) 16 units DAILY@2000 SC Last administered on 08/13/18 22:31; Admin Dose 16 UNITS; Start 08/11/18 at 20:00 Insulin Aspart (Novolog Insulin Pen) NOVOLOG *MILD* ALGORITHM WITH MEALS BEDTIME SC Last administered on 08/14/18 12:28; Admin Dose 1 UNIT; Start 08/11/18 at 21:00 Magnesium Oxide (Mag-Ox 400) 400 mg BID PO Last administered on 08/13/18 20:49; Admin Dose 400 MG; Start 08/13/18 at 21:00 Linagliptin (Tradjenta) 5 mg DAILY PO Last administered on 08/14/18 12:10; Admin Dose 5 MG; Start 08/14/18 at 09:00 Fentanyl (Sublimaze) 25 mcg PACU ORDER PRN IV MILD PAIN 1-3; Start 08/14/18 at 11:00; Stop 08/14/18 at 15:00 Oxycodone/ Acetaminophen (Percocet (5/ 325)) 1 tab PACU ORDER PRN PO .PAIN 1-5; Start 08/14/18 at 11:00; Stop 08/14/18 at 15:00 Ondansetron HCl (Zofran Inj) 4 mg PACU ORDER PRN IV NAUSEA/VOMITING; Start 08/14/18 at 11:00; Stop 08/14/18 at 15:00 Labetalol HCl (Labetalol) 5 mg PACU ORDER PRN IV HIGH BLOOD PRESSURE; Start 08/14/18 at 11:00; Stop 08/14/18 at 15:00 Hydralazine HCl (Apresoline) 5 mg PACU ORDER PRN IV HIGH BLOOD PRESSURE; Start 08/14/18 at 11:00; Stop 08/14/18 at 15:00 Ephedrine Sulfate 5 mg PACU ORDER PRN IV BLOOD PRESSURE SUPPORT; Start 08/14/18 at 11:00; Stop 08/14/18 at 15:00 Albuterol (Proventil 0.083% (Neb)) 2.5 mg PACU ORDER PRN HHN .WHEEZING; Start 08/14/18 at 11:00; Stop 08/14/18 at 15:00 Meperidine HCl (Demerol) 25 mg PACU ORDER PRN IV .RIGORS; Start 08/14/18 at 11:00; Stop 08/14/18 at 15:00 Diphenhydramine HCl (Benadryl) 25 mg PACU ORDER PRN IV .PRURITUS; Start 08/14/18 at 11:00; Stop 08/14/18 at 15:00 ALEXANDRA SANDOVAL NP August 14, 2018 14:18
[2018-08-14] MEDS ORDERED: INSU100I33 SC (14:25)
[2018-08-14] MEDS ORDERED: LEVO500T48 PO (14:25)
[2018-08-14] MEDS ORDERED: LINA5TAB PO (14:25)
[2018-08-14] MEDS ORDERED: NOVO3I SC (14:25)
[2018-08-14] MEDS ORDERED: METF500T3 PO (14:25)
[2018-08-14] MEDS ORDERED: DOXY100T61 PO (14:25)
[2018-08-14] MEDS ORDERED: NEED-135 MC (14:26)
--- NOTE | 2018-08-14 14:31 | PN ---
Date/Time of Note Date/Time of Note DATE: 08/14/18 TIME: 14:28 Assessment/Plan VTE Prophylaxis Risk score (from Ns)>0 risk: 0 SCD applied (from [facility]): No SCD contraindicated: low risk/ambulating Pharmacological prophylaxis: NA/contraindicated Pharm contraindication: low risk/ambulating Lines/Catheters IV Catheter Type (from [facility]): Peripheral IV Urinary Cath still in place: No Assessment/Plan Assessment/Plan 1. Sepsis secondary to cavitary pneumonia- stable - Pulm on board and appreciate recommendations. - Cardiology consultation appreciated and PEPPER negative for vegetation - WBC still elevated but trending downwards - ID on board and appreciate recommendations. Okay for d/c on PO Levaquin and Doxy 2. Cavitary pneumonia - Pulm on board - Denies any IV drug use, states he did smoke crystal meth on a normal basis however. 3. Diabetes, noncompliant - Continue on lantus, meal coverage and ISS - Endocrinology consultation appreciated 4. Elevated liver enzymes - GI on board and appreciate recommendations 5. Disposition - Medically stable for discharge home. CM consulted for assistance with obtaining prescriptions prior to discharge. Result Diagram: 08/14/1861308/14/1814 Results 24hrs Laboratory Tests Test 08/13/18 17:36 08/13/18 20:47 08/14/18 01:57 08/14/18 06:14 Bedside Glucose 213 187 165 White Blood Count 14.8 H Red Blood Count 4.84 Hemoglobin 13.1 L Hematocrit 39.2 L Mean Corpuscular Volume 81.0 L Mean Corpuscular 27.1 L Hemoglobin Mean Corpuscular 33.4 Hemoglobin Concent Red Cell Distribution 12.4 Width Platelet Count 374 Mean Platelet Volume 9.6 Immature Granulocytes % 1.000 H Neutrophils % 67.8 Lymphocytes % 18.4 Monocytes % 12.0 H Eosinophils % 0.2 Basophils % 0.6 Nucleated Red Blood 0.0 Cells % Immature Granulocytes # 0.150 H Neutrophils # 10.0 H Lymphocytes # 2.7 Monocytes # 1.8 H Eosinophils # 0.0 Basophils # 0.1 Nucleated Red Blood 0.0 Cells # Prothrombin Time 11.6 L Prothrombin Time Ratio 0.9 INR International 0.84 Normalized Ratio Activated 30.3 Partial Thromboplast Time Sodium Level 137 Potassium Level 3.9 Chloride Level 96 L Carbon Dioxide Level 27 Anion Gap 14 H Blood Urea Nitrogen 29 H Creatinine 0.87 Est Glomerular Filtrat > 60 Rate mL/min Glucose Level 152 Calcium Level 10.3 H Test 08/14/18 07:57 08/14/18 10:51 08/14/18 12:05 Bedside Glucose 147 175 163 Subjective 24 Hr Interval Summary Free Text/Dictation Patient denies any acute issues and no overnight events. PEPPER today was negative for any vegetation. Exam/Review of Systems Exam Vitals Vital Signs Date Temp Pulse Resp B/P (MAP) Pulse Ox O2 O2 Flow FiO2 Time Delivery Rate 08/14/18 88 12:08 08/14/18 99.1 18 101/63 97 Room Air 12:08 (76) Intake and Output 08/13/18 08/13/18 08/14/18 1515:00 23:00 07:00 IntakeIntake Total 1800 ml 350 ml BalanceBalance 1800 ml 350 ml Exam General: Patient is laying in bed and answers questions appropriately Neck: Supple, nontender, midline Respiratory: Diminished. no wheezing Cardiovascular: regular rate and rhythm, no obvious murmurs Gastrointestinal: soft, non-tender to palpation, nondistended, bowel sounds heard. Skin: No new skin lesions Results Results 24hrs Laboratory Tests Test 08/13/18 17:36 08/13/18 20:47 08/14/18 01:57 08/14/18 06:14 Bedside Glucose 213 187 165 White Blood Count 14.8 H Red Blood Count 4.84 Hemoglobin 13.1 L Hematocrit 39.2 L Mean Corpuscular Volume 81.0 L Mean Corpuscular 27.1 L Hemoglobin Mean Corpuscular 33.4 Hemoglobin Concent Red Cell Distribution 12.4 Width Platelet Count 374 Mean Platelet Volume 9.6 Immature Granulocytes % 1.000 H Neutrophils % 67.8 Lymphocytes % 18.4 Monocytes % 12.0 H Eosinophils % 0.2 Basophils % 0.6 Nucleated Red Blood 0.0 Cells % Immature Granulocytes # 0.150 H Neutrophils # 10.0 H Lymphocytes # 2.7 Monocytes # 1.8 H Eosinophils # 0.0 Basophils # 0.1 Nucleated Red Blood 0.0 Cells # Prothrombin Time 11.6 L Prothrombin Time Ratio 0.9 INR International 0.84 Normalized Ratio Activated 30.3 Partial Thromboplast Time Sodium Level 137 Potassium Level 3.9 Chloride Level 96 L Carbon Dioxide Level 27 Anion Gap 14 H Blood Urea Nitrogen 29 H Creatinine 0.87 Est Glomerular Filtrat > 60 Rate mL/min Glucose Level 152 Calcium Level 10.3 H Test 08/14/18 07:57 08/14/18 10:51 08/14/18 12:05 Bedside Glucose 147 175 163 Medications Medication Current Medications IV Flush (NS 3 ml) 3 ml PER PROTOCOL IV ; Start 08/03/18 at 21:30 Ondansetron HCl (Zofran Inj) 4 mg Q6H PRN IV NAUSEA/VOMITING; Start 08/03/18 at 21:30 Heparin Sodium (Porcine) (Heparin (5000 Units/1ml)) 5,000 unit BID SC Last administered on 08/13/18at 22:30; Admin Dose 5,000 UNIT; Start 08/06/18 at 21:00 Levofloxacin (Levaquin) 500 mg DAILY@06 PO Last administered on 08/14/18at 06:23; Admin Dose 500 MG; Start 08/08/18 at 06:00 Cefepime HCl 50 ml @ 100 mls/hr Q12 IVPB Last administered on 08/14/18at 12:10; Admin Dose 100 MLS/HR; Start 08/07/18 at 21:00 Glucose (Glutose) 15 gm Q15M PRN PO DECREASED GLUCOSE; Start 08/10/18 at 10:00 Glucose (Glutose) 22.5 gm Q15M PRN PO DECREASED GLUCOSE; Start 08/10/18 at 10:00 Dextrose (D50w Syringe) 25 ml Q15M PRN IV DECREASED GLUCOSE; Start 08/10/18 at 10:00 Dextrose (D50w Syringe) 50 ml Q15M PRN IV DECREASED GLUCOSE; Start 08/10/18 at 10:00 Glucagon (Glucagen) 1 mg Q15M PRN IM DECREASED GLUCOSE; Start 08/10/18 at 10:00 Glucose (Glutose) 15 gm Q15M PRN BUCCAL DECREASED GLUCOSE; Start 08/10/18 at 10:00 Metformin HCl (Glucophage Xr) 1,000 mg BID PO Last administered on 08/13/18at 20:48; Admin Dose 1,000 MG; Start 08/10/18 at 21:00 Diagnostic Test (Pha) (Accu-Chek) 1 ea 02 XX Last administered on 08/14/18at 02:14; Admin Dose 1 EA; Start 08/11/18 at 02:00 Insulin Aspart (Novolog Insulin Pen) 8 unit WITH MEALS SC Last administered on 08/14/18 12:28; Admin Dose 8 UNIT; Start 08/12/18 at 07:35 Insulin Glargine (Lantus) 16 units DAILY@2000 SC Last administered on 08/13/18 22:31; Admin Dose 16 UNITS; Start 08/11/18 at 20:00 Insulin Aspart (Novolog Insulin Pen) NOVOLOG *MILD* ALGORITHM WITH MEALS BEDTIME SC Last administered on 08/14/18at 12:28; Admin Dose 1 UNIT; Start 08/11/18 at 21:00 Magnesium Oxide (Mag-Ox 400) 400 mg BID PO Last administered on 08/13/18at 20:49; Admin Dose 400 MG; Start 08/13/18 at 21:00 Linagliptin (Tradjenta) 5 mg DAILY PO Last administered on 08/14/18at 12:10; Admin Dose 5 MG; Start 08/14/18 at 09:00 Fentanyl (Sublimaze) 25 mcg PACU ORDER PRN IV MILD PAIN 1-3; Start 08/14/18 at 11:00; Stop 08/14/18 at 15:00 Oxycodone/ Acetaminophen (Percocet (5/ 325)) 1 tab PACU ORDER PRN PO .PAIN 1-5; Start 08/14/18 at 11:00; Stop 08/14/18 at 15:00 Ondansetron HCl (Zofran Inj) 4 mg PACU ORDER PRN IV NAUSEA/VOMITING; Start 08/14/18 at 11:00; Stop 08/14/18 at 15:00 Labetalol HCl (Labetalol) 5 mg PACU ORDER PRN IV HIGH BLOOD PRESSURE; Start 08/14/18 at 11:00; Stop 08/14/18 at 15:00 Hydralazine HCl (Apresoline) 5 mg PACU ORDER PRN IV HIGH BLOOD PRESSURE; Start 08/14/18 at 11:00; Stop 08/14/18 at 15:00 Ephedrine Sulfate 5 mg PACU ORDER PRN IV BLOOD PRESSURE SUPPORT; Start 08/14/18 at 11:00; Stop 08/14/18 at 15:00 Albuterol (Proventil 0.083% (Neb)) 2.5 mg PACU ORDER PRN HHN .WHEEZING; Start 08/14/18 at 11:00; Stop 08/14/18 at 15:00 Meperidine HCl (Demerol) 25 mg PACU ORDER PRN IV .RIGORS; Start 08/14/18 at 11:00; Stop 08/14/18 at 15:00 Diphenhydramine HCl (Benadryl) 25 mg PACU ORDER PRN IV .PRURITUS; Start 08/14/18 at 11:00; Stop 08/14/18 at 15:00 REGINE LALA MD August 14, 2018 14:31
--- NOTE | 2018-08-14 14:38 | PDOCDIS ---
Discharge Instructions DIAGNOSIS Discharge Diagnosis 1. Sepsis secondary to cavitary pneumonia- improving 2. Cavitary pneumonia 3. Diabetes, noncompliant 4. Elevated liver enzymes- improving CONDITION [id number] Patient Condition: [id number] Stable HOME CARE INSTRUCTIONS: Droma0Mg Special Diet: [id number] low sugar, low carb diet ACTIVITY: [id number] Activity Restrictions: [id number] No Restrictions FOLLOW UP/APPOINTMENTS Follow-up Plan 1. Follow up with your primary care physician in 1 week. If you do not have a PCP to follow up with please go to [facility] or call Dr. Fran Tidwell's office to make an appointment 2. Continue on levaquin daily and doxycycline twice a day for 7 days to finish treatment of your pneumonia 3. It is important to follow a low sugar, low carbohydrate diet and take metformin and Tradjenta in addition to Insulin 8 units with meals and Lantus 16 units at night for proper glucose control 4. If experiencing any concerning symptoms, please return to the nearest emergency department REFERRALS Other Referrals Fran Tidwell MD Specialty Internal Medicine Comments Office Address [address] [place] [id number] Office REGINE LALA MD August 14, 2018 14:38
--- NOTE | 2018-08-14 15:41 | DS ---
Date/Time of Note Date/Time of Note DATE: 08/14/18 TIME: 15:34 Discharge Summary Admission/Discharge Info Admit Date/Time Aug 03, 2018 at 19:57 Discharge Date/Time 08/14/18 Discharge Diagnosis 1. Sepsis secondary to cavitary pneumonia- improving 2. Cavitary pneumonia 3. Diabetes, noncompliant 4. Elevated liver enzymes- improving Patient Condition: Stable Consults Cardiology- Dr. Cabrera Endocrinology- Dr. Black GI- Dr. Vital Pulmonology- Dr. Gomez Infectious disease- Dr. Zepeda Procedures Date/Time of Note Date/Time of Note DATE: 08/14/18 TIME: 11:04 Operative Report Preoperative Diagnosis 1.septic emboli Postoperative Diagnosis 1.no definite findings of vavular vegetation or other intracardiac source of infection Operation/Procedure Performed 1.PEPPER Hx of Present Illness Patient is a 28-year-old male with a history of type 2 diabetes who initially presented on outside hospital complaining of his blood glucose is high and also generalized weakness. He said he has not been taking his metformin for 2 months. At the outside facility, he is found to have a blood glucose greater than 700. No DKA. Patient was transferred to [facility] for insurance reason. Patient is somewhat cachectic. He also not interested in answering question and appears slightly sleepy but fully arousable. Hospital Course Patient was admitted for treatment of hyperglycemia and endocrinology was consulted for medication recommendations. Patient was also found with sepsis and elevated LFT. GI was consulted and imaging studies were performed with findings of nodular liver and scarring along the margins of spleen. Patient had CT chest performed with findings of cavitary lesions. Workup was performed given concern for septic emboli and Cardiology performed TTE and PEPPER which were negative for vegetation. After adjustments to diabetic regime, sugars were better controlled. Patient was continued on IV antibiotics per ID recommendations and transitioned to PO antibiotics given improved in overall condition. Patient returned to baseline and counseled about importance of medications compliance. patient remained stable and presenting symptoms improved significantly. Patient was discharged in stable condition with diabetic medications and course of antibiotics. Home Meds Active Scripts [place], Insulin Disposable (Kristin Pen Needle) 1 Each Dis.needle, EACH , #120 Prov:REGINE LALA MD 08/14/18 Insulin Aspart* (Novolog Insulin Pen*) 100 Unit/Ml Soln, 8 UNIT SC WITH MEALS for 30 Days, #10 EACH Prov:REGINE LALA MD 08/14/18 Insulin Glargine,Hum.rec.anlog (Basaglar Kwikpen U-100) 100 Unit/1 Ml Insuln.pen, 16 UNIT SC QPM for 30 Days, #6 EA Prov:REGINE LALA MD 08/14/18 Linagliptin (TRADJENTA) 5 Mg Tablet, 5 MG PO DAILY for 30 Days, #30 TAB Prov:REGINE LALA MD 08/14/18 Metformin* (Glucophage* XR) 500 Mg Tab.sr.24h, 1000 MG PO BID for 30 Days, #60 TAB Prov:REGINE LALA MD 08/14/18 Doxycycline Monohydrate* (Avidoxy*) 100 Mg Tablet, 100 MG PO BID for 7 Days, #14 TAB Prov:REGINE LALA MD 08/14/18 Levofloxacin* (Levaquin*) 500 Mg Tablet, 500 MG PO DAILY@06 for 7 Days, #7 TAB Prov:REGINE LALA MD 08/14/18 Follow-up Plan 1. Follow up with your primary care physician in 1 week. If you do not have a PCP to follow up with please go to [facility] or call Dr. Fran Tidwell's office to make an appointment 2. Continue on levaquin daily and doxycycline twice a day for 7 days to finish treatment of your pneumonia 3. It is important to follow a low sugar, low carbohydrate diet and take metformin and Tradjenta in addition to Insulin 8 units with meals and Lantus 16 units at night for proper glucose control 4. If experiencing any concerning symptoms, please return to the nearest emergency department Primary Care Provider Not On Staff Doctor Time spent on discharge: > 30 minutes Pending Labs Laboratory Tests Test 08/13/18 17:36 08/13/18 20:47 08/14/18 01:57 08/14/18 06:14 Bedside 213 187 165 Glucose mg/dL (70-220) mg/dL (70-220) mg/dL (70-220) White Blood 14.8 Count 10^3/ul (4.8-1 0.8) Red Blood 4.84 Count 10^6/ul (4.70- 6.10) Hemoglobin 13.1 g/dl (14.0-18. 0) Hematocrit 39.2 % (42.0-52.0) Mean 81.0 Corpuscular fl (82.0-101.0 Volume ) Mean 27.1 Corpuscular pg (29.0-33.0) Hemoglobin Mean 33.4 Corpuscular g/dl (32.0-37. Hemoglobin Conc 0) ent Red Cell 12.4 Distribution % (11.5-14.5) Width Platelet Count 374 10^3/UL (140-4 15) Mean Platelet 9.6 Volume fl (7.4-10.4) Immature 1.000 Granulocytes % % (0.001-0.429 ) Neutrophils % 67.8 % (39.0-77.0) Lymphocytes % 18.4 % (15.0-51.0) Monocytes % 12.0 % (0.0-11.0) Eosinophils % 0.2 % (0.0-7.0) Basophils % 0.6 % (0.0-2.0) Nucleated Red 0.0 Blood Cells % /100WBC (0.0-0 .0) Immature 0.150 Granulocytes # 10^3/ul (0.0-0 .031) Neutrophils # 10.0 10^3/ul (1.6-7 .5) Lymphocytes # 2.7 10^3/ul (0.8-2 .9) Monocytes # 1.8 10^3/ul (0.3-0 .9) Eosinophils # 0.0 10^3/ul (0.0-0 .5) Basophils # 0.1 10^3/ul (0.0-0 .1) Nucleated Red 0.0 Blood Cells # 10^3/ul (0.0-0 .0) Prothrombin 11.6 Time Sec (11.9-14.9 ) Prothrombin 0.9 Time Ratio INR 0.84 International Normalized Rati o Activated 30.3 Partial Thrombo Sec (23.0-35.0 plast Time ) Sodium Level 137 mmol/L (135-14 4) Potassium 3.9 Level mmol/L (3.5-5. 1) Chloride Level 96 mmol/L (97-110 ) Carbon Dioxide 27 Level mmol/L (21-31) Anion Gap 14 (5-13) Blood Urea 29 Nitrogen mg/dl (7-20) Creatinine 0.87 mg/dl (0.61-1. 24) Est Glomerular > 60 Filtrat mL/min (>60) Rate mL/min Glucose Level 152 mg/dl (70-220) Calcium Level 10.3 mg/dl (8.4-10. 2) Test 08/14/18 07:57 08/14/18 10:51 08/14/18 12:05 Bedside 147 175 163 Glucose mg/dL (70-220) mg/dL (70-220) mg/dL (70-220) REGINE LALA MD August 14, 2018 15:41
--- NOTE | 2018-08-14 17:25 | CARRPT ---
DATE OF PROCEDURE: 08/14/2018 TYPE OF PROCEDURE: Transesophageal echo. ATTENDING PHYSICIAN: Jarrod Cabrera MD REFERRING PHYSICIAN: Gustavo Grewal MD. INDICATION: Septic emboli. Assess for intracardiac source of infection, rule out endocarditis BRIEF HISTORY AND HOSPITAL COURSE: Mr. Lawton is a 28-year-old male with a history of substance abu se who found to have possible septic emboli by chest CT and therefore, was referred for transesophage al echo to further assess possibility of cardiac source of infection. DESCRIPTION OF PROCEDURE: After informed consent was obtained, the patient was brought to the [facility] cardiac catheterization lab where he was connected to continuous telemetry mon itoring, continuous O2 saturation monitoring and blood pressure cuff cycling every 3 to 5 minutes. T he patient had a bite block placed in his mouth and was given MAC anesthesia under the direction of a nesthesiologist at bedside with propofol to achieve adequate level of anesthesia. The patient's esop hagus was intubated with transesophageal probe and using multiplanar imaging and color flow Doppler i nterrogation, the patient's intracardiac structures were adequately interrogated. At this time, we a ssessed the patient's proximal descending aorta, transverse and ascending aorta and the probe was rem rufino. The patient was allowed to awake from his anesthetized state, completing the procedure. There were no noted complications. FINDINGS: 1. LV systolic function. Possibly mildly depressed. 2. No definite findings of left atrial or left atrial appendage thrombus or spontaneous contrast. 3. Left atrial appendage velocity approximately 40 cm per second. 4. No definite findings from foramen ovale or other interatrial septal defect by color flow Doppler interrogation of septum only. 5. Normal-appearing aortic valve apparatus. No aortic regurgitation. No associated vegetations wit h this valve apparatus. 6. Normal-appearing mitral apparatus, trace mitral regurgitation. No associated palpitations with t his valve apparatus. 7. Pulmonic apparatus. Normal appearing, reasonably visualized with no definite vegetations associa chalino with this valve apparatus. 8. Tricuspid valve apparatus. Mildly redundant tricuspid valve leaflets with trace to mild tricuspi d regurgitation and no definite findings of valvular vegetations associated with this apparatus. 9. A very, very mild eschar block of the patient's descending and distal ascending aorta. IMPRESSION: No definite findings of valvular vegetations associated with any of the well visualized valvular apparatus. 1. We will continue to assess for alternative sources of infection. Dictated By: JARROD HICKS/KRISS Conf#: [id number] DID#: [id number] CC: GUSTAVO GREWAL MD;*EndCC*
--- NOTE | 2018-08-17 09:37 | RADRPT ---
Vent Rate: 98 bpm RR Interval: 616 msec UT Interval: 127 msec QRS Duration: 75 msec QT Interval: 309 msec QTC Interval: 394 msec P-R-T Prim: 67 - 58 - 52 degrees Sinus rhythm...normal P axis, V-rate 50- 99 ST elev, probable normal early repol pattern...ST elevation, age<55 Electronically Signed By: Vidal Huston
== END 2018-08-14 18:10 | disposition home or self-care (01) | DRG 871 ==
LOC: TEL 19:57 → MS1 08-07 20:55 → ICU 08-09 11:31 → TEL 08-12 21:51
PROVIDERS: ADMIT Internal Medicine; ATTEND Internal Medicine
PROC: B24BZZ4 Ultrasonography of Heart with Aorta, Transesophageal (ICD-10-PCS; principal; 2018-08-14 10:00)
DX: A41.9 Sepsis, unspecified organism (principal); E43 Unspecified severe protein-calorie malnutrition; J18.9 Pneumonia, unspecified organism; Z68.1 Body mass index [BMI] 19.9 or less, adult; I95.9 Hypotension, unspecified; E11.65 Type 2 diabetes mellitus with hyperglycemia; E83.42 Hypomagnesemia; R62.7 Adult failure to thrive; E87.6 Hypokalemia; E86.0 Dehydration; D72.829 Elevated white blood cell count, unspecified; Z79.4 Long term (current) use of insulin
CPT/HCPCS: 71045; 71260; 74177; 74181; 76700; 80048; 80053; 80076; 80202; 81003; 82962; 82977; 83036; 83605; 83615; 83735; 84080; 84100; 84681; 85014; 85018; 85025; 85610; 85730; 86255; 86341; 86580; 86641; 86703; 86704; 86709; 86803; 87081; 87086; 87340; 93005; 93306; 93312; 93325; J0692; J1644; J1815; J1956; J2250; J2543; J3370; J3475; J3480; J7030; J7042; Q9967